=== PATIENT | male | born 1940 | race Caucasian/White ===

== ENCOUNTER 2018-02-13 18:37 | Observation (INO) | payer MEDICARE, OTHER, SELFPAY ==
[2018-02-13] VITALS (10 sets, daily range): BP systolic 85–154; BP diastolic 65–89; PULSE 78–82; RESP 14–20; TEMP 36.5–37.1; O2SAT 93–99; BMI 23.6; BMI 23.9
--- NOTE | 2018-02-13 19:01 | EKG12_ITS ---
Test Reason : Blood Pressure : / mmHG Vent. Rate : 079 BPM Atrial Rate : 079 BPM P-R Int : 204 ms QRS Dur : 088 ms QT Int : 412 ms P-R-T Axes : 007 -10 030 degrees QTc Int : 472 ms Normal sinus rhythm Minimal voltage criteria for LVH, may be normal variant Borderline ECG Confirmed by BEVERLY LI, REMI ([id number]), order editor VENKATESH FOSTER ([id number]) on 02/15/2018 2:13:11 PM Referred By: JESE Confirmed By:ERMI PAUL MD
--- NOTE | 2018-02-13 19:01 | RAD_ITS ---
STUDY: X-RAY CHEST REASON FOR EXAM: Male, 77 years old. Low blood count this morning. Daughter states seeing altered consciousness. TECHNIQUE: Single AP portable view of the chest. COMPARISON: None. FINDINGS: The lungs are well expanded. There is diffuse interstitial changes thought to be chronic. There is question of bibasilar atelectasis versus infiltrate. There is no demonstrated pleural abnormality. Normal size heart. Normal mediastinum and kalee. Normal visualized pulmonary arteries. There is atherosclerotic tortuosity of the aortic arch and descending thoracic aorta. The thoracic spine is obscured by the mediastinum. There is degenerative osteoarthritis of the bilateral shoulders. There is no demonstrated abnormality of the visualized soft tissue structures of the upper abdomen. RAD/Chest 1 View (Portable) IMPRESSION: Bibasilar atelectasis versus infiltrate. Electronically Signed: Mariusz Anaya DO at 19:28 EDT Tel [phone], Service support ,
--- NOTE | 2018-02-13 19:09 | ED.RN ---
NO OLD EKGS IN MUSE
[2018-02-13 19:57] LABS: Absolute Lymphocyte Count 0.95 X10^3/ul (0.83-4.51); Absolute Neutrophil Count 3.3 X10^3/uL (2.0-7.7); Basophil# 0.01 X10^3/uL; Basophil% 0.2 % (0-1); Eosinophils% 4.1 % (0-5); Hematocrit 26.6 % (40-54); Lymphocyte # 0.95 X10^3/ul (4.0); Lymphocyte % 19.3 % (19-41); Mean Corp Hgb Conc 30.1 g/gl (32-36); Mean Corpuscular Hgb 25.8 pg (27.0-32.0); Mean Corpuscular Volume 85.8 fL (80-94); Mean Platelet Vol. 10.3 fl (6.2-12.0); Monocyte# 0.43 X10^3/uL; Monocyte% 8.8 % (0-10); Neutrophil # 3.32 X10^3/uL (2.7-7.7); Neutrophil % 67.6 % (47-70); Platelet Count 104 K/mm3 (150-450); RBC Distribution Width CV 17.8 % (11.6-14.6); RBC Distribution Width SD 56.3 fl (35.1-43.9); White Blood Count 4.9 K/mm3 (4.4-11.0)
[2018-02-13 20:00] LABS: International Normalized Ratio 1.1; Prothrombin Time (Protime)PT. 14.4 SECONDS (11.7-14.9)
[2018-02-13] MEDS: 0.9% Normal Saline 1,000 ML 150 ML IV (20:01)
[2018-02-13 20:02] LABS: POSITIVE COUNT NO; POSITIVE DIFFERENTIAL NO; POSITIVE MORPHOLOGY NO
[2018-02-13 20:10] LABS: ALB/GLOB Ratio 0.7 RATIO (0.9-2.4); AST(SGOT) 17 U/L (15-37); Alanine Aminotransfer ALT/SGPT 14 U/L (16-61); Albumin, Serum 2.9 g/dL (3.2-5.0); Alkaline Phosphatase 92 U/L (45-117); Anion Gap 9 (5-15); BUN 16 mg/dL (7-18); BUN/Creat Ratio 14.3 RATIO (10-20); Calcium,Total 8.4 mg/dL (8.5-10.1); Chloride 100 mmol/L (98-107); Creatinine, Serum 1.12 mg/dL (0.70-1.30); EST Glomerular Filtration Rate 68 mL/min (>60); Est Glom Filt Rate - Afr Amer 82 mL/min (>60); Estimated Creatinine Clearance 56.99 ml/min; Globulin 4.1 g/dL (2.2-4.2); Glucose 88 mg/dL (74-106); Lactic Acid 1.7 mmol/L (0.4-2.0); Potassium 3.9 mmol/L (3.5-5.1); Sodium Level 138 mmol/L (136-145)
[2018-02-13 21:09] LABS: Bacteria 0 SEEN /hpf (None Seen)
[2018-02-13 21:14] LABS: Color, Urine Yellow (Yellow); Glucose, Dipstick Normal (Normal); Ketone-Dipstick Negative (Negative); Leukocyte Esterase-Dipstick 100 /ul (Negative); Nitrite-Dipstick Negative (Negative); Occult Blood-Urine Negative /ul (Negative); Protein-Dipstick Negative (Negative); Specific Gravity, Urine 1.015 (1.002-1.030); Urine Bilirubin Dipstick Negative (Negative); Urine Clarity Clear (Clear); Urine Urobilinogen Normal (Normal)
[2018-02-13 21:22] LABS: Squamous Epithelial Cells - UA 0-5 SEEN /hpf (0-5); White Blood Cells 0-5 SEEN /hpf (0-5)
[2018-02-13 21:23] LABS: Hyaline Cast 0-5 SEEN /lpf (0-5); Mucous, Urine 1+ /hpf (<or=2+); Red Blood Cells-Urine 0-5 SEEN /hpf (0-5)
--- NOTE | 2018-02-13 21:28 | PCM.HP.STD ---
Problem List (1) Altered level of consciousness Status: Acute (2) Anemia Status: Acute (3) COPD (chronic obstructive pulmonary disease) Status: Chronic (4) History of lung cancer Status: Chronic (5) Cirrhosis Status: Chronic History of Present Illness Date of Admission: 02/13/18 Chief Complaint: change in mental status The patient is a 77 year old male patient with a history of lung cancer (in remission), COPD, anemia, cirrhosis presents to the ER with a change in mental status. According to his daughter , the senior backup administrator of the nursing facility, he was unable to call her by name this morning and was very confused. He is currently lucid and alert and improved according to his daughter. The patient easily becomes short of breath with exertion. He does have COPD and is dependent on oxygen using 4 liters continuously. He denies chest pain and is not short of breath at rest. No nausea , vomiting or diarrhea. CBC reveals a hemoglobin of 7.7 and Hemoccult stool is negative. WBC count is within normal limits and vital signs are stable as well. The daughter expressed wishes to keep him at a full code status. He will be admitted overnight for observation and will be transfused. If remains lucid and stable he may be discharged back to rehab facility. Past Medical History Past Medical History (Chronic Problems): Chronic Problems COPD (chronic obstructive pulmonary disease) (Chronic) History of lung cancer (Chronic) Cirrhosis (Chronic) Allergies morphine Allergy (Verified 02/13/18 18:39) Rash Home Medications: Ambulatory Orders Medication Instructions Recorded Acetaminophen [Tylenol] 650 mg PO PRN PRN 02/13/18 Albuterol Inhaler [Ventolin Hfa 2 puff INHALATION 4X/DAY PRN 02/13/18 (SP)] Amoxicillin/Potassium Clav 1 tab PO BID 02/13/18 [Augmentin 875-125 Tablet] Ascorbic Acid [Vitamin C] 500 mg PO DAILY 02/13/18 Bisacodyl 5 mg PO DAILY 02/13/18 Bisacodyl 10 mg RC DAILY 02/13/18 Cholecalciferol (Vitamin D3) 2,000 unit PO DAILY 02/13/18 [Vitamin D3] Diltiazem HCl [Cardizem LA] 120 mg PO DAILY 02/13/18 Duloxetine Hcl [Cymbalta] 30 mg PO DAILY 02/13/18 Finasteride [Proscar] 5 mg PO QHS 02/13/18 Furosemide [Lasix] 20 mg PO DAILY 02/13/18 Ipratropium/Albuterol Sulfate 3 ml INHALATION Q4H PRN PRN 02/13/18 [Duoneb] Isosorbide Mononitrate [Imdur] 30 mg PO DAILY 02/13/18 Lactobacillus Acidophilus 1 tab PO BID 02/13/18 [Acidophilus] Levothyroxine [Synthroid] 56 mcg PO DAILY 02/13/18 Lorazepam [Ativan] 0.5 mg PO BID PRN PRN 02/13/18 Magnesium Hydroxide [Milk of 30 ml PO DAILY 02/13/18 Magnesia] Metoprolol Tartrate 50 mg PO BID 02/13/18 Nortriptyline HCl 75 mg PO QHS 02/13/18 Omeprazole 40 mg PO DAILY 02/13/18 Ondansetron HCl [Zofran] 4 mg PO Q8H PRN PRN 02/13/18 Oxycodone HCl [Roxicodone] 5 mg PO Q6H PRN PRN 02/13/18 Polyethylene Glycol 3350 [Purelax] 17 gm PO DAILY 02/13/18 Potassium Chloride [Klor-Con M10] 10 meq PO DAILY 02/13/18 Sennosides [Senna] 8.6 mg PO BID 02/13/18 Simvastatin 20 mg PO QHS 02/13/18 Tamsulosin HCl [Flomax] 0.4 mg PO QHS 02/13/18 Tramadol HCl [Ultram] 50 mg PO 4X/DAY 02/13/18 Tramadol HCl [Ultram] 50 mg PO Q12H PRN PRN 02/13/18 fentaNYL patch [Duragesic patch] 25 mcg TRANSDERM. Q72H 02/13/18 Smoking Status: Former smoker - *Family History Maternal History Items: No pertinent history Review of Systems Constitutional: Reports: Malaise, Weakness, Fatigue. Denies: Chills, Fever, Weight Change HEENT: Denies: Head Aches, Sinus Congestion, Sinus Drainage Cardiovascular: Denies: Chest Pain, Palpitations Respiratory: Denies: Cough, Shortness of breath at rest, Sputum production Gastrointestinal: Denies: Abdominal Pain, Nausea, Vomiting Genitourinary: Denies: Dysuria Musculoskeletal: Denies: Joint Pain, Joint Tenderness Skin: Denies: Rash, Wounds Neurological: Reports: Confusion. Denies: Focal weakness, Numbness, Tingling Psychiatric: Denies: Anxiety, Depression, Homicidal Ideations, Suicidal Ideations Hematologic/ Lymphatic: Denies: Easy Bruising, Easy Bleeding VTE Information - Inpt Only VTE Present on Admission: No VTE Mechan Device Prophylaxis: SCD's VTE Pharm Prophylaxis ordered?: No Patient Problems: Active and Suspected Problems Altered level of consciousness (Acute) Anemia (Acute) - Physical Exam General: Alert, Oriented x3, Cooperative HEENT: Atraumatic, PERRLA, EOMI, Normocephalic Neck: Supple Lungs: No rhonchi, No wheeze, No rales, Diminished Cardiovascular: Regular rate, Normal S1, Normal S2, Murmur - 4/6 holosystolic Abdomen: Bowel Sounds Present, Soft, Non Tender Extremities: No edema Skin: No rashes Musculoskeletal: No Tenderness to Palpation of Joints or Extremities Neurological: Neuro grossly intact Psych/Mental Status: Normal Affect, Appropriate Vital Signs Temp Pulse Resp BP Pulse Ox 98.8 F 78 14 113/71 97 02/13/18 19:27 02/13/18 21:24 02/13/18 21:24 02/13/18 21:24 02/13/18 21:24 Oxygen Flow Rate (L/min) 2 Oxygen Delivery Method Nasal Cannula Weight: 160 lb Body Mass Index (BMI) 23.6 Microbiology Past 72 Hours 02/13/18 19:30 Stool Occult Blood (EVELINA) - Final Stool Laboratory Tests Past 24 Hrs 02/13/18 02/13/18 02/13/18 19:10 19:10 19:10 WBC 4.9 RBC 3.10 L Hgb 8.0 L Hct 26.6 L MCV 85.8 MCH 25.8 L MCHC 30.1 L RDW 17.8 H RDW Differential 56.3 H Plt Count 104 L MPV 10.3 Immature Gran % (Auto) 0.000 Neut % (Auto) 67.6 Lymph % (Auto) 19.3 [facility] % (Auto) 8.8 Eos % (Auto) 4.1 Baso % (Auto) 0.2 Absolute Neuts (auto) 3.3 Absolute Lymphs (auto) 0.95 Total Counted Not Reportable PT 14.4 INR 1.1 APTT 34.0 Sodium 138 Potassium 3.9 Chloride 100 Carbon Dioxide 29.0 Anion Gap 9 BUN 16 Creatinine 1.12 Estim Creat Clear Calc 56.99 Est GFR (MDRD) Af Amer 82 Est GFR (MDRD) Non-Af 68 BUN/Creatinine Ratio 14.3 Glucose 88 Lactic Acid Calcium 8.4 L Total Bilirubin 0.40 AST 17 ALT 14 L Alkaline Phosphatase 92 Troponin I < 0.015 Total Protein 7.0 Albumin 2.9 L Globulin 4.1 Albumin/Globulin Ratio 0.7 L Urine Color Urine Clarity Urine pH Ur Specific Odell Urine Protein Urine Glucose (UA) Urine Ketones Urine Occult Blood Urine Nitrite Urine Bilirubin Urine Urobilinogen Ur Leukocyte Esterase Urine RBC Urine WBC Ur Squamous Epith Cells Urine Bacteria Hyaline Casts Urine Mucus Blood Type Antibody Screen 02/13/18 02/13/18 02/13/18 19:10 19:10 21:00 WBC RBC Hgb Hct MCV MCH MCHC RDW RDW Differential Plt Count MPV Immature Gran % (Auto) Neut % (Auto) Lymph % (Auto) [facility] % (Auto) Eos % (Auto) Baso % (Auto) Absolute Neuts (auto) Absolute Lymphs (auto) Total Counted PT INR APTT Sodium Potassium Chloride Carbon Dioxide Anion Gap BUN Creatinine Estim Creat Clear Calc Est GFR (MDRD) Af Amer Est GFR (MDRD) Non-Af BUN/Creatinine Ratio Glucose Lactic Acid 1.7 Calcium Total Bilirubin AST ALT Alkaline Phosphatase Troponin I Total Protein Albumin Globulin Albumin/Globulin Ratio Urine Color Yellow Urine Clarity Clear Urine pH 6.0 Ur Specific Odell 1.015 Urine Protein Negative Urine Glucose (UA) Normal Urine Ketones Negative Urine Occult Blood Negative Urine Nitrite Negative Urine Bilirubin Negative Urine Urobilinogen Normal Ur Leukocyte Esterase 100 H Urine RBC 0-5 SEEN Urine WBC 0-5 SEEN Ur Squamous Epith Cells 0-5 SEEN Urine Bacteria 0 SEEN Hyaline Casts 0-5 SEEN Urine Mucus 1+ Blood Type O POSITIVE Antibody Screen NEGATIVE Assessment/Plan All Active Problems Altered level of consciousness (Acute) Anemia (Acute) Chronic conditions - COPD - Cirrhosis - history of lung cancer - debility Plan - admit to medical surgical floor for observation - type cross and transfuse 1 units PRBC - cbc bmp in am - regular diet - neuro checks q 4 hrs - scds for DVT prophylaxis - continue routine home medications
--- NOTE | 2018-02-13 21:49 | ED.DCSUM_ITS ---
- ER Visit Summary Date of Service: 02/13/18 Chief Complaint: Altered mental status History of Present Illness: The patient is a 77 M who resides at rehab for recurrent pneumonias since May. He was briefly confused this morning, but this resolved. He had been complaining of some shortness of breath. He has a history of COPD and uses 4 L of oxygen normally. He was found to have a hemoglobin of 7.7 on labs. He denies any bleeding. Denies any blood thinners. Denies any blood or black stools. He has had anemia in the past and required transfusions. He is not sure why he was anemic. Physical Examination: Initial blood pressure was 85/65, but repeat was 112/58 without intervention. Afebrile and vitals unremarkable. Alert and oriented. No acute distress. HEENT exam unremarkable. Skin slightly pale. Heart regular rate and rhythm. Lungs show crackles in the bases. Abdomen soft and nontender. Rectal exam showed no gross blood. Extremities show no edema. Alert and oriented. Test Results: EKG showed sinus rhythm rate of 79. He will open 8.0. Platelets 104. BMP normal. ALT 114. Coags normal. Urinalysis pending. Troponin normal. Lactate 1.7. Cultures pending. Fecal occult blood test negative. Emergency Department Course and Treatment: Patient treated with fluids. Placed on a monitor. He had no interval change on reevaluation. Vitals of blood pressure remained stable. No change in his symptoms. Patient is anemic. He has chronic lung disease. He has been in rehab. I am not sure why he was confused, but he seems to be improved and stable at this point. No other neurologic symptoms or abnormal findings. Patient was discussed with the hospitalist for his age, symptoms, and comorbidities. He will be observed. Treatment Plan: As above Disposition: Admission Impression: 1. Dyspnea 2. Anemia This note was generated with [employer] dictation software. It may contain incorrect words, spelling, and punctuation that were not noted in review of the chart prior to signing ED Disposition - Plan for ED Patient: Chief Complaint: Alt LOC Referrals: Tristin Marks [Primary Care Provider] -
[2018-02-13] MEDS: Senna Tablet 1 TABLET PO (23:39)
[2018-02-13] MEDS: Tamsulosin HCl 0.4 MG Capsule PO (23:39)
[2018-02-13] MEDS: Metoprolol Tartrate 50 MG Tablet PO (23:40)
[2018-02-13] MEDS: Atorvastatin Calcium 10 MG Tablet PO (23:40)
[2018-02-13] MEDS: Nortriptyline 25 MG Capsule 75 MG PO (23:40)
[2018-02-13] MEDS: Finasteride 5 MG Tablet PO (23:41)
[2018-02-13] MEDS: Amox/Clavulanate 875 MG Tablet PO (23:43)
[2018-02-14] VITALS (7 sets, daily range): BP systolic 128–158; BP diastolic 64–79; PULSE 77–89; RESP 16–22; TEMP 36.2–36.8; O2SAT 94–98
[2018-02-14] MEDS: 0.9% NaCl Peripheral Flush Adult/Peds IV (02:17)
[2018-02-14 07:35] LABS: Absolute Lymphocyte Count 0.83 X10^3/ul (0.83-4.51); Basophil# 0.01 X10^3/uL; Basophil% 0.2 % (0-1); Eosinophil# 0.16 X10^3/uL; Eosinophils% 3.6 % (0-5); Hematocrit 29.3 % (40-54); Hemoglobin 8.9 g/dl (13.0-16.5); Lymphocyte # 0.83 X10^3/ul (4.0); Lymphocyte % 18.8 % (19-41); Mean Corp Hgb Conc 30.4 g/gl (32-36); Mean Corpuscular Hgb 26.3 pg (27.0-32.0); Mean Corpuscular Volume 86.4 fL (80-94); Mean Platelet Vol. 9.9 fl (6.2-12.0); Monocyte# 0.41 X10^3/uL; Monocyte% 9.3 % (0-10); Neutrophil # 2.99 X10^3/uL (2.7-7.7); Neutrophil % 67.9 % (47-70); Platelet Count 96 K/mm3 (150-450); RBC Distribution Width CV 17.4 % (11.6-14.6); RBC Distribution Width SD 53.7 fl (35.1-43.9); Red Blood Count 3.39 M/mm3 (4.6-6.2); White Blood Count 4.4 K/mm3 (4.4-11.0)
[2018-02-14 07:37] LABS: POSITIVE COUNT NO; POSITIVE DIFFERENTIAL NO; POSITIVE MORPHOLOGY NO
[2018-02-14 07:55] LABS: Anion Gap 7 (5-15); BUN 15 mg/dL (7-18); BUN/Creat Ratio 16.3 RATIO (10-20); Calcium,Total 8.3 mg/dL (8.5-10.1); Chloride 101 mmol/L (98-107); Creatinine, Serum 0.92 mg/dL (0.70-1.30); EST Glomerular Filtration Rate 85 mL/min (>60); Est Glom Filt Rate - Afr Amer 103 mL/min (>60); Estimated Creatinine Clearance 67.12 ml/min; Glucose 99 mg/dL (74-106); Potassium 3.8 mmol/L (3.5-5.1); Sodium Level 139 mmol/L (136-145)
[2018-02-14] MEDS: Levothyroxine 112 MCG Tablet 56 MCG PO (09:29)
[2018-02-14] MEDS: Pantoprazole Sodium 40 MG Tablet PO (09:32)
--- NOTE | 2018-02-14 11:09 | CASEMGMT ---
Social Work Note BRIANNE met with pt as pt is listed at being from [facility] ([place] [facility] in [place]). BRIANNE met with pt. BRIANNE introduced self and role at [facility]. Pt is alert and orientated x3. Pt confirms that he is from [facility] [place] [facility] in [place] and that the plan is for him to return there at discharge. BRIANNE placed a call to [place] [facility] and spoke with Rhona in admissions who confirms that pt is from facility skilled and he is able to return to skilled when medically cleared. Rhona provided fax number [phone], phone number [phone]. BRIANNE faxed clinicals to Rhona in admissions. Green sheet on chart. Plan: Pt to return to [facility] [place] [facility] in [place] when medically cleared Anita Gibbons CARD CHECKER, STRAIGHT PIN MAKING MACHINE OPERATOR
[2018-02-14] MEDS: Metoprolol Tartrate 50 MG Tablet PO (12:11)
[2018-02-14] MEDS: DULoxetine Hcl 30 MG Capsule PO (12:12)
[2018-02-14] MEDS: Amox/Clavulanate 875 MG Tablet PO (12:12)
[2018-02-14] MEDS: Furosemide 20 MG Tablet PO (12:13)
[2018-02-14] MEDS: Bisacodyl 5 MG Tablet PO (12:13)
[2018-02-14] MEDS: dilTIAZem CD 120 MG Capsule PO (12:13)
[2018-02-14] MEDS: Ascorbic Acid 500 MG Tablet PO (12:14)
[2018-02-14] MEDS: Magnesium Hydroxide 30 ML UDC PO (12:14)
[2018-02-14] MEDS: Isosorbide Mononitrate 30 MG Tablet PO (12:14)
[2018-02-14] MEDS: Senna Tablet 1 TABLET PO (12:15)
[2018-02-14] MEDS: Polyethylene Glycol 3350 17 GM PACKET PO (12:15)
[2018-02-14 13:16] LABS: Iron 108 ug/dL (65-175); Iron Binding Capacity,Total 325 ug/dL (250-450); PERCENT IRON SATURATION 33.2 % (15.0-55.0)
[2018-02-14] MEDS: Acetaminophen 325 MG Tablet 650 MG PO (14:25)
--- NOTE | 2018-02-14 14:55 | PCM.TXEXTCAR ---
- Diet regular - Routine Orders/Code Status O2 Liters per Minute: 4 O2 Frequency: Continuous - Therapies Weight Bearing: Weight bearing as tolerated - Problem/Diagnosis (1) Chronic respiratory failure with hypoxia Status: Chronic Current Visit: Yes (2) Anemia Status: Acute Comment: etiology unknown Current Visit: Yes (3) COPD (chronic obstructive pulmonary disease) Status: Chronic Current Visit: Yes (4) Cirrhosis Status: Chronic Current Visit: Yes (5) Encephalopathy Status: Acute Comment: etiology unknown Current Visit: Yes - Allergies/Procedures Done in Hospital Allergies/Adverse Reactions: Allergies morphine Allergy (Verified 02/13/18 18:39) Rash Procedures: - - blood transfusion - Type of Care/Length of Stay Estimated LOS: Convalescent Care Less Than 30 days Type of Care Needed: Skilled Rehab Potential: Good Prognosis: Good - Additional Orders/Day of Discharge H&P will serve as current which was dated: 02/13/18 Day of Discharge: 02/14/18 - Follow Up Care Primary Care Physician: Tristin Marks [Primary Care Provider] -
--- NOTE | 2018-02-14 15:00 | CASEMGMT ---
Social Work Note Physician is discharging pt today. BRIANNE faxed discharge paperwork to [place] [facility] ([facility]) including transfer to extended care facility, signed medication list and any scripts. Originals in SNF folder and copy on pt's chart. BRIANNE set up transportation via cot through [facility] for 6:00pm. Transportation form on SNF folder and copy on pt's chart. HENS doesn't need to be completed as pt is from skilled side at SNF and will be returning to skilled side at SNF. SW in to update pt of discharge and transportation time. Pt states understanding. Pt gave this worker permission to call pt's daughter to update on discharge and transportation time. SW placed a call to pt's daughter Winifred and left her a voicemail. BRIANNE updated Wedron Kasandra, Charge Nurse Radha and RN Dara of transportation time. Plan: Pt to discharge to [place] [facility] today via cot with [employer] [employer] Anita Gibbons CASH VAN SALESPERSON, CHEMICAL TREATMENT PLANT TECHNICIAN
--- NOTE | 2018-02-14 16:43 | NURSING ---
REPORT CALLED TO [facility] AT [facility] AND SPOKE WITH KATERYNA BELLAMY
--- NOTE | 2018-02-17 17:44 | PCM.DC.SUM ---
Discharge Date and Diagnosis Date of Admission: 02/13/18 Date of Discharge: 02/14/18 - Primary Discharge Diagnosis #1 acute on chronic anemia-etiology unknown #2 lethargy secondary to acute on chronic anemia with a backdrop of chronic obstructive pulmonary disease and chronic hypoxic respiratory failure #3 chronic hypoxic respiratory failure #4 COPD #5 dementia - Secondary Discharge Diagnosis Chronic Problems COPD (chronic obstructive pulmonary disease) (Chronic) History of lung cancer (Chronic) Cirrhosis (Chronic) Chronic respiratory failure with hypoxia (Chronic) Hospital Course and Treatment Operations: None Procedures: Blood transfusion Summary of Care Provided: The patient is a 77 year old M who was seen in the emergency room at [facility] after being sent in from a local extended care facility due to lethargy. Patient has a history of dementia, chronic hypoxic respiratory failure, and COPD. Workup in the emergency room included labs which showed a hemoglobin of 8, patient's chemistry profile was unremarkable, the patient's liver profile was unremarkable. Chest x-ray showed bibasilar atelectasis. Patient was placed in observation status on MedSurg 3, the patient was transfused 1 unit of packed red blood cells. Discussions were carried out with the patient's POA who did not want further testing on the patient such as an upper GI or lower GI workup. Additional testing was performed in the hospital and it was noted that the patient was not iron deficient and his ammonia level was normal. The reason for the patient's mental status change at the extended care facility was not known. On 02/14/18, patient was seen and examined felt to be in stable condition for transfer back to his extended care facility. Home Medications: Medications to take at Discharge Acetaminophen [Tylenol] 650 mg PO PRN PRN 02/13/18 Albuterol Inhaler [Ventolin Hfa] 2 puff INHALATION 4X/DAY PRN 02/13/18 Amoxicillin/Potassium Clav [Augmentin 875-125 Tablet] 1 tab PO BID 02/13/18 Ascorbic Acid [Vitamin C] 500 mg PO DAILY 02/13/18 Bisacodyl 5 mg PO DAILY 02/13/18 Bisacodyl 10 mg RC DAILY 02/13/18 Cholecalciferol (Vitamin D3) [Vitamin D3] 2,000 unit PO DAILY 02/13/18 Diltiazem HCl [Cardizem LA] 120 mg PO DAILY 02/13/18 Duloxetine Hcl [Cymbalta] 30 mg PO DAILY 02/13/18 Finasteride [Proscar] 5 mg PO QHS 02/13/18 Furosemide [Lasix] 20 mg PO DAILY 02/13/18 Ipratropium/Albuterol Sulfate [Duoneb] 3 ml INHALATION Q4H PRN PRN 02/13/18 Isosorbide Mononitrate [Imdur] 30 mg PO DAILY 02/13/18 Lactobacillus Acidophilus [Acidophilus] 1 tab PO BID 02/13/18 Levothyroxine [Synthroid] 56 mcg PO DAILY 02/13/18 Magnesium Hydroxide [Milk of Magnesia] 30 ml PO DAILY 02/13/18 Metoprolol Tartrate 50 mg PO BID 02/13/18 Nortriptyline HCl 75 mg PO QHS 02/13/18 Omeprazole 40 mg PO DAILY 02/13/18 Ondansetron HCl [Zofran] 4 mg PO Q8H PRN PRN 02/13/18 Polyethylene Glycol 3350 [Purelax] 17 gm PO DAILY 02/13/18 Potassium Chloride [Klor-Con M10] 10 meq PO DAILY 02/13/18 Sennosides [Senna] 8.6 mg PO BID 02/13/18 Simvastatin 20 mg PO QHS 02/13/18 Tamsulosin HCl [Flomax] 0.4 mg PO QHS 02/13/18 Lorazepam [Ativan] 0.5 mg PO BID PRN PRN #10 tab 02/14/18 Oxycodone HCl [Roxicodone] 5 mg PO Q6H PRN PRN 3 Days #10 tab 02/14/18 Tramadol HCl [Ultram] 50 mg PO 4X/DAY #12 tab 02/14/18 Tramadol HCl [Ultram] 50 mg PO Q12H PRN PRN 5 Days #10 tab 02/14/18 fentaNYL patch [Duragesic patch] 25 mcg TRANSDERM. Q72H 9 Days #3 patch 02/14/18 Following Prescrptions Were Given to Patient: Oxycodone HCl [Roxicodone] 5 mg PO Q6H PRN PRN 3 Days #10 tab PRN Reason: CHRONIC PAIN Tramadol HCl [Ultram] 50 mg PO Q12H PRN PRN 5 Days #10 tab PRN Reason: Pain fentaNYL patch [Duragesic patch] 25 mcg TRANSDERM. Q72H 9 Days #3 patch Lorazepam [Ativan] 0.5 mg PO BID PRN PRN #10 tab PRN Reason: Anxiety Tramadol HCl [Ultram] 50 mg PO 4X/DAY #12 tab Primary Care Physician: Tristin Marks [Primary Care Provider] - Disposition: [facility] facility Minutes spent on discharge:: 25 Patient Condition:: Stable Medical Necessity - Tobacco Use Smoking Status: Former smoker Meaningful Use Info Meaningful Use Diagnoses (Choose all that apply): None applicable Code Visit OBSV E&M: 80301 Observation care discharge
== END 2018-02-14 18:28 | disposition skilled nursing facility (03) ==
LOC: ED 19:17 → MS3 22:19
PROVIDERS: Admitting Provider Family Medicine; Emergency Provider Emergency Medicine; Family Provider Internal Medicine; PCP Internal Medicine; Visit Provider Internal Medicine
DX: R41.82 Altered mental status, unspecified (principal); J96.11 Chronic respiratory failure with hypoxia; J44.9 Chronic obstructive pulmonary disease, unspecified; D64.9 Anemia, unspecified; F03.90 Unspecified dementia, unspecified severity, without behavioral disturbance, psychotic disturbance, mood disturbance, and anxiety; Z87.891 Personal history of nicotine dependence; Z79.899 Other long term (current) drug therapy; Z99.81 Dependence on supplemental oxygen; R06.00 Dyspnea, unspecified; Z85.118 Personal history of other malignant neoplasm of bronchus and lung; K74.60 Unspecified cirrhosis of liver; K21.9 Gastro-esophageal reflux disease without esophagitis; I10 Essential (primary) hypertension; I48.91 Unspecified atrial fibrillation; N40.0 Benign prostatic hyperplasia without lower urinary tract symptoms
CPT/HCPCS: 36415; 36430; 71045; 80048; 80053; 81001; 82140; 82274; 83540; 83550; 83605; 84484; 85025; 85610; 85730; 86850; 86900; 86920; 87040; 87086; 87088; 93005; 99218; 99283; J7030; P9016; A4216; G0378

== ENCOUNTER 2018-04-02 08:24 | Emergency (ER) | payer MEDICARE, OTHER, SELFPAY ==
[2018-04-02 08:27] VITALS: BP 156/77; PULSE 77; RESP 18; TEMP 36.2; O2SAT 100; BMI 22.8
[2018-04-02 08:52] VITALS: O2SAT 98
--- NOTE | 2018-04-02 08:55 | CT_ITS ---
STUDY: CT BRAIN WITHOUT CONTRAST REASON FOR EXAM: Male, 77 years old. Fall RADIATION DOSAGE (If Supplied By Facility): CTDIvol = ( 44.99 ) mGy, DLP = ( 745.49 ) mGycm TECHNIQUE: Transaxial CT imaging of the brain was performed without administration of intravenous contrast material. Individualized dose optimization techniques were used for this CT. COMPARISON: None. FINDINGS: Normal soft tissue structures. Normal calvarium. Prominent size ventricles and extra-axial spaces with atrophy. Bilateral white matter microangiopathic ischemic changes of the cerebral hemispheres. Normal basal ganglia and thalami. Normal brainstem. Normal cerebellum. There is no intracranial hemorrhage. There are no findings of an acute ischemic infarction. Normal visualized paranasal sinuses. CT/Brain/Head without Contrast IMPRESSION: Atrophy and age-related changes of the brain. Electronically Signed: Brown Fowler DO at 10:58 EST Tel [phone], Service support ,
--- NOTE | 2018-04-02 08:57 | EKG12_ITS ---
Test Reason : SOB Blood Pressure : / mmHG Vent. Rate : 078 BPM Atrial Rate : 078 BPM P-R Int : 194 ms QRS Dur : 086 ms QT Int : 386 ms P-R-T Axes : 021 -03 011 degrees QTc Int : 440 ms Normal sinus rhythm Moderate voltage criteria for LVH, may be normal variant Borderline ECG Confirmed by RAJENDRA LI, MARY ([id number]), editor news VENKATESH FOSTER ([id number]) on 04/05/2018 1:40:09 PM Referred By: JAM Confirmed By:MARY DREW MD
[2018-04-02 09:18] VITALS: PULSE 84; RESP 18
[2018-04-02] MEDS: Ipratropium/Albuterol Sulfate 3 ML AMPUL.NEB INHALATION (09:18)
[2018-04-02 09:23] LABS: Absolute Lymphocyte Count 0.76 X10^3/ul (0.83-4.51); Absolute Neutrophil Count 3.4 X10^3/uL (2.0-7.7); Basophil# 0.01 X10^3/uL; Basophil% 0.2 % (0-1); Eosinophil# 0.27 X10^3/uL; Eosinophils% 5.6 % (0-5); Hematocrit 34.4 % (40-54); Hemoglobin 10.7 g/dl (13.0-16.5); Lymphocyte # 0.76 X10^3/ul (4.0); Lymphocyte % 15.7 % (19-41); Mean Corp Hgb Conc 31.1 g/gl (32-36); Mean Corpuscular Hgb 26.4 pg (27.0-32.0); Mean Corpuscular Volume 84.7 fL (80-94); Mean Platelet Vol. 10.1 fl (6.2-12.0); Monocyte# 0.45 X10^3/uL; Monocyte% 9.3 % (0-10); Neutrophil # 3.36 X10^3/uL (2.7-7.7); Neutrophil % 69.2 % (47-70); Platelet Count 96 K/mm3 (150-450); RBC Distribution Width CV 20.3 % (11.6-14.6); RBC Distribution Width SD 62.1 fl (35.1-43.9); Red Blood Count 4.06 M/mm3 (4.6-6.2); White Blood Count 4.9 K/mm3 (4.4-11.0)
[2018-04-02 09:24] LABS: Differential Indicated SCAN CRITERIA MET; POSITIVE COUNT NO; POSITIVE DIFFERENTIAL NO; POSITIVE MORPHOLOGY YES
--- NOTE | 2018-04-02 09:25 | RAD_ITS ---
STUDY: X-RAY CHEST REASON FOR EXAM: Male, 77 years old. Shortness of breath TECHNIQUE: Single frontal view COMPARISON: February 13, 2018 FINDINGS: Mild volume loss in the right hemithorax. Diffuse interstitial densities bilaterally. Patchy right midlung infiltrate cannot be excluded. Normal size heart. Normal mediastinum and kalee. Normal visualized pulmonary arteries. Calcified aortic arch and descending thoracic aorta. Degenerative changes of the thoracic spine. Normal visualized ribs, clavicles, and shoulders. A vascular stent is noted within the upper abdomen. RAD/Chest 1 View (Portable) IMPRESSION: Bilateral interstitial prominence in the lungs. Possible right midlung infiltrate. Electronically Signed: Brown Fowler DO at 9:41 EST Tel [phone], Service support ,
[2018-04-02 09:43] LABS: Anion Gap 5 (5-15); BUN 11 mg/dL (7-18); BUN/Creat Ratio 13.3 RATIO (10-20); Calcium,Total 8.2 mg/dL (8.5-10.1); Chloride 103 mmol/L (98-107); Creatinine, Serum 0.83 mg/dL (0.70-1.30); EST Glomerular Filtration Rate 96 mL/min (>60); Est Glom Filt Rate - Afr Amer 117 mL/min (>60); Glucose 73 mg/dL (74-106); Potassium 4.9 mmol/L (3.5-5.1); Sodium Level 137 mmol/L (136-145)
[2018-04-02 09:55] LABS: Anisocytosis 1+; Hypochromasia RARE; Platelet Estimate MOD DEC (ADEQ)
--- NOTE | 2018-04-02 10:41 | ED.DCSUM_ITS ---
- ER Visit Summary Date of Service: 04/02/18 Chief Complaint: Difficulty breathing fall History of Present Illness: The patient is a [address] Marks. He has a history of dementia and is a poor informant. He has no complaints. His review of systems is negative. intermediate reports that he had an unwitnessed fall this morning. He denies any injuries or pain. They also state that they had a hard time getting his pulse ox above 88%. EMS states that on their arrival he was 81% on room air when ambulating back from the bathroom. They placed him on his normal 4 L nasal cannula and his pulse ox was 98%. Physical Examination: Vitals: 97.7, 156/77, 77, 18, 100% on 4 L nasal cannula which is his home O2.. General: Well-nourished and well-developed. Head: Normocephalic atraumatic. Neck: Supple, no lymphadenopathy. No JVD. Nontender. Cardiovascular: Regular rate and rhythm. 3 out of 6 systolic murmur. Respiratory: No respiratory distress. Mild wheezing bilaterally with decreased air movement. Abdominal: Soft, nontender, nondistended, normal bowel sounds. No guarding, rebound, or peritoneal signs. Back: Nontender. Extremities: Nontender, no edema. Skin: Normal color, no rash. Neurologic: Alert and oriented ?2. Cranial nerves II through XII are intact. Normal strength and sensation. Psych: Normal affect. Test Results: EKG is sinus at [address] changes. Troponin is negative. Chem-7 is marked for glucose of 73 and the patient was allowed to eat while here. CBC is more for an H&H 10.7 34.4, lymphocytes of 16, eosinophils of 6. Chest x-ray shows bilateral interstitial prominence with question of a right middle lobe infiltrate. CT brain shows no acute disease. Emergency Department Course and Treatment: Patient was treated albuterol and Atrovent aerosols. His daughter, Winifred Sy, and his power of armored vehicle officer, presented to the emergency department and had a prolonged discussion with him about the findings. She would like this questionable right middle lobe inf iltrate treated. He is given dose of Levaquin p.o. She is comfortable with [facility] and she actually works there. Treatment Plan: Patient will be discharged on 6 more days of Levaquin. Instructed to follow-up his primary care physician in 5-7 days for another exam. Return to the emergency department for any worsening symptoms. Disposition: To home in improved and stable condition. Impression: 1. Fall. 2. COPD. 3. Pneumonia, right middle lobe. This note was generated with [employer] dictation software. It may contain incorrect words, spelling, and punctuation that were not noted in review of the chart prior to signing ED Disposition - Plan for ED Patient: Chief Complaint: Shortness of Breath Instructions: ED Pneumonia Adult Prescriptions: Levofloxacin [Levaquin] 750 mg PO DAILY #6 tablet Referrals: Tristin Marks [Primary Care Provider] - 5-7 Days
[2018-04-02 10:57] VITALS: BP 164/82; PULSE 94; RESP 18; O2SAT 95
[2018-04-02] MEDS: levoFLOXacin 750 MG Tablet PO (11:56)
--- NOTE | 2018-04-02 12:01 | PCA ---
CALLED FOR TRANSPORT WITH [facility] AT 12;01
== END 2018-04-02 13:46 ==
PROVIDERS: Emergency Provider Emergency Medicine; Family Provider Internal Medicine; PCP Internal Medicine
DX: J44.0 Chronic obstructive pulmonary disease with (acute) lower respiratory infection (principal); J18.9 Pneumonia, unspecified organism; I48.91 Unspecified atrial fibrillation; K74.60 Unspecified cirrhosis of liver; I10 Essential (primary) hypertension; E03.9 Hypothyroidism, unspecified; N40.0 Benign prostatic hyperplasia without lower urinary tract symptoms; F03.90 Unspecified dementia, unspecified severity, without behavioral disturbance, psychotic disturbance, mood disturbance, and anxiety; K21.9 Gastro-esophageal reflux disease without esophagitis; Z85.118 Personal history of other malignant neoplasm of bronchus and lung; Z86.2 Personal history of diseases of the blood and blood-forming organs and certain disorders involving the immune mechanism
CPT/HCPCS: 70450; 71045; 80048; 84484; 85025; 93005; 94640; 99285; A4216

== ENCOUNTER 2018-05-13 21:03 | Emergency (ER) | payer MEDICARE, MEDICAID, OTHER, SELFPAY ==
[2018-05-13 21:04] VITALS: BP 126/78; PULSE 73; RESP 16; TEMP 36.2; O2SAT 99; BMI 21.1
--- NOTE | 2018-05-13 21:47 | RAD_ITS ---
STUDY: X-RAY - RIGHT HIP REASON FOR EXAM: Male, 77 years old. Unwitnessed fall, right hip and back pain TECHNIQUE: 2 views of the hip. AP pelvis. COMPARISON: None. FINDINGS: Normal femoral head, neck, intertrochanteric region and visualized proximal femur. Normal acetabulum. There is mild articular joint space narrowing. Pelvic ring is intact. Circumferential narrowing of the left hip joint identified with subchondral sclerosis. Sacrum is grossly unremarkable although largely obscured by rectal contents. Vascular stent of the lower aorta/iliac arteries with atherosclerosis of the iliofemoral arteries. Surgical clips project over both hips. RAD/HIP, UNI W/ Pelvis 2-3 Views IMPRESSION: 1. No fracture or malalignment. 2. Degenerative changes, as above. Electronically Signed: Mookie Brown MD at 22:46 EST , Service support ,
--- NOTE | 2018-05-13 21:47 | RAD_ITS ---
STUDY: X-RAY - LUMBAR SPINE REASON FOR EXAM: Male, 77 years old. Unwitnessed fall, hip and back pain TECHNIQUE: 3 view(s) of the lumbar spine were obtained. COMPARISON: None FINDINGS: Normal lumbar lordosis. There is a dextroscoliosis of the lumbar spine. There is a normal alignment of the vertebrae. There is diffuse demineralization with multi-level endplate spondylosis. There is multi-level degenerative disc disease with multi-level disc space narrowing, worst at L3-L4, L4-L5 and L5-S1.. No compression fracture. Aortic biiliac stent graft is noted. Vascular calcifications are present. Group of calcifications projecting right of midline could be intraluminal bowel contents versus renal calcifications versus gallbladder calcifications. RAD/Lumbar Spine 2 or 3 Views IMPRESSION: 1. No compression fracture. 2. Right abdomen calcifications could be within bowel, renal calculi or gallstones. Electronically Signed: Mookie Brown MD at 22:52 EST , Service support ,
--- NOTE | 2018-05-13 23:11 | ED.VISSUMM ---
- ER Visit Summary Date of Service: 05/13/18 Chief Complaint: Fall History of Present Illness: The patient is a 77 M who presents after an unwitnessed fall at the assisted today. Patient was found on the floor by his chair. skilled nursing staff states the patient was complaining of pain in his back and right hip. Patient has a history of dementia and is a poor historian. Patient denies any head injury. Physical Examination: Vital signs are stable. Patient is afebrile. Patient is in no acute distress. Oral mucosa is pink and moist. Heart was regular rate and rhythm. Lungs are clear and equal bilaterally. Abdomen is soft and nontender. There is some mild tenderness of the lateral aspect of the right hip and right lower lumbar paraspinal area. There is no deformity noted. Range of motion was slightly limited in all motions of the right hip secondary to pain. There is no bony crepitance or step-off. Pedal pulses are equal bilaterally. The remaining physical exam is within normal limits. Test Results: X-rays of the lumbar spine and right hip were obtained. There are no acute fractures. Emergency Department Course and Treatment: Patient will be discharged back to his extended care facility. Patient will continue current medications. Patient will follow up with his primary care physician at the extended care facility in 7-10 days. Disposition: Discharged to extended care facility Impression: Right hip contusion This note was generated with Xero dictation software. It may contain incorrect words, spelling, and punctuation that were not noted in review of the chart prior to signing ED Disposition - Plan for ED Patient: Disposition: Snf Facility Chief Complaint: Fall Diagnosis: Contusion of right hip, initial encounter Instructions: ED Fall Uncertain Cause Referrals: Tristin Marks [Primary Care Provider] -
--- NOTE | 2018-05-13 23:14 | ED.DCSUM_ITS ---
- ER Visit Summary Date of Service: 05/13/18 Chief Complaint: Fall History of Present Illness: The patient is a 77 M who presents after an unwitnessed fall at the custodial today. Patient was found on the floor by his chair. [facility] staff states the patient was complaining of pain in his back and right hip. Patient has a history of dementia and is a poor historian. Patient denies any head injury. Physical Examination: Vital signs are stable. Patient is afebrile. Patient is in no acute distress. Oral mucosa is pink and moist. Heart was regular rate and rhythm. Lungs are clear and equal bilaterally. Abdomen is soft and nontender. There is some mild tenderness of the lateral aspect of the right hip and right lower lumbar paraspinal area. There is no deformity noted. Range of motion was slightly limited in all motions of the right hip secondary to pain. There is no bony crepitance or step-off. Pedal pulses are equal bilaterally. The remaining physical exam is within normal limits. Test Results: X-rays of the lumbar spine and right hip were obtained. There are no acute fractures. Emergency Department Course and Treatment: Patient will be discharged back to his extended care facility. Patient will continue current medications. Patient will follow up with his primary care physician at the extended care facility in 7-10 days. Disposition: Discharged to extended care facility Impression: Right hip contusion This note was generated with Flywheel dictation software. It may contain incorrect words, spelling, and punctuation that were not noted in review of the chart prior to signing ED Disposition - Plan for ED Patient: Disposition: Senior Living Facility Chief Complaint: Fall Diagnosis: Contusion of right hip, initial encounter Instructions: ED Fall Uncertain Cause Referrals: Tristin Marks [Primary Care Provider] -
--- NOTE | 2018-05-13 23:55 | ED.RN ---
Addendum entered by Kasandra Capellan 05/13/18 23:59: [place] Original Note: called report to JOSESITO Shrestha at [facility].
--- NOTE | 2018-05-13 23:58 | ED.RN ---
called daughter to update on pt condition and d/c to [facility]. secretary receptionist working on transport.
--- OUTSIDE RECORDS SUMMARY | 2018-08-16 12:35 | XMS RPT_ITS ---
:1940 Author Organization [facility] Support Name Relationship Address Phone WINIFRED SY Unavailable Unavailable + R Unavailable Unavailable Unavailable VINH MITCHELL Unavailable [address] + [place] [address] WINIFRED SY Unavailable POA + R Unavailable Unavailable Unavailable VINH MITCHELL Unavailable [address] + [place] [address] WINIFRED SY Unavailable POA + R Unavailable Unavailable Unavailable VINH MITCHELL Unavailable [address] + [place] [address] WINIFRED SY Unavailable POA + R Unavailable Unavailable Unavailable VINH MITCHELL Unavailable [address] + [place] [address] WINIFRED SY Unavailable POA + R Unavailable Unavailable Unavailable VINH MITCHELL Unavailable [address] + [place] [address] WINIFRED SY Unavailable POA + R Unavailable Unavailable Unavailable VINH MITCHELL Unavailable [address] + [place] [address] KRISTIE SYNA Unavailable Unavailable + R Unavailable Unavailable Unavailable VINH MITCHELL Unavailable [address] + [place] [address] KRISTIE SYNA Unavailable Unavailable + R Unavailable Unavailable Unavailable VINH MITCHELL Unavailable [address] + [place] [address] KRISTIE SYNA Unavailable Unavailable + R Unavailable Unavailable Unavailable STEPHEN, VINH Unavailable [address] + [place] [address] TORRES, WINIFRED Unavailable Unavailable + R Unavailable Unavailable Unavailable VINH MITCHELL Unavailable [address] + [place] [address] TORRES, WINIFRED Unavailable POA + R Unavailable Unavailable Unavailable VINH MITCHELL Unavailable [address] + [place] [address] TORRES, WINIFRED Unavailable POA + R Unavailable Unavailable Unavailable TORRES, WINIFRED Unavailable POA + R Unavailable Unavailable Unavailable TORRES, WINIFRED Unavailable POA + R Unavailable Unavailable Unavailable TORRES, WINIFRED Unavailable POA + R Unavailable Unavailable Unavailable TORRES, WINIFRED Unavailable POA + R Unavailable Unavailable Unavailable STEPHENZURDOON Unavailable Unavailable + MONDORF, VLADIMIR Unavailable Unavailable + STEPHENZURDOON Unavailable Unavailable + MONDORF, VLADIMIR Unavailable Unavailable + STEPHEN VINH Unavailable Unavailable + VINH MITCHELL Unavailable Unavailable + MONDORF, VLADIMIR Unavailable Unavailable + STEPHEN VINH Unavailable Unavailable + MONDORF, VLADIMIR Unavailable Unavailable + VINH MITCHELL Unavailable Unavailable + MONDORF, VLADIMIR Unavailable Unavailable + VINH MITCHELL Unavailable Unavailable + MONDORF, VLADIMIR Unavailable Unavailable + VINH MITCHELL Unavailable Unavailable + MONDORF, VLADIMIR Unavailable Unavailable + VINH MITCHELL Unavailable Unavailable + MONDORF, VLADIMIR Unavailable Unavailable + VINH MITCHELL Unavailable Unavailable + MONDORF, VLADIMIR Unavailable Unavailable + STEPHEN, VINH Unavailable Unavailable + MONDORF, VLADIMIR Unavailable Unavailable + ZURDO MITCHELLON Unavailable Unavailable + ZURDO MITCHELLON Unavailable Unavailable + MONDORF, VLADIMIR Unavailable Unavailable + ZURDO MITCHELLON Unavailable Unavailable + MONDORF, VLADIMIR Unavailable Unavailable + ZURDO MITCHELLON Unavailable Unavailable + STEPHENZURDOON Unavailable Unavailable + MONDORF, VLADIMIR Unavailable Unavailable + STEPHEN, VINH Unavailable Unavailable + ZURDO MITCHELLON Unavailable Unavailable + MUNDORF, VLADIMIR Unavailable Unavailable + ZURDO MITCHELLON Unavailable Unavailable + VINH MITCHELL Unavailable Unavailable + MUNDORF, VLADIMIR Unavailable Unavailable + VINH MITCHELL Unavailable Unavailable + VINH MITCHELL Unavailable Unavailable + MUNDORF, VLADIMIR Unavailable Unavailable + VINH MITCHELL Unavailable Unavailable + VINH MITCHELL Unavailable Unavailable + MONDORF, VLADIMIR Unavailable Unavailable + VINH MITCHELL Unavailable Unavailable + Care Team Providers Name Role Phone SAMAYOA, HARMOHINDER Primary Care Unavailable TOMA BATES Admitting Unavailable TOMA BATES Attending Unavailable HUNTER ELAINE Attending Unavailable SAMAYOA, HARMOHINDER Primary Care Unavailable HUNTER ELAINE Attending Unavailable SAMAYOA, HARMOHINDER Primary Care Unavailable SAMAYOA, HARMOHINDER Primary Care Unavailable RONALDO, MILIND Attending Unavailable RONALDO, MILIND Admitting Unavailable SAMAYOA, HARMOHINDER Primary Care Unavailable RANULFO STODDARD Attending Unavailable SAMAYOA, HARMOHINDER Primary Care Unavailable OGBECHIE, BONAVENTURE C Admitting Unavailable OGBECHIE, BONAVENTURE C Attending Unavailable SAMAYOA, HARMOHINDER Primary Care Unavailable OGBECHIE, BONAVENTURE C Admitting Unavailable ROSALINDA RDZ Attending Unavailable SAMAYOABIANKA Attending Unavailable SAMAYOAARIELAKSVLADIMIR Primary Care Unavailable Samayoa, Dr. Bianka De [facility] Primary Care Unavailable Samayoa, Dr. Molinancvladimir [facility] Primary [facility] Unavailable Samayoa, Dr. Lucas [facility] Primary Care Unavailable Samayoa, Dr. Bianka [facility] Primary Care Unavailable Samayoa, Dr. Bianka [facility] Primary Care Unavailable Samayoa, Dr. Bianka [facility] Primary Care Unavailable Samayoa, Dr. Molinancvladimir [facility] Unavailable Samayoa, Dr. Molinancvladimir [facility] Care Unavailable Ogbechie, Dr. Cesar Pollack Attending Unavailable Samayoa, Dr. Bianka [facility] Primary Care Unavailable Ogbechie, Dr. Cesar Pollack Attending Unavailable Samayoa, Dr. Bianka [facility] Unavailable Ogbechie, Dr. Cesar Pollack Attending Unavailable Samayoa, Dr. Bianka [facility] Primary Care Unavailable Ogbechie, Dr. Cesar Pollack Attending Unavailable Samayoa, Dr. Lucas [facility] Unavailable Samayoa, Dr. Lucas [facility] Primary Care Unavailable Samayoa, Dr. Molinancvladimir [facility] Care Unavailable Samayoa, Dr. Molinancvladimir [facility] Care Unavailable Ogbechie, Dr. Cesar Pollack Attending Unavailable Samayoa, Dr. Molinancvladimir [facility] Unavailable Ogbechie, Dr. Cesar Pollack Attending Unavailable Samayoa, Dr. Lucas [facility] Unavailable Katsaros, Peter Primary Care Unavailable Efrain Dominic Admitting Unavailable Tereletsmary Emery Attending Unavailable Dominic Zuniga Attending Unavailable Katsaros, Peter Primary Care Unavailable Efrain, Dominic Admitting Unavailable Tereletsmary, Emery Attending Unavailable Katsaros, Peter Primary Care Unavailable Terkashif, Emery Consulting Unavailable Zuniga, Dominic Admitting Unavailable Tereletsky, Emery Attending Unavailable Katsaros, Peter Primary Care Unavailable Tereletsky, Emery Consulting Unavailable Katsaros, Peter Primary Care Unavailable Benoit Ku Attending Unavailable Katsaros, Peter Primary Care Unavailable Noe Grissom Attending Unavailable Katsaros, Peter Primary Care Unavailable Cain Pereyra Admitting Unavailable Ronaldo, Milind Attending Unavailable Juan M Lemon D.O. Consulting Unavailable Kotsonis, Cain F Admitting Unavailable Kotsonis, Cain F Attending Unavailable Katsaros, Peter Primary Care Unavailable Kotsonis, Cain F Consulting Unavailable Kotsonis, Cain F Admitting Unavailable Kotsonis, Cain F Attending Unavailable Katsaros, Peter Primary Care Unavailable Kotsonis, Cain F Consulting Unavailable Kotsonis, Cain F Admitting Unavailable Ronaldo, Milind Attending Unavailable Katsaros, Peter Primary Care Unavailable Ronaldo, Milind Consulting Unavailable Kotsonis, Cain F Admitting Unavailable Ronaldo, Milind Attending Unavailable Katsaros, Peter Primary Care Unavailable Juan M Lemon D.O. Consulting Unavailable Ronaldo, Milind Consulting Unavailable Kotsonis, Cain F Admitting Unavailable Juan M Lemon D.O. Attending Unavailable Katsaros, Peter Primary Care Unavailable Juan M Lemon D.O. Consulting Unavailable Ronaldo, Milind Consulting Unavailable Kotsonis, Cain F Admitting Unavailable Ronaldo, Milind Attending Unavailable Katsaros, Peter Primary Care Unavailable Juan M Lemon D.O. Consulting Unavailable Ronaldo, Milind Consulting Unavailable Kotsonis, Cain F Admitting Unavailable Juan M Lemon D.O. Attending Unavailable Katsaros, Peter Primary Care Unavailable Juan M Lemon D.O. Consulting Unavailable Ronaldo, Milind Consulting Unavailable Kotsonis, Cain F Admitting Unavailable Ronaldo, Milind Attending Unavailable Katsaros, Peter Primary Care Unavailable Juan M Lemon D.O. Consulting Unavailable Ronaldo, Milind Consulting Unavailable Kotsonis, Cain F Admitting Unavailable Juan M Lemon D.O. Attending Unavailable Katsaros, Peter Primary Care Unavailable Juan M Lemon D.O. Consulting Unavailable Ronaldo, Milind Consulting Unavailable PROBLEMS PROBLEMS DATE TYPE CONDITION / CODE ATTENDING STATUS SOURCE Unknown R41.82 - Altered Emery Soliz Active [facility] 8 mental status, Community unspecified / Hospital R41.82(ICD-10) Repository Admitting Urinary tract SAMAYOA, Active [facility] 8 diagnosis infection, site not HARMOHINDER Repository specified / N39.0(ICD-9) Final Urinary tract SAMAYOA, Active [facility] 8 diagnosis infection, site not HARMOHINDER Repository (discharge) specified / N39.0(ICD-9) Final Dysuria / SAMAYOA, Active [facility] 8 diagnosis R30.0(ICD-9) HARMOHINDER Repository (discharge) Final Chronic obstructive SEFFOIRISAS [facility] 8 diagnosis pulmon disease w Repository (discharge) acute lower resp infct / J44.0(ICD-9) Final Chronic obstructive SEFFO, FIRAS [facility] 8 diagnosis pulmonary disease w Repository (discharge) (acute) exacerbation / J44.1(ICD-9) Final Unspecified SEFFO, FIRAS [facility] 8 diagnosis cirrhosis of liver / Repository (discharge) K74.60(ICD-9) Final Gastro-esophageal SEFFO FIRAS [facility] 8 diagnosis reflux disease Repository (discharge) without esophagitis / K21.9(ICD-9) Final Hypothyroidism, SEFFO, FIRAS [facility] 8 diagnosis unspecified / Repository (discharge) E03.9(ICD-9) Final Benign prostatic SEFFO, [facility] 8 diagnosis hyperplasia without Repository (discharge) lower urinry tract symp / N40.0(ICD-9) Final Personal history of SESAMYO FIRAS [facility] 8 diagnosis nicotine dependence Repository (discharge) / Z87.891(ICD-9) Final Personal history of SEFFO FIRAS [facility] 8 diagnosis malignant neoplasm Repository (discharge) of bronchus and lung / Z85.118(ICD-9) Final Hyperlipidemia, SEFFO, FIRAS [facility] 8 diagnosis unspecified / Repository (discharge) E78.5(ICD-9) Final Essential (primary) SEFFO, FIRAS [facility] 8 diagnosis hypertension / Repository (discharge) I10(ICD-9) Final Acute kidney SEFFO, FIRAS [facility] 8 diagnosis failure, unspecified Repository (discharge) / N17.9(ICD-9) Admitting Dorsalgia, SEFFO, FIRAS [facility] 8 diagnosis unspecified / Repository M54.9(ICD-9) [facility] inhalation of food Repository (discharge) and vomit / J69.0(ICD-9) Final Thrombosis due to KAJAL [facility] 8 diagnosis vascular prosth Repository (discharge) dev/grft, init / T82.868A(ICD-9) Final Obesity, unspecified [facility] diagnosis / E66.9(ICD-9) Repository (discharge) Final Body mass index ROSALINDA RDZ [facility] 8 diagnosis (BMI) 22.0-22.9, Repository (discharge) adult / Z68.22(ICD-9) Final Paroxysmal atrial KAJAL [facility] 8 diagnosis fibrillation / Repository (discharge) I48.0(ICD-9) Final Old myocardial KAJAL [facility] 8 diagnosis infarction / Repository (discharge) I25.2(ICD-9) Final Presence of coronary KAJAL [facility] 8 diagnosis angioplasty implant Repository (discharge) and graft / Z95.5(ICD-9) Final Type 2 diabetes KAJAL [place] [address] diagnosis mellitus without Repository (discharge) complications / E11.9(ICD-9) Final Encounter for ROSALINDA RDZ [facility] 8 diagnosis palliative care / Repository (discharge) Z51.5(ICD-9) Final Chronic respiratory OGBECHIE, [facility] 8 diagnosis failure with hypoxia BONAVENTURE C Repository (discharge) / J96.11(ICD-9) Final Hypo-osmolality and OGBECHIE, [facility] 8 diagnosis hyponatremia / BONAVENTURE C Repository (discharge) E87.1(ICD-9) Final Dependence on OGBECHIE, [facility] 8 diagnosis supplemental oxygen BONAVENTURE C Repository (discharge) / Z99.81(ICD-9) Final Dehydration / OGBECHIE, [facility] 8 diagnosis E86.0(ICD-9) BONAVENTURE C Repository (discharge) Final Unspecified OGBECHIE, [facility] 8 diagnosis bacterial pneumonia BONAVENTURE C Repository (discharge) / J15.9(ICD-9) Admitting Chronic obstructive OGBECHIE, [facility] 8 diagnosis pulmonary disease, BONAVENTURE C Repository unspecified / J44.9(ICD-9) Final Malignant neoplasm ARLYN [facility] 8 diagnosis of unsp part of unsp Repository (discharge) bronchus or lung / C34.90(ICD-9) Admitting Shortness of breath ARLYN [facility] 8 diagnosis / R06.02(ICD-9) Repository Final Chronic obstructive ARLYN, [facility] 8 diagnosis pulmonary disease, Repository (discharge) unspecified / J44.9(ICD-9) Final Pure ARLYN, [facility] 8 diagnosis hypercholesterolemia Repository (discharge) , unspecified / E78.00(ICD-9) Final Disorder of [facility], [facility] 8 diagnosis unspecified / Repository (discharge) E07.9(ICD-9) Final [facility] aneurysm, without Repository (discharge) rupture / I71.4(ICD-9) Final Atelectasis / [facility] 8 diagnosis J98.11(ICD-9) [facility]charge) [facility] influenza Repository (discharge) virus w oth pneumonia / J10.08(ICD-9) Final Acute on chronic [facility] 8 diagnosis diastolic Repository (discharge) (congestive) heart failure / I50.33(ICD-9) Final Thrombocytopenia, [facility] 8 diagnosis unspecified / Repository (discharge) D69.6(ICD-9) Final Nonrheumatic aortic [place] [address] diagnosis (valve) stenosis / Repository (discharge) I35.0(ICD-9) Final Hypertensive heart [place] [address] diagnosis disease with heart Repository (discharge) failure / I11.0(ICD-9) Final Personal history of [place] [address] diagnosis antineoplastic Repository (discharge) chemotherapy / Z92.21(ICD-9) Final History of falling / [place] [address] diagnosis Z91.81(ICD-9) Repository (discharge) Final Other chronic pain / [place] [address] diagnosis G89.29(ICD-9) Repository (discharge) Final Dorsalgia, [place] [address] diagnosis unspecified / Repository (discharge) M54.9(ICD-9) Final Atherosclerosis of [place] [address] diagnosis aorta / I70.0(ICD-9) Repository (discharge) Final Nonrheumatic aortic [place] [address] diagnosis (valve) Repository (discharge) insufficiency / I35.1(ICD-9) Final Hematuria, [facility] 8 diagnosis unspecified / Repository (discharge) R31.9(ICD-9) Admitting Malignant neoplasm [facility]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, right Repository bronchus or lung / C34.31(ICD-9) Final Malignant neoplasm LIT, [facility]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, right Repository (discharge) bronchus or lung / C34.31(ICD-9) Final Pneumonia, LIT, [facility] 8 diagnosis unspecified organism Repository (discharge) / J18.9(ICD-9) Admitting Pneumonia, LIT, [facility] 8 diagnosis unspecified organism Repository / J18.9(ICD-9) Admitting Sepsis, unspecified TOMA BATES [facility] 8 diagnosis organism / Repository A41.9(ICD-9) Final Sepsis, unspecified REGINO BATESEM Active [facility] 8 diagnosis organism / Repository (discharge) A41.9(ICD-9) Final Antineoplastic [facility] Active [facility] 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 / D61.810(ICD-9) Final 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 / Repository (discharge) C79.51(ICD-9) Final Pulmonary fibrosis, [facility] Active [facility] 8 diagnosis unspecified / Repository (discharge) J84.10(ICD-9) Final Hypomagnesemia / JANA [facility] 8 diagnosis E83.42(ICD-9) Repository (discharge) Final Patient's JANA [facility] 8 diagnosis noncompliance w oth Repository (discharge) medical treatment and regimen / Z91.19(ICD-9) PROCEDURES PROCEDURES No Procedure Records FoundRESULTS RESULTS DISCHARGE SUMMARY Observed: 06/15/2018 Status: F Source: [place] 6:57 PM [facility] REPOSITORY [facility] Medical Records Department [address] [place] [id number] Discharge Summary 06/15/18 1151 MR#: [id number] Acct: [id number] Name: KAY MITCHELL Rep #: [id number] : 1940 77 From: Milind Quinn MD PCP: Tristin Marks Status: DIS IN Y [facility] Dis[facility] Date and Diagnosis Date of Admission: 06/10/18 Date of Discharge: 06/15/18 - Primary Discharge Diagnosis Active and Suspected Problems Severe sepsis (Acute) Healthcare-associated pneumonia (Acute) UTI (urinary tract infection) (Acute) Hypoxemia (Acute) Thrombocytopenia (Acute) - Secondary Discharge Diagnosis Chronic Problems COPD (chronic obstructive pulmonary disease) (Chronic) History of lung cancer (Chronic) Cirrhosis (Chronic) Chronic respiratory failure with hypoxia (Chronic) Hypertension (Chronic) Depression (Chronic) Hospital Course and Treatment Summary of Care Provided: [] There is a 77 gentleman with history of COPD, chronic hypoxic respiratory failure on 4 L of home oxygen, lung cancer as per chart was admitted with shortness of breath, fever, tachypnea and acute on chronic hypoxic respiratory failure. 1. Sepsis secondary to viral RSV B and most probably bacterial superinfection healthcare associated pneumonia/acute hypoxic respiratory failure and metabolic encephalopathy secondary to pneumonia/MRSA UTI on baseline interstitial lung disease - -Lactate has resolved to 1.7. Patient still has low-grade temperature, 99.7 and 100.6 Fahrenheit on 06/11. - Influenza tests are negative. Blood cultures were negative for more than 48 hours. -Strep and Legionella urine antigens are negative. Respiratory panel positive of RSV B Repeat chest x-ray shows interstitial groundglass opacity predominantly in the right mid and lower lung. It seems fibrosis and possible scarring. Pulmonary consult reviewed and appreciated. No further need for inpatient pulmonary workup. Patient had total 5 days of IV Zosyn and vancomycin initially which was switched to Bactrim DS. Patient completed 5 days of MRSA UTI treatment. Scripts given for Augmentin. Advised to continue same medication and follow-up in pulmonary clinic MRSA UTI most probably secondary to Edmond catheterization, CAUTI: Edmond catheter was removed. Urine culture shows MRSA 11,000-25,000. This was discussed with Dr. Pool and he advised total of 7 days of MRSA treatment. Patient already had about 5 days of vancomycin which was switched to Bactrim DS. Patient needs 3 more days of Bactrim which was ordered. 2. Acute on chronic combined systolic and diastolic heart failure with elevated BNP: BNP elevated 4237. Continue Lasix 40 mg IV daily. 2D echo was done and shows EF 35% with LA mildly enlarged. Systolic segmental dysfunction. Normal tricuspid valve with unable to estimate RVSP with technically difficult study. Moderate mitral annular calcification with trivial MR. No pericardial effusion 2. Hypertension/hyperlipidemia/edema -Stable -Can restart blood pressure medications today -Continue with simvastatin 3. GERD -Stable -Continue with PPI 4. BPH -Stable -Continue with Flomax and finasteride 5. COPD -No wheezing on exam to think that this is an exacerbation -Can continue his DuoNeb as needed 6. Hypothyroidism -Stable -Continue with Synthroid Chronic thrombocytopenia: Patient platelet count was 104,000 in January 2018. On this admission, patient came with 59,000 with slow improvement 81,000. Patient is moderate to high risk for DVT. Continue Lovenox 40 minutes subcu daily. Platelet count is stable. Discontinue if platelet count drops less than 70,000 or hemoglobin less than 8 g% Discussed with the patient's daughter, [phone] regarding hospice care. Patient's daughter will further discuss with the patient's . Patient follows with palliative care hospice [facility] and will follow up in the skilled nursing. Microbiology Past 72 Hours 06/10/18 09:10 Blood Culture (Wb) - Left Hand Blood Culture - Final No growth in 5 days. 06/10/18 09:10 Blood Culture (Wb) - Anticubital Right Blood Culture - Final No growth in 5 days. 06/13/18 07:24 Mucosa - Nasopharyngeal Respiratory Panel (PCR) - Final RSV B Laboratory Results 06/15/18 04:35: Sodium 143, Potassium 3.2 L, Chloride 102, Carbon Dioxide 31.0, Anion Gap 10, BUN 21 H, Creatinine 1.13, Estim Creat Clear Calc 51.69, Est GFR (MDRD) Af Amer 81, Est GFR (MDRD) Non-Af 67, BUN/Creatinine Ratio 18.6, Glucose 87, Calcium 8.6 Subjective: Seen and examined. Patient is awake and alert. Patient is talking. Patient being held by physical therapist to walk a few steps. Objective: General: Alert, Cooperative, oriented to this in person but not time HEENT: Atraumatic, PERRLA, EOMI, Normocephalic Neck: Supple, No JVD, Negative Carotid Bruits Lungs: Diminished - Air entry diminished. Bilateral rhonchi, Rales, Rhonchi, mild shortness of breath on exertion, seems his baseline Cardiovascular: Regular rate, Regular Rhythm, Normal S1, Normal S2, No murmurs Abdomen: Bowel Sounds Present, Soft, Non Tender, Non-Distended Extremities: No edema, Capillary Refill Less than 3 Seconds Skin: No rashes, No breakdown Musculoskeletal: No Tenderness to Palpation of Joints or Extremities, Arthritic Changes, Muscle Wasting Neurological: Cranial nerves II-XII grossly intact, Deep Tendon Reflexes 2+/4 and Symmetrical Psych/Mental Status: Normal Affect, Appropriate - Physical Exam General: Alert, Oriented x3, Cooperative HEENT: Atraumatic, PERRLA, EOMI, Normocephalic Neck: Supple, No JVD, Negative Carotid Bruits Lungs: Clear to auscultation, Normal air movement Cardiovascular: Regular rate, Normal S1, Normal S2, No murmurs Abdomen: Bowel Sounds Present, Soft, Non Tender, Non-Distended Extremities: No edema, Capillary Refill Less than 3 Seconds Skin: No rashes, No breakdown Musculoskeletal: No Tenderness to Palpation of Joints or Extremities, Arthritic Changes, Muscle Wasting Lymphatic: No Cervical, Supraclavicular, or Inguinal Adenopathy Neurological: Cranial nerves II-XII grossly intact, Deep Tendon Reflexes 2+/4 and Symmetrical, Neuro grossly intact, - - No focal neurological DEFECIT. Psych/Mental Status: Normal Affect, Appropriate Vital Signs Temp Pulse Resp BP Pulse Ox 98.5 F 82 17 127/70 H 96 06/15/18 08:02 06/15/18 10:56 06/15/18 08:02 06/15/18 08:02 06/15/18 08:02 Oxygen Flow Rate (L/min) 4 Oxygen Delivery Method Nasal Cannula Weight: 142 lb 10.225 oz Body Mass Index (BMI) 21.0 Intake and Output for Last 24 Hours Intake Total 778 / 778 500 / 500 212.4 / 212.4 Balance 778 / 778 500 / 500 212.4 / 212.4 Microbiology Past 72 Hours 06/10/18 09:10 Blood Culture - Final Blood Culture (Wb) - Left Hand No growth in 5 days. 06/10/18 09:10 Blood Culture - Final Blood Culture (Wb) - Anticubital Right No growth in 5 days. Laboratory Tests Past 24 Hrs Sodium 143 Potassium 3.2 L Chloride 102 Carbon Dioxide 31.0 Home Medications: Medications to take at Discharge Ascorbic Acid [Vitamin C] 1,000 mg PO DAILY 05/13/18 Cholecalciferol (VIT D3) [Vitamin D3] 2,000 unit PO DAILY 05/13/18 Clonazepam [Klonopin] 0.5 mg PO TID 05/13/18 Diltiazem HCl [Diltiazem 24Hr Cd] 120 mg PO DAILY 05/13/18 Duloxetine Hcl [Cymbalta] 30 mg PO DAILY 05/13/18 Ferrous Sulfate 325 mg PO BIDCM 05/13/18 Finasteride [Proscar] 5 mg PO DAILY 05/13/18 Furosemide [Lasix] 80 mg PO DAILY 05/13/18 Ipratropium/Albuterol Sulfate [Duoneb] 3 ml INHALATION Q4H 05/13/18 Lactobacillus Acidophilus [Acidophilus] 1 each PO BID 05/13/18 Levothyroxine [Synthroid] 100 mcg PO DAILY 05/13/18 Metoprolol Tartrate [Lopressor (beta yesenia)] 50 mg PO BID 05/13/18 Multivitamins,Therapeutic [Multivitamin] 1 tablet PO DAILY 05/13/18 Omeprazole [Prilosec] 40 mg PO DAILY 05/13/18 Polyethylene Glycol 3350 [Miralax] 17 gm PO DAILY 05/13/18 Potassium Chloride 1 tab PO DAILY 05/13/18 Senna [Senokot] 1 tablet PO BID 05/13/18 Simvastatin [Zocor] 20 mg PO QHS 05/13/18 Tamsulosin HCl [Flomax] 0.4 mg PO DAILY 05/13/18 fentaNYL patch [Duragesic Patch] 12 mcg TRANSDERM. Q3D 05/13/18 Acetaminophen 650 mg PO Q6H PRN PRN 06/10/18 Albuterol Inhaler [Ventolin Hfa] 2 puff INHALATION Q4H PRN PRN 06/10/18 Bisacodyl [Dulcolax] 10 mg RECTAL DAILY PRN PRN 06/10/18 Bisacodyl [Laxative] 5 mg PO DAILY 06/10/18 Clonazepam [Klonopin] 0.5 mg PO BID PRN PRN 06/10/18 Ipratropium/Albuterol Sulfate [Duoneb] 3 ml INHALATION Q4H PRN PRN 06/10/18 Isosorbide Mononitrate [Imdur] 30 mg PO DAILY 06/10/18 Magnesium Hydroxide [Milk Of Magnesia] 30 ml PO DAILY PRN PRN 06/10/18 Ondansetron [Zofran Odt] 4 mg PO Q8H PRN PRN 06/10/18 Oxycodone [Oxyir] 5 mg PO Q4H PRN PRN 06/10/18 Amoxicillin/Potassium Clav [Augmentin 875-125 Tablet] 1 ea PO BID #6 tab 06/15/18 Guaifenesin [Mucinex] 600 mg PO BID #0 06/15/18 Haloperidol Lactate 0.5 mg PO BID PRN PRN udc 06/15/18 Nortriptyline HCl [Pamelor] 25 mg PO DAILY #0 06/15/18 Sulfamethoxazole/Trimethoprim [Bactrim Ds Tablet] 1 each PO BID #7 tablet 06/15/18 Following Prescrptions Were Given to Patient: Amoxicillin/Potassium Clav [Augmentin 875-125 Tablet] 1 ea PO BID #6 tab Sulfamethoxazole/Trimethoprim [Bactrim Ds Tablet] 1 each PO BID #7 tablet Primary Care Physician: Tristin Marks [Primary Care Provider] - Please follow up with your Primary Care Physician in: in 1- 2 week Please Follow Up With: Juan M Lemon DO When: in 3-4 week Medical Necessity - Tobacco Use Smoking Status: Former smoker Tobacco Use: Cigarettes Meaningful Use Info Meaningful Use Diagnoses (Choose all that apply): None applicable Code Visit Inpatient E AND M: 91017 Disch Hosp 06/15/18 975 <Electronically signed by Milind Quinn MD> Date Milind Quinn MD Cosigner Signature (if applicable): Date CC: Tristin Marks; Milind Quinn MD Signed TRANSFER TO [facility] Observed: 06/15/2018 Status: F Source: [facility] 1:39 PM [facility] REPOSITORY [facility] Medical Records Department [address] [place] [id number] Transfer to Extended Care MR#: [id number] Acct: [id number] Name: KAY MITCHELL Rep #: [id number] : 1940 77 From: Milind Quinn MD PCP: Tristin Marks Status: ADM IN KAY MITCHELL (Patient) (Health Ins. Claim No.) (Day of Discharge to Facility) Certification of patient admission REQUIRED AT TIME OF ADMISSION. I CERTIFY THAT POST-HOSPITAL ECF SERVICES ARE REQUIRED TO BE GIVEN ON AN IN-PATIENT BASIS BECAUSE OF THE ABOVE NAMED PATIENT'S NEED FOR INTERMEDIATE CARE ON A CONTINUING BASIS FOR THE CONDITION(S) FOR WHICH HE/SHE WAS RECEIVING IN-PATIENT HOSPITAL SERVICES PRIOR TO HIS/HER TRANSFER TO [facility]. 06/15/181338 <Electronically signed by Milind Quinn MD> Date Milind Quinn MD - Diet 06/10/18 12:13 Diet: Cardiac/Low Cholesterol Food consistency:: Mechanical Soft/Ground Liquid Consistency:: Regular/Thin Dietary Modifications:: Mechanical Soft Diet Diet Comments: 1:1 supervision/feed - Routine Orders/Code Status Suppository Type: Dulcolax 10mg Suppository Frequency: Daily PRN Routine Lab Work: CBC, BMP - every week on diuretic Code Status: DNRCC-A - Therapies Weight Bearing: Weight bearing as tolerated Extremity Affected:: Bilateral Lower Physical Therapy: Eval and Treat Occupational Therapy: Eval and Treat Speech Therapy: Eval and Treat - Allergies/Procedures Done in Hospital Allergies/Adverse Reactions: Allergies morphine Allergy (Verified 06/10/18 09:09) Rash - Type of Care/Length of Stay Estimated LOS: Convalescent Care Less Than 30 days Type of Care Needed: Skilled Rehab Potential: Fair Prognosis: Fair - Additional Orders/Day of Discharge Day of Discharge: 06/15/18 - Dietary and Speech Recommendations Dietitian Recommendations/Changes: Continue cardiac diet and ONS- consistency per MEDIA JOB TITLES. - Follow Up Care Primary Care Physician: Tristin Marks [Primary Care Provider] - Please follow up with your Primary Care Physician in: in 1- 2 week Please Follow Up With: Juan M Lemon DO When: in 3-4 week Please Follow Up With: Dominic Paul MD When: in 4 week 06/15/181338 <Electronically signed by Milind Quinn MD> Date Milind Quinn MD CC: Juan M Lemon D.O.; Tristin Marks Signed BASIC METABOLIC Collected: 06/15/2018 Status: F Source: [place] PROFILE (BMP) 4:35 AM [facility] REPOSITORY Order Comment: SPECIMEN OBTAINED FROM LINE DRAW TYPE CODE TESTS RESULT OUT OF RANGE REFERENCE UNITS LAB L501.0100 74-106 mg/dL Normal GLU 87 Result Comment: Please note revised GLUCOSE reference range effective 2017. LAB L501.1000 7-18 mg/dL High BUN 21 LAB L501.1100 0.70-1.30 mg/dL Normal CREAT,SERUM 1.13 Result Comment: The validity of the calculated GFR AND GFRAA in patients over 70 years has not been determined. Clinical correlation is essential. LAB L501.1110 >60 mL/min Normal EST GFR 67 Result Comment: Non- GFR Calc LAB L501.1115 >60 mL/min Normal EST GFR - AA 81 Result Comment: GFR Calc LAB L501.1255 ml/min Normal Estimated CRCL 51.69 LAB L501.1300 10-20 RATIO Normal BUN/CRE 18.6 LAB L501.2200 8.5-10 mg/dL Normal .1 CA 8.6 LAB L501.5300 136-14 mmol/L Normal 5 NA 143 LAB L501.5600 3.5-5. mmol/L Low 1 K 3.2 LAB L501.5900 98-107 mmol/L Normal CL 102 LAB L501.6100 21.0-3 mmol/L Normal 2.0 CO2 31.0 LAB L501.6200 5-15 Normal GAP 10 Performed By: #### L500.2500 #### [facility] [address] [facility] [place], [address] CONSULTATION Observed: 06/14/2018 Status: F Source: [place] 7:15 [facility] REPOSITORY [facility] Medical Records Department [address] [place] [address] Consultation 06/13/18 0656 MR#: [id number] Acct: [id number] Name: KAY MITCHELL Rep #: [id number] : 1940 77 From: Juan M Lemon DO PCP: Tristin Marks Status: ADM IN Y Location: [place] [address] Reason for Consult Date of Consultation: 06/13/18 Reason for Consultation: Interstitial lung disease with suspicion of HCAP History of Present Illness: The patient is a 77-year-old male, with a history as outlined below, who presented to the emergency department on June 10 by EMS with shortness of breath and hypoxia. The patient reportedly does have a history of lung cancer, which is in remission, along with COPD of unknown severity and chronic hypoxemic respiratory failure with a baseline 4 L/min supplemental oxygen requirement. The patient also does apparently have some baseline dementia. History pertinent to his hospitalization was obtained merely via chart review, as the patient is far too overmedicated to participate in my interview with him. It appears the patient is receiving scheduled Klonopin, has a fentanyl transdermal patch in place and did receive Haldol last night. On presentation to the emergency department, the patient was noted to be febrile with a temperature of 38.6 C. He was also tachycardic and tachypneic with an oxygen saturation of 93% on 6 L/min. Laboratory evaluation revealed evidence of pancytopenia. Chemistry profile was notable for a potassium of 3.4 and evidence of acute kidney injury with a creatinine of 1.24. Lactate was elevated to 3.3. Urinalysis was positive for leukocyte esterase and 2+ urine bacteria. Plain film chest x-ray was personally reviewed and revealed interstitial prominence most pronounced throughout the right hemithorax along with right lower lobe airspace disease and blunting of the right costophrenic angle. Of note, the patient's CODE STATUS does reveal DNR CCA. He is currently being treated with broad- spectrum antibiotics. The patient is currently documented to be overall net +4 L for the admission. The patient has defervesced clinically, is currently afebrile and maintaining appropriate oxygen saturations on his baseline 4 L/min requirement. He is not tachypneic. Past Medical History Past Medical History (Chronic Problems): Chronic Problems COPD (chronic obstructive pulmonary disease) (Chronic) History of lung cancer (Chronic) Cirrhosis (Chronic) Chronic respiratory failure with hypoxia (Chronic) Hypertension (Chronic) Depression (Chronic) Allergies morphine Allergy (Verified 06/10/18 09:09) Rash Home Medications: Ambulatory Orders Medication Instructions Recorded Ascorbic Acid [Vitamin C] 1,000 mg PO DAILY 05/13/18 Cholecalciferol (VIT D3) [Vitamin 2,000 unit PO DAILY 05/13/18 D] Clonazepam [Klonopin] 0.5 mg PO TID 05/13/18 Surgical History: - - Could not obtain from patient Smoking Status: Former smoker Tobacco Use: Cigarettes Alcohol: None Drugs: None - *Family History Maternal History Items: No pertinent history, - - Could not obtain any family history from the patient Review of Systems Unable to obtain accurate/complete ROS d/t: Due to encephalopathic state Patient Problems: Active and Suspected Problems Severe sepsis (Acute) Healthcare-associated pneumonia (Acute) UTI (urinary tract infection) (Acute) Hypoxemia (Acute) Thrombocytopenia (Acute) Objective: The patient's most recent lab work, culture data and imaging studies have all been personally reviewed. Blood cultures have shown no growth to date. Rapid influenza screen was negative. Strep and urine Legionella antigens were both negative. Urine culture was positive for MRSA. - Physical Exam General: Lethargic, - - Only arouses transiently to verbal and tactile stimulation, then falls quickly back to sleep. HEENT: Atraumatic, PERRLA, Normocephalic Oral: Dry Mucosa Neck: Supple, No Nodes, Trachea Midline Lungs: No rhonchi, No wheeze, Diminished, Rales - R>L Cardiovascular: Regular rate, Regular Rhythm, Normal S1, Normal S2, No murmurs Abdomen: Bowel Sounds Present, Soft, Non Tender Extremities: No clubbing, No cyanosis, No edema Skin: No breakdown Musculoskeletal: No Tenderness to Palpation of Joints or Extremities Lymphatic: No Cervical, Supraclavicular, or Inguinal Adenopathy Neurological: - - No focal neurological deficits. Psych/Mental Status: Flat Affect Vital Signs Temp Pulse Resp BP Pulse Ox 36.4 C L 77 18 126/74 H 94 06/13/18 06:15 06/13/18 06:15 06/13/18 06:15 06/13/18 06:15 06/13/18 06:15 Oxygen Flow Rate (L/min) 4 Oxygen Delivery Method Nasal Cannula Weight: 142 lb 10.225 oz Body Mass Index (BMI) 21.0 Intake and Output for Last 24 Hours Intake Total 2093 / 4 2030 / 2030 218 / 218 Output Total 1150 / 1150 200 / 200 Balance 944 / 944 1831 / 1831 218 / 218 Microbiology Past 72 Hours 06/10/18 09:25 Urine Culture - Final Urine, Catheterized Meth. resistant Staph. aureus 06/10/18 09:10 Blood Culture - Preliminary Blood Culture (Wb) - Left Hand No growth in 48 hours. Laboratory Tests Past 24 Hrs WBC 3.8 L 3.6 L RBC 4.62 3.70 L Hgb 13.5 10.9 L Hct 43.0 33.9 L WBC Clinical Impression(s) from Imaging Studies Chest X-Ray 06/10/18 09:10 IMPRESSION: Overall similar appearance of interstitial chronic markings compared to previous exam with no definitive new airspace disease. Acute on chronic right lower lobe early airspace disease cannot be completely excluded. Electronically Signed: Ihsan Conway DO at 10:06 EST , Service support , Chest X-Ray 06/12/18 14:20 IMPRESSION: Right lower lung infiltrate or edema and pleural thickening or small effusion with mild worsening. Electronically Signed: Arnol Kessler MD at 15:24 EST , Service support , Assessment/Plan All Active Problems Altered level of consciousness (Acute) Anemia (Acute) Encephalopathy (Acute) Severe sepsis (Acute) Healthcare-associated pneumonia (Acute) UTI (urinary tract infection) (Acute) Hypoxemia (Acute) Thrombocytopenia (Acute) RECOMMENDATIONS: 1. Continue treatment with antibiotics for HCAP with plans to complete a 7-day treatment course. 2. Check BNP and dose adjust Lasix regimen, if elevated. 3. Continue as needed aerosol treatments. 4. May wish to consider n.p.o. status and the patient is more alert, given concern for potential aspiration. 5. No additional inpatient workup from a pulmonary perspective is indicated at this time. 6. If the patient or his family wishes to pursue any additional pulmonary workup, this can be completed on an outpatient basis, by obtaining pulmonary function studies. IMPRESSIONS: 1. Acute on chronic hypoxemic respiratory failure secondary to healthcare associated pneumonia The patient does have what appears to be evidence of a right lung airspace opacity, likely representing pneumonia. He has responded clinically to antimicrobials and is currently afebrile and maintaining appropriate oxygen saturations on his baseline 4 L/min. Groundglass changes are very difficult to discern on plain film chest imaging. The patient does not have a prior CT chest on file. Regardless, groundglass changes can be indicative of underlying infection or pulmonary edema. It is presumptuous to assume that the patient has interstitial lung disease without a dedicated chest CT or prior chest imaging studies to review. Regardless, the interstitial changes are present on prior chest imaging studies in our system, date back to January 2018, indicating a chronic process. He does appear to have an acute superimposed right-sided airspace opacity, which is currently being treated appropriately. In addition to the aforementioned, the patient also reportedly has a history of lung cancer and questionable COPD. However, there are no pulmonary function studies on file to confirm or refute this assertion. The patient is also not able to provide me any additional information pertinent to his medical history or current hospitalization. Given that the patient does appear to have scheduled Lasix ordered for him as an outpatient, one should also be concerned about the possibility for pulmonary edema. Will check BNP. I would be cautious to allow for p.o. intake, given how lethargic the patient currently is, given his risk for aspiration. In summary, I would recommend continuing antimicrobial coverage for HCAP, with plans to complete a 7-day treatment course. He is currently receiving as needed aerosol treatments and is maintaining appropriate oxygen saturations on his baseline requirement. No additional inpatient workup is warranted at this time. The patient can follow-up in the pulmonary medicine clinic, if he wishes to do so, so that baseline pulmonary function testing can be obtained. 2. MRSA cystitis Continue antibiotics as ordered. 3. Questionable COPD of unknown severity/history of lung cancer, reportedly in remission It is unclear whether the patient has ever had pulmonary function studies or follows with a pulmonary provider. His lung cancer history is also unclear. Regardless, as needed aerosol treatments can be continued in the interim. The patient can follow-up on an outpatient basis in the pulmonary medicine clinic, if additional workup is indicated. 4. Encephalopathy Likely metabolic in nature with concerns for potential medication effects, as the patient is currently receiving scheduled Klonopin, Haldol and transdermal fentanyl patch. 5. Advanced age/deconditioning/dementia/hypothyroidism/chronic pain disorder/hypertension/hyperlipidemia Complicates care, management, recovery and prognosis. Consider dose de-escalation and/or discontinuation of sedating medications. This note was generated with [employer] software. It may contain incorrect words, spelling, and punctuation that were not noted in checking the note before signing. Code Visit Inpatient E AND M: 71340 Init Hosp L3 06/14/18 0715 <Electronically signed by Juan M Lemon DO> Date Juan M Lemon DO Cosigner Signature (if applicable): Date CC: Juan M Lemon D.O.; Tristin Marks Signed ECHOCARDIOGRAM COMPLETE Observed: 06/13/2018 Status: F Source: [place] 4:52 PM [facility] REPOSITORY [facility] Cardiovascular Services [address] [place] [address] Echo Complete 06/13/18 1455 MR#: [id number] Acct: [id number] Name: KAY MITCHELL Rep #: [id number] : 1940 77 From: Dominic Paul MD Attending Dr: Milind Quinn MD Status: ADM IN Ordering Dr: Milind Quinn MD Date: 06/13/18 [facility] Sex[facility] M C Admitted: 06/10/18 Reason For Study: Heart Failure Procedure This was a 2D Doppler, Color Flow transthoracic echocardiogram. Technically difficult study due to patient condition. No IV to use Definity. The study was technically difficult. Exam performed portable in patient room. Left Ventricle Moderate segmental systolic dysfunction (see wall motion). The estimated ejection fraction is 35 %. Unable to assess diastolic dysfunction. Mid-Anterior : Hypokinetic. Mid-Lateral : Hypokinetic. Mid- Posterior: Hypokinetic. Mid-Inferior: Hypokinetic. Mid-inferoseptal : Hypokinetic. Mid- anteroseptal : Hypokinetic. Anchor : Hypokinetic. Right Ventricle Normal RV size. Normal systolic function. Atria The left atrium is mildly enlarged. Normal right atrium. No doppler evidence for ASD. Mitral Valve There is moderate mitral annular calcification. Mild focal mitral valve calcification of the anterior leaflet. Trivial mitral valve insufficiency. Tricuspid Valve Normal tricuspid valve. Trivial tricuspid valve insufficiency. Unable to estimate RV systolic pressure/pulmonary artery pressure due to technically difficult study. Aortic Valve Trisinus/trileaflet aortic valve. Mild focal aortic valve calcification. Moderate aortic stenosis. Pulmonic Valve The pulmonic valve is not well visualized. Great Vessels The aortic root is not well visualized. Pericardium/Pleural No pericardial effusion. MMode/2D Measurements AND Calculations LVOT diam: 2.0 cm ACS: 0.51 cm LAV(MOD-sp4): 31.0 ml LVOT area: 3.2 cm2 Aortic Valve Planimetry: 0.58 cm2 LA A4 area: 15.1 cm2 Doppler Measurements AND Calculations Ao V2 max: 287.9 cm/sec LV V1 max: 92.2 cm/sec SV(LVOT): 48.9 ml Ao max P.2 mmHg LV V1 max P.4 mmHg Ao V2 mean: 187.6 cm/sec LV V1 mean P.7 mmHg Ao mean P.7 mmHg LV V1 mean: 61.1 cm/sec Ao V2 VTI: 46.9 cm LV V1 VTI: 15.5 cm MARTY(I,D): 1.0 cm2 MARTY(V,D): 1.0 cm2 PA V2 max: 79.6 cm/sec Interpretation Summary The study was technically difficult. Moderate segmental systolic dysfunction (see wall motion). The estimated ejection fraction is 35 %. The left atrium is mildly enlarged. There is moderate mitral annular calcification. Mild focal mitral valve calcification of the anterior leaflet. Trivial mitral valve insufficiency. Mild focal aortic valve calcification. Moderate aortic stenosis. Unable to estimate RV systolic pressure/pulmonary artery pressure due to technically difficult study. Unable to assess diastolic dysfunction. Ordering Physician: Milind Quinn Performed By: Frank Gamez RCS 06/13/181651 Date Dominic Paul MD CC: Tristin Makrs; Milind Quinn MD Date Dictated: 06/13/181454 Date Transcribed: 06/13/181651 Backup Operator: Signed 12 LEAD ELECTROCARDIOGRAM Observed: 06/13/2018 Status: F Source: [place] 4:40 PM [facility] REPOSITORY [facility] Cardiovascular Services [address] [place] [id number] 12 Lead EKG 06/10/18930 MR#: [id number] Acct: [id number] Name: KAY MITCHELL Rep #: [id number] : 1940 77 From: Tony Tomas MD Attending Dr: Milind Quinn MD Status: ADM IN Ordering Dr: Allen Matson DO Date: 06/10/18 [facility] Sex: M C Admitted: 06/10/18 Test Reason : SOB Blood Pressure : / mmHG Vent. Rate : 112 BPM Atrial Rate : 112 BPM P-R Int : 178 ms QRS Dur : 086 ms QT Int : 316 ms P-R-T Axes : 028 016 066 degrees QTc Int : 431 ms Sinus tachycardia Nonspecific ST and T wave abnormality Abnormal ECG Confirmed by TONY TOMAS MD ([id number]), story editor VENKATESH FOSTER ([id number]) on 06/13/2018 4:40:14 PM Referred By: MARILEE Confirmed By:TONY TOMAS MD 06/13/18 1640 Date Tony Tomas MD CC: Tristin Marks; Milind Quinn MD; Allen Matson Signed Observed: 06/13/2018 Status: F Source: [place] RESPIRATORY PANEL 7:24 AM [facility] MOLECULAR REPOSITORY RP PANEL Normal Reference Range = Not Detected RESULTS CALLED TO JOSESITO ROONEY 06/13/18 1021 Teri Ibarra. REPORT READ BACK BY SAME. Copy of report sent to Infection Control Printer [id number] 06/13/18 1021 KEMAL. ADENOVIRUS Not Detected HUMAN METAPHNEUMO Not Detected INFLUENZA A Not Detected INFLUENZA A (SUBTYPE H1) Not Detected INFLUENZA A (SUBTYPE H3) Not Detected INFLUENZA B Not Detected PARAINFLUENZA 1 Not Detected PARAINFLUENZA 2 Not Detected PARAINFLUENZA 3 Not Detected PARAINFLUENZA 4 Not Detected RHINOVIRUS Not Detected RSV A Not Detected RSV B Positive for RSV B by NAAT technology NAAT METHOD Testing was performed using nucleic acid amplification ORGANISM 1: RSV B Performed By: #### M100.638 #### [facility] [place], [address] CBC W/DIFF, AUTOMATED Collected: 06/13/2018 Status: F Source: [place] 5:35 AM [facility] REPOSITORY TYPE CODE TESTS RESULT OUT OF RANGE REFERENCE UNITS LAB L100.1000 4.4-11.0 K/mm3 Low WBC 3.6 LAB L100.1200 4.6-6.2 M/mm3 Low RBC 3.70 LAB L100.1300 13.0-16.5 g/dl Low HGB 10.9 LAB L100.1400 40-54 % Low HCT 33.9 LAB L100.1500 80-94 fL Normal MCV 91.6 LAB L100.1600 27.0-32.0 pg Normal MCH 29.5 LAB L100.1700 32-36 g/gl Normal MCHC 32.2 LAB L100.1810 11.6-14.6 % High RDW CV 18.5 LAB L100.1820 35.1-43.9 fl High RDW SD 60.5 LAB L100.1900 150-450 K/mm3 Low PLT 81 LAB L100.2000 6.2-12.0 fl Normal MPV 9.9 LAB L100.2100 47-70 % Normal NEUT% 67.0 LAB L100.2200 19-41 % Normal LY% 21.2 LAB L100.2300 0-10 % High MONO% 11.2 LAB L100.2400 0-5 % Normal EO% 0.0 LAB L100.2500 0-1 % Normal BASO% 0.3 LAB L100.2550 0.0-0.9 % Normal IM GRAN % 0.300 Result Comment: IG% - Immature Granulocytes (promyelocytes, myelocytes and metamyelocytes) > 1% indicates that a LEFT SHIFT is Present. LAB L100.2620 2.0-7.7 X10 3/uL Normal Absolute Neut 2.4 LAB L100.2720 0.83-4.51 X10 3/ul Low Absolute Lymph 0.76 Performed By: #### L100.0100 #### [facility] [address] [place], [address] BASIC METABOLIC Collected: 06/13/2018 Status: F Source: [place] PROFILE ([facility]) 5:35 AM [facility] REPOSITORY TYPE CODE TESTS RESULT OUT OF RANGE REFERENCE UNITS LAB L501.0100 74-106 mg/dL Normal GLU 78 Result Comment: Please note revised GLUCOSE reference range effective 2017. LAB L501.1000 7-18 mg/dL High BUN 19 LAB L501.1100 0.70-1.30 mg/dL Normal CREAT,SERUM 0.92 Result Comment: The validity of the calculated GFR AND GFRAA in patients over 70 years has not been determined. Clinical correlation is essential. LAB L501.1110 >60 mL/min Normal EST GFR 85 Result Comment: Non- GFR Calc LAB L501.1115 >60 mL/min Normal EST GFR - AA 103 Result Comment: GFR Calc LAB L501.1255 ml/min Normal Estimated CRCL 63.49 LAB L501.1300 10-20 RATIO High BUN/CRE 20.6 LAB L501.2200 8.5-10 mg/dL Low .1 CA 8.2 LAB L501.5300 136-14 mmol/L Normal 5 NA 143 LAB L501.5600 3.5-5. mmol/L Normal 1 K 3.9 Result Comment: Slight Hemolysis, Result may be falsely increased. LAB L501.5900 98-107 mmol/L Normal CL 107 LAB L501.6100 21.0-32.0 mmol/L Normal CO2 30.0 LAB L501.6200 5-15 Normal 6 GAP Performed By: #### L500.2500, L501.5200 #### [facility] [address] [place], [address] MAGNESIUM Collected: 06/13/2018 Status: F Source: [place] 5:35 AM [facility] REPOSITORY TYPE CODE TESTS RESULT OUT OF RANGE REFERENCE UNITS LAB L501.5200 1.6-2.6 mg/dL Normal MG 1.6 Result Comment: Slight Hemolysis, Result may be falsely increased. Performed By: #### L500.2500, L501.5200 #### [facility] [address] [place], [address] BNP,B-TYPE NATRIURETIC Collected: 06/13/2018 Status: F Source: [place] PEPTIDE 5:35 AM [facility] REPOSITORY TYPE CODE TESTS RESULT OUT OF RANGE REFERENCE UNITS LAB L503.6620 0-100 pg/mL High B-TYPE 4237.0 PEGGY PEP Performed By: #### L503.6620 #### [facility] [address] [place], [address] CHEST PA AND LATERAL Observed: 06/12/2018 Status: F Source: LASHANDA 10:06 AM [facility] REPOSITORY [facility] Imaging Services [address] [place] [address] Chest PA and Lateral MR#: [id number] Acct: [id number] Name: KAY MITCHELL Smita Rep #: [id number] : 1940 M 77 From: Arnol Kessler MD PCP: Tristin Marks Status: ADM IN Study: Chest PA and Lateral Date of Exam: 06/12/18 Exam# [id number] Ordering Dr: Milind Quinn MD STUDY: X-RAY CHEST REASON FOR EXAM: Male, 77 years old. Pneumonia. TECHNIQUE: PA and lateral views of the chest. COMPARISON: June 10, 2018. FINDINGS: There is interstitial accentuation of the lungs. There is right mid and lower lung groundglass and airspace opacification. There is blunting of the right costophrenic recess with small pleural effusion. There is mild cardiac enlargement. Normal mediastinum and kalee. Normal visualized pulmonary arteries. Normal visualized aortic arch and descending thoracic aorta. There is demineralization of the osseous structures. There is a levoscoliosis of the thoracic spine. Normal visualized ribs, clavicles, and shoulders. Abdominal aortic stent graft is seen. RAD/Chest PA and Lateral IMPRESSION: Right lower lung infiltrate or edema and pleural thickening or small effusion with mild worsening. Electronically Signed: Arnol Kessler MD at 15:24 EST , Service support , CC: Tristin Marks; Milind Quinn MD Backup Operator: Signed VANCOMYCIN, TROUGH Collected: 06/12/2018 Status: F Source: [place] LEVEL 9:20 AM [facility] REPOSITORY Order Comment: Comments: DRAW TROUGH 30 MIN PRIOR TO DOSE AT 10:00 Time Medication is to be Given? 1000 TYPE CODE TESTS RESULT OUT OF RANGE REFERENCE UNITS LAB L501.8820 5.0-15.0 ug/mL Normal VANCO, TROUGH 13.7 Result Comment: VANCOMYCIN STANDARED DRUG THERAPY TROUGH LEVEL: 5.0 - 15.0 mg/L VANCOMYCIN HIGH INTENSITY THERAPY TROUGH LEVEL: 15.0 - 20.0 mg/L High Intensity therapy recommended for serious life threatening infections include: - Meningitis -Endocarditis -Pneumonia (Ventilator/Healtcare Associated) -Sepsis PLEASE CONTACT PHARMACY SERVICES (#[id number]) FOR INTERPRETATION OF RESULTS. Performed By: #### L501.8820 #### [facility] [address] [place], [place], [address] BASIC METABOLIC Collected: 06/12/2018 Status: F Source: LASHANDA PROFILE ([facility]) 5:50 AM [facility] REPOSITORY TYPE CODE TESTS RESULT OUT OF RANGE REFERENCE UNITS LAB L501.0100 74-106 mg/dL Normal GLU 96 Result Comment: Please note revised GLUCOSE reference range effective 2017. LAB L501.1000 7-18 mg/dL Normal BUN 17 LAB L501.1100 0.70-1.30 mg/dL Normal CREAT,SERUM 0.91 Result Comment: The validity of the calculated GFR AND GFRAA in patients over 70 years has not been determined. Clinical correlation is essential. LAB L501.1110 >60 mL/min Normal EST GFR 86 Result Comment: Non- GFR Calc LAB L501.1115 >60 mL/min Normal EST GFR - AA 104 Result Comment: GFR Calc LAB L501.1255 ml/min Normal Estimated CRCL 64.19 LAB L501.1300 10-20 RATIO Normal BUN/CRE 18.7 LAB L501.2200 8.5-10 mg/dL Normal .1 CA 8.6 LAB L501.5300 136-14 mmol/L Normal 5 NA 139 LAB L501.5600 3.5-5. mmol/L Low 1 K 3.3 LAB L501.5900 98-107 mmol/L Normal CL 102 LAB L501.6100 21.0-3 mmol/L Normal 2.0 CO2 29.0 LAB L501.6200 5-15 Normal GAP 8 Performed By: #### L500.2500 #### [facility] [address] [place], [address] CBC W/DIFF, AUTOMATED Collected: 06/12/2018 Status: F Source: LASHANDA 5:50 AM [facility] REPOSITORY TYPE CODE TESTS RESULT OUT OF RANGE REFERENCE UNITS LAB L100.1000 4.4-11.0 K/mm3 Low WBC 3.8 LAB L100.1200 4.6-6.2 M/mm3 Normal RBC 4.62 LAB L100.1300 13.0-16.5 g/dl Normal HGB 13.5 LAB L100.1400 40-54 % Normal HCT 43.0 LAB L100.1500 80-94 fL Normal MCV 93.1 LAB L100.1600 27.0-32.0 pg Normal MCH 29.2 LAB L100.1700 32-36 g/gl Low MCHC 31.4 LAB L100.1810 11.6-14.6 % High RDW CV 19.0 LAB L100.1820 35.1-43.9 fl High RDW SD 65.5 LAB L100.1900 150-450 K/mm3 Low PLT 73 LAB L100.2000 6.2-12.0 fl Normal MPV 10.6 LAB L100.2100 47-70 % High NEUT% 76.6 LAB L100.2200 19-41 % Low LY% 10.4 LAB L100.2300 0-10 % High MONO% 11.2 LAB L100.2400 0-5 % Normal EO% 0.8 LAB L100.2500 0-1 % Normal BASO% 0.5 LAB L100.2550 0.0-0.9 % Normal IM GRAN % 0.500 Result Comment: IG% - Immature Granulocytes (promyelocytes, myelocytes and metamyelocytes) > 1% indicates that a LEFT SHIFT is Present. LAB L100.2620 2.0-7.7 X10 3/uL Normal Absolute Neut 2.9 LAB L100.2720 0.83-4.51 X10 3/ul Low Absolute Lymph 0.40 LAB L100.4500 Normal SMEAR COMMENT COMMENT Result Comment: SLIDE SCANNED - LYMPHOPENIA, 1+ ANISO. Performed By: #### L100.0100 #### [facility] [address] [place], [place] [address]all [facility] [place], [address] BASIC METABOLIC Collected: 06/11/2018 Status: F Source: [place] PROFILE (BMP) 6:33 AM [facility] REPOSITORY TYPE CODE TESTS RESULT OUT OF RANGE REFERENCE UNITS LAB L501.0100 74-106 mg/dL Low GLU 72 Result Comment: Please note revised GLUCOSE reference range effective 2017. LAB L501.1000 7-18 mg/dL High BUN 19 LAB L501.1100 0.70-1.30 mg/dL Normal CREAT,SERUM 0.80 Result Comment: The validity of the calculated GFR AND GFRAA in patients over 70 years has not been determined. Clinical correlation is essential. LAB L501.1110 >60 mL/min Normal EST GFR 100 Result Comment: Non- GFR Calc LAB L501.1115 >60 mL/min Normal EST GFR - AA 121 Result Comment: GFR Calc LAB L501.1255 ml/min Normal Estimated CRCL 73.01 LAB L501.1300 10-20 RATIO High BUN/CRE 23.8 LAB L501.2200 8.5-10 mg/dL Low .1 CA 8.0 LAB L501.5300 136-14 mmol/L Normal 5 NA 142 LAB L501.5600 3.5-5. mmol/L Low 1 K 3.2 LAB L501.5900 98-107 mmol/L Normal CL 107 LAB L501.6100 21.0-3 mmol/L Normal 2.0 CO2 26.0 LAB L501.6200 5-15 Normal GAP 9 Performed By: #### L500.2500 #### [facility] [address] [place], [address] CBC W/DIFF, AUTOMATED Collected: 06/11/2018 Status: F Source: [place] 6:33 AM [facility] REPOSITORY TYPE CODE TESTS RESULT OUT OF RANGE REFERENCE UNITS LAB L100.1000 4.4-11.0 K/mm3 Low WBC 2.5 LAB L100.1200 4.6-6.2 M/mm3 Low RBC 3.51 LAB L100.1300 13.0-16.5 g/dl Low HGB 10.2 LAB L100.1400 40-54 % Low HCT 32.5 LAB L100.1500 80-94 fL Normal MCV 92.6 LAB L100.1600 27.0-32.0 pg Normal MCH 29.1 LAB L100.1700 32-36 g/gl Low MCHC 31.4 LAB L100.1810 11.6-14.6 % High RDW CV 19.1 LAB L100.1820 35.1-43.9 fl High RDW SD 64.5 LAB L100.1900 150-450 K/mm3 Low PLT 59 LAB L100.2000 6.2-12.0 fl Normal MPV 10.3 LAB L100.2100 47-70 % Normal NEUT% 69.2 LAB L100.2200 19-41 % Low LY% 15.8 LAB L100.2300 0-10 % High MONO% 13.0 LAB L100.2400 0-5 % Normal EO% 1.6 LAB L100.2500 0-1 % Normal BASO% 0.0 LAB L100.2550 0.0-0.9 % Normal IM GRAN % 0.400 Result Comment: IG% - Immature Granulocytes (promyelocytes, myelocytes and metamyelocytes) > 1% indicates that a LEFT SHIFT is Present. LAB L100.2620 2.0-7.7 X10 3/uL Low Absolute Neut 1.8 LAB L100.2720 0.83-4.51 X10 3/ul Low Absolute Lymph 0.40 LAB L100.5500 ADEQ PLT EST Normal MKD DEC LAB L100.7600 HYPOCHROMASIA Normal RARE Performed By: #### L100.0100 #### [facility] [address] [place], [place], [address] Observed: 06/10/2018 Status: F Source: [place] LEGIONELLA ANTIGEN 4:45 PM [facility] URINE REPOSITORY Order Date: 06/10/18 Has pt arrived? Y Specimen Source: URINE, EDMOND Legionella, UR Legionella Antigen result interpretation: Negative Presumptive negative for Legionella pneumophila serogroup 1 antigen in urine, suggesting no recent or current infection. Legionella Ag, Urine Negative (See interpretation below) Performed By: #### M300.4500 #### [facility] [employer] [facility] [address] [place], [place], [id number] STREP Observed: 06/10/2018 Status: F Source: [place] PNEUMONIAE ANTIG(UR,CSF) 4:45 PM [facility] REPOSITORY Order Date: 06/10/18 Has pt arrived? Y S pneumo Ag URINE INTERPRETATION Negative Urine Presumptive negative for pneumococcal pneumonia, suggesting no current or recent pneumococcal infection. Infection due to S pneumoniae cannot be ruled out since the antigen present in the sample may be below the detection limit of the test. Strep pneumo Test Negative URINE (See interpretation below) Performed By: #### M300.4600 #### [facility] [address] [place], [place], [address] HISTORY AND PHYSICAL Observed: 06/10/2018 Status: F Source: [place]ASH[place]DA EXAM 3:42 PM [facility] Medical Records Department [address] [place] [address] History and Physical 06/10/18 1519 MR#: [id number] Acct: [id number] Name: KAY MITCHELL Rep #: [id number] : 1940 77 From: Cain Pereyra MD PCP: Tristin Marks Status: ADM IN Y Location: [place] [address] Problem List (1) Hypertension Status: Chronic (2) Depression Status: Chronic (3) COPD (chronic obstructive pulmonary disease) Status: Chronic (4) Cirrhosis Status: Chronic (5) Healthcare-associated pneumonia Status: Acute (6) UTI (urinary tract infection) Status: Acute (7) Hypoxemia Status: Acute History of Present Illness Date of Admission: 06/10/18 Chief Complaint: Hypoxia The patient is a 77 year old M with PMH as below who presents from the skilled nursing with shortness of breath and hypoxia. He states that he was not feeling well for about the last week and at the skilled nursing was started on Augmentin 1-2 days ago. Today he was more short of breath coughing more and when they did a pulse ox at the skilled nursing they found that he was hypoxic and sent him into the ER. In the ER he was initially 93% on 6 L nasal cannula, he was also found to have a fever to 101.4 as well as tachycardia to 115 and tachypnea to 23. Since admission all of his deranged vital signs have corrected. He also had an initial lactate of 3.3 so he was given a fluid bolus done in the ER as well as started on antibiotics. He was started on vancomycin as well as Zosyn because of the healthcare associated pneumonia based on a chest x-ray and per report the patient had a previous UTI with MRSA. It does appear that the patient is either a little confused or has baseline dementia, obtaining a history was difficult especially when going into his medical and surgical history. . Past Medical History Past Medical History (Chronic Problems): Chronic Problems COPD (chronic obstructive pulmonary disease) (Chronic) History of lung cancer (Chronic) Cirrhosis (Chronic) Chronic respiratory failure with hypoxia (Chronic) Hypertension (Chronic) Depression (Chronic) Allergies morphine Allergy (Verified 06/10/18 09:09) Rash Home Medications: Ambulatory Orders Medication Instructions Recorded Ascorbic Acid [Vitamin C] 1,000 mg PO DAILY 05/13/18 Cholecalciferol (VIT D3) [Vitamin 2,000 unit PO DAILY 05/13/18 D] Clonazepam [Klonopin] 0.5 mg PO TID 05/13/18 Surgical History: - - Could not obtain from patient Smoking Status: Former smoker Tobacco Use: Cigarettes Alcohol: None Drugs: None - *Family History Maternal History Items: No pertinent history, - - Could not obtain any family history from the patient Review of Systems Constitutional: Reports: Malaise. Denies: Chills, Fever, Weight Change HEENT: Denies: Head Aches, Sinus Congestion, Sinus Drainage Cardiovascular: Denies: Chest Pain, Palpitations Respiratory: Reports: Cough, Shortness of Breath. Denies: Shortness of breath at rest, Sputum production Gastrointestinal: Denies: Abdominal Pain, Nausea, Vomiting Genitourinary: Denies: Dysuria Musculoskeletal: Denies: Joint Pain, Joint Tenderness Skin: Denies: Rash, Wounds Neurological: Denies: Numbness, Tingling, Focal weakness Psychiatric: Denies: Anxiety, Depression Hematologic/ Lymphatic: Denies: Easy Bruising, Easy Bleeding VTE Information - Inpt Only VTE Present on Admission: No Patient Problems: Active and Suspected Problems Severe sepsis (Acute) Healthcare-associated pneumonia (Acute) UTI (urinary tract infection) (Acute) Hypoxemia (Acute) Thrombocytopenia (Acute) - Physical Exam General: Alert, Cooperative, No apparent distress, Confused HEENT: Atraumatic, PERRLA, EOMI, Normocephalic Oral: Dry Mucosa Neck: Supple, No JVD, Trachea Midline Lungs: Normal air movement, No wheeze, No rales, Diminished, Rhonchi Cardiovascular: Regular rate, Regular Rhythm, Normal S1, Normal S2, Murmur - 2/6 SANDRA RUSB, No rub noted, No Gallop Abdomen: Soft, Non Tender, Non-Distended, No Hepato-splenomegaly Extremities: No edema, Capillary Refill Less than 3 Seconds Skin: No rashes, No breakdown Neurological: Neuro grossly intact, Sensory exam intact to light touch and pain Psych/Mental Status: Normal Affect, Appropriate Vital Signs Temp Pulse Resp BP Pulse Ox 98.1 F 88 19 H 116/62 100 06/10/18 14:00 06/10/18 14:00 06/10/18 14:00 06/10/18 14:00 06/10/18 14:00 Oxygen Flow Rate (L/min) 4 Oxygen Delivery Method Nasal Cannula Weight: 142 lb 10.225 oz Body Mass Index (BMI) 21.0 Microbiology Past 72 Hours 06/10/18 10:26 Influenza Types A,B Direct FA (EVELINA) - Final Mucosa - Nose Laboratory Tests Past 24 Hrs WBC 4.0 L RBC 4.01 L Hgb 11.7 L Hct 37.2 L MCV 92.8 MCH 29.2 MCHC 31.5 L WBC RBC Hgb Hct WBC RBC Hgb Hct MCV MCH MCHC RDW RDW Differential Assessment/Plan All Active Problems Altered level of consciousness (Acute) Anemia (Acute) Encephalopathy (Acute) Severe sepsis (Acute) Healthcare-associated pneumonia (Acute) UTI (urinary tract infection) (Acute) Hypoxemia (Acute) Thrombocytopenia (Acute) 1. Sepsis secondary to healthcare associated pneumonia/acute hypoxic respiratory failure/metabolic encephalopathy secondary to pneumonia/UTI -For now we will continue with Zosyn and bank -Lactate has resolved to 1.7 -Continue with gentle IV fluids -Blood and urine cultures are pending -We will continue with oxygen therapy and monitor overnight -We will narrow therapy once culture data results 2. Hypertension/hyperlipidemia/edema -Stable -We will hold blood pressure medications for another 24 hours -Continue with simvastatin -No appreciable edema on exam though he does take 80 mg of Lasix daily we will hold while giving IV fluids 3. GERD -Stable -Continue with PPI 4. BPH -Stable -Continue with Flomax and finasteride 5. COPD -No wheezing on exam to think that this is an exacerbation -Can continue his DuoNeb as needed 6. Hypothyroidism -Stable -Continue with Synthroid DVT: Lovenox Code Visit Inpatient E AND M: [id number] Init Hosp L3 06/10/18 1542 <Electronically signed by Cain Pereyra MD> Date Cain Pereyra MD Cosigner Signature: Date (if applicable) CC: Cain Pereyra MD; Tristin Marks Signed LACTIC ACID Collected: 06/10/2018 Status: F Source: [place] 1:47 PM [facility] REPOSITORY TYPE CODE TESTS RESULT OUT OF RANGE REFERENCE UNITS LAB L503.6005 0.4-2.0 mmol/L Normal LACTIC ACID 1.7 Performed By: #### L503.6005 #### [facility] [address] [place], [address] Observed: 06/10/2018 Status: F Source: [place] INFLUENZA A+B (RAPID 10:26 AM [facility] MARIANA) REPOSITORY FLU A/B Rapid Negative test results should be confirmed with FLU PANEL MOLECULAR if indicated. Influenza Ag, Direct Presumptive NEGATIVE for Influenza A/B Antigen (See Note) Performed By: #### M101.0101 #### [facility] [address] [place] [address], [address] EMERGENCY DEPARTMENT Observed: 06/10/2018 Status: F Source: [place] SUMMARY 10:21 AM [facility] REPOSITORY [facility] Medical Records Department [address] [place] [address] Emergency Department Summary 06/10/18 0930 MR#: [id number] Acct: [id number] Name: KAY MITCHELL Rep #: [id number] : 1940 77 From: Allen Licea PCP: Tristin Marks Status: REG ER - ER Visit Summary Date of Service: 06/10/18 Chief Complaint: Pneumonia, hypoxia History of Present Illness: The patient is a 77 M sent from [facility] by request of spouse by EMS for hypoxemia. History of lung cancer, DNR CCA, reports findings of pneumonia right lower lung along with pleural effusion yesterday. On Augmentin. History of COPD from records. Reports moist cough with symptoms. Had a fever 101.6 yesterday. Today this morning was 98.6. Reports patient 72% on room air today, was on 4 L oxygen with a 92%. EMS reports placed on 6 L from 93-95%. Baseline mental status is alert and oriented x1. Reports recent MRSA infection in the urine status post antibiotics for treatment there. When asked about pain, patient states pain everywhere. Limited review of systems due to dementia history. Physical Examination: General: Alert and oriented to person, no acute distress. On oxygen nasal cannula HEENT: Normocephalic, atraumatic. Moist mucosa membranes Neck: supple, nontender. Cardiovascular: Regular tachycardic rate and rhythm, no murmurs Respiratory: Rhonchi lower lobes, no distress Abdomen: Soft, nontender, nondistended Extremities: Nontender, no edema, pulses intact 4 Neuro: no focal neurological deficits. Test Results: EKG: Sinus tachycardia [address] or T wave changes. Chest x-ray: Right middle lobe, right lower lobe infiltrate. Similar to the old chest x-ray, however cannot rule out early infiltrative findings per radiology. White count 4 with left shift. Hemoglobin 11.7. Platelets 59. Creatinine 1.24, potassium 3.4, sodium 139. INR 1.1, PTT 3.6. Troponin less than 0.015. Lactic acid 3.3. UA 500 leukocytes, WBC 25-50. Blood culture x2 pending. Urine culture pending. ABG pH 7.49, PCO2 30, PaO2 70, HCO3 29 on 6 L. Emergency Department Course and Treatment: Patient febrile tachycardic, sepsis protocol initiated. Given Tylenol, blood and urine cultures. Edmond catheter placed due to incontinence and for I's and O's. Workup concerns for pneumonia right lower section, urine also notes leukocytes and white blood cell count. He was started on broad coverage of Zosyn and vancomycin. Labs noted white count for the left shift lactic acid was 3.3. After liter of fluids blood pressure 130/84 heart rate was at 105. Additional fluids to meet sepsis protocol. Stable on 6 L, he is a DNR CCA. He meets severe sepsis criteria. Labs also notes thrombocytopenia slightly lower than previous, no bleeding issues. Will discuss with hospitalist to admit patient to stepdown. Treatment Plan: [] Disposition: Admission Impression: 1. Severe sepsis 2. Healthcare associated pneumonia 3. Urinary tract infection 4. Hypoxemia 5. DNR CCA 6. Thrombocytopenia This note was generated with [employer] software. It may contain incorrect words, spelling, and punctuation that were not noted in review of the chart prior to signing ED Disposition - Plan for ED Patient: Disposition: Acute Care Hospital [facility] Chief Complaint: Shortness of Breath Diagnosis: Severe sepsis, Healthcare-associated pneumonia, UTI (urinary tract infection), Hypoxemia, Thrombocytopenia, History of lung cancer, DNR CCA Referrals: Tristin Marks [Primary Care Provider] - What to do if you have Problems For any increased pain, shortness of breath, bleeding, nausea or vomiting, chest pain, or any unexpected problems, contact your Primary Care Provider. Call [facility] ([phone]) or report to the closest Emergency Room. Call 911 if necessary. 06/10/18 1021 <Electronically signed by Allen Licea> Date Allen Licea Cosigner Signature (If Indicated): Date CC: Tristin Marks BLOOD GASES BY CPS Collected: 06/10/2018 Status: F Source: LASHANDA 9:49 AM [facility] REPOSITORY TYPE CODE TESTS RESULT OUT OF RANGE REFERENCE UNITS LAB L9000.9990 Normal BLD GAS TYPE ART LAB L9001.1000 Normal SITE R Radial LAB L9001.1010 Normal MEENA TEST POS LAB L9001.1050 O2 Normal Delivery Dev Nasal Can LAB L9001.1055 /min Normal LPM 6.0 LAB L9001.1104 Normal Results To ED LAB L9001.1105 Normal Time Given 939 LAB L9001.1110 7.35-7.45 High pH - I-STAT 7.49 LAB L9001.1210 35-45 mmHg Normal pCO2 - ISTAT 38.5 LAB L9001.1310 75-100 mmHG Low PO2 I-STAT 70 LAB L9001.2300 22-26 mmol/L High HCO3 ISTAT 29.0 LAB L9001.2400 -2 to +2 mmol/L High BE ISTAT 6 LAB L9001.2415 mmol/L Normal TOTAL CO2 30 ISTAT LAB L9001.2425 95-99 % Normal SO2 ISTAT 95 Performed By: #### L9000.0800 #### [facility] Point of Care [address] [place], [place] [address] URINALYSIS, COMPLETE Collected: 06/10/2018 Status: F Source: LASHANDA 9:25 AM [facility] REPOSITORY Order Comment: Order Date: 06/10/18 How was Urine Obtained? SINGE MACHINE OPERATOR TO SPECIFY TYPE CODE TESTS RESULT OUT OF RANGE REFERENCE UNITS LAB L400.3000 Yellow COLOR Normal Yellow LAB L400.3050 Clear Normal CLARITY Cloudy LAB L400.3200 Normal mg/dl Normal GLUCOSE, UR Normal LAB L400.3300 Negative mg/dL Normal BILIRUBIN URINE Negative LAB L400.3400 Negative mg/dl Normal KETONE UR Negative LAB L400.3465 1.002-1.030 Normal SP.GR. DIPSTX 1.015 LAB L400.3550 5.0 - 8.0 pH UR Normal 6.0 LAB L400.3600 Negative mg/dl High PROT 15 DIPSTX LAB L400.3700 Normal mg/dl Normal UROBILI Normal LAB L400.3750 Negative Normal NITRITE UR Negative LAB L400.3780 Negative /ul High 25 OCCULT BLOOD-UR LAB L400.3800 Negative /ul High LEUK ESTERASE 500 LAB L400.4050 0-5 /hpf WBC Normal 25-50 SEEN LAB L400.4100 0-5 /hpf Normal RBC-UA 0-5 SEEN LAB L400.4150 0-5 /hpf SQUAM Normal EPI 0-5 SEEN LAB L400.4300 None Seen /hpf 2+ Normal BACTERIA LAB L400.4350 <or=2+ /hpf 0 Normal MUCUS, URINE SEEN Performed By: #### L400.0001 #### [facility] [address] [place], [address] Observed: 06/10/2018 Status: F Source: LASH[place] CULTURE, URINE 9:25 AM [facility] REPOSITORY Order Date: 06/10/18 Urine Culture RESULTS CALLED TO BRYNN Landaverde 06/12/18 Fe Bar. Copy of report sent to Infection Control Printer MS#[id number] 06/12/18 Joshua7 ROGER. ORGANISM 1: Meth. resistant Staph. aureus Kiefer Count 11,000-25,000 Meth. resistant Staph. aureus: REACTION Benzylpenicillin NF >=0.5 R Cefoxitin *NF + Inducable Clindamycin Resistan - Gentamicin $ <=0.5 S Levofloxacin $ >=8 R Linezolid $$$$ 2 S Nitrofurantoin $ <=16 S Oxacillin NF >=4 R Rifampin $$ <=0.5 S Tetracycline NF <=1 S Trimethoprim/Sulfametho $ <=10 S Vancomycin $ 1 S (NF) indicates non-formulary drug at [facility]. Approval by Infectious Disease Specialist required before non-formulary drugs may be ordered and/or dispensed. * CLSI guidelines does not recommend testing of cephalosporins. This interpretation is deduced from Beta-lactam/penicillin results. Performed By: #### M100.0650 #### [facility] [address] [place], [address] LACTIC ACID Collected: 06/10/2018 Status: F Source: [place] 9:15 AM [facility] REPOSITORY Order Comment: Yes/No query for Sepsis Lactate Rule Y TYPE CODE TESTS RESULT OUT OF REFERENCE UNITS RANGE LAB L503.6005 0.4-2.0 mmol/L High LACTIC ACID 3.3 Result Comment: Critical Result(s) Called to JOSESITO Langford at: 10:07:03 06/10/2018 by: Kemal Performed By: #### L503.6005 #### [facility] [address] [facility] [place], [address] CHEST 1 VIEW Observed: 06/10/2018 Status: F Source: [place] (PORTABLE) 9:15 AM [facility] REPOSITORY [facility] Imaging Services [address] [place] [address] Chest 1 View (Portable) MR#: [id number] Acct: [id number] Name: KAY MITCHELL Smita Rep #: [id number] : 1940 M 77 From: Ihsan Conway DO PCP: Tristin Marks Status: REG ER Study: Chest 1 View (Portable) Date of Exam: 06/10/18 Exam# [id number] Ordering Dr: Allen Matson DO STUDY: X-RAY CHEST REASON FOR EXAM: Male, 77 years old. Cough. TECHNIQUE: Single AP portable view of the chest. COMPARISON: 02 April 2018 FINDINGS: Similar appearing interstitial prominence compared to 02 April 2018 exam and cardiomediastinal appearance. There is no demonstrated pleural abnormality. Normal size heart. Normal mediastinum and kalee. Normal visualized pulmonary arteries. There is atherosclerotic calcification of the aortic arch with tortuosity. Normal visualized thoracic spine. Normal visualized ribs, clavicles, and shoulders. There is no demonstrated abnormality of the visualized soft tissue structures of the upper abdomen. RAD/Chest 1 View (Portable) IMPRESSION: Overall similar appearance of interstitial chronic markings compared to previous exam with no definitive new airspace disease. Acute on chronic right lower lobe early airspace disease cannot be completely excluded. Electronically Signed: Ihsan Conway DO at 10:06 EST , Service support , CC: Tristin Matson Backup Operator: Signed CBC W/DIFF, AUTOMATED Collected: 06/10/2018 Status: F Source: [place] 9:10 AM [facility] REPOSITORY TYPE CODE TESTS RESULT OUT OF RANGE REFERENCE UNITS LAB L100.1000 4.4-11.0 K/mm3 Low WBC 4.0 LAB L100.1200 4.6-6.2 M/mm3 Low RBC 4.01 LAB L100.1300 13.0-16.5 g/dl Low HGB 11.7 LAB L100.1400 40-54 % Low HCT 37.2 LAB L100.1500 80-94 fL Normal MCV 92.8 LAB L100.1600 27.0-32.0 pg Normal MCH 29.2 LAB L100.1700 32-36 g/gl Low MCHC 31.5 LAB L100.1810 11.6-14.6 % High RDW CV 19.3 LAB L100.1820 35.1-43.9 fl High RDW SD 66.7 LAB L100.1900 150-450 K/mm3 Low PLT 59 LAB L100.2000 6.2-12.0 fl Normal MPV 9.9 LAB L100.2100 47-70 % High NEUT% 81.3 LAB L100.2200 19-41 % Low LY% 7.5 LAB L100.2300 0-10 % High MONO% 10.1 LAB L100.2400 0-5 % Normal EO% 0.5 LAB L100.2500 0-1 % Normal BASO% 0.3 LAB L100.2550 0.0-0.9 % Normal IM GRAN % 0.300 Result Comment: IG% - Immature Granulocytes (promyelocytes, myelocytes and metamyelocytes) > 1% indicates that a LEFT SHIFT is Present. LAB L100.2620 2.0-7.7 X10 3/uL Normal Absolute Neut 3.2 LAB L100.2720 0.83-4.51 X10 3/ul Low Absolute Lymph 0.30 LAB L100.5500 ADEQ Normal PLT EST MKD DEC LAB L100.5650 Normal PLT MORPH LARGE LAB L100.7300 Normal ANISO RARE Performed By: #### L100.0100 #### [facility] [address] [facility] [place], [place], [id number] PROTHROMBIN TIME W/INR Collected: 06/10/2018 Status: F Source: [place] 9:10 AM [facility] REPOSITORY TYPE CODE TESTS RESULT OUT OF RANGE REFERENCE UNITS LAB L300.4150 11.7-14.9 SECONDS Normal PROTIME 14.2 LAB L300.4200 Normal INR 1.1 Performed By: #### L300.3900, L300.4310 #### [facility] [address] [place], [place], [address] PARTIAL THROMBOPLAST Collected: 06/10/2018 Status: F Source: [place] TIME 9:10 AM [facility] REPOSITORY TYPE CODE TESTS RESULT OUT OF RANGE REFERENCE UNITS LAB L300.4310 24.1-36.2 Seconds Normal PTT 36.0 Performed By: #### L300.3900, L300.4310 #### [facility] [address] [place], [place], [id number] COMPREHENSIVE METABOLIC Collected: 06/10/2018 Status: F Source: [place] QUAN 9:10 AM [facility] REPOSITORY TYPE CODE TESTS RESULT OUT OF RANGE REFERENCE UNITS LAB L501.0100 74-106 mg/dL Normal GLU 104 Result Comment: Fasting Glucose result from 100 to 125 mg/dL suggests IMPAIRED HOMEOSTASIS per A.D.A. criteria. Please note revised GLUCOSE reference range effective 2017. LAB L501.1000 7-18 mg/dL High BUN 29 LAB L501.1100 0.70-1.30 mg/dL Normal CREAT,SERUM 1.24 Result Comment: The validity of the calculated GFR AND GFRAA in patients over 70 years has not been determined. Clinical correlation is essential. LAB L501.1110 >60 mL/min Normal EST GFR 60 Result Comment: Non- GFR Calc LAB L501.1115 >60 mL/min Normal EST GFR - AA 73 Result Comment: GFR Calc LAB L501.1255 ml/min Normal Estimated CRCL 46.45 LAB L501.1300 10-20 RATIO High BUN/CRE 23.4 LAB L501.1500 6.4-8. g/dL Normal 2 T PROT 7.2 LAB L501.1800 3.2-5. g/dL Low 0 ALB 2.6 LAB L501.1950 2.2-4. g/dL High 2 GLOB 4.6 LAB L501.2000 0.9-2. RATIO Low 4 A/G 0.6 LAB L501.2200 8.5-10 mg/dL Normal .1 CA 8.8 LAB L501.4100 15-37 U/L High AST 38 LAB L501.4305 45-117 U/L High ALK P 169 LAB L501.4405 16-61 U/L Normal ALT 35 LAB L501.4600 0.20-1 mg/dL Normal .00 T BILI 0.60 LAB L501.5300 136-14 mmol/L Normal 5 NA 139 LAB L501.5600 3.5-5. mmol/L Low 1 K 3.4 LAB L501.5900 98-107 mmol/L Normal CL 99 LAB L501.6100 21.0-3 mmol/L Normal 2.0 CO2 30.0 LAB L501.6200 5-15 Normal GAP 10 Performed By: #### L500.4050, L501.4010 #### [facility] [address] [place], [address] TROPONIN-I Collected: 06/10/2018 Status: F Source: [place] 9:10 AM [facility] REPOSITORY TYPE CODE TESTS RESULT OUT OF RANGE REFERENCE UNITS LAB L501.4010 <0.045 ng/mL Normal < 0.015 TROPONIN-I Result Comment: TROPONIN-I EXPECTED VALUES <0.045 Negative 0.045 - 0.590 Consistent with Cardiac Damage > OR = 0.600 Critical Value Not every elevated troponin is indicative of OK. These values should be used with clinical judgement in examining the patient's clinical picture for diagnosis. To establish a diagnosis of OK versus myocardial injury, there must be a demonstrated rise and/or fall in the troponin values, in addition to ischemic symptoms, EKG changes, new regional wall motion abnormality, and/or angiographical evidence. PLEASE NOTE: REFERENCE RANGES EDITED 17 Performed By: #### L500.4050, L501.4010 #### [facility] [address] [place], [address] Observed: 06/10/2018 Status: F Source: [place] CULTURE, BLOOD (WB) 9:10 AM [facility] REPOSITORY BC No growth in 5 days. Performed By: #### M200.1000 #### [facility] [address] [place], [address] Observed: 06/10/2018 Status: F Source: [place] CULTURE, BLOOD (WB) 9:10 AM [facility] REPOSITORY BC No growth in 5 days. Performed By: #### M200.1000 #### [facility] [address] [place], [address] EMERGENCY DEPARTMENT Observed: 05/13/2018 Status: F Source: [place] SUMMARY 11:14 PM [facility] REPOSITORY [facility] Medical Records Department [address] [place] [address] Emergency Department Summary 05/13/18 2311 MR#: [id number] Acct: [id number] Name: KAY MITCHELL Rep #: [id number] : 1940 77 From: Noe Grissom DO PCP: Tristin Marks Status: REG ER - ER Visit Summary Date of Service: 05/13/18 Chief Complaint: Fall History of Present Illness: The patient is a 77 M who presents after an unwitnessed fall at the skilled nursing today. Patient was found on the floor by his chair. group home staff states the patient was complaining of pain in his back and right hip. Patient has a history of dementia and is a poor historian. Patient denies any head injury. Physical Examination: Vital signs are stable. Patient is afebrile. Patient is in no acute distress. Oral mucosa is pink and moist. Heart was regular rate and rhythm. Lungs are clear and equal bilaterally. Abdomen is soft and nontender. There is some mild tenderness of the lateral aspect of the right hip and right lower lumbar paraspinal area. There is no deformity noted. Range of motion was slightly limited in all motions of the right hip secondary to pain. There is no bony crepitance or step-off. Pedal pulses are equal bilaterally. The remaining physical exam is within normal limits. Test Results: X-rays of the lumbar spine and right hip were obtained. There are no acute fractures. Emergency Department Course and Treatment: Patient will be discharged back to his extended care facility. Patient will continue current medications. Patient will follow up with his primary care physician at the extended care facility in 7-10 days. Disposition: Discharged to extended care facility Impression: Right hip contusion This note was generated with Vusay dictation software. It may contain incorrect words, spelling, and punctuation that were not noted in review of the chart prior to signing ED Disposition - Plan for ED Patient: Disposition: Snf Facility Chief Complaint: Fall Diagnosis: Contusion of right hip, initial encounter Instructions: ED Fall Uncertain Cause Referrals: Tristin Marks [Primary Care Provider] - What to do if you have Problems For any increased pain, shortness of breath, bleeding, nausea or vomiting, chest pain, or any unexpected problems, contact your Primary Care Provider. Call [facility] ([phone]) or report to the closest Emergency Room. Call 911 if necessary. 05/13/18 2314 <Electronically signed by Noe Grissom DO> Date Noe Grissom DO [facility] Signature (If Indicated): Date CC: Tristin Marks HIP, UNI W/ PELVIS Observed: 05/13/2018 Status: F Source: [place] 2-3 VIEWS 9:48 PM [facility] REPOSITORY [facility] Imaging Services [address] [place] [address] HIP, UNI W/ Pelvis 2-3 Views MR#: [id number] Acct: [id number] Name: KAY MITCHELL Rep #: [id number] : 1940 M 77 From: Mookie Brown MD PCP: Tristin Marks Status: REG ER Study: HIP, UNI W/ Pelvis 2-3 Views Date of Exam: 05/13/18 Exam# [id number] Ordering Dr: Noe Grissom DO STUDY: X-RAY - RIGHT HIP REASON FOR EXAM: Male, 77 years old. Unwitnessed fall, right hip and back pain TECHNIQUE: 2 views of the hip. AP pelvis. COMPARISON: None. FINDINGS: Normal femoral head, neck, intertrochanteric region and visualized proximal femur. Normal acetabulum. There is mild articular joint space narrowing. Pelvic ring is intact. Circumferential narrowing of the left hip joint identified with subchondral sclerosis. Sacrum is grossly unremarkable although largely obscured by rectal contents. Vascular stent of the lower aorta/iliac arteries with atherosclerosis of the iliofemoral arteries. Surgical clips project over both hips. RAD/HIP, UNI W/ Pelvis 2-3 Views IMPRESSION: 1. No fracture or malalignment. 2. Degenerative changes, as above. Electronically Signed: Mookie Brown MD at 22:46 EST , Service support , CC: Noe Grissom DO; Tristin Marks Backup Operator: Signed LUMBAR SPINE 2 OR 3 Observed: 05/13/2018 Status: F Source: [place] VIEWS 9:48 PM [facility] REPOSITORY [facility] Imaging Services [address] [place] [address] Lumbar Spine 2 or 3 Views MR#: [id number] Acct: [id number] Name: KAY MITCHELL Rep #: [id number] : 1940 M 77 From: Mookie Brown MD PCP: Tristin Marks Status: REG ER Study: Lumbar Spine 2 or 3 Views Date of Exam: 05/13/18 Exam# [id number] Ordering Dr: Noe Grissom DO STUDY: X-RAY - LUMBAR SPINE REASON FOR EXAM: Male, 77 years old. Unwitnessed fall, hip and back pain TECHNIQUE: 3 view(s) of the lumbar spine were obtained. COMPARISON: None FINDINGS: Normal lumbar lordosis. There is a dextroscoliosis of the lumbar spine. There is a normal alignment of the vertebrae. There is diffuse demineralization with multi-level endplate spondylosis. There is multi-level degenerative disc disease with multi- level disc space narrowing, worst at L3-L4, L4-L5 and L5-S1.. No compression fracture. Aortic biiliac stent graft is noted. Vascular calcifications are present. Group of calcifications projecting right of midline could be intraluminal bowel contents versus renal calcifications versus gallbladder calcifications. RAD/Lumbar Spine 2 or 3 Views IMPRESSION: 1. No compression fracture. 2. Right abdomen calcifications could be within bowel, renal calculi or gallstones. Electronically Signed: Mookie Brown MD at 22:52 EST , Service support , CC: Noe Grissom DO; Tristin Marks Backup Operator: Signed 12 LEAD ELECTROCARDIOGRAM Observed: 04/05/2018 Status: F Source: [place] 1:40 PM [facility] REPOSITORY [facility] Cardiovascular Services [address] [place] [address] 12 Lead EKG 04/02/18 0907 MR#: [id number] Acct: [id number] Name: KAY MITCHELL Rep #: [id number] : 1940 77 From: Tony Tomas MD Attending Dr: Status: DEP ER Ordering Dr: Benoit Ku MD Date: 04/02/18 Location: ED Sex: M C Admitted: Test Reason : SOB Blood Pressure : / mmHG Vent. Rate : 078 BPM Atrial Rate : 078 BPM P-R Int : 194 ms QRS Dur : 086 ms QT Int : 386 ms P-R-T Axes : 021 -03 011 degrees QTc Int : 440 ms Normal sinus rhythm Moderate voltage criteria for LVH, may be normal variant Borderline ECG Confirmed by TONY TOMAS MD ([id number]), story editor VENKATESH FOSTER ([id number]) on 04/05/2018 1:40:09 PM Referred By: Confirmed By:TONY TOMAS MD 04/05/18 1340 Date oTny Tomas MD CC: Tristin Marks; Benoit Ku MD Signed EMERGENCY DEPARTMENT Observed: 04/03/2018 Status: F Source: [place] SUMMARY 5:46 PM [facility] REPOSITORY [facility] Medical Records Department [address] [place] [address] Emergency Department Summary 04/02/18 1039 MR#: [id number] Acct: [id number] Name: KAY MITCHELL Rep #: [id number] : 1940 77 From: Benoit Ku MD PCP: Tristin Marks Status: DEP ER - ER Visit Summary Date of Service: 04/02/18 Chief Complaint: Difficulty breathing fall History of Present Illness: The patient is a [address] Marks. He has a history of dementia and is a poor informant. He has no complaints. His review of systems is negative. group home reports that he had an unwitnessed fall this morning. He denies any injuries or pain. They also state that they had a hard time getting his pulse ox above 88%. EMS states that on their arrival he was 81% on room air when ambulating back from the bathroom. They placed him on his normal 4 L nasal cannula and his pulse ox was 98%. Physical Examination: Vitals: 97.7, 156/77, 77, 18, 100% on 4 L nasal cannula which is his home O2.. General: Well-nourished and well-developed. Head: Normocephalic atraumatic. Neck: Supple, no lymphadenopathy. No JVD. Nontender. Cardiovascular: Regular rate and rhythm. 3 out of 6 systolic murmur. Respiratory: No respiratory distress. Mild wheezing bilaterally with decreased air movement. Abdominal: Soft, nontender, nondistended, normal bowel sounds. No guarding, rebound, or peritoneal signs. Back: Nontender. Extremities: Nontender, no edema. Skin: Normal color, no rash. Neurologic: Alert and oriented 2. Cranial nerves II through XII are intact. Normal strength and sensation. Psych: Normal affect. Test Results: EKG is sinus at [address] changes. Troponin is negative. Chem-7 is marked for glucose of 73 and the patient was allowed to eat while here. CBC is more for an H AND H 10.7 34.4, lymphocytes of 16, eosinophils of 6. Chest x-ray shows bilateral interstitial prominence with question of a right middle lobe infiltrate. CT brain shows no acute disease. Emergency Department Course and Treatment: Patient was treated albuterol and Atrovent aerosols. His daughter, Winifred Sy, and his power of simplex printer installer, presented to the emergency department and had a prolonged discussion with him about the findings. She would like this questionable right middle lobe infiltrate treated. He is given dose of Levaquin p.o. She is comfortable with him coming back to the skilled nursing and she actually works there. Treatment Plan: Patient will be discharged on 6 more days of Levaquin. Instructed to follow-up his primary care physician in 5-7 days for another exam. Return to the emergency department for any worsening symptoms. Disposition: To home in improved and stable condition. Impression: 1. Fall. 2. COPD. 3. Pneumonia, right middle lobe. This note was generated with Vusay dictation software. It may contain incorrect words, spelling, and punctuation that were not noted in review of the chart prior to signing ED Disposition - Plan for ED Patient: Chief Complaint: Shortness of Breath Instructions: ED Pneumonia Adult Prescriptions: Levofloxacin [Levaquin] 750 mg PO DAILY #6 tablet Referrals: Tristin Marks [Primary Care Provider] - 5-7 Days What to do if you have Problems For any increased pain, shortness of breath, bleeding, nausea or vomiting, chest pain, or any unexpected problems, contact your Primary Care Provider. Call [facility] ([phone]) or report to the closest Emergency Room. Call 911 if necessary. 04/03/18 2176 <Electronically signed by Benoit Ku MD> Date Benoit Ku MD Cosigner Signature (If Indicated): Date CC: Tristin Marks CBC W/DIFF, AUTOMATED Collected: 04/02/2018 Status: F Source: [place] 9:15 AM [facility] REPOSITORY TYPE CODE TESTS RESULT OUT OF RANGE REFERENCE UNITS LAB L100.1000 4.4-11.0 K/mm3 Normal WBC 4.9 LAB L100.1200 4.6-6.2 M/mm3 Low RBC 4.06 LAB L100.1300 13.0-16.5 g/dl Low HGB 10.7 LAB L100.1400 40-54 % Low HCT 34.4 LAB L100.1500 80-94 fL Normal MCV 84.7 LAB L100.1600 27.0-32.0 pg Low MCH 26.4 LAB L100.1700 32-36 g/gl Low MCHC 31.1 LAB L100.1810 11.6-14.6 % High RDW CV 20.3 LAB L100.1820 35.1-43.9 fl High RDW SD 62.1 LAB L100.1900 150-450 K/mm3 Low PLT 96 LAB L100.2000 6.2-12.0 fl Normal MPV 10.1 LAB L100.2100 47-70 % Normal NEUT% 69.2 LAB L100.2200 19-41 % Low LY% 15.7 LAB L100.2300 0-10 % Normal MONO% 9.3 LAB L100.2400 0-5 % High EO% 5.6 LAB L100.2500 0-1 % Normal BASO% 0.2 LAB L100.2550 0.0-0.9 % Normal IM GRAN % 0.000 Result Comment: IG% - Immature Granulocytes (promyelocytes, myelocytes and metamyelocytes) > 1% indicates that a LEFT SHIFT is Present. LAB L100.2620 2.0-7.7 X10 3/uL Absolute Neut Normal 3.4 LAB L100.2720 0.83-4.51 X10 3/ul Low Absolute Lymph 0.76 LAB L100.5500 ADEQ PLT EST Normal MOD DEC LAB L100.7300 ANISO Normal 1+ LAB L100.7600 HYPOCHROMASIA Normal RARE Performed By: #### L100.0100 #### [facility] [address] [place], [place], [address] BASIC METABOLIC Collected: 04/02/2018 Status: F Source: [place] PROFILE (BMP) 9:15 AM [facility] REPOSITORY TYPE CODE TESTS RESULT OUT OF RANGE REFERENCE UNITS LAB L501.0100 74-106 mg/dL Low GLU 73 Result Comment: Please note revised GLUCOSE reference range effective 2017. LAB L501.1000 7-18 mg/dL Normal BUN 11 LAB L501.1100 0.70-1.30 mg/dL Normal CREAT,SERUM 0.83 Result Comment: The validity of the calculated GFR AND GFRAA in patients over 70 years has not been determined. Clinical correlation is essential. LAB L501.1110 >60 mL/min Normal EST GFR 96 Result Comment: Non- GFR Calc LAB L501.1115 >60 mL/min Normal EST GFR - AA 117 Result Comment: GFR Calc LAB L501.1255 ml/min Normal Estimated CRCL 71.90 LAB L501.1300 10-20 RATIO Normal BUN/CRE 13.3 LAB L501.2200 8.5-10 mg/dL Low .1 CA 8.2 LAB L501.5300 136-14 mmol/L Normal 5 NA 137 LAB L501.5600 3.5-5. mmol/L Normal 1 K 4.9 Result Comment: Moderate Hemolysis, Result may be falsely increased. LAB L501.5900 98-107 mmol/L Normal CL 103 LAB L501.6100 21.0-32.0 mmol/L Normal CO2 29.0 LAB L501.6200 5-15 Normal 5 GAP Performed By: #### L500.2500, L501.4010 #### [facility] [address] [place], [place], [address] TROPONIN-I Collected: 04/02/2018 Status: F Source: [place] 9:15 AM [facility] REPOSITORY TYPE CODE TESTS RESULT OUT OF RANGE REFERENCE UNITS LAB L501.4010 <0.045 ng/mL Normal < 0.015 TROPONIN-I Result Comment: TROPONIN-I EXPECTED VALUES <0.045 Negative 0.045 - 0.590 Consistent with Cardiac Damage > OR = 0.600 Critical Value Not every elevated troponin is indicative of OK. These values should be used with clinical judgement in examining the patient's clinical picture for diagnosis. To establish a diagnosis of OK versus myocardial injury, there must be a demonstrated rise and/or fall in the troponin values, in addition to ischemic symptoms, EKG changes, new regional wall motion abnormality, and/or angiographical evidence. PLEASE NOTE: REFERENCE RANGES EDITED 17 Performed By: #### L500.2500, L501.4010 #### [facility] [address] [place], [place], [address] CHEST 1 VIEW Observed: 04/02/2018 Status: F Source: [place] (PORTABLE) 8:58 AM [facility] REPOSITORY [facility] Imaging Services [address] [place] [address] Chest 1 View (Portable) MR#: [id number] Acct: [id number] Name: KAY MITCHELL Rep #: [id number] : 1940 M 77 From: Brown Fowler DO PCP: Tristin Marks Status: REG ER Study: Chest 1 View (Portable) Date of Exam: 04/02/18 Exam# [id number] Ordering Dr: Benoit Ku MD STUDY: X-RAY CHEST REASON FOR EXAM: Male, 77 years old. Shortness of breath TECHNIQUE: Single frontal view COMPARISON: February 13, 2018 FINDINGS: Mild volume loss in the right hemithorax. Diffuse interstitial densities bilaterally. Patchy right midlung infiltrate cannot be excluded. Normal size heart. Normal mediastinum and kalee. Normal visualized pulmonary arteries. Calcified aortic arch and descending thoracic aorta. Degenerative changes of the thoracic spine. Normal visualized ribs, clavicles, and shoulders. A vascular stent is noted within the upper abdomen. RAD/Chest 1 View (Portable) IMPRESSION: Bilateral interstitial prominence in the lungs. Possible right midlung infiltrate. Electronically Signed: Brown Fowler DO at 9:41 EST Tel [phone], Service support , CC: Tristin Marks; Benoit Ku MD Backup Operator: Signed BRAIN/HEAD WITHOUT Observed: 04/02/2018 Status: F Source: [place] CONTRAST 8:58 AM [facility] REPOSITORY [facility] Imaging Services [address] [place] [address] Brain/Head without Contrast MR#: [id number] Acct: [id number] Name: KAY MITCHELL Rep #: [id number] : 1940 M 77 From: Brown Fowler DO PCP: Tristin Marks Status: REG ER Study: Brain/Head without Contrast Date of Exam: 04/02/18 Exam# [id number] Ordering Dr: Benoit Ku MD STUDY: CT BRAIN WITHOUT CONTRAST REASON FOR EXAM: Male, 77 years old. Fall RADIATION DOSAGE (If Supplied By Facility): CTDIvol = ( 44.99 ) mGy, DLP = ( 745.49 ) mGycm TECHNIQUE: Transaxial CT imaging of the brain was performed without administration of intravenous contrast material. Individualized dose optimization techniques were used for this CT. COMPARISON: None. FINDINGS: Normal soft tissue structures. Normal calvarium. Prominent size ventricles and extra-axial spaces with atrophy. Bilateral white matter microangiopathic ischemic changes of the cerebral hemispheres. Normal basal ganglia and thalami. Normal brainstem. Normal cerebellum. There is no intracranial hemorrhage. There are no findings of an acute ischemic infarction. Normal visualized paranasal sinuses. CT/Brain/Head without Contrast IMPRESSION: Atrophy and age-related changes of the brain. Electronically Signed: Brown Fowler DO at 10:58 EST Tel [phone], Service support , CC: Tristin Marks; Benoit Ku MD Backup Operator: Signed DISCHARGE SUMMARY Observed: 02/17/2018 Status: F Source: [place] 5:51 PM [facility] REPOSITORY [facility] Medical Records Department [address] [place] [address] Discharge Summary 02/17/18 1744 MR#: [id number] Acct: [id number] Name: KAY MITCHELL Rep #: [id number] : 1940 77 From: Emery Soliz DO PCP: Tristin Marks Status: DIS PAWAN Y Location: [facility] KP028-1 Discharge Date and Diagnosis Date of Admission: 02/13/18 Date of Discharge: 02/14/18 - Primary Discharge Diagnosis #1 acute on chronic anemia-etiology unknown #2 lethargy secondary to acute on chronic anemia with a backdrop of chronic obstructive pulmonary disease and chronic hypoxic respiratory failure #3 chronic hypoxic respiratory failure #4 COPD #5 dementia - Secondary Discharge Diagnosis Chronic Problems COPD (chronic obstructive pulmonary disease) (Chronic) History of lung cancer (Chronic) Cirrhosis (Chronic) Chronic respiratory failure with hypoxia (Chronic) Hospital Course and Treatment Operations: None Procedures: Blood transfusion Summary of Care Provided: The patient is a 77 year old M who was seen in the emergency room at [facility] after being sent in from a local extended care facility due to lethargy. Patient has a history of dementia, chronic hypoxic respiratory failure, and COPD. Workup in the emergency room included labs which showed a hemoglobin of 8, patient's chemistry profile was unremarkable, the patient's liver profile was unremarkable. Chest x-ray showed bibasilar atelectasis. Patient was placed in observation status on MedSurg 3, the patient was transfused 1 unit of packed red blood cells. Discussions were carried out with the patient's POA who did not want further testing on the patient such as an upper GI or lower GI workup. Additional testing was performed in the hospital and it was noted that the patient was not iron deficient and his ammonia level was normal. The reason for the patient's mental status change at the extended care facility was not known. On 02/14/18, patient was seen and examined felt to be in stable condition for transfer back to his extended care facility. Home Medications: Medications to take at Discharge Acetaminophen [Tylenol] 650 mg PO PRN PRN 02/13/18 Albuterol Inhaler [Ventolin Hfa] 2 puff INHALATION 4X/DAY PRN 02/13/18 Amoxicillin/Potassium Clav [Augmentin 875-125 Tablet] 1 tab PO BID 02/13/18 Ascorbic Acid [Vitamin C] 500 mg PO DAILY 02/13/18 Bisacodyl 5 mg PO DAILY 02/13/18 Bisacodyl 10 mg RC DAILY 02/13/18 Cholecalciferol (Vitamin D3) [Vitamin D3] 2,000 unit PO DAILY 02/13/18 Diltiazem HCl [Cardizem LA] 120 mg PO DAILY 02/13/18 Duloxetine Hcl [Cymbalta] 30 mg PO DAILY 02/13/18 Finasteride [Proscar] 5 mg PO QHS 02/13/18 Furosemide [Lasix] 20 mg PO DAILY 02/13/18 Ipratropium/Albuterol Sulfate [Duoneb] 3 ml INHALATION Q4H PRN PRN 02/13/18 Isosorbide Mononitrate [Imdur] 30 mg PO DAILY 02/13/18 Lactobacillus Acidophilus [Acidophilus] 1 tab PO BID 02/13/18 Levothyroxine [Synthroid] 56 mcg PO DAILY 02/13/18 Magnesium Hydroxide [Milk of Magnesia] 30 ml PO DAILY 02/13/18 Metoprolol Tartrate 50 mg PO BID 02/13/18 Nortriptyline HCl 75 mg PO QHS 02/13/18 Omeprazole 40 mg PO DAILY 02/13/18 Ondansetron HCl [Zofran] 4 mg PO Q8H PRN PRN 02/13/18 Polyethylene Glycol 3350 [Purelax] 17 gm PO DAILY 02/13/18 Potassium Chloride [Klor-Con M10] 10 meq PO DAILY 02/13/18 Sennosides [Senna] 8.6 mg PO BID 02/13/18 Simvastatin 20 mg PO QHS 02/13/18 Tamsulosin HCl [Flomax] 0.4 mg PO QHS 02/13/18 Lorazepam [Ativan] 0.5 mg PO BID PRN PRN #10 tab 02/14/18 Oxycodone HCl [Roxicodone] 5 mg PO Q6H PRN PRN 3 Days #10 tab 02/14/18 Tramadol HCl [Ultram] 50 mg PO 4X/DAY #12 tab 02/14/18 Tramadol HCl [Ultram] 50 mg PO Q12H PRN PRN 5 Days #10 tab 02/14/18 fentaNYL patch [Duragesic patch] 25 mcg TRANSDERM. Q72H 9 Days #3 patch 02/14/18 Following Prescrptions Were Given to Patient: Oxycodone HCl [Roxicodone] 5 mg PO Q6H PRN PRN 3 Days #10 tab PRN Reason: CHRONIC PAIN Tramadol HCl [Ultram] 50 mg PO Q12H PRN PRN 5 Days #10 tab PRN Reason: Pain fentaNYL patch [Duragesic patch] 25 mcg TRANSDERM. Q72H 9 Days #3 patch Lorazepam [Ativan] 0.5 mg PO BID PRN PRN #10 tab PRN Reason: Anxiety Tramadol HCl [Ultram] 50 mg PO 4X/DAY #12 tab Primary Care Physician: Tristin Marks [Primary Care Provider] - Disposition: Snf facility Minutes spent on discharge:: 25 Patient Condition:: Stable Medical Necessity - Tobacco Use Smoking Status: Former smoker Meaningful Use Info Meaningful Use Diagnoses (Choose all that apply): None applicable Code Visit OBSV E AND M: 30580 Observation care discharge 02/17/18 1751 <Electronically signed by Emery Soliz DO> Date Emery Soliz DO Cosigner Signature (if applicable): Date CC: Emery Soliz DO; Tristin Marks Signed 12 LEAD ELECTROCARDIOGRAM Observed: 02/15/2018 Status: F Source: [place] 2:13 PM [facility] REPOSITORY [facility] Cardiovascular Services [address] [place] [address] 12 Lead EKG 02/13/181917 MR#: [id number] Acct: [id number] Name: KAY MITCHELL Rep #: [id number] : 1940 77 From: Dominic Paul MD Attending Dr: Emery Soliz DO Status: DIS PAWAN Ordering Dr: Chon Mcmillan MD Date: 02/13/18 Location: [facility] Sex: M C Admitted: 02/13/18 Test Reason : Blood Pressure : / mmHG Vent. Rate : 079 BPM Atrial Rate : 079 BPM P-R Int : 204 ms QRS Dur : 088 ms QT Int : 412 ms P-R-T Axes : 007 -10 030 degrees QTc Int : 472 ms Normal sinus rhythm Minimal voltage criteria for LVH, may be normal variant Borderline ECG Confirmed by BEVERLY LI, DOMINIC ([id number]), story editor VENKATESH FOSTER ([id number]) on 02/15/2018 2:13:11 PM Referred By: JESE Confirmed By:DOMINIC PAUL MD 02/15/18 1413 Date Dominic Paul MD CC: Chon Mcmillan MD; Emery Soliz DO; Tristin Marks Signed TRANSFER TO [facility] Observed: 02/14/2018 Status: F Source: [facility] 2:59 PM [facility] REPOSITORY [facility] Medical Records Department [address] [place] [address] Transfer to Extended Care MR#: [id number] Acct: [id number] Name: KAY MITCHELL Rep #: [id number] : 1940 77 From: Emery Soliz DO PCP: Tristin Marks Status: ADM PAWAN KAY MITCHELL (Patient) (Health Ins. Claim No.) (Day of Discharge to Facility) Certification of patient admission REQUIRED AT TIME OF ADMISSION. I CERTIFY THAT POST-HOSPITAL ECF SERVICES ARE REQUIRED TO BE GIVEN ON AN IN-PATIENT BASIS BECAUSE OF THE ABOVE NAMED PATIENT'S NEED FOR INTERMEDIATE CARE ON A CONTINUING BASIS FOR THE CONDITION(S) FOR WHICH HE/SHE WAS RECEIVING IN-PATIENT HOSPITAL SERVICES PRIOR TO HIS/HER TRANSFER TO THE ECF. 02/14/18 1459 <Electronically signed by Emery Soliz DO> Date Emery Soliz DO - Diet regular - Routine Orders/Code Status O2 Liters per Minute: 4 O2 Frequency: Continuous - Therapies Weight Bearing: Weight bearing as tolerated - Problem/Diagnosis (1) Chronic respiratory failure with hypoxia Status: Chronic Current Visit: Yes (2) Anemia Status: Acute Comment: etiology unknown Current Visit: Yes (3) COPD (chronic obstructive pulmonary disease) Status: Chronic Current Visit: Yes (4) Cirrhosis Status: Chronic Current Visit: Yes (5) Encephalopathy Status: Acute Comment: etiology unknown Current Visit: Yes - Allergies/Procedures Done in Hospital Allergies/Adverse Reactions: Allergies morphine Allergy (Verified 02/13/18 18:39) Rash Procedures: - - blood transfusion - Type of Care/Length of Stay Estimated LOS: Convalescent Care Less Than 30 days Type of Care Needed: Skilled Rehab Potential: Good Prognosis: Good - Additional Orders/Day of Discharge H AND P will serve as current which was dated: 02/13/18 Day of Discharge: 02/14/18 - Follow Up Care Primary Care Physician: Tristin Marks [Primary Care Provider] - 02/14/18 1459 <Electronically signed by Emery Soliz DO> Date Emery Soliz DO CC: Tristin Marks Signed AMMONIA Collected: 02/14/2018 Status: F Source: [place] 12:40 PM [facility] REPOSITORY TYPE CODE TESTS RESULT OUT OF RANGE REFERENCE UNITS LAB L503.5510 11-32 umol/L Normal AMMONIA 30.0 Performed By: #### L503.5510 #### [facility] [address] [place], [address] IRON+IRON BINDING Collected: 02/14/2018 Status: F [facility] PM [facility] REPOSITORY TYPE CODE TESTS RESULT OUT OF RANGE REFERENCE UNITS LAB L503.6075 250-450 ug/dL TIBC Normal 325 LAB L503.6150 65-175 ug/dL IRON Normal 108 LAB L503.6250 15.0-55.0 % IRON Normal SATURATION 33.2 Performed By: #### L503.6030 #### [facility] [address] [place], [address] CBC W/DIFF, AUTOMATED Collected: 02/14/2018 Status: F Source: [place] 6:23 AM [facility] REPOSITORY TYPE CODE TESTS RESULT OUT OF RANGE REFERENCE UNITS LAB L100.1000 4.4-11.0 K/mm3 Normal WBC 4.4 LAB L100.1200 4.6-6.2 M/mm3 Low RBC 3.39 LAB L100.1300 13.0-16.5 g/dl Low HGB 8.9 LAB L100.1400 40-54 % Low HCT 29.3 LAB L100.1500 80-94 fL Normal MCV 86.4 LAB L100.1600 27.0-32.0 pg Low MCH 26.3 LAB L100.1700 32-36 g/gl Low MCHC 30.4 LAB L100.1810 11.6-14.6 % High RDW CV 17.4 LAB L100.1820 35.1-43.9 fl High RDW SD 53.7 LAB L100.1900 150-450 K/mm3 Low PLT 96 LAB L100.2000 6.2-12.0 fl Normal MPV 9.9 LAB L100.2100 47-70 % Normal NEUT% 67.9 LAB L100.2200 19-41 % Low LY% 18.8 LAB L100.2300 0-10 % Normal MONO% 9.3 LAB L100.2400 0-5 % Normal EO% 3.6 LAB L100.2500 0-1 % Normal BASO% 0.2 LAB L100.2550 0.0-0.9 % Normal IM GRAN % 0.200 Result Comment: IG% - Immature Granulocytes (promyelocytes, myelocytes and metamyelocytes) > 1% indicates that a LEFT SHIFT is Present. LAB L100.2620 2.0-7.7 X10 3/uL Normal Absolute Neut 3.0 LAB L100.2720 0.83-4.51 X10 3/ul Normal Absolute Lymph 0.83 Performed By: #### L100.0100 #### [facility] [address] [place], [address] BASIC METABOLIC Collected: 02/14/2018 Status: F Source: [place] PROFILE ([facility]) 6:23 AM [facility] REPOSITORY TYPE CODE TESTS RESULT OUT OF RANGE REFERENCE UNITS LAB L501.0100 74-106 mg/dL Normal GLU 99 Result Comment: Please note revised GLUCOSE reference range effective 2017. LAB L501.1000 7-18 mg/dL Normal BUN 15 LAB L501.1100 0.70-1.30 mg/dL Normal CREAT,SERUM 0.92 Result Comment: The validity of the calculated GFR AND GFRAA in patients over 70 years has not been determined. Clinical correlation is essential. LAB L501.1110 >60 mL/min Normal EST GFR 85 Result Comment: Non- GFR Calc LAB L501.1115 >60 mL/min Normal EST GFR - AA 103 Result Comment: GFR Calc LAB L501.1255 ml/min Normal Estimated CRCL 67.12 LAB L501.1300 10-20 RATIO Normal BUN/CRE 16.3 LAB L501.2200 8.5-10 mg/dL Low .1 CA 8.3 LAB L501.5300 136-14 mmol/L Normal 5 NA 139 LAB L501.5600 3.5-5. mmol/L Normal 1 K 3.8 LAB L501.5900 98-107 mmol/L Normal CL 101 LAB L501.6100 21.0-3 mmol/L Normal 2.0 CO2 31.0 LAB L501.6200 5-15 Normal GAP 7 Performed By: #### L500.2500 #### [facility] [address] [facility] [place], [address] EMERGENCY DEPARTMENT Observed: 02/14/2018 Status: F Source: [place] SUMMARY 12:11 AM [facility] REPOSITORY [facility] Medical Records Department [address] [facility] [place] [address] Emergency Department Summary 02/13/18 2146 MR#: [id number] Acct: [id number] Name: KAY MITCHELL Rep #: [id number] : 1940 77 From: Chon Mcmillan MD PCP: Tristin Marks Status: ADM PAWAN - ER Visit Summary Date of Service: 02/13/18 Chief Complaint: Altered mental status History of Present Illness: The patient is a 77 M who resides at rehab for recurrent pneumonias since May. He was briefly confused this morning, but this resolved. He had been complaining of some shortness of breath. He has a history of COPD and uses 4 L of oxygen normally. He was found to have a hemoglobin of 7.7 on labs. He denies any bleeding. Denies any blood thinners. Denies any blood or black stools. He has had anemia in the past and required transfusions. He is not sure why he was anemic. Physical Examination: Initial blood pressure was 85/65, but repeat was 112/58 without intervention. Afebrile and vitals unremarkable. Alert and oriented. No acute distress. HEENT exam unremarkable. Skin slightly pale. Heart regular rate and rhythm. Lungs show crackles in the bases. Abdomen soft and nontender. Rectal exam showed no gross blood. Extremities show no edema. Alert and oriented. Test Results: EKG showed sinus rhythm rate of 79. He will open 8.0. Platelets 104. BMP normal. ALT 114. Coags normal. Urinalysis pending. Troponin normal. Lactate 1.7. Cultures pending. Fecal occult blood test negative. Emergency Department Course and Treatment: Patient treated with fluids. Placed on a monitor. He had no interval change on reevaluation. Vitals of blood pressure remained stable. No change in his symptoms. Patient is anemic. He has chronic lung disease. He has been in rehab. I am not sure why he was confused, but he seems to be improved and stable at this point. No other neurologic symptoms or abnormal findings. Patient was discussed with the hospitalist for his age, symptoms, and comorbidities. He will be observed. Treatment Plan: As above Disposition: Admission Impression: 1. Dyspnea 2. Anemia This note was generated with Vusay dictation software. It may contain incorrect words, spelling, and punctuation that were not noted in review of the chart prior to signing ED Disposition - Plan for ED Patient: Chief Complaint: Alt LOC Referrals: Tristin Marks [Primary Care Provider] - What to do if you have Problems For any increased pain, shortness of breath, bleeding, nausea or vomiting, chest pain, or any unexpected problems, contact your Primary Care Provider. Call [facility] ([phone]) or report to the closest Emergency Room. Call 911 if necessary. 02/14/18 0011 <Electronically signed by Chon Mcmillan MD> Date Chon Mcmillan MD Cosigner Signature (If Indicated): Date CC: Tristin Marks Observed: 02/14/2018 Status: F Source: [place] CULTURE, URINE 12:00 AM [facility] REPOSITORY Urine Culture ORGANISM 1: Mixed Gram Positive Organisms Kiefer Count 1000-10,000 MIX CULTURE Mixed contaminants. Submit a new specimen if indicated. Performed By: #### M100.0650 #### [facility] [address] [place], [address] HISTORY AND PHYSICAL Observed: 02/13/2018 Status: F Source: [place] EXAM 9:42 PM [facility] REPOSITORY [facility] Medical Records Department [address] [place] [address] History and Physical 02/13/182127 MR#: [id number] Acct: [id number] Name: KAY MITCHELL Rep #: [id number] : 1940 77 From: Dominic Zuniga MD PCP: Tristin Marks Status: REG ER Y Location: ED Problem List (1) Altered level of consciousness Status: Acute (2) Anemia Status: Acute (3) COPD (chronic obstructive pulmonary disease) Status: Chronic (4) History of lung cancer Status: Chronic (5) Cirrhosis Status: Chronic History of Present Illness Date of Admission: 02/13/18 Chief Complaint: change in mental status The patient is a 77 year old male patient with a history of lung cancer (in remission), COPD, anemia, cirrhosis presents to the ER with a change in mental status. According to his daughter , the server administrator of the nursing facility, he was unable to call her by name this morning and was very confused. He is currently lucid and alert and improved according to his daughter. The patient easily becomes short of breath with exertion. He does have COPD and is dependent on oxygen using 4 liters continuously. He denies chest pain and is not short of breath at rest. No nausea , vomiting or diarrhea. CBC reveals a hemoglobin of 7.7 and Hemoccult stool is negative. WBC count is within normal limits and vital signs are stable as well. The daughter expressed wishes to keep him at a full code status. He will be admitted overnight for observation and will be transfused. If remains lucid and stable he may be discharged back to rehab facility. Past Medical History Past Medical History (Chronic Problems): Chronic Problems COPD (chronic obstructive pulmonary disease) (Chronic) History of lung cancer (Chronic) Cirrhosis (Chronic) Allergies morphine Allergy (Verified 02/13/18 18:39) Rash Home Medications: Ambulatory Orders Medication Instructions Recorded Acetaminophen [Tylenol] 650 mg PO PRN PRN 02/13/18 Smoking Status: Former smoker - *Family History Maternal History Items: No pertinent history Review of Systems Constitutional: Reports: Malaise, Weakness, Fatigue. Denies: Chills, Fever, Weight Change HEENT: Denies: Head Aches, Sinus Congestion, Sinus Drainage Cardiovascular: Denies: Chest Pain, Palpitations Respiratory: Denies: Cough, Shortness of breath at rest, Sputum production Gastrointestinal: Denies: Abdominal Pain, Nausea, Vomiting Genitourinary: Denies: Dysuria Musculoskeletal: Denies: Joint Pain, Joint Tenderness Skin: Denies: Rash, Wounds Neurological: Reports: Confusion. Denies: Focal weakness, Numbness, Tingling Psychiatric: Denies: Anxiety, Depression, Homicidal Ideations, Suicidal Ideations Hematologic/ Lymphatic: Denies: Easy Bruising, Easy Bleeding VTE Information - Inpt Only VTE Present on Admission: No VTE Mechan Device Prophylaxis: SCD's VTE Pharm Prophylaxis ordered?: No Patient Problems: Active and Suspected Problems Altered level of consciousness (Acute) Anemia (Acute) - Physical Exam General: Alert, Oriented x3, Cooperative HEENT: Atraumatic, PERRLA, EOMI, Normocephalic Neck: Supple Lungs: No rhonchi, No wheeze, No rales, Diminished Cardiovascular: Regular rate, Normal S1, Normal S2, Murmur - 4/6 holosystolic Abdomen: Bowel Sounds Present, Soft, Non Tender Extremities: No edema Skin: No rashes Musculoskeletal: No Tenderness to Palpation of Joints or Extremities Neurological: Neuro grossly intact Psych/Mental Status: Normal Affect, Appropriate Vital Signs Temp Pulse Resp BP Pulse Ox 98.8 F 78 14 113/71 97 02/13/18 19:27 02/13/18 21:24 02/13/18 21:24 02/13/18 21:24 02/13/18 21:24 Oxygen Flow Rate (L/min) 2 Oxygen Delivery Method Nasal Cannula Weight: 160 lb Body Mass Index (BMI) 23.6 Microbiology Past 72 Hours 02/13/18 19:30 Stool Occult Blood (EVELINA) - Final Stool Laboratory Tests Past 24 Hrs WBC RBC Hgb Hct MCV MCH MCHC RDW RDW Differential Plt Count MPV Assessment/Plan All Active Problems Altered level of consciousness (Acute) Anemia (Acute) Chronic conditions - COPD - Cirrhosis - history of lung cancer - debility Plan - admit to medical surgical floor for observation - type cross and transfuse 1 units PRBC - cbc bmp in am - regular diet - neuro checks q 4 hrs - scds for DVT prophylaxis - continue routine home medications 02/13/182 <Electronically signed by Dominic Zuniga MD> Date Dominic Zuniga MD Cosigner Signature: Date (if applicable) CC: Dominic Zuniga MD; Tristin Marks Signed URINALYSIS, COMPLETE Collected: 02/13/2018 Status: F Source: [place] 9:00 PM [facility] REPOSITORY Order Comment: How was Urine Obtained? SINGE MACHINE OPERATOR TO SPECIFY TYPE CODE TESTS RESULT OUT OF RANGE REFERENCE UNITS LAB L400.3000 Yellow COLOR Normal Yellow LAB L400.3050 Clear Normal CLARITY Clear LAB L400.3200 Normal mg/dl Normal GLUCOSE, UR Normal LAB L400.3300 Negative mg/dL Normal BILIRUBIN URINE Negative LAB L400.3400 Negative mg/dl Normal KETONE UR Negative LAB L400.3465 1.002-1.030 Normal SP.GR. DIPSTX 1.015 LAB L400.3550 5.0 - 8.0 pH UR Normal 6.0 LAB L400.3600 Negative mg/dl PROT Normal DIPSTX Negative LAB L400.3700 Normal mg/dl Normal UROBILI Normal LAB L400.3750 Negative Normal NITRITE UR Negative LAB L400.3780 Negative /ul Normal OCCULT BLOOD-UR Negative LAB L400.3800 Negative /ul High LEUK ESTERASE 100 LAB L400.4050 0-5 /hpf WBC Normal 0-5 SEEN LAB L400.4100 0-5 /hpf Normal RBC-UA 0-5 SEEN LAB L400.4150 0-5 /hpf SQUAM Normal EPI 0-5 SEEN LAB L400.4300 None Seen /hpf 0 Normal BACTERIA SEEN LAB L400.4350 <or=2+ /hpf 1+ Normal MUCUS, URINE LAB L400.4400 0-5 /lpf Normal HYALINE CAST 0-5 SEEN Performed By: #### L400.0001 #### [facility] [address] [place], [address] Observed: 02/13/2018 Status: F Source: [place] CULTURE, BLOOD (WB) 9:00 PM [facility] REPOSITORY BC No growth in 5 days. Performed By: #### M200.1000 #### [facility] [address] [place], [address] Observed: 02/13/2018 Status: F Source: [place] STOOL OCCULT BLOOD 7:30 PM [facility] IFOB REPOSITORY STOB iFOB Occult Blood Negative Performed By: #### M100.7900 #### [facility] [address] [place], [address] Observed: 02/13/2018 Status: F Source: [place] CULTURE, BLOOD (WB) 7:23 PM [facility] REPOSITORY BC No growth in 5 days. Performed By: #### M200.1000 #### [facility] [address] [place], [address] CBC W/DIFF, AUTOMATED Collected: 02/13/2018 Status: F Source: [place] 7:10 PM [facility] REPOSITORY TYPE CODE TESTS RESULT OUT OF RANGE REFERENCE UNITS LAB L100.1000 4.4-11.0 K/mm3 Normal WBC 4.9 LAB L100.1200 4.6-6.2 M/mm3 Low RBC 3.10 LAB L100.1300 13.0-16.5 g/dl Low HGB 8.0 LAB L100.1400 40-54 % Low HCT 26.6 LAB L100.1500 80-94 fL Normal MCV 85.8 LAB L100.1600 27.0-32.0 pg Low MCH 25.8 LAB L100.1700 32-36 g/gl Low MCHC 30.1 LAB L100.1810 11.6-14.6 % High RDW CV 17.8 LAB L100.1820 35.1-43.9 fl High RDW SD 56.3 LAB L100.1900 150-450 K/mm3 Low PLT 104 LAB L100.2000 6.2-12.0 fl Normal MPV 10.3 LAB L100.2100 47-70 % Normal NEUT% 67.6 LAB L100.2200 19-41 % Normal LY% 19.3 LAB L100.2300 0-10 % Normal MONO% 8.8 LAB L100.2400 0-5 % Normal EO% 4.1 LAB L100.2500 0-1 % Normal BASO% 0.2 LAB L100.2550 0.0-0.9 % Normal IM GRAN % 0.000 Result Comment: IG% - Immature Granulocytes (promyelocytes, myelocytes and metamyelocytes) > 1% indicates that a LEFT SHIFT is Present. LAB L100.2620 2.0-7.7 X10 3/uL Normal Absolute Neut 3.3 LAB L100.2720 0.83-4.51 X10 3/ul Normal Absolute Lymph 0.95 Performed By: #### L100.0100 #### [facility] [address] [facility] [place], [place], [address] PROTHROMBIN TIME W/INR Collected: 02/13/2018 Status: F Source: [place] 7:10 PM [facility] REPOSITORY TYPE CODE TESTS RESULT OUT OF RANGE REFERENCE UNITS LAB L300.4150 11.7-14.9 SECONDS Normal PROTIME 14.4 LAB L300.4200 Normal INR 1.1 Performed By: #### L300.3900, L300.4310 #### [facility] [address] [facility] [place], [place], [id number] PARTIAL THROMBOPLAST Collected: 02/13/2018 Status: F Source: [place] TIME 7:10 PM [facility] REPOSITORY TYPE CODE TESTS RESULT OUT OF RANGE REFERENCE UNITS LAB L300.4310 24.1-36.2 Seconds Normal PTT 34.0 Performed By: #### L300.3900, L300.4310 #### [facility] [address] [place], [place], [address] COMPREHENSIVE METABOLIC Collected: 02/13/2018 Status: F Source: [place] PROFIL 7:10 PM [facility] REPOSITORY TYPE CODE TESTS RESULT OUT OF RANGE REFERENCE UNITS LAB L501.0100 74-106 mg/dL Normal GLU 88 Result Comment: Please note revised GLUCOSE reference range effective 2017. LAB L501.1000 7-18 mg/dL Normal BUN 16 LAB L501.1100 0.70-1.30 mg/dL Normal CREAT,SERUM 1.12 Result Comment: The validity of the calculated GFR AND GFRAA in patients over 70 years has not been determined. Clinical correlation is essential. LAB L501.1110 >60 mL/min Normal EST GFR 68 Result Comment: Non- GFR Calc LAB L501.1115 >60 mL/min Normal EST GFR - AA 82 Result Comment: GFR Calc LAB L501.1255 ml/min Normal Estimated CRCL 56.99 LAB L501.1300 10-20 RATIO Normal BUN/CRE 14.3 LAB L501.1500 6.4-8. g/dL Normal 2 T PROT 7.0 LAB L501.1800 3.2-5. g/dL Low 0 ALB 2.9 LAB L501.1950 2.2-4. g/dL Normal 2 GLOB 4.1 LAB L501.2000 0.9-2. RATIO Low 4 A/G 0.7 LAB L501.2200 8.5-10 mg/dL Low .1 CA 8.4 LAB L501.4100 15-37 U/L Normal AST 17 LAB L501.4305 45-117 U/L Normal ALK P 92 LAB L501.4405 16-61 U/L Low ALT 14 LAB L501.4600 0.20-1 mg/dL Normal .00 T BILI 0.40 LAB L501.5300 136-14 mmol/L Normal 5 NA 138 LAB L501.5600 3.5-5. mmol/L Normal 1 K 3.9 LAB L501.5900 98-107 mmol/L Normal CL 100 LAB L501.6100 21.0-3 mmol/L Normal 2.0 CO2 29.0 LAB L501.6200 5-15 Normal GAP 9 Performed By: #### L500.4050, L501.4010 #### [facility] [place], [address] TROPONIN-I Collected: 02/13/2018 Status: F Source: [place] 7:10 PM [facility] REPOSITORY TYPE CODE TESTS RESULT OUT OF RANGE REFERENCE UNITS LAB L501.4010 <0.045 ng/mL Normal < 0.015 TROPONIN-I Result Comment: TROPONIN-I EXPECTED VALUES <0.045 Negative 0.045 - 0.590 Consistent with Cardiac Damage > OR = 0.600 Critical Value Not every elevated troponin is indicative of OK. These values should be used with clinical judgement in examining the patient's clinical picture for diagnosis. To establish a diagnosis of OK versus myocardial injury, there must be a demonstrated rise and/or fall in the troponin values, in addition to ischemic symptoms, EKG changes, new regional wall motion abnormality, and/or angiographical evidence. PLEASE NOTE: REFERENCE RANGES EDITED 17 Performed By: #### L500.4050, L501.4010 #### [facility] [address] [facility] [place], [place], [address] LACTIC ACID Collected: 02/13/2018 Status: F Source: [place] 7:10 [facility] REPOSITORY Order Comment: Yes/No query for Sepsis Lactate Rule Y TYPE CODE TESTS RESULT OUT OF RANGE REFERENCE UNITS LAB L503.6005 0.4-2.0 mmol/L Normal LACTIC ACID 1.7 Performed By: #### L503.6005 #### [facility] [address] [facility] [place], [address] TYPE AND SCREEN Collected: 02/13/2018 Status: F Source: [place] 7:10 [facility] REPOSITORY Order Comment: Reason for Type AND Screen/Red Cells: ANEMIA TYPE CODE TESTS RESULT OUT OF RANGE REFERENCE UNITS LAB B10.0800 O Normal BLOOD TYPE GEL POSITIVE LAB B100.4000 Normal Antibody NEGATIVE Screen Performed By: #### B101.7450 #### [facility] [address] [facility] [place], [place], [address] RC Collected: 02/13/2018 Status: F Source: [place] 7:10 PM [facility] [place] REPOSITORY TYPE CODE TESTS RESULT OUT OF REFERENCE UNITS RANGE LAB U100.0000 [id number] TRANSFUSED PRODUCT: T AND S with Crossmatch, Red Cells COUNT: 1 Performed By: #### U100.0000 #### [facility] - refer to report for specific site CHEST 1 VIEW Observed: 02/13/2018 Status: F Source: [place] (PORTABLE) 7:05 PM [facility] [place] REPOSITORY [facility] Imaging Services [address] [place] [address] Chest 1 View (Portable) MR#: [id number] Acct: [id number] Name: KAY MITCHELL Rep #: [id number] : 1940 M 77 From: Mariusz Anaya DO PCP: Tristin Marks Status: REG ER Study: Chest 1 View (Portable) Date of Exam: 02/13/18 Exam# [id number] Ordering Dr: Chon Mcmillan MD STUDY: X-RAY CHEST REASON FOR EXAM: Male, 77 years old. Low blood count this morning. Daughter states seeing altered consciousness. TECHNIQUE: Single AP portable view of the chest. COMPARISON: None. FINDINGS: The lungs are well expanded. There is diffuse interstitial changes thought to be chronic. There is question of bibasilar atelectasis versus infiltrate. There is no demonstrated pleural abnormality. Normal size heart. Normal mediastinum and kalee. Normal visualized pulmonary arteries. There is atherosclerotic tortuosity of the aortic arch and descending thoracic aorta. The thoracic spine is obscured by the mediastinum. There is degenerative osteoarthritis of the bilateral shoulders. There is no demonstrated abnormality of the visualized soft tissue structures of the upper abdomen. RAD/Chest 1 View (Portable) IMPRESSION: Bibasilar atelectasis versus infiltrate. Electronically Signed: Mariusz Anaya DO at 19:28 EDT Tel [phone], Service support , CC: Chon Mcmillan MD; Tristin Marks Backup Operator: Signed URINALYSIS Collected: 11/25/2017 Status: F Source: [facility] 12:05 PM REPOSITORY TYPE CODE TESTS RESULT OUT OF RANGE REFERENCE UNITS LAB UCOLR(CONSTANCE NC) Color Yellow LAB UAPP(LOIN Clear C) Appearance Clear LAB USPG(LOIN 1.003-1.035 C) Specific [place] 1.011 LAB UPH(LOINC 5.0-9.0 ) pH 7.0 LAB ULEU(LOIN Negative C) Leukocytes Abnormal Esterase Trace LAB UNIT(LOIN Negative C) Nitrite Negative LAB UPRO(LOIN Negative mg/dL C) Protein Negative LAB UGLU(LOIN Negative mg/dL C) Glucose Negative LAB UKET(LOIN Negative mg/dL C) Ketones Negative LAB UURO(LOIN Negative mg/dL C) Urobilinogen <2.0 LAB UBIL(LOIN Negative C) Bilirubin Negative LAB UBLD(LOIN Negative C) Blood Negative LAB UASA(LOIN Negative mg/dL C) Ascorbic Acid Negative LAB UWBC(LOIN 0-5 /[HPF] C) WBC 5 LAB URBC(LOIN 0-3 /[HPF] C) RBC 3 LAB UBAC(LOIN None /[HPF] C) Bacteria Rare LAB USEPI(CONSTANCE 0-5 /[HPF] NC) Squamous 3 Epithelial Cells LAB UMUCS(CONSTANCE None /[LPF] NC) Mucous Rare LAB UMICP(CONSTANCE NC) Automated Urine Microscopy Performed Performed By: #### [id number] #### [facility] [address] [place] [address] Observed: 11/25/2017 Status: F Source: [facility] CULTURE, URINE 12:05 PM REPOSITORY BACTERIAL BILL#: [id number] : 44 AGE: SEX: Reyna LUCAS SOURCE: URINE COLLECTED: 11/25/17 12:05 ANTIBIOTICS AT AKANKSHA.: RECEIVED : 11/25/17 18:40 SITE: Unspecified R E S U L T S URINE CULTURE,BACTERIAL FINAL 11/26/17 12:29 NO SIGNIFICANT GROWTH. Performed By: #### [id number] #### [facility] [address] [place] [address] BASIC METABOLIC PANEL Collected: 11/08/2017 Status: F Source: [facility] 5:00 AM REPOSITORY TYPE CODE TESTS RESULT OUT OF REFERENCE UNITS RANGE LAB GLU(LOINC) 70-100 mg/dL Glucose High 102 LAB UREA(LOINC 6-23 mg/dL ) Urea Nitrogen 10 LAB CREAT(LOIN 0.50-1.30 mg/dL C) Creatinine 1.13 LAB GFR(LOINC) Glomerular >60 Filtration Rate Result Comment: Interpretation for Chronic Kidney Disease: Stages 1&2 >60 Healthy or potential kidney damage. Mild decrease of GFR. Stage 3 30-59 Moderate decrease of GFR. Stage 4 15-29 Severe decrease of GFR. Stage 5 <15 Kidney failure or on dialysis. LAB SOD(LOINC) 136-145 mmol/L Sodium 138 LAB POT(LOINC) 3.5-5.1 mmol/L Potassium Low 3.4 LAB CHLOR(LOINC) 98-107 mmol/L Chloride Low 96 LAB BICAR(LOINC) 21-32 mmol/L Bicarbonate 30 LAB CA(LOINC) 8.6-10.3 mg/dL Calcium Low 7.8 LAB ANGAP(LOINC) 10-20 mmol/L Anion Gap 15 LAB BCRAT(LOINC) 5-25 Urea/Creatinine Ratio 9 Performed By: #### [id number] #### [facility] [address] [place] [id number] MAGNESIUM Collected: 11/08/2017 Status: F Source: [facility] 5:00 AM REPOSITORY TYPE CODE TESTS RESULT OUT OF REFERENCE UNITS RANGE LAB MG(LOINC) 1.6-2.4 mg/dL Magnesium 1.7 Performed By: #### [id number] #### [facility] [address] [place] [address] CBC WITH DIFFERENTIAL Collected: 11/08/2017 Status: F Source: [facility] 5:00 AM HEALTHCARE REPOSITORY TYPE CODE TESTS RESULT OUT OF REFERENCE UNITS RANGE LAB WBCIR(LOINC 4.2-11.0 10*3/uL ) WBC 4.9 LAB RBC(LOINC) 4.08-6.37 10*6/uL Low RBC 3.17 LAB HGB(LOINC) 12.8-17.7 g/dL Low HGB 9.4 LAB HCT(LOINC) 38.4-54.9 % Low HCT 29.1 LAB MCV(LOINC) 83.3-98.2 fL MCV 91.8 LAB MCH(LOINC) 27.5-32.9 pg MCH 29.7 LAB MCHC(LOINC) 30.5-35.4 g/dL MCHC 32.3 LAB RDWCV(LOINC 12.0-15.4 % ) High RDW CV 16.1 LAB RDWSD(LOINC 39.3-48.6 fL ) High RDW SD 53.3 LAB PLTC(LOINC) 155-404 10*3/uL Low Platelet Count 69 Result Comment: Platelet count confirmed by smear review. LAB MPV(LOINC) 9.9-12.1 fL MPV 11.7 LAB NRBCR(LOINC) /100{WBC s} NRBC Automated 0.0 LAB NRBCA(LOINC) 10*3/uL NRBC Absolute 0.00 LAB ASEGR(LOINC) 2.22-7.53 10*3/uL Neutrophils Absolute 3.97 Result Comment: Reviewed by tech, consistent with instrument results. LAB ALYMR(LOINC) 0.40-2.84 10*3/uL Lymphocytes Absolute 0.41 LAB AMONR(LOINC) 0.25-1.33 10*3/uL Monocytes Absolute 0.43 LAB AEOSR(LOINC) 0.01-0.46 10*3/uL Eosinophils Absolute 0.07 LAB ABASR(LOINC) 0.01-0.09 10*3/uL Basophils Absolute 0.01 LAB IGRA(LOINC) % Immature Granulocytes 0.4 LAB IGR(LOINC) 0.00-0.21 10*3/uL Imm Grans Absolute 0.02 LAB SEGC(LOINC) 46.2-79.1 % Neutrophils High 80.8 LAB LYMPC(LOINC) 9.4-41.1 % Lymphocytes Low 8.4 LAB MONOC(LOINC) 3.0-16.2 % Monocytes 8.8 LAB EOSC(LOINC) 0.0-6.7 % Eosinophils 1.4 LAB BASOC(LOINC) 0.0-1.3 % Basophils 0.2 Performed By: #### [id number] #### [facility] [address] [place] [address] VENOUS DUPLEX UPPER Observed: 11/07/2017 Status: F Source: [facility] EXT BILAT 7:58 PM REPOSITORY DATE OF EXAM: Nov 07 2017 7:58PM CLINICAL HISTORY/ Patient Name: KAY MITCHELL STUDY: VENOUS DUPLEX UPPER EXT BILAT 11/07/2017 7:58 pm INDICATION: 77 y/o M with Arm Edema. COMPARISON: None. ACCESSION NUMBER(S): [id number] ORDERING CLINICIAN: MARY REBOLLAR TECHNIQUE: Routine ultrasound of the bilateral upper extremities was performed with duplex Doppler (color and spectral) evaluation. Static images were obtained for remote interpretation. FINDINGS: UPPER EXTREMITY VEINS: Examination was performed with color and duplex Doppler. Limitations: Cephalic veins were unable to be seen bilaterally. The right radial vein was unable to be visualized. The left internal jugular, subclavian, and axillary veins are patent and free of thrombus. The visualized brachiocephalic veins are patent. The brachial and basilic veins are patent and compressible. Radial and ulnar veins are also patent A right upper extremity PICC is present. The right internal jugular vein, subclavian and axillary veins are patent and free of thrombus. The visualized brachiocephalic veins are patent. The brachial vein is patent. There is partially occlusive echogenic thrombus surrounding the PICC at the level of the basilic vein in the mid/upper arm with only partial compressibility. The ulnar vein is patent. CONCLUSION: IMPRESSION: Partially occlusive thrombus surrounding the PICC at the level of the right basilic vein in the mid/upper arm. No sonographic evidence of deep venous thrombosis within the visualized vessels of the left upper extremity Document Only: A preliminary report was placed at approximately 9:20 p.m. A finalized report was created as soon as the critical information above was able to be relayed directly by me by telephone to Dr. Duggan on 11/07/2017 at 10:30 pm with readback verification. BASIC METABOLIC PANEL Collected: 11/07/2017 Status: F Source: [facility] 4:05 AM REPOSITORY TYPE CODE TESTS RESULT OUT OF REFERENCE UNITS RANGE LAB GLU(LOINC) 70-100 mg/dL Glucose High 103 LAB UREA(LOINC 6-23 mg/dL ) Urea Nitrogen 10 LAB CREAT(LOIN 0.50-1.30 mg/dL C) Creatinine 1.13 LAB GFR(LOINC) Glomerular >60 Filtration Rate Result Comment: Interpretation for Chronic Kidney Disease: Stages 1&2 >60 Healthy or potential kidney damage. Mild decrease of GFR. Stage 3 30-59 Moderate decrease of GFR. Stage 4 15-29 Severe decrease of GFR. Stage 5 <15 Kidney failure or on dialysis. LAB SOD(LOINC) 136-145 mmol/L Sodium 136 LAB POT(LOINC) 3.5-5.1 mmol/L Potassium 4.0 LAB CHLOR(LOINC) 98-107 mmol/L Chloride 100 LAB BICAR(LOINC) 21-32 mmol/L Bicarbonate 31 LAB CA(LOINC) 8.6-10.3 mg/dL Calcium Low 8.1 LAB ANGAP(LOINC) 10-20 mmol/L Anion Gap Low 9 LAB BCRAT(LOINC) 5-25 Urea/Creatinine Ratio 9 Performed By: #### [id number] #### [facility] [address] [place] [address] CBC WITH DIFFERENTIAL Collected: 11/07/2017 Status: F Source: [facility] 4:05 AM HEALTHCARE REPOSITORY TYPE CODE TESTS RESULT OUT OF REFERENCE UNITS RANGE LAB WBCIR(LOINC 4.2-11.0 10*3/uL ) WBC 8.7 LAB RBC(LOINC) 4.08-6.37 10*6/uL Low RBC 3.48 LAB HGB(LOINC) 12.8-17.7 g/dL Low HGB 10.1 LAB HCT(LOINC) 38.4-54.9 % Low HCT 32.1 LAB MCV(LOINC) 83.3-98.2 fL MCV 92.2 LAB MCH(LOINC) 27.5-32.9 pg MCH 29.0 LAB MCHC(LOINC) 30.5-35.4 g/dL MCHC 31.5 LAB RDWCV(LOINC 12.0-15.4 % ) High RDW CV 16.1 LAB RDWSD(LOINC 39.3-48.6 fL ) High RDW SD 53.7 LAB PLTC(LOINC) 155-404 10*3/uL Low Platelet Count 88 Result Comment: Platelet count confirmed by smear review. LAB MPV(LOINC) 9.9-12.1 fL MPV 11.7 LAB NRBCR(LOINC) /100{WBC s} NRBC Automated 0.0 LAB NRBCA(LOINC) 10*3/uL NRBC Absolute 0.00 LAB ASEGR(LOINC) 2.22-7.53 10*3/uL Neutrophils Absolute 7.19 Result Comment: Reviewed by tech, consistent with instrument results. LAB ALYMR(LOINC) 0.40-2.84 10*3/uL Lymphocytes Absolute 0.70 LAB AMONR(LOINC) 0.25-1.33 10*3/uL Monocytes Absolute 0.62 LAB AEOSR(LOINC) 0.01-0.46 10*3/uL Eosinophils Absolute 0.14 LAB ABASR(LOINC) 0.01-0.09 10*3/uL Basophils Absolute 0.02 LAB IGRA(LOINC) % Immature Granulocytes 0.6 LAB IGR(LOINC) 0.00-0.21 10*3/uL Imm Grans Absolute 0.05 LAB SEGC(LOINC) 46.2-79.1 % Neutrophils High 82.5 LAB LYMPC(LOINC) 9.4-41.1 % Lymphocytes Low 8.0 LAB MONOC(LOINC) 3.0-16.2 % Monocytes 7.1 LAB EOSC(LOINC) 0.0-6.7 % Eosinophils 1.6 LAB BASOC(LOINC) 0.0-1.3 % Basophils 0.2 Performed By: #### [id number] #### [facility] [address] [place] [address] BASIC METABOLIC PANEL Collected: 11/06/2017 Status: F Source: [facility] 4:05 AM REPOSITORY TYPE CODE TESTS RESULT OUT OF REFERENCE UNITS RANGE LAB GLU(LOINC) 70-100 mg/dL Glucose High 128 LAB UREA(LOINC 6-23 mg/dL ) Urea Nitrogen 10 LAB CREAT(LOIN 0.50-1.30 mg/dL C) Creatinine 1.10 LAB GFR(LOINC) Glomerular >60 Filtration Rate Result Comment: Interpretation for Chronic Kidney Disease: Stages 1&2 >60 Healthy or potential kidney damage. Mild decrease of GFR. Stage 3 30-59 Moderate decrease of GFR. Stage 4 15-29 Severe decrease of GFR. Stage 5 <15 Kidney failure or on dialysis. LAB SOD(LOINC) 136-145 mmol/L Sodium 137 LAB POT(LOINC) 3.5-5.1 mmol/L Potassium 3.8 LAB CHLOR(LOINC) 98-107 mmol/L Chloride 103 LAB BICAR(LOINC) 21-32 mmol/L Bicarbonate 29 LAB CA(LOINC) 8.6-10.3 mg/dL Calcium Low 8.0 LAB ANGAP(LOINC) 10-20 mmol/L Anion Gap Low 9 LAB BCRAT(LOINC) 5-25 Urea/Creatinine Ratio 9 Performed By: #### [id number] #### [facility] [address] [place] [address] CBC WITH DIFFERENTIAL Collected: 11/06/2017 Status: F Source: [facility] 4:05 AM HEALTHCARE REPOSITORY TYPE CODE TESTS RESULT OUT OF REFERENCE UNITS RANGE LAB WBCIR(LOINC 4.2-11.0 10*3/uL ) WBC 6.6 LAB RBC(LOINC) 4.08-6.37 10*6/uL Low RBC 3.30 LAB HGB(LOINC) 12.8-17.7 g/dL Low HGB 9.6 LAB HCT(LOINC) 38.4-54.9 % Low HCT 30.3 LAB MCV(LOINC) 83.3-98.2 fL MCV 91.8 LAB MCH(LOINC) 27.5-32.9 pg MCH 29.1 LAB MCHC(LOINC) 30.5-35.4 g/dL MCHC 31.7 LAB RDWCV(LOINC 12.0-15.4 % ) High RDW CV 15.9 LAB RDWSD(LOINC 39.3-48.6 fL ) High RDW SD 52.1 LAB PLTC(LOINC) 155-404 10*3/uL Low Platelet Count 63 Result Comment: Platelet count confirmed by smear review. LAB MPV(LOINC) 9.9-12.1 fL MPV 10.9 LAB NRBCR(LOINC) /100{WBC s} NRBC Automated 0.0 LAB NRBCA(LOINC) 10*3/uL NRBC Absolute 0.00 LAB ASEGR(LOINC) 2.22-7.53 10*3/uL Neutrophils Absolute 5.46 Result Comment: Reviewed by tech, consistent with instrument results. LAB ALYMR(LOINC) 0.40-2.84 10*3/uL Lymphocytes Absolute 0.45 LAB AMONR(LOINC) 0.25-1.33 10*3/uL Monocytes Absolute 0.56 LAB AEOSR(LOINC) 0.01-0.46 10*3/uL Eosinophils Absolute 0.13 LAB ABASR(LOINC) 0.01-0.09 10*3/uL Basophils Absolute 0.01 LAB IGRA(LOINC) % Immature Granulocytes 0.6 LAB IGR(LOINC) 0.00-0.21 10*3/uL Imm Grans Absolute 0.04 LAB SEGC(LOINC) 46.2-79.1 % Neutrophils High 82.0 LAB LYMPC(LOINC) 9.4-41.1 % Lymphocytes Low 6.8 LAB MONOC(LOINC) 3.0-16.2 % Monocytes 8.4 LAB EOSC(LOINC) 0.0-6.7 % Eosinophils 2.0 LAB BASOC(LOINC) 0.0-1.3 % Basophils 0.2 Performed By: #### [id number] #### [facility] [address] [place] [address] PARTIAL THROMBOPLASTIN Collected: 11/05/2017 Status: F Source: [facility] TIME 7:02 PM HEALTHCARE REPOSITORY TYPE CODE TESTS RESULT OUT OF REFERENCE UNITS RANGE LAB PTT(LOINC) 25.0-36.0 sec Partial Thromboplastin Time 30.3 Result Comment: PLEASE NOTE NEW REFERENCE RANGE EFFECTIVE 2017 . The APTT is no longer used for monitoring Unfractionated Heparin Therapy. For monitoring Heparin Therapy, use the Heparin Assay. Performed By: #### [id number] #### [facility] [address] [place] [address] PROTHROMBIN TIME Collected: 11/05/2017 Status: F Source: [facility] 7:02 PM HEALTHCARE REPOSITORY TYPE CODE TESTS RESULT OUT OF RANGE REFERENCE UNITS LAB PTI(LOINC) 9.8-12.7 sec PT 11.6 Result Comment: PLEASE NOTE NEW REFERENCE RANGE EFFECTIVE 2017 LAB INR(LOINC) 0.90-1.10 INR 1.04 Result Comment: PLEASE NOTE NEW REFERENCE RANGE EFFECTIVE 2017 Performed By: #### [id number] #### [facility] [address] [place] [address] BASIC METABOLIC PANEL Collected: 11/05/2017 Status: F Source: [facility] 7:02 PM REPOSITORY TYPE CODE TESTS RESULT OUT OF REFERENCE UNITS RANGE LAB GLU(LOINC) 70-100 mg/dL Glucose High 144 LAB UREA(LOINC 6-23 mg/dL ) Urea Nitrogen 11 LAB CREAT(LOIN 0.50-1.30 mg/dL C) Creatinine 1.03 LAB GFR(LOINC) Glomerular >60 Filtration Rate Result Comment: Interpretation for Chronic Kidney Disease: Stages 1&2 >60 Healthy or potential kidney damage. Mild decrease of GFR. Stage 3 30-59 Moderate decrease of GFR. Stage 4 15-29 Severe decrease of GFR. Stage 5 <15 Kidney failure or on dialysis. LAB SOD(LOINC) 136-145 mmol/L Sodium 139 LAB POT(LOINC) 3.5-5.1 mmol/L Potassium Low 3.2 LAB CHLOR(LOINC) 98-107 mmol/L Chloride 102 LAB BICAR(LOINC) 21-32 mmol/L Bicarbonate 27 LAB CA(LOINC) 8.6-10.3 mg/dL Calcium Low 8.1 LAB ANGAP(LOINC) 10-20 mmol/L Anion Gap 13 LAB BCRAT(LOINC) 5-25 Urea/Creatinine Ratio 11 Performed By: #### [id number] #### [facility] [address] [place] [address] MAGNESIUM Collected: 11/05/2017 Status: F Source: [facility] 7:02 PM REPOSITORY TYPE CODE TESTS RESULT OUT OF REFERENCE UNITS RANGE LAB MG(LOINC) 1.6-2.4 mg/dL Low Magnesium 1.3 Performed By: #### [id number] #### [facility] [address] [place] [address] TROPONIN Collected: 11/05/2017 Status: F Source: [facility] 7:02 PM REPOSITORY TYPE CODE TESTS RESULT OUT OF REFERENCE UNITS RANGE LAB TROP(LOINC) 0.000-0.040 ng/mL Troponin <0.020 Result Comment: <0.04 : Negative 0.04 - 0.50 : Possible Cardiac Damage >0.50 : Consistent with Cardiac Damage Performed By: #### [id number] #### [facility] [address] [place] [address] BASIC METABOLIC PANEL Collected: 11/05/2017 Status: F Source: [facility] 6:04 AM REPOSITORY TYPE CODE TESTS RESULT OUT OF REFERENCE UNITS RANGE LAB GLU(LOINC) 70-100 mg/dL Glucose High 111 LAB UREA(LOINC 6-23 mg/dL ) Urea Nitrogen 14 LAB CREAT(LOIN 0.50-1.30 mg/dL C) Creatinine 1.15 LAB GFR(LOINC) Glomerular >60 Filtration Rate Result Comment: Interpretation for Chronic Kidney Disease: Stages 1&2 >60 Healthy or potential kidney damage. Mild decrease of GFR. Stage 3 30-59 Moderate decrease of GFR. Stage 4 15-29 Severe decrease of GFR. Stage 5 <15 Kidney failure or on dialysis. LAB SOD(LOINC) 136-145 mmol/L Sodium 142 LAB POT(LOINC) 3.5-5.1 mmol/L Potassium 3.5 LAB CHLOR(LOINC) 98-107 mmol/L Chloride 104 LAB BICAR(LOINC) 21-32 mmol/L Bicarbonate 30 LAB CA(LOINC) 8.6-10.3 mg/dL Calcium Low 7.9 LAB ANGAP(LOINC) 10-20 mmol/L Anion Gap 12 LAB BCRAT(LOINC) 5-25 Urea/Creatinine Ratio 12 Performed By: #### [id number] #### [facility] [address] [place] [address] CBC WITH DIFFERENTIAL Collected: 11/05/2017 Status: F Source: [facility] 6:04 AM HEALTHCARE REPOSITORY TYPE CODE TESTS RESULT OUT OF REFERENCE UNITS RANGE LAB WBCIR(LOINC 4.2-11.0 10*3/uL ) WBC 4.9 LAB RBC(LOINC) 4.08-6.37 10*6/uL Low RBC 3.33 LAB HGB(LOINC) 12.8-17.7 g/dL Low HGB 9.8 LAB HCT(LOINC) 38.4-54.9 % Low HCT 30.5 LAB MCV(LOINC) 83.3-98.2 fL MCV 91.6 LAB MCH(LOINC) 27.5-32.9 pg MCH 29.4 LAB MCHC(LOINC) 30.5-35.4 g/dL MCHC 32.1 LAB RDWCV(LOINC 12.0-15.4 % ) High RDW CV 15.6 LAB RDWSD(LOINC 39.3-48.6 fL ) High RDW SD 51.7 LAB PLTC(LOINC) 155-404 10*3/uL Low Platelet Count 59 Result Comment: Platelet count confirmed by smear review. LAB MPV(LOINC) 9.9-12.1 fL MPV 11.9 LAB NRBCR(LOINC) /100{WBC s} NRBC Automated 0.0 LAB NRBCA(LOINC) 10*3/uL NRBC Absolute 0.00 LAB ASEGR(LOINC) 2.22-7.53 10*3/uL Neutrophils Absolute 3.88 Result Comment: Reviewed by tech, consistent with instrument results. LAB ALYMR(LOINC) 0.40-2.84 10*3/uL Lymphocytes Low Absolute 0.35 LAB AMONR(LOINC) 0.25-1.33 10*3/uL Monocytes Absolute 0.49 LAB AEOSR(LOINC) 0.01-0.46 10*3/uL Eosinophils Absolute 0.11 LAB ABASR(LOINC) 0.01-0.09 10*3/uL Basophils Absolute 0.01 LAB IGRA(LOINC) % Immature Granulocytes 0.8 LAB IGR(LOINC) 0.00-0.21 10*3/uL Imm Grans Absolute 0.04 LAB SEGC(LOINC) 46.2-79.1 % Neutrophils High 79.5 LAB LYMPC(LOINC) 9.4-41.1 % Lymphocytes Low 7.2 LAB MONOC(LOINC) 3.0-16.2 % Monocytes 10.0 LAB EOSC(LOINC) 0.0-6.7 % Eosinophils 2.3 LAB BASOC(LOINC) 0.0-1.3 % Basophils 0.2 Performed By: #### [id number] #### [facility] [address] [place] [address] COMPREHENSIVE METABOLIC Collected: 11/04/2017 Status: F Source: [facility] PANEL 5:05 AM HEALTHCARE REPOSITORY TYPE CODE TESTS RESULT OUT OF REFERENCE UNITS RANGE LAB GLU(LOINC) 70-100 mg/dL Glucose High 110 LAB UREA(LOINC 6-23 mg/dL ) Urea Nitrogen 22 LAB CREAT(LOIN 0.50-1.30 mg/dL C) High Creatinine 1.43 LAB GFR(LOINC) Glomerular 48 Filtration Rate Result Comment: Interpretation for Chronic Kidney Disease: Stages 1&2 >60 Healthy or potential kidney damage. Mild decrease of GFR. Stage 3 30-59 Moderate decrease of GFR. Stage 4 15-29 Severe decrease of GFR. Stage 5 <15 Kidney failure or on dialysis. LAB CA(LOINC) 8.6-10.3 mg/dL Calcium Low 8.1 LAB SOD(LOINC) 136-145 mmol/L Sodium 141 LAB POT(LOINC) 3.5-5.1 mmol/L Potassium Low 3.4 LAB CHLOR(LOINC) 98-107 mmol/L Chloride 102 LAB BICAR(LOINC) 21-32 mmol/L Bicarbonate 32 LAB ALB(LOINC) 3.4-5.0 g/dL Albumin Low 2.6 LAB BILIT(LOINC) 0.0-1.2 mg/dL Bilirubin, Total 0.8 LAB ALP(LOINC) 45-117 U/L Alkaline Phosphatase 71 LAB TP(LOINC) 6.4-8.2 g/dL Total Low Protein 4.8 LAB ALT(LOINC) 10-52 U/L ALT (SGPT) 10 LAB AST(LOINC) 13-39 U/L AST (SGOT) 14 LAB ANGAP(LOINC) 10-20 mmol/L Anion Gap 10 LAB AGRAT(LOINC) 0.9-2.4 A/G Ratio 1.2 LAB BCRAT(LOINC) 5-25 Urea/Creatinine Ratio 15 Performed By: #### [id number] #### [facility] [address] [place] [address] CBC WITH DIFFERENTIAL Collected: 11/04/2017 Status: F Source: [facility] 5:05 AM HEALTHCARE REPOSITORY TYPE CODE TESTS RESULT OUT OF REFERENCE UNITS RANGE LAB WBCIR(LOINC 4.2-11.0 10*3/uL ) WBC 5.0 LAB RBC(LOINC) 4.08-6.37 10*6/uL Low RBC 3.25 LAB HGB(LOINC) 12.8-17.7 g/dL Low HGB 9.6 LAB HCT(LOINC) 38.4-54.9 % Low HCT 29.6 LAB MCV(LOINC) 83.3-98.2 fL MCV 91.1 LAB MCH(LOINC) 27.5-32.9 pg MCH 29.5 LAB MCHC(LOINC) 30.5-35.4 g/dL MCHC 32.4 LAB RDWCV(LOINC 12.0-15.4 % ) High RDW CV 15.5 LAB RDWSD(LOINC 39.3-48.6 fL ) High RDW SD 52.1 LAB PLTC(LOINC) 155-404 10*3/uL Low Platelet Count 63 Result Comment: Platelet count confirmed by smear review. LAB MPV(LOINC) 9.9-12.1 fL MPV 10.7 LAB NRBCR(LOINC) /100{WB Cs} NRBC Automated 0.0 LAB NRBCA(LOINC) 10*3/uL NRBC Absolute 0.00 LAB SEGC(LOINC) 46.2-79.1 % Neutrophils High 91.0 LAB MONOC(LOINC) 3.0-16.2 % Monocytes 6.0 LAB EOSC(LOINC) 0.0-6.7 % Eosinophils 3.0 LAB PLTR(LOINC) Platelet Morphology Decreased LAB BAND(LOINC) 0.0-4.0 % Bands 0.0 Performed By: #### [id number] #### [facility] [address] [place] [address] PERC PLACEMENT CVP Observed: 11/03/2017 Status: F Source: [facility] 11:32 AM REPOSITORY DATE OF EXAM: Nov 03 2017 11:32AM CLINICAL HISTORY/ Patient Name: KAY MITCHELL STUDY: PERC PLACEMENT CVP; US GUIDED ACCESS W/FILM; FLUORO ONE HOUR OR LESS; 11/03/2017 11:32 am INDICATION: IV Access; PICC. COMPARISON: None. ACCESSION NUMBER(S): [id number]; [id number]; [id number] ORDERING CLINICIAN: SCOTT MITTAL TECHNIQUE: CONSENT: The procedure, its indication, its risks, and alternatives were explained to the patient who understands and consents to the procedure. A time-out is completed prior to the procedure to confirm patient identity and procedure to be performed. MODALITIES: ultrasound, flouroscopy TECHNIQUE: Supervision is provided for land resource specialist to place a PICC line. A 5 [place] dual lumen PICC line cut to 33 cm was placed using the right basilic vein at ultrasound with its tip in the superior vena cava at fluoroscopy. The tip of the needle is sonographically verified in the vein. It freely aspirates and flushes and is ready to use. The accessed vein is sonograpically patent and compressible. FINDINGS: The PICC line terminates in the expected position of the superior vena cava at fluoroscopy and is documented with fluoroscopic spot image. CONCLUSION: IMPRESSION: Successful ultrasound and fluoroscopy guided PICC line placement. Catheter is ready to use for venous infusion. FLUORO ONE HOUR OR Observed: 11/03/2017 Status: F Source: [facility] Interventional Spine LESS 11:32 AM REPOSITORY DATE OF EXAM: Nov 03 2017 11:32AM CLINICAL HISTORY/ Patient Name: KAY MITCHELL STUDY: PERC PLACEMENT CVP; US GUIDED ACCESS W/FILM; FLUORO ONE HOUR OR LESS; 11/03/2017 11:32 am INDICATION: IV Access; PICC. COMPARISON: None. ACCESSION NUMBER(S): [id number]; [id number]; [id number] ORDERING CLINICIAN: SCOTT MITTAL TECHNIQUE: CONSENT: The procedure, its indication, its risks, and alternatives were explained to the patient who understands and consents to the procedure. A time-out is completed prior to the procedure to confirm patient identity and procedure to be performed. MODALITIES: ultrasound, flouroscopy TECHNIQUE: Supervision is provided for land resource specialist to place a PICC line. A 5 [place] dual lumen PICC line cut to 33 cm was placed using the right basilic vein at ultrasound with its tip in the superior vena cava at fluoroscopy. The tip of the needle is sonographically verified in the vein. It freely aspirates and flushes and is ready to use. The accessed vein is sonograpically patent and compressible. FINDINGS: The PICC line terminates in the expected position of the superior vena cava at fluoroscopy and is documented with fluoroscopic spot image. CONCLUSION: IMPRESSION: Successful ultrasound and fluoroscopy guided PICC line placement. Catheter is ready to use for venous infusion. US GUIDED ACCESS Observed: 11/03/2017 Status: F Source: [facility] Interventional Spine W/FILM 11:32 AM REPOSITORY DATE OF EXAM: Nov 03 2017 11:32AM CLINICAL HISTORY/ Patient Name: KAY MITCHELL STUDY: PERC PLACEMENT CVP; US GUIDED ACCESS W/FILM; FLUORO ONE HOUR OR LESS; 11/03/2017 11:32 am INDICATION: IV Access; PICC. COMPARISON: None. ACCESSION NUMBER(S): [id number]; [id number]; [id number] ORDERING CLINICIAN: SCOTT MITTAL TECHNIQUE: CONSENT: The procedure, its indication, its risks, and alternatives were explained to the patient who understands and consents to the procedure. A time-out is completed prior to the procedure to confirm patient identity and procedure to be performed. MODALITIES: ultrasound, flouroscopy TECHNIQUE: Supervision is provided for land resource specialist to place a PICC line. A 5 [place] dual lumen PICC line cut to 33 cm was placed using the right basilic vein at ultrasound with its tip in the superior vena cava at fluoroscopy. The tip of the needle is sonographically verified in the vein. It freely aspirates and flushes and is ready to use. The accessed vein is sonograpically patent and compressible. FINDINGS: The PICC line terminates in the expected position of the superior vena cava at fluoroscopy and is documented with fluoroscopic spot image. CONCLUSION: IMPRESSION: Successful ultrasound and fluoroscopy guided PICC line placement. Catheter is ready to use for venous infusion. COMPREHENSIVE METABOLIC Collected: 11/03/2017 Status: F Source: [facility] PANEL 5:39 AM HEALTHCARE REPOSITORY TYPE CODE TESTS RESULT OUT OF REFERENCE UNITS RANGE LAB GLU(LOINC) 70-100 mg/dL Glucose High 120 LAB UREA(LOINC 6-23 mg/dL ) Urea High Nitrogen 29 LAB CREAT(LOIN 0.50-1.30 mg/dL C) High Creatinine 1.49 LAB GFR(LOINC) Glomerular 46 Filtration Rate Result Comment: Interpretation for Chronic Kidney Disease: Stages 1&2 >60 Healthy or potential kidney damage. Mild decrease of GFR. Stage 3 30-59 Moderate decrease of GFR. Stage 4 15-29 Severe decrease of GFR. Stage 5 <15 Kidney failure or on dialysis. LAB CA(LOINC) 8.6-10.3 mg/dL Calcium Low 8.3 LAB SOD(LOINC) 136-145 mmol/L Sodium 142 LAB POT(LOINC) 3.5-5.1 mmol/L Potassium Low 3.4 LAB CHLOR(LOINC) 98-107 mmol/L Chloride 103 LAB BICAR(LOINC) 21-32 mmol/L Bicarbonate 31 LAB ALB(LOINC) 3.4-5.0 g/dL Albumin Low 2.8 LAB BILIT(LOINC) 0.0-1.2 mg/dL Bilirubin, Total 0.6 LAB ALP(LOINC) 45-117 U/L Alkaline Phosphatase 81 LAB TP(LOINC) 6.4-8.2 g/dL Total Low Protein 4.8 LAB ALT(LOINC) 10-52 U/L ALT (SGPT) 10 LAB AST(LOINC) 13-39 U/L AST (SGOT) 16 LAB ANGAP(LOINC) 10-20 mmol/L Anion Gap 11 LAB AGRAT(LOINC) 0.9-2.4 A/G Ratio 1.4 LAB BCRAT(LOINC) 5-25 Urea/Creatinine Ratio 19 Performed By: #### [id number] #### [facility] [place] [address] CBC WITH DIFFERENTIAL Collected: 11/03/2017 Status: F Source: [facility] 5:39 AM HEALTHCARE REPOSITORY TYPE CODE TESTS RESULT OUT OF REFERENCE UNITS RANGE LAB WBCIR(LOINC 4.2-11.0 10*3/uL ) WBC 6.6 LAB RBC(LOINC) 4.08-6.37 10*6/uL Low RBC 3.55 LAB HGB(LOINC) 12.8-17.7 g/dL Low HGB 10.5 LAB HCT(LOINC) 38.4-54.9 % Low HCT 32.4 LAB MCV(LOINC) 83.3-98.2 fL MCV 91.3 LAB MCH(LOINC) 27.5-32.9 pg MCH 29.6 LAB MCHC(LOINC) 30.5-35.4 g/dL MCHC 32.4 LAB RDWCV(LOINC 12.0-15.4 % ) RDW CV 15.4 LAB RDWSD(LOINC 39.3-48.6 fL ) High RDW SD 52.0 LAB PLTC(LOINC) 155-404 10*3/uL Low Platelet Count 70 Result Comment: Platelet count confirmed by smear review. LAB MPV(LOINC) 9.9-12.1 fL MPV 11.5 LAB NRBCR(LOINC) /100{WBC s} NRBC Automated 0.0 LAB NRBCA(LOINC) 10*3/uL NRBC Absolute 0.00 LAB ASEGR(LOINC) 2.22-7.53 10*3/uL Neutrophils Absolute 5.17 Result Comment: Reviewed by tech, consistent with instrument results. LAB ALYMR(LOINC) 0.40-2.84 10*3/uL Lymphocytes Absolute 0.47 LAB AMONR(LOINC) 0.25-1.33 10*3/uL Monocytes Absolute 0.75 LAB AEOSR(LOINC) 0.01-0.46 10*3/uL Eosinophils Absolute 0.13 LAB ABASR(LOINC) 0.01-0.09 10*3/uL Basophils Absolute 0.01 LAB IGRA(LOINC) % Immature Granulocytes 0.9 LAB IGR(LOINC) 0.00-0.21 10*3/uL Imm Grans Absolute 0.06 LAB SEGC(LOINC) 46.2-79.1 % Neutrophils 78.4 LAB LYMPC(LOINC) 9.4-41.1 % Lymphocytes Low 7.1 LAB MONOC(LOINC) 3.0-16.2 % Monocytes 11.4 LAB EOSC(LOINC) 0.0-6.7 % Eosinophils 2.0 LAB BASOC(LOINC) 0.0-1.3 % Basophils 0.2 Performed By: #### [id number] #### [facility] [address] [place] [address] STREP (GPA) RAPID Collected: 11/03/2017 Status: F Source: [facility] 5:05 AM REPOSITORY TYPE CODE TESTS RESULT OUT OF REFERENCE UNITS RANGE LAB RSSM(LOINC) Negative Strep (Gp Negative A) Rapid Performed By: #### [id number] #### [facility] [address] [place] [address] GROUP A STREP, PCR Collected: 11/03/2017 Status: F Source: [facility] 5:05 AM REPOSITORY TYPE CODE TESTS RESULT OUT OF REFERENCE UNITS RANGE LAB GAPCR(LOIN NotDetected C) Group NOT DETECTED A Strep, PCR Result Comment: This test and its performance have been Validated by [facility] Laboratory using analyte specific reagents (ASR). It has not been cleared or approved by the U.S. Food and Drug Administration. The FDA has determined that such clearance or approval is not necessary. PLATELET ABS Collected: 11/02/2017 Status: F Source: [facility] 12:16 PM REPOSITORY TYPE CODE TESTS RESULT OUT OF REFERENCE UNITS RANGE LAB PLTG(LOINC Negative ) Platelet Ab Negative Direct/IgG LAB PLTM(LOINC Negative ) Platelet Ab Negative Direct/IgM Result Comment: INTERPRETIVE INFORMATION: Platelet Assoc Antibodies, Direct Assay Negative (IgG and IgM): No excess antibodies were associated with the patient's platelets. An immune cause of thrombocytopenia is unlikely. Positive (IgG and/or IgM): An increase in platelet associated immunoglobulin is noted. An immune cause of thrombocytopenia should be considered. However, many conditions can result in an increase in platelet associated antibodies; for example, IgM rheumatoid factor antibodies. Strong Positive (IgG and/or IgM): A definite increase in platelet associated immunoglobulin is noted and an immune cause of thrombocytopenia should be considered. However, many conditions can result in an increase in platelet associated antibodies; for example, IgM rheumatoid factor antibodies. Test developed and characteristics determined by [facility]. See Compliance Statement A: [facility]/ Performed by [facility], [address] [place] [id number] [email or web address], Maximo Talavera MD - Lab. Director Performed By: #### [id number] #### [address] [address] COMPREHENSIVE METABOLIC Collected: 11/02/2017 Status: F Source: [facility] PANEL 5:59 AM HEALTHCARE REPOSITORY TYPE CODE TESTS RESULT OUT OF REFERENCE UNITS RANGE LAB GLU(LOINC) 70-100 mg/dL Glucose High 107 LAB UREA(LOINC 6-23 mg/dL ) Urea High Nitrogen 31 LAB CREAT(LOIN 0.50-1.30 mg/dL C) High Creatinine 1.60 LAB GFR(LOINC) Glomerular 42 Filtration Rate Result Comment: Interpretation for Chronic Kidney Disease: Stages 1&2 >60 Healthy or potential kidney damage. Mild decrease of GFR. Stage 3 30-59 Moderate decrease of GFR. Stage 4 15-29 Severe decrease of GFR. Stage 5 <15 Kidney failure or on dialysis. LAB CA(LOINC) 8.6-10.3 mg/dL Calcium Low 8.4 LAB SOD(LOINC) 136-145 mmol/L Sodium 136 LAB POT(LOINC) 3.5-5.1 mmol/L Potassium 3.6 LAB CHLOR(LOINC) 98-107 mmol/L Chloride 99 LAB BICAR(LOINC) 21-32 mmol/L Bicarbonate 30 LAB ALB(LOINC) 3.4-5.0 g/dL Albumin Low 2.6 LAB BILIT(LOINC) 0.0-1.2 mg/dL Bilirubin, Total 0.7 LAB ALP(LOINC) 45-117 U/L Alkaline Phosphatase 77 LAB TP(LOINC) 6.4-8.2 g/dL Total Low Protein 4.7 LAB ALT(LOINC) 10-52 U/L ALT (SGPT) 11 LAB AST(LOINC) 13-39 U/L AST (SGOT) 15 LAB ANGAP(LOINC) 10-20 mmol/L Anion Gap 11 LAB AGRAT(LOINC) 0.9-2.4 A/G Ratio 1.2 LAB BCRAT(LOINC) 5-25 Urea/Creatinine Ratio 19 Performed By: #### [id number] #### [facility] [address] [place] [address] TSH Collected: 11/02/2017 Status: F Source: [facility] 5:59 AM REPOSITORY TYPE CODE TESTS RESULT OUT OF RANGE REFERENCE UNITS LAB TSH(LOINC) 0.44-3.98 mU/L TSH 2.19 Performed By: #### [id number] #### [facility] [address] [place] [address] CBC WITH DIFFERENTIAL Collected: 11/02/2017 Status: F Source: [facility] 5:59 AM HEALTHCARE REPOSITORY TYPE CODE TESTS RESULT OUT OF REFERENCE UNITS RANGE LAB WBCIR(LOINC 4.2-11.0 10*3/uL ) WBC 6.4 LAB RBC(LOINC) 4.08-6.37 10*6/uL Low RBC 3.70 LAB HGB(LOINC) 12.8-17.7 g/dL Low HGB 11.0 LAB HCT(LOINC) 38.4-54.9 % Low HCT 33.7 LAB MCV(LOINC) 83.3-98.2 fL MCV 91.1 LAB MCH(LOINC) 27.5-32.9 pg MCH 29.7 LAB MCHC(LOINC) 30.5-35.4 g/dL MCHC 32.6 LAB RDWCV(LOINC 12.0-15.4 % ) RDW CV 15.1 LAB RDWSD(LOINC 39.3-48.6 fL ) High RDW SD 50.8 LAB PLTC(LOINC) 155-404 10*3/uL Low Platelet Count 75 Result Comment: Platelet count confirmed by smear review. LAB MPV(LOINC) 9.9-12.1 fL MPV 11.1 LAB NRBCR(LOINC) /100{WBC s} NRBC Automated 0.0 LAB NRBCA(LOINC) 10*3/uL NRBC Absolute 0.00 LAB ASEGR(LOINC) 2.22-7.53 10*3/uL Neutrophils Absolute 5.04 Result Comment: Reviewed by tech, consistent with instrument results. LAB ALYMR(LOINC) 0.40-2.84 10*3/uL Lymphocytes Absolute 0.48 LAB AMONR(LOINC) 0.25-1.33 10*3/uL Monocytes Absolute 0.68 LAB AEOSR(LOINC) 0.01-0.46 10*3/uL Eosinophils Absolute 0.13 LAB ABASR(LOINC) 0.01-0.09 10*3/uL Basophils Absolute 0.02 LAB IGRA(LOINC) % Immature Granulocytes 1.2 LAB IGR(LOINC) 0.00-0.21 10*3/uL Imm Grans Absolute 0.08 LAB SEGC(LOINC) 46.2-79.1 % Neutrophils 78.4 LAB LYMPC(LOINC) 9.4-41.1 % Lymphocytes Low 7.5 LAB MONOC(LOINC) 3.0-16.2 % Monocytes 10.6 LAB EOSC(LOINC) 0.0-6.7 % Eosinophils 2.0 LAB BASOC(LOINC) 0.0-1.3 % Basophils 0.3 Performed By: #### [id number] #### [facility] [address] [place] [address] CTA PE CHEST Observed: 11/01/2017 Status: F Source: [facility] 1:55 PM REPOSITORY DATE OF EXAM: Nov 01 2017 1:55PM CLINICAL HISTORY/ Patient Name: KAY MITCHELL STUDY: CTA PE CHEST; 11/01/2017 1:55 pm INDICATION: for Pulmonary Emboli. Back pain, history of lung cancer COMPARISON: 06/27/2017 ACCESSION NUMBER(S): [id number] ORDERING CLINICIAN: JESUS BALBUENA TECHNIQUE: CT of the chest was performed. Sagittal and coronal reconstructions were generated. 85 cc Isovue 370 intravenous contrast given for the examination. 3D images were created and reviewed. FINDINGS: Motion artifact limits evaluation. LUNG/PLEURA/LARGE AIRWAYS: Diffuse emphysematous changes and small apical calcifications are similar to the prior exam. Increased right perihilar and basilar airspace consolidation. Small right pleural effusion is larger than on the previous exam. New subtle ground-glass density in the left upper lobe. Increased band densities in the posterior left lung base. Central airways are patent. MEDIASTINUM, KALEE, LOWER NECK, AXILLA: Subcentimeter middle mediastinal lymph nodes are similar to the prior exam. HEART AND VESSELS: No pulmonary artery filling defect to suggest PE. Scattered atherosclerotic calcifications including the coronary arteries. Tortuous descending thoracic aorta. Heart is prominent. lipomatous hypertrophy of the interatrial septum.. No significant pericardial effusion. Reflux of contrast into the retro hepatic IVC and hepatic veins. UPPER ABDOMEN: Nodularity of the included liver margins similar to the prior exam. No definite focal mass lesion identified. CHEST WALL AND OSSEOUS STRUCTURES: Expansile mixed blastic and lytic lesion in the posterior right 6th rib is similar to the prior exam. No new focal concerning lytic or blastic osseous lesion identified. CONCLUSION: IMPRESSION: No evidence of PE. Worsening right perihilar and basilar airspace consolidation with small pleural effusion since 06/27/2017. This may reflect worsening inflammatory disease or neoplasm. Also slight worsening of nonspecific left lung infiltrates. Clinical correlation and further evaluation/follow-up recommended. Additional stable findings as above including expansile mixed blastic and lytic right 6th rib lesion. LACTIC ACID Collected: 11/01/2017 Status: F Source: [facility] 12:21 PM REPOSITORY TYPE CODE TESTS RESULT OUT OF REFERENCE UNITS RANGE LAB LACID(LOINC 0.40-2.00 mmol/L ) Lactic Acid 1.10 Performed By: #### [id number] #### [facility] [address] [place] [address] BASIC METABOLIC PANEL Collected: 11/01/2017 Status: F Source: [facility] 11:46 AM REPOSITORY TYPE CODE TESTS RESULT OUT OF REFERENCE UNITS RANGE LAB GLU(LOINC) 70-100 mg/dL Glucose High 106 LAB UREA(LOINC 6-23 mg/dL ) Urea High Nitrogen 28 LAB CREAT(LOIN 0.50-1.30 mg/dL C) High Creatinine 1.46 LAB GFR(LOINC) Glomerular 47 Filtration Rate Result Comment: Interpretation for Chronic Kidney Disease: Stages 1&2 >60 Healthy or potential kidney damage. Mild decrease of GFR. Stage 3 30-59 Moderate decrease of GFR. Stage 4 15-29 Severe decrease of GFR. Stage 5 <15 Kidney failure or on dialysis. LAB SOD(LOINC) 136-145 mmol/L Sodium Low 135 LAB POT(LOINC) 3.5-5.1 mmol/L Potassium 3.7 LAB CHLOR(LOINC) 98-107 mmol/L Chloride Low 96 LAB BICAR(LOINC) 21-32 mmol/L Bicarbonate 31 LAB CA(LOINC) 8.6-10.3 mg/dL Calcium 8.9 LAB ANGAP(LOINC) 10-20 mmol/L Anion Gap 12 LAB BCRAT(LOINC) 5-25 Urea/Creatinine Ratio 19 Performed By: #### [id number] #### [facility] [address] [place] [address] TROPONIN Collected: 11/01/2017 Status: F Source: [facility] 11:46 AM REPOSITORY TYPE CODE TESTS RESULT OUT OF REFERENCE UNITS RANGE LAB TROP(LOINC) 0.000-0.040 ng/mL Troponin <0.020 Result Comment: <0.04 : Negative 0.04 - 0.50 : Possible Cardiac Damage >0.50 : Consistent with Cardiac Damage Performed By: #### [id number] #### [facility] [address] [place] [address] CBC WITH DIFFERENTIAL Collected: 11/01/2017 Status: F Source: [facility] 11:46 AM HEALTHCARE REPOSITORY TYPE CODE TESTS RESULT OUT OF REFERENCE UNITS RANGE LAB WBCIR(LOINC 4.2-11.0 10*3/uL ) WBC 8.2 LAB RBC(LOINC) 4.08-6.37 10*6/uL Low RBC 3.74 LAB HGB(LOINC) 12.8-17.7 g/dL Low HGB 11.1 LAB HCT(LOINC) 38.4-54.9 % Low HCT 34.0 LAB MCV(LOINC) 83.3-98.2 fL MCV 90.9 LAB MCH(LOINC) 27.5-32.9 pg MCH 29.7 LAB MCHC(LOINC) 30.5-35.4 g/dL MCHC 32.6 LAB RDWCV(LOINC 12.0-15.4 % ) RDW CV 15.1 LAB RDWSD(LOINC 39.3-48.6 fL ) High RDW SD 50.0 LAB PLTC(LOINC) 155-404 10*3/uL Low Platelet Count 88 Result Comment: Platelet count confirmed by smear review. LAB MPV(LOINC) 9.9-12.1 fL MPV 10.8 LAB NRBCR(LOINC) /100{WBC s} NRBC Automated 0.0 LAB NRBCA(LOINC) 10*3/uL NRBC Absolute 0.00 LAB ASEGR(LOINC) 2.22-7.53 10*3/uL Neutrophils Absolute 6.57 Result Comment: Reviewed by tech, consistent with instrument results. LAB ALYMR(LOINC) 0.40-2.84 10*3/uL Lymphocytes Absolute 0.48 LAB AMONR(LOINC) 0.25-1.33 10*3/uL Monocytes Absolute 0.89 LAB AEOSR(LOINC) 0.01-0.46 10*3/uL Eosinophils Absolute 0.16 LAB ABASR(LOINC) 0.01-0.09 10*3/uL Basophils Absolute 0.01 LAB IGRA(LOINC) % Immature Granulocytes 1.1 LAB IGR(LOINC) 0.00-0.21 10*3/uL Imm Grans Absolute 0.09 LAB SEGC(LOINC) 46.2-79.1 % Neutrophils High 80.0 LAB LYMPC(LOINC) 9.4-41.1 % Lymphocytes Low 5.9 LAB MONOC(LOINC) 3.0-16.2 % Monocytes 10.9 LAB EOSC(LOINC) 0.0-6.7 % Eosinophils 2.0 LAB BASOC(LOINC) 0.0-1.3 % Basophils 0.1 Performed By: #### [id number] #### [facility] [address] [place] [address] VANCOMYCIN TROUGH Collected: 10/28/2017 Status: F Source: [facility] 11:30 AM REPOSITORY TYPE CODE TESTS RESULT OUT OF REFERENCE UNITS RANGE LAB VANCT(LOIN 5.0-20.0 ug/mL C) Vancomycin 19.5 Trough Performed By: #### [id number] #### [facility] [address] [place] [address] PERC PLACEMENT CVP Observed: 10/28/2017 Status: F Source: [facility] 9:26 AM REPOSITORY DATE OF EXAM: Oct 28 2017 9:26AM CLINICAL HISTORY/ Patient Name: KAY MITCHELL STUDY: PERC PLACEMENT CVP; US GUIDED ACCESS W/FILM; FLUORO ONE HOUR OR LESS; 10/28/2017 9:26 am INDICATION: IV Access. COMPARISON: None. ACCESSION NUMBER(S): [id number]; [id number]; [id number] ORDERING CLINICIAN: APOLONIA DUGGAN TECHNIQUE: CONSENT: The procedure, its indication, its risks, and alternatives were explained to the patient who understands and consents to the procedure. A time-out is completed prior to the procedure to confirm patient identity and procedure to be performed. MODALITIES: ultrasound, flouroscopy TECHNIQUE: Supervision is provided for land resource specialist to place a PICC line. A 5 [place] dual lumen PICC line cut to 35 cm was placed using the right basilic vein at ultrasound with its tip in the superior vena cava at fluoroscopy. The tip of the needle is sonographically verified in the vein. It freely aspirates and flushes and is ready to use. The accessed vein is sonograpically patent and compressible. FINDINGS: The PICC line terminates in the expected position of the superior vena cava at fluoroscopy and is documented with fluoroscopic spot image. CONCLUSION: IMPRESSION: Successful ultrasound and fluoroscopy guided PICC line placement. Catheter is ready to use for venous infusion. US GUIDED ACCESS Observed: 10/28/2017 Status: F Source: [facility] Interventional Spine W/FILM 9:26 AM REPOSITORY DATE OF EXAM: Oct 28 2017 9:26AM CLINICAL HISTORY/ Patient Name: KAY MITCHELL STUDY: PERC PLACEMENT CVP; US GUIDED ACCESS W/FILM; FLUORO ONE HOUR OR LESS; 10/28/2017 9:26 am INDICATION: IV Access. COMPARISON: None. ACCESSION NUMBER(S): [id number]; [id number]; [id number] ORDERING CLINICIAN: APOLONIA DUGGAN TECHNIQUE: CONSENT: The procedure, its indication, its risks, and alternatives were explained to the patient who understands and consents to the procedure. A time-out is completed prior to the procedure to confirm patient identity and procedure to be performed. MODALITIES: ultrasound, flouroscopy TECHNIQUE: Supervision is provided for land resource specialist to place a PICC line. A 5 [place] dual lumen PICC line cut to 35 cm was placed using the right basilic vein at ultrasound with its tip in the superior vena cava at fluoroscopy. The tip of the needle is sonographically verified in the vein. It freely aspirates and flushes and is ready to use. The accessed vein is sonograpically patent and compressible. FINDINGS: The PICC line terminates in the expected position of the superior vena cava at fluoroscopy and is documented with fluoroscopic spot image. CONCLUSION: IMPRESSION: Successful ultrasound and fluoroscopy guided PICC line placement. Catheter is ready to use for venous infusion. FLUORO ONE HOUR OR Observed: 10/28/2017 Status: F Source: [facility] LESS 9:26 AM REPOSITORY DATE OF EXAM: Oct 28 2017 9:26AM CLINICAL HISTORY/ Patient Name: KAY MITCHELL STUDY: PERC PLACEMENT CVP; US GUIDED ACCESS W/FILM; FLUORO ONE HOUR OR LESS; 10/28/2017 9:26 am INDICATION: IV Access. COMPARISON: None. ACCESSION NUMBER(S): [id number]; [id number]; [id number] ORDERING CLINICIAN: APOLONIA DUGGAN TECHNIQUE: CONSENT: The procedure, its indication, its risks, and alternatives were explained to the patient who understands and consents to the procedure. A time-out is completed prior to the procedure to confirm patient identity and procedure to be performed. MODALITIES: ultrasound, flouroscopy TECHNIQUE: Supervision is provided for land resource specialist to place a PICC line. A 5 [place] dual lumen PICC line cut to 35 cm was placed using the right basilic vein at ultrasound with its tip in the superior vena cava at fluoroscopy. The tip of the needle is sonographically verified in the vein. It freely aspirates and flushes and is ready to use. The accessed vein is sonograpically patent and compressible. FINDINGS: The PICC line terminates in the expected position of the superior vena cava at fluoroscopy and is documented with fluoroscopic spot image. CONCLUSION: IMPRESSION: Successful ultrasound and fluoroscopy guided PICC line placement. Catheter is ready to use for venous infusion. VANCOMYCIN TROUGH Collected: 10/27/2017 Status: F Source: [facility] 10:45 AM REPOSITORY TYPE CODE TESTS RESULT OUT OF REFERENCE UNITS RANGE LAB VANCT(LOIN 5.0-20.0 ug/mL C) High alert Vancomycin 24.7 Trough Performed By: #### [id number] #### [facility] [address] [place] [address] MODIFIED BARIUM Observed: 10/27/2017 Status: F Source: [facility] Interventional Spine SWALLOW 10:00 AM REPOSITORY DATE OF EXAM: Oct 27 2017 10:00AM CLINICAL HISTORY/ Patient Name: KAY MITCHLEL STUDY: MODIFIED BARIUM SWALLOW; 10/27/2017 10:00 am INDICATION: Cough. Dysphagia. COMPARISON: None available. ACCESSION NUMBER(S): [id number] ORDERING CLINICIAN: FAWN DE LA ROSA TECHNIQUE: A modified barium swallow study was performed in conjunction with the speech pathology service. Lateral video fluoroscopy was utilized during ingestion of various barium consistencies. FINDINGS: There was oral discoordination and some delayed initiation of the swallowing mechanism. Premature pharyngeal entry was seen with multiple consistencies. No laryngeal penetration or aspiration was seen with the tested barium consistencies. Small-moderate vallecular residuals were present. FLUOROSCOPY TIME: Fluoroscopy time: 3 min 21 sec. Total images: 3,204. CONCLUSION: IMPRESSION: No observed laryngeal penetration or aspiration. Please see speech pathology report for additional detail and diet recommendations. CHEST 2 VIEW Observed: 10/27/2017 Status: F Source: [facility] Interventional Spine 9:14 AM REPOSITORY DATE OF EXAM: Oct 27 2017 9:14AM CLINICAL HISTORY/ Patient Name: KAY MITCHELL STUDY: CHEST 2 VIEW; 10/27/2017 9:14 am INDICATION: Shortness of Breath. COMPARISON: 10/24/2017 ACCESSION NUMBER(S): [id number] ORDERING CLINICIAN: FAWN DE LA ROSA FINDINGS: Two views of the chest were obtained. Overlying monitoring leads are noted. Persistent right chest volume loss with mediastinal deviation and perihilar infiltrate with blunting of the costophrenic angle. Stable mild left lung interstitial prominence. Cardiac silhouette is enlarged without significant change. Scoliosis and degenerative changes in the lumbar spine. Probable partially included vascular stent in the upper abdomen on lateral view. CONCLUSION: IMPRESSION: Persistent right chest volume loss with pleuroparenchymal densities. No significant change from 3 days prior. Continued follow-up recommended. COMPREHENSIVE METABOLIC Collected: 10/27/2017 Status: F Source: [facility] PANEL 5:05 AM HEALTHCARE REPOSITORY TYPE CODE TESTS RESULT OUT OF REFERENCE UNITS RANGE LAB GLU(LOINC) 70-100 mg/dL Glucose High 134 LAB UREA(LOINC 6-23 mg/dL ) Urea High Nitrogen 24 LAB CREAT(LOIN 0.50-1.30 mg/dL C) High Creatinine 1.43 LAB GFR(LOINC) Glomerular 48 Filtration Rate Result Comment: Interpretation for Chronic Kidney Disease: Stages 1&2 >60 Healthy or potential kidney damage. Mild decrease of GFR. Stage 3 30-59 Moderate decrease of GFR. Stage 4 15-29 Severe decrease of GFR. Stage 5 <15 Kidney failure or on dialysis. LAB CA(LOINC) 8.6-10.3 mg/dL Calcium 9.2 LAB SOD(LOINC) 136-145 mmol/L Sodium 137 LAB POT(LOINC) 3.5-5.1 mmol/L Potassium 4.4 LAB CHLOR(LOINC) 98-107 mmol/L Chloride 102 LAB BICAR(LOINC) 21-32 mmol/L Bicarbonate 26 LAB ALB(LOINC) 3.4-5.0 g/dL Albumin Low 3.3 LAB BILIT(LOINC) 0.0-1.2 mg/dL Bilirubin, Total 0.4 LAB ALP(LOINC) 45-117 U/L Alkaline Phosphatase 89 LAB TP(LOINC) 6.4-8.2 g/dL Total Low Protein 6.2 LAB ALT(LOINC) 10-52 U/L ALT (SGPT) 13 LAB AST(LOINC) 13-39 U/L AST (SGOT) 23 LAB ANGAP(LOINC) 10-20 mmol/L Anion Gap 13 LAB AGRAT(LOINC) 0.9-2.4 A/G Ratio 1.1 LAB BCRAT(LOINC) 5-25 Urea/Creatinine Ratio 17 Performed By: #### [id number] #### [facility] [address] [place] [id number] CBC WITH DIFFERENTIAL Collected: 10/27/2017 Status: F Source: [facility] 5:05 AM HEALTHCARE REPOSITORY TYPE CODE TESTS RESULT OUT OF REFERENCE UNITS RANGE LAB WBCIR(LOIN 4.2-11.0 10*3/uL C) WBC 9.4 LAB RBC(LOINC) 4.08-6.37 10*6/uL Low RBC 3.69 LAB HGB(LOINC) 12.8-17.7 g/dL Low HGB 10.9 LAB HCT(LOINC) 38.4-54.9 % Low HCT 33.3 LAB MCV(LOINC) 83.3-98.2 fL MCV 90.2 LAB MCH(LOINC) 27.5-32.9 pg MCH 29.5 LAB MCHC(LOINC 30.5-35.4 g/dL ) MCHC 32.7 LAB RDWCV(LOIN 12.0-15.4 % C) RDW CV 14.9 LAB RDWSD(LOIN 39.3-48.6 fL C) RDW SD High 49.0 LAB PLTC(LOINC 155-404 10*3/uL ) Low Platelet Count 102 LAB MPV(LOINC) 9.9-12.1 fL MPV 10.5 LAB NRBCR(LOIN /100{WBCs} C) NRBC Automated 0.0 LAB NRBCA(LOIN 10*3/uL C) NRBC Absolute 0.00 LAB ASEGR(LOIN 2.22-7.53 10*3/uL C) Neutrophils High Absolute 8.43 Result Comment: Reviewed by tech, consistent with instrument results. LAB ALYMR(LOINC) 0.40-2.84 10*3/uL Lymphocytes Low Absolute 0.28 LAB AMONR(LOINC) 0.25-1.33 10*3/uL Monocytes Absolute 0.65 LAB AEOSR(LOINC) 0.01-0.46 10*3/uL Eosinophils Low Absolute 0.00 LAB ABASR(LOINC) 0.01-0.09 10*3/uL Basophils Low Absolute 0.00 LAB IGRA(LOINC) % Immature Granulocytes 0.3 LAB IGR(LOINC) 0.00-0.21 10*3/uL Imm Grans Absolute 0.03 LAB SEGC(LOINC) 46.2-79.1 % Neutrophils High 89.8 LAB LYMPC(LOINC) 9.4-41.1 % Lymphocytes Low 3.0 LAB MONOC(LOINC) 3.0-16.2 % Monocytes 6.9 LAB EOSC(LOINC) 0.0-6.7 % Eosinophils 0.0 LAB BASOC(LOINC) 0.0-1.3 % Basophils 0.0 Performed By: #### [id number] #### [facility] [address] [place] [id number] VANCOMYCIN TROUGH Collected: 10/26/2017 Status: F Source: [facility] HEALTHCARE 9:30 AM REPOSITORY TYPE CODE TESTS RESULT OUT OF REFERENCE UNITS RANGE LAB VANCT(LOIN 5.0-20.0 ug/mL C) Vancomycin 18.0 Trough Performed By: #### [id number] #### [facility] [address] [place] [address] COMPREHENSIVE METABOLIC Collected: 10/26/2017 Status: F Source: [facility] PANEL 5:05 AM HEALTHCARE REPOSITORY TYPE CODE TESTS RESULT OUT OF REFERENCE UNITS RANGE LAB GLU(LOINC) 70-100 mg/dL Glucose High 173 LAB UREA(LOINC 6-23 mg/dL ) Urea Nitrogen 17 LAB CREAT(LOIN 0.50-1.30 mg/dL C) Creatinine 1.15 LAB GFR(LOINC) Glomerular >60 Filtration Rate Result Comment: Interpretation for Chronic Kidney Disease: Stages 1&2 >60 Healthy or potential kidney damage. Mild decrease of GFR. Stage 3 30-59 Moderate decrease of GFR. Stage 4 15-29 Severe decrease of GFR. Stage 5 <15 Kidney failure or on dialysis. LAB CA(LOINC) 8.6-10.3 mg/dL Calcium 9.1 LAB SOD(LOINC) 136-145 mmol/L Sodium 137 LAB POT(LOINC) 3.5-5.1 mmol/L Potassium 4.2 LAB CHLOR(LOINC) 98-107 mmol/L Chloride 101 LAB BICAR(LOINC) 21-32 mmol/L Bicarbonate 27 LAB ALB(LOINC) 3.4-5.0 g/dL Albumin Low 3.2 LAB BILIT(LOINC) 0.0-1.2 mg/dL Bilirubin, Total 0.5 LAB ALP(LOINC) 45-117 U/L Alkaline Phosphatase 90 LAB TP(LOINC) 6.4-8.2 g/dL Total Low Protein 6.0 LAB ALT(LOINC) 10-52 U/L ALT (SGPT) 10 LAB AST(LOINC) 13-39 U/L AST (SGOT) 19 LAB ANGAP(LOINC) 10-20 mmol/L Anion Gap 13 LAB AGRAT(LOINC) 0.9-2.4 A/G Ratio 1.1 LAB BCRAT(LOINC) 5-25 Urea/Creatinine Ratio 15 Performed By: #### [id number] #### [facility] [address] [place] [address] CBC WITH DIFFERENTIAL Collected: 10/26/2017 Status: F Source: [facility] 5:05 AM HEALTHCARE REPOSITORY TYPE CODE TESTS RESULT OUT OF REFERENCE UNITS RANGE LAB WBCIR(LOINC 4.2-11.0 10*3/uL ) WBC 6.4 LAB RBC(LOINC) 4.08-6.37 10*6/uL Low RBC 3.72 LAB HGB(LOINC) 12.8-17.7 g/dL Low HGB 11.1 LAB HCT(LOINC) 38.4-54.9 % Low HCT 33.3 LAB MCV(LOINC) 83.3-98.2 fL MCV 89.5 LAB MCH(LOINC) 27.5-32.9 pg MCH 29.8 LAB MCHC(LOINC) 30.5-35.4 g/dL MCHC 33.3 LAB RDWCV(LOINC 12.0-15.4 % ) RDW CV 14.6 LAB RDWSD(LOINC 39.3-48.6 fL ) RDW SD 47.7 LAB PLTC(LOINC) 155-404 10*3/uL Low Platelet Count 86 Result Comment: Platelet count confirmed by smear review. LAB MPV(LOINC) 9.9-12.1 fL MPV 11.6 LAB NRBCR(LOINC) /100{WBC s} NRBC Automated 0.0 LAB NRBCA(LOINC) 10*3/uL NRBC Absolute 0.00 LAB ASEGR(LOINC) 2.22-7.53 10*3/uL Neutrophils Absolute 5.81 Result Comment: Reviewed by tech, consistent with instrument results. LAB ALYMR(LOINC) 0.40-2.84 10*3/uL Lymphocytes Low Absolute 0.19 LAB AMONR(LOINC) 0.25-1.33 10*3/uL Monocytes Absolute 0.35 LAB AEOSR(LOINC) 0.01-0.46 10*3/uL Eosinophils Low Absolute 0.00 LAB ABASR(LOINC) 0.01-0.09 10*3/uL Basophils Low Absolute 0.00 LAB IGRA(LOINC) % Immature Granulocytes 0.3 LAB IGR(LOINC) 0.00-0.21 10*3/uL Imm Grans Absolute 0.02 LAB SEGC(LOINC) 46.2-79.1 % Neutrophils High 91.2 LAB LYMPC(LOINC) 9.4-41.1 % Lymphocytes Low 3.0 LAB MONOC(LOINC) 3.0-16.2 % Monocytes 5.5 LAB EOSC(LOINC) 0.0-6.7 % Eosinophils 0.0 LAB BASOC(LOINC) 0.0-1.3 % Basophils 0.0 Performed By: #### [id number] #### [facility] [address] [place] [address] COMPREHENSIVE METABOLIC Collected: 10/25/2017 Status: F Source: [facility] PANEL 5:05 AM HEALTHCARE REPOSITORY TYPE CODE TESTS RESULT OUT OF REFERENCE UNITS RANGE LAB GLU(LOINC) 70-100 mg/dL Glucose High 187 LAB UREA(LOINC 6-23 mg/dL ) Urea Nitrogen 7 LAB CREAT(LOIN 0.50-1.30 mg/dL C) Creatinine 0.77 LAB GFR(LOINC) Glomerular >60 Filtration Rate Result Comment: Interpretation for Chronic Kidney Disease: Stages 1&2 >60 Healthy or potential kidney damage. Mild decrease of GFR. Stage 3 30-59 Moderate decrease of GFR. Stage 4 15-29 Severe decrease of GFR. Stage 5 <15 Kidney failure or on dialysis. LAB CA(LOINC) 8.6-10.3 mg/dL Calcium 8.9 LAB SOD(LOINC) 136-145 mmol/L Sodium Low 134 LAB POT(LOINC) 3.5-5.1 mmol/L Potassium 4.2 LAB CHLOR(LOINC) 98-107 mmol/L Chloride Low 97 LAB BICAR(LOINC) 21-32 mmol/L Bicarbonate 29 LAB ALB(LOINC) 3.4-5.0 g/dL Albumin Low 3.2 LAB BILIT(LOINC) 0.0-1.2 mg/dL Bilirubin, Total 0.8 LAB ALP(LOINC) 45-117 U/L Alkaline Phosphatase 101 LAB TP(LOINC) 6.4-8.2 g/dL Total Low Protein 6.2 LAB ALT(LOINC) 10-52 U/L ALT (SGPT) 11 LAB AST(LOINC) 13-39 U/L AST (SGOT) 17 LAB ANGAP(LOINC) 10-20 mmol/L Anion Gap 12 LAB AGRAT(LOINC) 0.9-2.4 A/G Ratio 1.1 LAB BCRAT(LOINC) 5-25 Urea/Creatinine Ratio 9 Performed By: #### [id number] #### [facility] [address] [place] [address] CBC WITH DIFFERENTIAL Collected: 10/25/2017 Status: F Source: [facility] 5:05 AM HEALTHCARE REPOSITORY TYPE CODE TESTS RESULT OUT OF REFERENCE UNITS RANGE LAB WBCIR(LOIN 4.2-11.0 10*3/uL C) Low WBC 3.4 LAB RBC(LOINC) 4.08-6.37 10*6/uL Low RBC 3.96 LAB HGB(LOINC) 12.8-17.7 g/dL Low HGB 11.6 LAB HCT(LOINC) 38.4-54.9 % Low HCT 36.1 LAB MCV(LOINC) 83.3-98.2 fL MCV 91.2 LAB MCH(LOINC) 27.5-32.9 pg MCH 29.3 LAB MCHC(LOINC 30.5-35.4 g/dL ) MCHC 32.1 LAB RDWCV(LOIN 12.0-15.4 % C) RDW CV 14.6 LAB RDWSD(LOIN 39.3-48.6 fL C) RDW SD High 49.2 LAB PLTC(LOINC 155-404 10*3/uL ) Low Platelet Count 85 LAB MPV(LOINC) 9.9-12.1 fL MPV 11.4 LAB NRBCR(LOIN /100{WBCs} C) NRBC Automated 0.0 LAB NRBCA(LOIN 10*3/uL C) NRBC Absolute 0.00 LAB ASEGR(LOIN 2.22-7.53 10*3/uL C) Neutrophils Absolute 3.02 Result Comment: Reviewed by tech, consistent with instrument results. LAB ALYMR(LOINC) 0.40-2.84 10*3/uL Lymphocytes Low Absolute 0.29 LAB AMONR(LOINC) 0.25-1.33 10*3/uL Monocytes Low Absolute 0.07 LAB AEOSR(LOINC) 0.01-0.46 10*3/uL Eosinophils Absolute 0.01 LAB ABASR(LOINC) 0.01-0.09 10*3/uL Basophils Absolute 0.01 LAB IGRA(LOINC) % Immature Granulocytes 0.3 LAB IGR(LOINC) 0.00-0.21 10*3/uL Imm Grans Absolute 0.01 LAB SEGC(LOINC) 46.2-79.1 % Neutrophils High 88.5 LAB LYMPC(LOINC) 9.4-41.1 % Lymphocytes Low 8.5 LAB MONOC(LOINC) 3.0-16.2 % Monocytes Low 2.1 LAB EOSC(LOINC) 0.0-6.7 % Eosinophils 0.3 LAB BASOC(LOINC) 0.0-1.3 % Basophils 0.3 Performed By: #### [id number] #### [facility] [address] [place] [address] S. PNEUMONIAE, RAPID Collected: 10/25/2017 Status: F Source: [facility] URINE AG 4:30 AM HEALTHCARE REPOSITORY TYPE CODE TESTS RESULT OUT OF REFERENCE UNITS RANGE LAB SPNU(LOINC) Negative S. Negative pnuemoniae, Rapid Urine Ag Performed By: #### [id number] #### [facility] [address] [place] [address] LEGIONELLA PNEUM AG, Collected: 10/25/2017 Status: F Source: [facility] URINE 4:30 AM REPOSITORY TYPE CODE TESTS RESULT OUT OF REFERENCE UNITS RANGE LAB LEGUR(LOIN Negative C) Legionella Pneum NEGATIVE Ag, Urine Result Comment: NEGATIVE FOR LEGIONELLA PNEUMOPHILIA SEROGROUP 1 ANTIGEN IN URINE, SUGGESTING NO CURRENT OR PAST INFECTION. TROPONIN Collected: 10/24/2017 Status: F Source: [facility] 8:32 PM REPOSITORY TYPE CODE TESTS RESULT OUT OF REFERENCE UNITS RANGE LAB TROP(LOINC) 0.000-0.040 ng/mL Troponin <0.020 Result Comment: <0.04 : Negative 0.04 - 0.50 : Possible Cardiac Damage >0.50 : Consistent with Cardiac Damage Performed By: #### [id number] #### [facility] [address] [place] [address] Observed: 10/24/2017 Status: F Source: [facility] CULTURE, BLOOD 5:13 PM REPOSITORY BACTERIAL BILL#: [id number] : 44 AGE: SEX: M JAGPRIT SOURCE: Blood COLLECTED: 10/24/17 17:13 ANTIBIOTICS AT [facility]ANK[facility].: RECEIVED : 10/25/17 09:43 SITE: SAME SOURCE R E S U L T S BLOOD CULTURE, BACTERIAL FINAL 10/30/17 09:42 No Growth at 1 days No Growth at 2 days No Growth at 3 days No Growth at 4 days NO GROWTH - FINAL REPORT Performed By: #### [id number] #### [facility] [address] [place] [address] Observed: 10/24/2017 Status: F Source: [facility] HEALTHCARE CULTURE, BLOOD 5:13 PM REPOSITORY BACTERIAL BILL#: [id number] : 44 AGE: SEX: M JAGPRIT SOURCE: Blood COLLECTED: 10/24/17 17:13 ANTIBIOTICS AT AKANKSHA.: RECEIVED : 10/25/17 09:43 SITE: SAME SOURCE R E S U L T S BLOOD CULTURE, BACTERIAL FINAL 10/30/17 09:42 No Growth at 1 days No Growth at 2 days No Growth at 3 days No Growth at 4 days NO GROWTH - FINAL REPORT Performed By: #### [id number] #### [facility] [address] [place] [address] CHEST SINGLE VIEW Observed: 10/24/2017 Status: F Source: [facility] HEALTHCARE PORT PA OR AP 2:43 PM REPOSITORY DATE OF EXAM: Oct 24 2017 2:43PM CLINICAL HISTORY/ Patient Name: KAY MITCHELL STUDY: CHEST SINGLE VIEW PORT PA OR AP; 10/24/2017 2:43 pm INDICATION: Lung cancer. Right-sided pain COMPARISON: 10/14/2017 ACCESSION NUMBER(S): [id number] ORDERING CLINICIAN: CLARK BAILEY FINDINGS: Cardiac silhouette is enlarged similar in appearance to the prior study. Thoracic aorta is tortuous with atherosclerotic calcification. Right midlung and basilar perihilar infiltrate with air bronchograms is present consistent with focal pneumonia. Recommend follow-up to complete resolution Bessie no gross pneumothorax or pulmonary edema is present. Cardiac monitoring leads are present overlying the patient. CONCLUSION: IMPRESSION: Right midlung and basilar perihilar infiltrate with air bronchograms is present consistent with focal pneumonia. Recommend follow- up to complete resolution COMPREHENSIVE METABOLIC Collected: 10/24/2017 Status: F Source: [facility] PANEL 2:11 PM HEALTHCARE REPOSITORY TYPE CODE TESTS RESULT OUT OF REFERENCE UNITS RANGE LAB GLU(LOINC) 70-100 mg/dL Glucose High 131 LAB UREA(LOINC 6-23 mg/dL ) Urea Nitrogen 7 LAB CREAT(LOIN 0.50-1.30 mg/dL C) Creatinine 0.80 LAB GFR(LOINC) Glomerular >60 Filtration Rate Result Comment: Interpretation for Chronic Kidney Disease: Stages 1&2 >60 Healthy or potential kidney damage. Mild decrease of GFR. Stage 3 30-59 Moderate decrease of GFR. Stage 4 15-29 Severe decrease of GFR. Stage 5 <15 Kidney failure or on dialysis. LAB CA(LOINC) 8.6-10.3 mg/dL Calcium 8.6 LAB SOD(LOINC) 136-145 mmol/L Sodium Low 132 LAB POT(LOINC) 3.5-5.1 mmol/L Potassium 4.3 LAB CHLOR(LOINC) 98-107 mmol/L Chloride Low 96 LAB BICAR(LOINC) 21-32 mmol/L Bicarbonate 31 LAB ALB(LOINC) 3.4-5.0 g/dL Albumin Low 3.0 LAB BILIT(LOINC) 0.0-1.2 mg/dL Bilirubin, Total 0.7 LAB ALP(LOINC) 45-117 U/L Alkaline Phosphatase 98 LAB TP(LOINC) 6.4-8.2 g/dL Total Low Protein 5.7 LAB ALT(LOINC) 10-52 U/L ALT (SGPT) 10 LAB AST(LOINC) 13-39 U/L AST (SGOT) 16 LAB ANGAP(LOINC) 10-20 mmol/L Anion Gap Low 9 LAB AGRAT(LOINC) 0.9-2.4 A/G Ratio 1.1 LAB BCRAT(LOINC) 5-25 Urea/Creatinine Ratio 9 Performed By: #### [id number] #### [facility] [address] [place] [address] C-REACTIVE PROTEIN, Collected: 10/24/2017 Status: F Source: [facility] HIGH SENSITIVITY 2:11 PM HEALTHCARE REPOSITORY TYPE CODE TESTS RESULT OUT OF REFERENCE UNITS RANGE LAB HSCRP(LOIN mg/L C) C-Reactive High Protein, High 62.10 Sensitivity Result Comment: < 1.0 LOW RELATIVE RISK OF CVD 1.0 - 3.0 AVERAGE RELATIVE RISK OF CVD > 3.0 HIGH RELATIVE RISK OF CVD Performed By: #### [id number] #### [facility] [address] [place] [address] MAGNESIUM Collected: 10/24/2017 Status: F Source: [facility] 2:11 PM REPOSITORY TYPE CODE TESTS RESULT OUT OF REFERENCE UNITS RANGE LAB MG(LOINC) 1.6-2.4 mg/dL Magnesium 1.7 Performed By: #### [id number] #### [facility] [address] [place] [address] PROTHROMBIN TIME Collected: 10/24/2017 Status: F Source: [facility] 2:11 PM HEALTHCARE REPOSITORY TYPE CODE TESTS RESULT OUT OF RANGE REFERENCE UNITS LAB PTI(LOINC) 9.8-12.7 sec PT 11.7 Result Comment: PLEASE NOTE NEW REFERENCE RANGE EFFECTIVE 2017 LAB INR(LOINC) 0.90-1.10 INR 1.05 Result Comment: PLEASE NOTE NEW REFERENCE RANGE EFFECTIVE 2017 Performed By: #### [id number] #### [facility] [address] [place] [address] PARTIAL THROMBOPLASTIN Collected: 10/24/2017 Status: F Source: [facility] 2:11 PM HEALTHCARE REPOSITORY TYPE CODE TESTS RESULT OUT OF REFERENCE UNITS RANGE LAB PTT(LOINC) 25.0-36.0 sec Partial Thromboplastin Time 29.6 Result Comment: PLEASE NOTE NEW REFERENCE RANGE EFFECTIVE 2017 . The APTT is no longer used for monitoring Unfractionated Heparin Therapy. For monitoring Heparin Therapy, use the Heparin Assay. Performed By: #### [id number] #### [facility] [address] [place] [address] TROPONIN Collected: 10/24/2017 Status: F Source: [facility] 2:11 PM REPOSITORY TYPE CODE TESTS RESULT OUT OF REFERENCE UNITS RANGE LAB TROP(LOINC) 0.000-0.040 ng/mL Troponin <0.020 Result Comment: <0.04 : Negative 0.04 - 0.50 : Possible Cardiac Damage >0.50 : Consistent with Cardiac Damage Performed By: #### [id number] #### [facility] [address] [place] [address] B NATRIURETIC PEPTIDE Collected: 10/24/2017 Status: F Source: [facility] 2:11 PM HEALTHCARE REPOSITORY TYPE CODE TESTS RESULT OUT OF RANGE REFERENCE UNITS LAB BNP(LOINC) <100 pg/mL B Abnormal Natriuretic 239 Peptide Performed By: #### [id number] #### [facility] [address] [place] [address] CBC WITH DIFFERENTIAL Collected: 10/24/2017 Status: F Source: [facility] 2:11 PM HEALTHCARE REPOSITORY TYPE CODE TESTS RESULT OUT OF REFERENCE UNITS RANGE LAB WBCIR(LOIN 4.2-11.0 10*3/uL C) WBC 5.3 LAB RBC(LOINC) 4.08-6.37 10*6/uL Low RBC 3.68 LAB HGB(LOINC) 12.8-17.7 g/dL Low HGB 10.9 LAB HCT(LOINC) 38.4-54.9 % Low HCT 33.4 LAB MCV(LOINC) 83.3-98.2 fL MCV 90.8 LAB MCH(LOINC) 27.5-32.9 pg MCH 29.6 LAB MCHC(LOINC 30.5-35.4 g/dL ) MCHC 32.6 LAB RDWCV(LOIN 12.0-15.4 % C) RDW CV 14.7 LAB RDWSD(LOIN 39.3-48.6 fL C) RDW SD High 49.6 LAB PLTC(LOINC 155-404 10*3/uL ) Low Platelet Count 72 LAB MPV(LOINC) 9.9-12.1 fL Low MPV 9.5 LAB NRBCR(LOIN /100{WBCs} C) NRBC Automated 0.0 LAB NRBCA(LOIN 10*3/uL C) NRBC Absolute 0.00 LAB ASEGR(LOIN 2.22-7.53 10*3/uL C) Neutrophils Absolute 3.94 LAB ALYMR(LOIN 0.40-2.84 10*3/uL C) Lymphocytes Absolute 0.55 LAB AMONR(LOIN 0.25-1.33 10*3/uL C) Monocytes Absolute 0.63 LAB AEOSR(LOIN 0.01-0.46 10*3/uL C) Eosinophils Absolute 0.16 LAB ABASR(LOIN 0.01-0.09 10*3/uL C) Basophils Absolute 0.01 LAB IGRA(LOINC % ) Immature Granulocytes 0.4 LAB IGR(LOINC) 0.00-0.21 10*3/uL Imm Grans Absolute 0.02 LAB SEGC(LOINC 46.2-79.1 % ) Neutrophils 74.1 LAB LYMPC(LOIN 9.4-41.1 % C) Lymphocytes 10.4 LAB MONOC(LOIN 3.0-16.2 % C) Monocytes 11.9 LAB EOSC(LOINC 0.0-6.7 % ) Eosinophils 3.0 LAB BASOC(LOIN 0.0-1.3 % C) Basophils 0.2 Performed By: #### [id number] #### [facility] [address] [place] [address] PROTHROMBIN TIME Collected: 10/14/2017 Status: F Source: [facility] 5:07 PM HEALTHCARE REPOSITORY TYPE CODE TESTS RESULT OUT OF RANGE REFERENCE UNITS LAB PTI(LOINC) 9.8-12.7 sec PT 12.2 Result Comment: PLEASE NOTE NEW REFERENCE RANGE EFFECTIVE 2017 LAB INR(LOINC) 0.90-1.10 INR 1.10 Result Comment: PLEASE NOTE NEW REFERENCE RANGE EFFECTIVE 2017 Performed By: #### [id number] #### [facility] [address] [place] [address] PARTIAL THROMBOPLASTIN Collected: 10/14/2017 Status: F Source: [facility] TIME 5:07 PM HEALTHCARE REPOSITORY TYPE CODE TESTS RESULT OUT OF REFERENCE UNITS RANGE LAB PTT(LOINC) 25.0-36.0 sec Partial Thromboplastin Time 27.9 Result Comment: PLEASE NOTE NEW REFERENCE RANGE EFFECTIVE 2017 . The APTT is no longer used for monitoring Unfractionated Heparin Therapy. For monitoring Heparin Therapy, use the Heparin Assay. Performed By: #### [id number] #### [facility] [address] [place] [address] COMPREHENSIVE METABOLIC Collected: 10/14/2017 Status: F Source: [facility] PANEL 5:07 PM HEALTHCARE REPOSITORY TYPE CODE TESTS RESULT OUT OF REFERENCE UNITS RANGE LAB GLU(LOINC) 70-100 mg/dL Glucose High 169 LAB UREA(LOINC 6-23 mg/dL ) Urea Nitrogen 23 LAB CREAT(LOIN 0.50-1.30 mg/dL C) Creatinine 0.87 LAB GFR(LOINC) Glomerular >60 Filtration Rate Result Comment: Interpretation for Chronic Kidney Disease: Stages 1&2 >60 Healthy or potential kidney damage. Mild decrease of GFR. Stage 3 30-59 Moderate decrease of GFR. Stage 4 15-29 Severe decrease of GFR. Stage 5 <15 Kidney failure or on dialysis. LAB CA(LOINC) 8.6-10.3 mg/dL Calcium 9.2 LAB SOD(LOINC) 136-145 mmol/L Sodium Low 133 LAB POT(LOINC) 3.5-5.1 mmol/L Potassium 4.4 LAB CHLOR(LOINC) 98-107 mmol/L Chloride Low 96 LAB BICAR(LOINC) 21-32 mmol/L Bicarbonate 30 LAB ALB(LOINC) 3.4-5.0 g/dL Albumin 3.4 LAB BILIT(LOINC) 0.0-1.2 mg/dL Bilirubin, Total 0.7 LAB ALP(LOINC) 45-117 U/L Alkaline Phosphatase 113 LAB TP(LOINC) 6.4-8.2 g/dL Total Protein 6.6 LAB ALT(LOINC) 10-52 U/L ALT (SGPT) 15 LAB AST(LOINC) 13-39 U/L AST (SGOT) 18 LAB ANGAP(LOINC) 10-20 mmol/L Anion Gap 11 LAB AGRAT(LOINC) 0.9-2.4 A/G Ratio 1.1 LAB BCRAT(LOINC) 5-25 High Urea/Creatinine Ratio 26 Performed By: #### [id number] #### [facility] [address] [place] [address] C-REACTIVE PROTEIN, Collected: 10/14/2017 Status: F Source: [facility] HIGH SENSITIVITY 5:07 PM HEALTHCARE REPOSITORY TYPE CODE TESTS RESULT OUT OF REFERENCE UNITS RANGE LAB HSCRP(LOIN mg/L C) C-Reactive High Protein, High 18.60 Sensitivity Result Comment: < 1.0 LOW RELATIVE RISK OF CVD 1.0 - 3.0 AVERAGE RELATIVE RISK OF CVD > 3.0 HIGH RELATIVE RISK OF CVD Performed By: #### [id number] #### [facility] [address] [place] [address] MAGNESIUM Collected: 10/14/2017 Status: F Source: [facility] 5:07 PM REPOSITORY TYPE CODE TESTS RESULT OUT OF REFERENCE UNITS RANGE LAB MG(LOINC) 1.6-2.4 mg/dL Magnesium 1.6 Performed By: #### [id number] #### [facility] [address] [place] [address] TROPONIN Collected: 10/14/2017 Status: F Source: [facility] 5:07 PM REPOSITORY TYPE CODE TESTS RESULT OUT OF REFERENCE UNITS RANGE LAB TROP(LOINC) 0.000-0.040 ng/mL Troponin <0.020 Result Comment: <0.04 : Negative 0.04 - 0.50 : Possible Cardiac Damage >0.50 : Consistent with Cardiac Damage Performed By: #### [id number] #### [facility] [address] [place] [address] CBC WITH DIFFERENTIAL Collected: 10/14/2017 Status: F Source: [facility] 5:07 PM HEALTHCARE REPOSITORY TYPE CODE TESTS RESULT OUT OF REFERENCE UNITS RANGE LAB WBCIR(LOIN 4.2-11.0 10*3/uL C) WBC 7.9 LAB RBC(LOINC) 4.08-6.37 10*6/uL RBC 4.10 LAB HGB(LOINC) 12.8-17.7 g/dL Low HGB 12.3 LAB HCT(LOINC) 38.4-54.9 % Low HCT 37.7 LAB MCV(LOINC) 83.3-98.2 fL MCV 92.0 LAB MCH(LOINC) 27.5-32.9 pg MCH 30.0 LAB MCHC(LOINC 30.5-35.4 g/dL ) MCHC 32.6 LAB RDWCV(LOIN 12.0-15.4 % C) RDW CV 14.9 LAB RDWSD(LOIN 39.3-48.6 fL C) RDW SD High 50.3 LAB PLTC(LOINC 155-404 10*3/uL ) Low Platelet Count 102 LAB MPV(LOINC) 9.9-12.1 fL MPV 11.0 LAB NRBCR(LOIN /100{WBCs} C) NRBC Automated 0.0 LAB NRBCA(LOIN 10*3/uL C) NRBC Absolute 0.00 LAB ASEGR(LOIN 2.22-7.53 10*3/uL C) Neutrophils Absolute 7.03 LAB ALYMR(LOIN 0.40-2.84 10*3/uL C) Low Lymphocytes Absolute 0.33 LAB AMONR(LOIN 0.25-1.33 10*3/uL C) Monocytes Absolute 0.40 LAB AEOSR(LOIN 0.01-0.46 10*3/uL C) Eosinophils Absolute 0.05 LAB ABASR(LOIN 0.01-0.09 10*3/uL C) Basophils Absolute 0.01 LAB IGRA(LOINC % ) Immature Granulocytes 0.5 LAB IGR(LOINC) 0.00-0.21 10*3/uL Imm Grans Absolute 0.04 LAB SEGC(LOINC 46.2-79.1 % ) Neutrophils High 89.5 LAB LYMPC(LOIN 9.4-41.1 % C) Low Lymphocytes 4.2 LAB MONOC(LOIN 3.0-16.2 % C) Monocytes 5.1 LAB EOSC(LOINC 0.0-6.7 % ) Eosinophils 0.6 LAB BASOC(LOIN 0.0-1.3 % C) Basophils 0.1 Performed By: #### [id number] #### [facility] [address] [place] [address] B NATRIURETIC PEPTIDE Collected: 10/14/2017 Status: F Source: [facility] 5:07 PM HEALTHCARE REPOSITORY TYPE CODE TESTS RESULT OUT OF RANGE REFERENCE UNITS LAB BNP(LOINC) <100 pg/mL B Abnormal Natriuretic 181 Peptide Performed By: #### [id number] #### [facility] [address] [place] [address] CHEST SINGLE VIEW Observed: 10/14/2017 Status: F Source: [facility] [place] 5:06 PM REPOSITORY DATE OF EXAM: Oct 14 2017 5:06PM CLINICAL HISTORY/ Patient Name: KAY MITCHELL STUDY: CHEST SINGLE VIEW [place] OR AP; 10/14/2017 5:06 pm INDICATION: Non Trauma. Short of breath COMPARISON: 08/14/2017 ACCESSION NUMBER(S): [id number] ORDERING CLINICIAN: COLUMBA GREEN FINDINGS: Volume loss and pleural thickening in the right hemithorax unchanged. Interstitial lung disease possibly fibrosis unchanged. Venous congestion and interstitial edema apparent on the prior exam have resolved. No new focal lung opacity. Cardiac silhouette remains enlarged. Tortuosity of the thoracic aorta is unchanged. CONCLUSION: IMPRESSION: Venous congestion and possibly interstitial edema from the prior exam have resolved. There is however likely significant chronic lung disease with some fibrosis. COMPREHENSIVE METABOLIC Collected: 09/07/2017 Status: F Source: [facility] 3:13 PM [facility] REPOSITORY TYPE CODE TESTS RESULT OUT OF REFERENCE UNITS RANGE LAB NA 132-144 mEq/L Sodium 137 LAB K 3.5-5.1 mEq/L Potassium 4.5 LAB CL 98-107 mEq/L Low Chloride 97 LAB CO2 22-29 mEq/L CO2 26 LAB AGAP 7-13 mEq/L Anion High alert Gap 14 LAB GLU 74-109 mg/dL Glucose High alert 119 LAB BUN 8-23 mg/dL BUN 12 LAB CREA 0.70-1.20 mg/dL Creatinine 0.71 LAB GFR >60 GFR >60.0 Result Comment: >60 mL/min/1.73m2 EGFR, calc. for ages 18 and older using the MDRD formula (not corrected for weight), is valid for stable renal function. LAB GFRAA >60 eGFR >60.0 Result Comment: >60 mL/min/1.73m2 EGFR, calc. for ages 18 and older using the MDRD formula (not corrected for weight), is valid for stable renal function. LAB CA 8.6-10.2 mg/dL Calcium 9.1 LAB TP 6.4-8.1 g/dL Total Protein Low 5.9 LAB ALB 3.9-4.9 g/dL Albumin Low 3.3 LAB BILIT 0.0-1.2 mg/dL Bilirubin Total 0.4 LAB ALP 35-104 U/L Alkaline Phosphatase 101 LAB ALT 0-41 U/L ALT 12 LAB AST 0-40 U/L AST 20 LAB GLOB 2.3-3.5 g/dL Globulin 2.6 BASIC METABOLIC PANEL Collected: 08/17/2017 Status: F Source: [facility] 5:50 AM REPOSITORY TYPE CODE TESTS RESULT OUT OF REFERENCE UNITS RANGE LAB GLU(LOINC) 70-100 mg/dL Glucose High 177 LAB UREA(LOINC 6-23 mg/dL ) Urea Nitrogen 16 LAB CREAT(LOIN 0.50-1.30 mg/dL C) Creatinine 0.87 LAB GFR(LOINC) Glomerular >60 Filtration Rate Result Comment: Interpretation for Chronic Kidney Disease: Stages 1&2 >60 Healthy or potential kidney damage. Mild decrease of GFR. Stage 3 30-59 Moderate decrease of GFR. Stage 4 15-29 Severe decrease of GFR. Stage 5 <15 Kidney failure or on dialysis. LAB SOD(LOINC) 136-145 mmol/L Sodium 138 LAB POT(LOINC) 3.5-5.1 mmol/L Potassium 4.4 LAB CHLOR(LOINC) 98-107 mmol/L Chloride 98 LAB BICAR(LOINC) 21-32 mmol/L Bicarbonate High 33 LAB CA(LOINC) 8.6-10.3 mg/dL Calcium 9.3 LAB ANGAP(LOINC) 10-20 mmol/L Anion Gap 11 LAB BCRAT(LOINC) 5-25 Urea/Creatinine Ratio 18 Performed By: #### [id number] #### [facility] [address] [place] [id number] CBC WITH DIFFERENTIAL Collected: 08/17/2017 Status: F Source: [facility] 5:50 AM HEALTHCARE REPOSITORY TYPE CODE TESTS RESULT OUT OF REFERENCE UNITS RANGE LAB WBCIR(LOINC 4.2-11.0 10*3/uL ) WBC 6.2 LAB RBC(LOINC) 4.08-6.37 10*6/uL Low RBC 4.04 LAB HGB(LOINC) 12.8-17.7 g/dL Low HGB 12.4 LAB HCT(LOINC) 38.4-54.9 % Low HCT 37.6 LAB MCV(LOINC) 83.3-98.2 fL MCV 93.1 LAB MCH(LOINC) 27.5-32.9 pg MCH 30.7 LAB MCHC(LOINC) 30.5-35.4 g/dL MCHC 33.0 LAB RDWCV(LOINC 12.0-15.4 % ) High RDW CV 16.6 LAB RDWSD(LOINC 39.3-48.6 fL ) High RDW SD 56.1 LAB PLTC(LOINC) 155-404 10*3/uL Low Platelet Count 77 Result Comment: Platelet count confirmed by smear review. LAB MPV(LOINC) 9.9-12.1 fL MPV Low 9.6 LAB NRBCR(LOINC) /100{WBC s} NRBC Automated 0.0 LAB NRBCA(LOINC) 10*3/uL NRBC Absolute 0.00 LAB ASEGR(LOINC) 2.22-7.53 10*3/uL Neutrophils Absolute 5.51 Result Comment: Reviewed by tech, consistent with instrument results. LAB ALYMR(LOINC) 0.40-2.84 10*3/uL Lymphocytes Low Absolute 0.34 LAB AMONR(LOINC) 0.25-1.33 10*3/uL Monocytes Absolute 0.38 LAB AEOSR(LOINC) 0.01-0.46 10*3/uL Eosinophils Low Absolute 0.00 LAB ABASR(LOINC) 0.01-0.09 10*3/uL Basophils Low Absolute 0.00 LAB IGRA(LOINC) % Immature Granulocytes 0.3 LAB IGR(LOINC) 0.00-0.21 10*3/uL Imm Grans Absolute 0.02 LAB SEGC(LOINC) 46.2-79.1 % Neutrophils High 88.2 LAB LYMPC(LOINC) 9.4-41.1 % Lymphocytes Low 5.4 LAB MONOC(LOINC) 3.0-16.2 % Monocytes 6.1 LAB EOSC(LOINC) 0.0-6.7 % Eosinophils 0.0 LAB BASOC(LOINC) 0.0-1.3 % Basophils 0.0 Performed By: #### [id number] #### [facility] [address] [place] [id number] URINALYSIS WITH REFLEX Collected: 08/16/2017 Status: F Source: [facility] HEALTHCARE CULTURE 4:05 PM REPOSITORY TYPE CODE TESTS RESULT OUT OF RANGE REFERENCE UNITS LAB UCOLR(CONSTANCE NC) Color Yellow LAB UAPP(LOIN Clear C) Appearance Clear LAB USPG(LOIN 1.003-1.035 C) Specific [place] 1.012 LAB UPH(LOINC 5.0-9.0 ) pH 6.0 LAB ULEU(LOIN Negative C) Leukocytes Esterase Negative LAB UNIT(LOIN Negative C) Nitrite Negative LAB UPRO(LOIN Negative mg/dL C) Protein Negative LAB UGLU(LOIN Negative mg/dL C) Glucose Abnormal 150 LAB UKET(LOIN Negative mg/dL C) Ketones Negative LAB UURO(LOIN Negative mg/dL C) Urobilinogen <2.0 LAB UBIL(LOIN Negative C) Bilirubin Negative LAB UBLD(LOIN Negative C) Blood Abnormal Large LAB UASA(LOIN Negative mg/dL C) Ascorbic Acid Negative LAB UMICP(CONSTANCE NC) Automated Urine Microscopy Performed LAB UWBC(LOIN 0-5 /[HPF] C) WBC 17 LAB URBC(LOIN 0-3 /[HPF] C) RBC 84 LAB UBAC(LOIN None /[HPF] C) Bacteria Rare Performed By: #### [id number] #### [facility] [address] [place] [address] Observed: 08/16/2017 Status: F Source: [facility] HEALTHCARE CULTURE, URINE 4:05 PM REPOSITORY BACTERIAL BILL#: [id number] : 44 AGE: SEX: M SOURCE: URINE COLLECTED: 08/16/17 16:05 ANTIBIOTICS AT AKANKSHA.: RECEIVED : 08/17/17 10:53 SITE: Unspecified R E S U L T S URINE CULTURE,BACTERIAL FINAL 08/18/17 07:27 NO GROWTH Performed By: #### [id number] #### [facility] [address] [place] [address] COMPREHENSIVE METABOLIC Collected: 08/16/2017 Status: F Source: [facility] PANEL 5:05 AM HEALTHCARE REPOSITORY TYPE CODE TESTS RESULT OUT OF REFERENCE UNITS RANGE LAB GLU(LOINC) 70-100 mg/dL Glucose High 190 LAB UREA(LOINC 6-23 mg/dL ) Urea Nitrogen 14 LAB CREAT(LOIN 0.50-1.30 mg/dL C) Creatinine 0.78 LAB GFR(LOINC) Glomerular >60 Filtration Rate Result Comment: Interpretation for Chronic Kidney Disease: Stages 1&2 >60 Healthy or potential kidney damage. Mild decrease of GFR. Stage 3 30-59 Moderate decrease of GFR. Stage 4 15-29 Severe decrease of GFR. Stage 5 <15 Kidney failure or on dialysis. LAB CA(LOINC) 8.6-10.3 mg/dL Calcium 9.0 LAB SOD(LOINC) 136-145 mmol/L Sodium 136 LAB POT(LOINC) 3.5-5.1 mmol/L Potassium 4.4 LAB CHLOR(LOINC) 98-107 mmol/L Chloride 99 LAB BICAR(LOINC) 21-32 mmol/L Bicarbonate 29 LAB ALB(LOINC) 3.4-5.0 g/dL Albumin 3.4 LAB BILIT(LOINC) 0.0-1.2 mg/dL Bilirubin, Total 0.6 LAB ALP(LOINC) 45-117 U/L Alkaline Phosphatase 87 LAB TP(LOINC) 6.4-8.2 g/dL Total Low Protein 6.2 LAB ALT(LOINC) 10-52 U/L ALT (SGPT) 16 LAB AST(LOINC) 13-39 U/L AST (SGOT) 22 LAB ANGAP(LOINC) 10-20 mmol/L Anion Gap 12 LAB AGRAT(LOINC) 0.9-2.4 A/G Ratio 1.2 LAB BCRAT(LOINC) 5-25 Urea/Creatinine Ratio 18 Performed By: #### [id number] #### [facility] [address] [place] [id number] CBC WITH DIFFERENTIAL Collected: 08/16/2017 Status: F Source: [facility] 5:05 AM HEALTHCARE REPOSITORY TYPE CODE TESTS RESULT OUT OF REFERENCE UNITS RANGE LAB WBCIR(LOINC 4.2-11.0 10*3/uL ) WBC 5.7 LAB RBC(LOINC) 4.08-6.37 10*6/uL RBC 4.11 LAB HGB(LOINC) 12.8-17.7 g/dL HGB 12.9 LAB HCT(LOINC) 38.4-54.9 % HCT 38.9 LAB MCV(LOINC) 83.3-98.2 fL MCV 94.6 LAB MCH(LOINC) 27.5-32.9 pg MCH 31.4 LAB MCHC(LOINC) 30.5-35.4 g/dL MCHC 33.2 LAB RDWCV(LOINC 12.0-15.4 % ) High RDW CV 16.6 LAB RDWSD(LOINC 39.3-48.6 fL ) High RDW SD 58.2 LAB PLTC(LOINC) 155-404 10*3/uL Low Platelet Count 79 Result Comment: Platelet count confirmed by smear review. LAB MPV(LOINC) 9.9-12.1 fL MPV 9.9 LAB NRBCR(LOINC) /100{WBC s} NRBC Automated 0.0 LAB NRBCA(LOINC) 10*3/uL NRBC Absolute 0.00 LAB ASEGR(LOINC) 2.22-7.53 10*3/uL Neutrophils Absolute 5.10 Result Comment: Reviewed by tech, consistent with instrument results. LAB ALYMR(LOINC) 0.40-2.84 10*3/uL Lymphocytes Low Absolute 0.34 LAB AMONR(LOINC) 0.25-1.33 10*3/uL Monocytes Low Absolute 0.24 LAB AEOSR(LOINC) 0.01-0.46 10*3/uL Eosinophils Low Absolute 0.00 LAB ABASR(LOINC) 0.01-0.09 10*3/uL Basophils Absolute 0.01 LAB IGRA(LOINC) % Immature Granulocytes 0.4 LAB IGR(LOINC) 0.00-0.21 10*3/uL Imm Grans Absolute 0.02 LAB SEGC(LOINC) 46.2-79.1 % Neutrophils High 89.2 LAB LYMPC(LOINC) 9.4-41.1 % Lymphocytes Low 6.0 LAB MONOC(LOINC) 3.0-16.2 % Monocytes 4.2 LAB EOSC(LOINC) 0.0-6.7 % Eosinophils 0.0 LAB BASOC(LOINC) 0.0-1.3 % Basophils 0.2 Performed By: #### [id number] #### [facility] [address] [place] [address] COMPREHENSIVE METABOLIC Collected: 08/15/2017 Status: F Source: [facility] PANEL 5:05 AM HEALTHCARE REPOSITORY TYPE CODE TESTS RESULT OUT OF REFERENCE UNITS RANGE LAB GLU(LOINC) 70-100 mg/dL Glucose High 191 LAB UREA(LOINC 6-23 mg/dL ) Urea Nitrogen 10 LAB CREAT(LOIN 0.50-1.30 mg/dL C) Creatinine 0.78 LAB GFR(LOINC) Glomerular >60 Filtration Rate Result Comment: Interpretation for Chronic Kidney Disease: Stages 1&2 >60 Healthy or potential kidney damage. Mild decrease of GFR. Stage 3 30-59 Moderate decrease of GFR. Stage 4 15-29 Severe decrease of GFR. Stage 5 <15 Kidney failure or on dialysis. LAB CA(LOINC) 8.6-10.3 mg/dL Calcium 9.2 LAB SOD(LOINC) 136-145 mmol/L Sodium Low 135 LAB POT(LOINC) 3.5-5.1 mmol/L Potassium 4.8 LAB CHLOR(LOINC) 98-107 mmol/L Chloride 98 LAB BICAR(LOINC) 21-32 mmol/L Bicarbonate 30 LAB ALB(LOINC) 3.4-5.0 g/dL Albumin Low 3.3 LAB BILIT(LOINC) 0.0-1.2 mg/dL Bilirubin, Total 0.8 LAB ALP(LOINC) 45-117 U/L Alkaline Phosphatase 90 LAB TP(LOINC) 6.4-8.2 g/dL Total Low Protein 5.9 LAB ALT(LOINC) 10-52 U/L ALT (SGPT) 15 LAB AST(LOINC) 13-39 U/L AST (SGOT) 16 LAB ANGAP(LOINC) 10-20 mmol/L Anion Gap 12 LAB AGRAT(LOINC) 0.9-2.4 A/G Ratio 1.3 LAB BCRAT(LOINC) 5-25 Urea/Creatinine Ratio 13 Performed By: #### [id number] #### [facility] [address] [place] [address] CBC WITH DIFFERENTIAL Collected: 08/15/2017 Status: F Source: [facility] 5:05 AM HEALTHCARE REPOSITORY TYPE CODE TESTS RESULT OUT OF REFERENCE UNITS RANGE LAB WBCIR(LOINC 4.2-11.0 10*3/uL ) WBC 4.7 LAB RBC(LOINC) 4.08-6.37 10*6/uL RBC 4.18 LAB HGB(LOINC) 12.8-17.7 g/dL HGB 12.9 LAB HCT(LOINC) 38.4-54.9 % HCT 39.0 LAB MCV(LOINC) 83.3-98.2 fL MCV 93.3 LAB MCH(LOINC) 27.5-32.9 pg MCH 30.9 LAB MCHC(LOINC) 30.5-35.4 g/dL MCHC 33.1 LAB RDWCV(LOINC 12.0-15.4 % ) High RDW CV 16.6 LAB RDWSD(LOINC 39.3-48.6 fL ) High RDW SD 56.4 LAB PLTC(LOINC) 155-404 10*3/uL Low Platelet Count 86 Result Comment: Platelet count confirmed by smear review. LAB MPV(LOINC) 9.9-12.1 fL MPV 10.8 LAB NRBCR(LOINC) /100{WB Cs} NRBC Automated 0.0 LAB NRBCA(LOINC) 10*3/uL NRBC Absolute 0.00 LAB ASEGR(LOINC) 2.22-7.53 10*3/uL Neutrophils Absolute 3.83 LAB ALYMR(LOINC) 0.40-2.84 10*3/uL Lymphocytes Absolute 0.41 LAB AMONR(LOINC) 0.25-1.33 10*3/uL Monocytes Absolute 0.41 LAB AEOSR(LOINC) 0.01-0.46 10*3/uL Eosinophils Low Absolute 0.00 LAB ABASR(LOINC) 0.01-0.09 10*3/uL Basophils Low Absolute 0.00 LAB IGRA(LOINC) % Immature Granulocytes 0.4 LAB IGR(LOINC) 0.00-0.21 10*3/uL Imm Grans Absolute 0.02 LAB SEGC(LOINC) 46.2-79.1 % Neutrophils High 82.0 LAB LYMPC(LOINC) 9.4-41.1 % Lymphocytes Low 8.8 LAB MONOC(LOINC) 3.0-16.2 % Monocytes 8.8 LAB EOSC(LOINC) 0.0-6.7 % Eosinophils 0.0 LAB BASOC(LOINC) 0.0-1.3 % Basophils 0.0 LAB PLTR(LOINC) Platelet Morphology Decreased Performed By: #### [id number] #### [facility] [address] [place] [address] THYROXINE Collected: 08/15/2017 Status: F Source: [facility] 5:05 AM REPOSITORY TYPE CODE TESTS RESULT OUT OF REFERENCE UNITS RANGE LAB T4(LOINC) 7.1-13.1 ug/dL Thyroxine 8.4 Performed By: #### [id number] #### [facility] [address] [place] [address] TSH Collected: 08/15/2017 Status: F Source: [facility] 5:05 AM REPOSITORY TYPE CODE TESTS RESULT OUT OF RANGE REFERENCE UNITS LAB TSH(LOINC) 0.44-3.98 mU/L TSH 0.80 Performed By: #### [id number] #### [facility] [address] [place] [address] TRIIODOTHYRONINE, TOTAL Collected: Status: F Source: [facility] 08/15/2017 5:05 AM HEALTHCARE REPOSITORY TYPE CODE TESTS RESULT OUT OF RANGE REFERENCE UNITS LAB T3TL(LOINC) 60-200 ng/dL Low 33 Triiodothyro nine, Total Performed By: #### [id number] #### [facility] [address] [place] [address] URINALYSIS WITH REFLEX Collected: 08/14/2017 Status: F Source: [facility] HEALTHCARE CULTURE 4:05 PM REPOSITORY TYPE CODE TESTS RESULT OUT OF RANGE REFERENCE UNITS LAB UCOLR(CONSTANCE NC) Color Yellow LAB UAPP(LOIN Clear C) Appearance Clear LAB USPG(LOIN 1.003-1.035 C) Specific [place] 1.015 LAB UPH(LOINC 5.0-9.0 ) pH 6.0 LAB ULEU(LOIN Negative C) Leukocytes Esterase Negative LAB UNIT(LOIN Negative C) Nitrite Negative LAB UPRO(LOIN Negative mg/dL C) Protein Negative LAB UGLU(LOIN Negative mg/dL C) Glucose 50 Abnormal LAB UKET(LOIN Negative mg/dL C) Ketones Negative LAB UURO(LOIN Negative mg/dL C) Urobilinogen <2.0 LAB UBIL(LOIN Negative C) Bilirubin Negative LAB UBLD(LOIN Negative C) Blood Negative LAB UASA(LOIN Negative mg/dL C) Ascorbic Acid Negative LAB UMICP(CONSTANCE NC) Automated Urine Microscopy Not indicated Performed By: #### [id number] #### [facility] [address] [place] [address] URINALYSIS WITH REFLEX Collected: 08/14/2017 Status: F Source: [facility] HEALTHCARE CULTURE 1:31 PM REPOSITORY TYPE CODE TESTS RESULT OUT OF RANGE REFERENCE UNITS LAB UCOLR(CONSTANCE NC) Color Yellow LAB UAPP(LOIN Clear C) Appearance Clear LAB USPG(LOIN 1.003-1.035 C) Specific [place] 1.005 LAB UPH(LOINC 5.0-9.0 ) pH 7.0 LAB ULEU(LOIN Negative C) Leukocytes Abnormal Esterase Trace LAB UNIT(LOIN Negative C) Nitrite Negative LAB UPRO(LOIN Negative mg/dL C) Protein Negative LAB UGLU(LOIN Negative mg/dL C) Glucose Negative LAB UKET(LOIN Negative mg/dL C) Ketones Negative LAB UURO(LOIN Negative mg/dL C) Urobilinogen <2.0 LAB UBIL(LOIN Negative C) Bilirubin Negative LAB UBLD(LOIN Negative C) Blood Negative LAB UASA(LOIN Negative mg/dL C) Ascorbic Acid Positive Result Comment: Presence of Ascorbic Acid may interfere with the detection of blood, glucose, nitrite, and bilirubin. LAB UMICP(LOINC) Automated Urine Microscopy Performed LAB UWBC(LOINC) 0-5 /[HPF] WBC 0-4 LAB URBC(LOINC) 0-3 /[HPF] RBC 0-2 Performed By: #### [id number] #### [facility] [address] [place] [id number] CHEST SINGLE VIEW Observed: 08/14/2017 Status: F Source: [facility] [place] OR AP 11:42 AM REPOSITORY DATE OF EXAM: Aug 14 2017 11:42AM CLINICAL HISTORY/ Patient Name: KAY MITCHELL STUDY: Chest dated 08/14/2017. INDICATION: Shortness of breath and history of lung cancer. COMPARISON: Chest dated 08/03/2017. ACCESSION NUMBER(S): [id number] ORDERING CLINICIAN: PRASANNA SAMAYOA TECHNIQUE: AP upright portable radiograph of the chest. FINDINGS: There is ill-defined right mid to lower lung zone opacity with blunting of the costophrenic angle. Given differences in technique this is probably similar to the prior exam. No pneumothorax is evident. The cardiomediastinal silhouette is not enlarged. Degenerative changes seen of the spine and shoulders. There are findings of the left shoulder suggestive of underlying rotator cuff pathology. CONCLUSION: IMPRESSION: Right mid to lower lung zone opacity, small effusion atelectasis, and/or pneumonitis. A component findings may also relate to the patient's known lung cancer. Observed: 08/14/2017 Status: F Source: [facility] CULTURE BLOOD 11:32 AM REPOSITORY STATUS: FINAL REPORT SITE: SOURCE: Culture Blood: No growth after 5 days of incubation. Performed By: #### [id number] #### [facility] [address] [place] [address] ARTERIAL BLOOD GAS, Collected: 08/14/2017 Status: F Source: [facility] RESPIRATORY 11:31 AM HEALTHCARE REPOSITORY TYPE CODE TESTS RESULT OUT OF REFERENCE UNITS RANGE LAB APH(LOINC) 7.35-7.45 pH, Arterial 7.45 LAB APCO2(LOIN 35-46 mm[Hg] C) PCO2, Arterial 37 LAB APO2(LOINC 80-104 mm[Hg] ) PO2, Arterial 100 LAB DIVYA(LOINC) -3-3 mmol/L Base Excess-Arterial 1 LAB AHCO3(LOIN 22-28 mmol/L C) Bicarbonate-Ester 25 rial LAB AOSAT(LOIN 97-100 % C) O2 Saturation, 97 Arterial LAB APPAR(LOIN C) Apparatus Nasal Cannula LAB FIO2(LOINC % ) Inspired O2 4L LAB MEENA(LOIN C) Meena's Test Yes LAB CSITE(LOIN C) Collection Site L. Radial LAB TECID(LOIN C) Tech ID Taya Candelaria, Performed By: #### [id number] #### [facility] [address] [place] [address] INFLUENZA A,B Collected: 08/14/2017 Status: F Source: [facility] HEALTHCARE 11:31 AM REPOSITORY TYPE CODE TESTS RESULT OUT OF RANGE REFERENCE UNITS LAB INFLA(LOIN Negative C) Influenza A, Negative Rapid Ag LAB INFLB(LOIN Negative C) Abnormal Influenza B, Positive Rapid Ag Performed By: #### [id number] #### [facility] [address] [place] [id number] Observed: 08/14/2017 Status: F Source: [facility] CULTURE BLOOD 11:31 AM REPOSITORY STATUS: FINAL REPORT SITE: SOURCE: Culture Blood: No growth after 5 days of incubation. Performed By: #### [id number] #### [facility] [address] [place] [address] Observed: 08/14/2017 Status: F Source: [facility] CULTURE, URINE 11:31 AM REPOSITORY BACTERIAL BILL#: [id number] : 44 AGE: SEX: M JAGPRIT SOURCE: URINE COLLECTED: 08/14/17 11:31 ANTIBIOTICS AT AKANKSHA.: RECEIVED : 08/14/17 20:17 SITE: Unspecified R E S U L T S URINE CULTURE,BACTERIAL FINAL 08/15/17 13:31 NO SIGNIFICANT GROWTH. Performed By: #### CXBUR #### [facility] [address] [place] [address] PROTHROMBIN TIME Collected: 08/14/2017 Status: F Source: [facility] 11:25 AM HEALTHCARE REPOSITORY TYPE CODE TESTS RESULT OUT OF RANGE REFERENCE UNITS LAB PTI(LOINC) 9.8-12.7 sec PT 11.6 Result Comment: PLEASE NOTE NEW REFERENCE RANGE EFFECTIVE 2017 LAB INR(LOINC) 0.90-1.10 INR 1.04 Result Comment: PLEASE NOTE NEW REFERENCE RANGE EFFECTIVE 2017 Performed By: #### [id number] #### [facility] [address] [place] [id number] PARTIAL THROMBOPLASTIN Collected: 08/14/2017 Status: F Source: EM TIME 11:25 AM HEALTHCARE REPOSITORY TYPE CODE TESTS RESULT OUT OF REFERENCE UNITS RANGE LAB PTT(LOINC) 25.0-36.0 sec Partial Thromboplastin Time 30.9 Result Comment: PLEASE NOTE NEW REFERENCE RANGE EFFECTIVE 2017 . The APTT is no longer used for monitoring Unfractionated Heparin Therapy. For monitoring Heparin Therapy, use the Heparin Assay. Performed By: #### [id number] #### [facility] [address] [place] [id number] CBC WITH DIFFERENTIAL Collected: 08/14/2017 Status: F Source: [facility] 11:25 AM HEALTHCARE REPOSITORY TYPE CODE TESTS RESULT OUT OF REFERENCE UNITS RANGE LAB WBCIR(LOINC 4.2-11.0 10*3/uL ) WBC 5.3 LAB RBC(LOINC) 4.08-6.37 10*6/uL RBC 4.08 LAB HGB(LOINC) 12.8-17.7 g/dL Low HGB 12.5 LAB HCT(LOINC) 38.4-54.9 % Low HCT 38.3 LAB MCV(LOINC) 83.3-98.2 fL MCV 93.9 LAB MCH(LOINC) 27.5-32.9 pg MCH 30.6 LAB MCHC(LOINC) 30.5-35.4 g/dL MCHC 32.6 LAB RDWCV(LOINC 12.0-15.4 % ) High RDW CV 16.7 LAB RDWSD(LOINC 39.3-48.6 fL ) High RDW SD 58.4 LAB PLTC(LOINC) 155-404 10*3/uL Low Platelet Count 68 Result Comment: Platelet count confirmed by smear review. LAB MPV(LOINC) 9.9-12.1 fL MPV 10.6 LAB NRBCR(LOINC) /100{WBC s} NRBC Automated 0.0 LAB NRBCA(LOINC) 10*3/uL NRBC Absolute 0.00 LAB ASEGR(LOINC) 2.22-7.53 10*3/uL Neutrophils Absolute 4.17 Result Comment: Reviewed by tech, consistent with instrument results. LAB ALYMR(LOINC) 0.40-2.84 10*3/uL Lymphocytes Absolute 0.48 LAB AMONR(LOINC) 0.25-1.33 10*3/uL Monocytes Absolute 0.56 LAB AEOSR(LOINC) 0.01-0.46 10*3/uL Eosinophils Absolute 0.05 LAB ABASR(LOINC) 0.01-0.09 10*3/uL Basophils Absolute 0.01 LAB IGRA(LOINC) % Immature Granulocytes 0.4 LAB IGR(LOINC) 0.00-0.21 10*3/uL Imm Grans Absolute 0.02 LAB SEGC(LOINC) 46.2-79.1 % Neutrophils 78.8 LAB LYMPC(LOINC) 9.4-41.1 % Lymphocytes Low 9.1 LAB MONOC(LOINC) 3.0-16.2 % Monocytes 10.6 LAB EOSC(LOINC) 0.0-6.7 % Eosinophils 0.9 LAB BASOC(LOINC) 0.0-1.3 % Basophils 0.2 Performed By: #### [id number] #### [facility] [address] [place] [id number] COMPREHENSIVE METABOLIC Collected: 08/14/2017 Status: F Source: [facility] PANEL 11:25 AM HEALTHCARE REPOSITORY TYPE CODE TESTS RESULT OUT OF REFERENCE UNITS RANGE LAB GLU(LOINC) 70-100 mg/dL Glucose High 172 LAB UREA(LOINC 6-23 mg/dL ) Urea Nitrogen 7 LAB CREAT(LOIN 0.50-1.30 mg/dL C) Creatinine 0.76 LAB GFR(LOINC) Glomerular >60 Filtration Rate Result Comment: Interpretation for Chronic Kidney Disease: Stages 1&2 >60 Healthy or potential kidney damage. Mild decrease of GFR. Stage 3 30-59 Moderate decrease of GFR. Stage 4 15-29 Severe decrease of GFR. Stage 5 <15 Kidney failure or on dialysis. LAB CA(LOINC) 8.6-10.3 mg/dL Calcium 8.7 LAB SOD(LOINC) 136-145 mmol/L Sodium Low 130 LAB POT(LOINC) 3.5-5.1 mmol/L Potassium 4.5 LAB CHLOR(LOINC) 98-107 mmol/L Chloride Low 97 LAB BICAR(LOINC) 21-32 mmol/L Bicarbonate 27 LAB ALB(LOINC) 3.4-5.0 g/dL Albumin Low 3.0 LAB BILIT(LOINC) 0.0-1.2 mg/dL Bilirubin, Total 0.9 LAB ALP(LOINC) 45-117 U/L Alkaline Phosphatase 92 LAB TP(LOINC) 6.4-8.2 g/dL Total Low Protein 5.5 LAB ALT(LOINC) 10-52 U/L ALT (SGPT) 13 LAB AST(LOINC) 13-39 U/L AST (SGOT) 19 LAB ANGAP(LOINC) 10-20 mmol/L Anion Gap 10 LAB AGRAT(LOINC) 0.9-2.4 A/G Ratio 1.2 LAB BCRAT(LOINC) 5-25 Urea/Creatinine Ratio 9 Performed By: #### [id number] #### [facility] [address] [place] [address] C-REACTIVE PROTEIN, Collected: 08/14/2017 Status: F Source: [facility] HIGH SENSITIVITY 11:25 AM HEALTHCARE REPOSITORY TYPE CODE TESTS RESULT OUT OF REFERENCE UNITS RANGE LAB HSCRP(LOIN mg/L C) C-Reactive High Protein, High 40.90 Sensitivity Result Comment: < 1.0 LOW RELATIVE RISK OF CVD 1.0 - 3.0 AVERAGE RELATIVE RISK OF CVD > 3.0 HIGH RELATIVE RISK OF CVD Performed By: #### [id number] #### [facility] [address] [place] [address] MAGNESIUM Collected: 08/14/2017 Status: F Source: [facility] 11:25 AM REPOSITORY TYPE CODE TESTS RESULT OUT OF REFERENCE UNITS RANGE LAB MG(LOINC) 1.6-2.4 mg/dL Magnesium 1.6 Performed By: #### [id number] #### [facility] [address] [place] [address] TROPONIN Collected: 08/14/2017 Status: F Source: [facility] 11:25 AM REPOSITORY TYPE CODE TESTS RESULT OUT OF REFERENCE UNITS RANGE LAB TROP(LOINC) 0.000-0.040 ng/mL Troponin <0.020 Result Comment: <0.04 : Negative 0.04 - 0.50 : Possible Cardiac Damage >0.50 : Consistent with Cardiac Damage Performed By: #### [id number] #### [facility] [address] [place] [address] B NATRIURETIC PEPTIDE Collected: 08/14/2017 Status: F Source: [facility] 11:24 AM HEALTHCARE REPOSITORY TYPE CODE TESTS RESULT OUT OF RANGE REFERENCE UNITS LAB BNP(LOINC) <100 pg/mL B Abnormal Natriuretic 150 Peptide Performed By: #### [id number] #### [facility] [address] [place] [address] CHEST 2 VIEW Observed: 08/03/2017 Status: F Source: [facility] 11:27 AM REPOSITORY DATE OF EXAM: Aug 03 2017 11:27AM CLINICAL HISTORY/ Patient Name: KAY MITCHELL STUDY: CHEST 2 VIEW; 08/03/2017 11:27 am INDICATION: lung ca. History of pneumonia COMPARISON: 07/12/2017 and 06/27/2017 ACCESSION NUMBER(S): [id number] ORDERING CLINICIAN: HUNTER ELAINE FINDINGS: Patchy densities are again noted in the right lung base, which has worsened since the prior study. The heart is mildly enlarged but is unchanged. No definite the pleural effusion or pneumothorax is seen. Degenerative changes are seen in thoracic spine. A vascular graft is noted in the abdomen. CONCLUSION: IMPRESSION: Patchy densities in the right lung base, which have worsened since the prior study. Continued follow-up is suggested CHEST 2 VIEW Observed: 07/12/2017 Status: F Source: [facility] 11:25 AM REPOSITORY DATE OF EXAM: Jul 12 2017 11:25AM CLINICAL HISTORY/ Patient Name: KAY MITCHELL STUDY: CHEST 2 VIEW; 07/12/2017 11:25 am INDICATION: right lung pneumonia. COMPARISON: 06/27/2017 ACCESSION NUMBER(S): [id number] ORDERING CLINICIAN: HUNTER ELAINE FINDINGS: Frontal and lateral views of the chest. Trachea nondisplaced. The heart is mildly enlarged but similar in appearance. Patchy infiltrates right mid to lower lung zone slightly worsened since previous. Left basilar opacities appear improved. Mild diffuse interstitial prominence but in general slightly less pronounced since previous. CONCLUSION: IMPRESSION: Right mid to lower lung zone infiltrates slightly worsened since previous. Left basilar opacities present previously appear improved. Mild diffuse interstitial prominence overall slightly improved since previous. Continued follow-up is recommended. CBC Collected: 06/30/2017 Status: F Source: [facility] 5:35 AM REPOSITORY TYPE CODE TESTS RESULT OUT OF REFERENCE UNITS RANGE LAB WBCIR(LOINC 4.2-11.0 10*3/uL ) WBC 6.3 LAB RBC(LOINC) 4.08-6.37 10*6/uL Low RBC 3.53 LAB HGB(LOINC) 12.8-17.7 g/dL Low HGB 11.1 LAB HCT(LOINC) 38.4-54.9 % Low HCT 33.3 LAB MCV(LOINC) 83.3-98.2 fL MCV 94.3 LAB MCH(LOINC) 27.5-32.9 pg MCH 31.4 LAB MCHC(LOINC) 30.5-35.4 g/dL MCHC 33.3 LAB RDWCV(LOINC 12.0-15.4 % ) RDW CV 14.6 LAB RDWSD(LOINC 39.3-48.6 fL ) RDW SD 47.3 LAB PLTC(LOINC) 155-404 10*3/uL Low Platelet Count 73 Result Comment: Platelet count confirmed by smear review. LAB MPV(LOINC) 9.9-12.1 fL MPV 10.3 LAB NRBCR(LOINC) /100{WBCs } NRBC Automated 0.0 LAB NRBCA(LOINC) 10*3/uL NRBC Absolute 0.00 Performed By: #### [id number] #### [facility] [address] [place] [address] VANCOMYCIN TROUGH Collected: 06/28/2017 Status: F Source: [facility] 7:51 PM REPOSITORY TYPE CODE TESTS RESULT OUT OF REFERENCE UNITS RANGE LAB VANCT(LOIN 5.0-20.0 ug/mL C) Vancomycin 15.0 Trough Performed By: #### [id number] #### [facility] [address] [place] [address] BASIC METABOLIC PANEL Collected: 06/28/2017 Status: F Source: [facility] 7:02 AM REPOSITORY TYPE CODE TESTS RESULT OUT OF REFERENCE UNITS RANGE LAB GLU(LOINC) 70-100 mg/dL Glucose High 195 LAB UREA(LOINC 6-23 mg/dL ) Urea Nitrogen 15 LAB CREAT(LOIN 0.50-1.30 mg/dL C) Creatinine 0.85 LAB GFR(LOINC) Glomerular >60 Filtration Rate Result Comment: Interpretation for Chronic Kidney Disease: Stages 1&2 >60 Healthy or potential kidney damage. Mild decrease of GFR. Stage 3 30-59 Moderate decrease of GFR. Stage 4 15-29 Severe decrease of GFR. Stage 5 <15 Kidney failure or on dialysis. LAB SOD(LOINC) 136-145 mmol/L Sodium Low 130 LAB POT(LOINC) 3.5-5.1 mmol/L Potassium 3.6 LAB CHLOR(LOINC) 98-107 mmol/L Chloride 99 LAB BICAR(LOINC) 21-32 mmol/L Bicarbonate Low 20 LAB CA(LOINC) 8.6-10.3 mg/dL Calcium Low 8.5 LAB ANGAP(LOINC) 10-20 mmol/L Anion Gap 15 LAB BCRAT(LOINC) 5-25 Urea/Creatinine Ratio 18 Performed By: #### [id number] #### [facility] [address] [place] [address] MAGNESIUM Collected: 06/28/2017 Status: F Source: [facility] 7:02 AM REPOSITORY TYPE CODE TESTS RESULT OUT OF REFERENCE UNITS RANGE LAB MG(LOINC) 1.6-2.4 mg/dL High Magnesium 2.6 Performed By: #### [id number] #### [facility] [address] [place] [address] CBC WITH DIFFERENTIAL Collected: 06/28/2017 Status: F Source: [facility] 7:02 AM HEALTHCARE REPOSITORY TYPE CODE TESTS RESULT OUT OF REFERENCE UNITS RANGE LAB WBCIR(LOINC 4.2-11.0 10*3/uL ) WBC 4.3 LAB RBC(LOINC) 4.08-6.37 10*6/uL Low RBC 3.57 LAB HGB(LOINC) 12.8-17.7 g/dL Low HGB 11.3 LAB HCT(LOINC) 38.4-54.9 % Low HCT 32.4 LAB MCV(LOINC) 83.3-98.2 fL MCV 90.8 LAB MCH(LOINC) 27.5-32.9 pg MCH 31.7 LAB MCHC(LOINC) 30.5-35.4 g/dL MCHC 34.9 LAB RDWCV(LOINC 12.0-15.4 % ) RDW CV 14.2 LAB RDWSD(LOINC 39.3-48.6 fL ) RDW SD 46.0 LAB PLTC(LOINC) 155-404 10*3/uL Low Platelet Count 75 Result Comment: Platelet count confirmed by smear review. LAB MPV(LOINC) 9.9-12.1 fL MPV 10.6 LAB NRBCR(LOINC) /100{WB Cs} NRBC Automated 0.0 LAB NRBCA(LOINC) 10*3/uL NRBC Absolute 0.00 LAB SEGC(LOINC) 46.2-79.1 % Neutrophils 64.0 LAB MONOC(LOINC) 3.0-16.2 % Monocytes 12.0 LAB META(LOINC) % Metamyelocytes 2.0 LAB DAVID(LOINC) David Cells Few LAB ELIP(LOINC) Elliptocytes Few LAB MACRO(LOINC) Macrocytosis Few LAB POLY(LOINC) Polychromasia Few LAB PLTR(LOINC) Platelet Morphology Decreased LAB BAND(LOINC) 0.0-4.0 % Bands High 22.0 Performed By: #### [id number] #### [facility] [address] [place] [address] PARTIAL THROMBOPLASTIN Collected: 06/27/2017 Status: F Source: [facility] TIME 11:59 PM HEALTHCARE REPOSITORY TYPE CODE TESTS RESULT OUT OF REFERENCE UNITS RANGE LAB PTT(LOINC) 22.1-35.3 sec Partial High Thromboplastin Time 36.7 Result Comment: Heparin Therapeutic Range: 71 - 97 sec Performed By: #### [id number] #### [facility] [address] [place] [address] PROTHROMBIN TIME Collected: 06/27/2017 Status: F Source: [facility] 11:59 PM HEALTHCARE REPOSITORY TYPE CODE TESTS RESULT OUT OF RANGE REFERENCE UNITS LAB PTI(LOINC) 11.3-14.5 sec High PT 15.2 LAB INR(LOINC) 0.85-1.16 High INR 1.20 Result Comment: Coumadin Therapy: 1.5 - 2.0 Low Intensity Therapy 2.0 - 3.0 Moderate Intensity Therapy 2.5 - 3.5 High (1) Intensity Therapy 3.0 - 4.0 High (2) Intensity Therapy Performed By: #### [id number] #### [facility] [address] [place] [address] COMPREHENSIVE METABOLIC Collected: 06/27/2017 Status: F Source: [facility] 11:59 PM HEALTHCARE REPOSITORY TYPE CODE TESTS RESULT OUT OF REFERENCE UNITS RANGE LAB GLU(LOINC) 70-100 mg/dL Glucose High 206 LAB UREA(LOINC 6-23 mg/dL ) Urea Nitrogen 12 LAB CREAT(LOIN 0.50-1.30 mg/dL C) Creatinine 0.81 LAB GFR(LOINC) Glomerular >60 Filtration Rate Result Comment: Interpretation for Chronic Kidney Disease: Stages 1&2 >60 Healthy or potential kidney damage. Mild decrease of GFR. Stage 3 30-59 Moderate decrease of GFR. Stage 4 15-29 Severe decrease of GFR. Stage 5 <15 Kidney failure or on dialysis. LAB CA(LOINC) 8.6-10.3 mg/dL Calcium Low 8.3 LAB SOD(LOINC) 136-145 mmol/L Sodium Low 126 LAB POT(LOINC) 3.5-5.1 mmol/L Potassium 3.9 LAB CHLOR(LOINC) 98-107 mmol/L Chloride Low 97 LAB BICAR(LOINC) 21-32 mmol/L Bicarbonate Low 20 LAB ALB(LOINC) 3.4-5.0 g/dL Albumin Low 3.0 LAB BILIT(LOINC) 0.0-1.2 mg/dL Bilirubin, Total 1.1 LAB ALP(LOINC) 45-117 U/L Alkaline Phosphatase 80 LAB TP(LOINC) 6.4-8.2 g/dL Total Low Protein 5.7 LAB ALT(LOINC) 10-52 U/L ALT (SGPT) 13 LAB AST(LOINC) 13-39 U/L AST (SGOT) 18 LAB ANGAP(LOINC) 10-20 mmol/L Anion Gap 13 LAB AGRAT(LOINC) 0.9-2.4 A/G Ratio 1.1 LAB BCRAT(LOINC) 5-25 Urea/Creatinine Ratio 15 Performed By: #### [id number] #### [facility] [address] [place] [address] MAGNESIUM Collected: 06/27/2017 Status: F Source: [facility] 11:59 PM REPOSITORY TYPE CODE TESTS RESULT OUT OF REFERENCE UNITS RANGE LAB MG(LOINC) 1.6-2.4 mg/dL Magnesium 2.1 Performed By: #### [id number] #### [facility] [address] [place] [address] PHOSPHORUS Collected: 06/27/2017 Status: F Source: [facility] 11:59 PM REPOSITORY TYPE CODE TESTS RESULT OUT OF REFERENCE UNITS RANGE LAB PHOS(LOINC 2.5-4.9 mg/dL ) Phosphorus 2.6 Performed By: #### [id number] #### [facility] [address] [place] [address] CBC WITH DIFFERENTIAL Collected: 06/27/2017 Status: F Source: [facility] 11:59 PM HEALTHCARE REPOSITORY TYPE CODE TESTS RESULT OUT OF REFERENCE UNITS RANGE LAB WBCIR(LOINC 4.2-11.0 10*3/uL ) Low WBC 2.7 LAB RBC(LOINC) 4.08-6.37 10*6/uL Low RBC 3.49 LAB HGB(LOINC) 12.8-17.7 g/dL Low HGB 10.9 LAB HCT(LOINC) 38.4-54.9 % Low HCT 31.6 LAB MCV(LOINC) 83.3-98.2 fL MCV 90.5 LAB MCH(LOINC) 27.5-32.9 pg MCH 31.2 LAB MCHC(LOINC) 30.5-35.4 g/dL MCHC 34.5 LAB RDWCV(LOINC 12.0-15.4 % ) RDW CV 14.4 LAB RDWSD(LOINC 39.3-48.6 fL ) RDW SD 46.1 LAB PLTC(LOINC) 155-404 10*3/uL Low Platelet Count 73 Result Comment: Platelet count confirmed by smear review. LAB MPV(LOINC) 9.9-12.1 fL MPV 11.2 LAB NRBCR(LOINC) /100{WBC s} NRBC Automated 0.0 LAB NRBCA(LOINC) 10*3/uL NRBC Absolute 0.00 LAB ASEGR(LOINC) 2.22-7.53 10*3/uL Neutrophils Low Absolute 1.91 Result Comment: Reviewed by tech, consistent with instrument results. LAB ALYMR(LOINC) 0.40-2.84 10*3/uL Lymphocytes Low Absolute 0.19 LAB AMONR(LOINC) 0.25-1.33 10*3/uL Monocytes Absolute 0.58 LAB AEOSR(LOINC) 0.01-0.46 10*3/uL Eosinophils Low Absolute 0.00 LAB ABASR(LOINC) 0.01-0.09 10*3/uL Basophils Low Absolute 0.00 LAB IGRA(LOINC) % Immature Granulocytes 0.7 LAB IGR(LOINC) 0.00-0.21 10*3/uL Imm Grans Absolute 0.02 LAB SEGC(LOINC) 46.2-79.1 % Neutrophils 70.8 LAB LYMPC(LOINC) 9.4-41.1 % Lymphocytes Low 7.0 LAB MONOC(LOINC) 3.0-16.2 % Monocytes High 21.5 LAB EOSC(LOINC) 0.0-6.7 % Eosinophils 0.0 LAB BASOC(LOINC) 0.0-1.3 % Basophils 0.0 Performed By: #### [id number] #### [facility] [address] [place] [id number] URINALYSIS Collected: 06/27/2017 Status: F Source: [facility] 11:19 AM REPOSITORY TYPE CODE TESTS RESULT OUT OF RANGE REFERENCE UNITS LAB UCOLR(CONSTANCE NC) Color Yellow LAB UAPP(LOIN Clear C) Appearance Clear LAB USPG(LOIN 1.003-1.035 C) Specific [place] 1.032 LAB UPH(LOINC 5.0-9.0 ) pH 7.0 LAB ULEU(LOIN Negative C) Leukocytes Esterase Negative LAB UNIT(LOIN Negative C) Nitrite Negative LAB UPRO(LOIN Negative mg/dL C) Protein Negative LAB UGLU(LOIN Negative mg/dL C) Glucose Negative LAB UKET(LOIN Negative mg/dL C) Ketones 5 Abnormal LAB UURO(LOIN Negative mg/dL C) Urobilinogen <2.0 LAB UBIL(LOIN Negative C) Bilirubin Negative LAB UBLD(LOIN Negative C) Blood Negative LAB UASA(LOIN Negative mg/dL C) Ascorbic Acid Negative LAB UMICP(CONSTANCE NC) Automated Urine Microscopy Not indicated Performed By: #### [id number] #### [facility] [address] [place] [address] CT PE CHEST/3D MIPS Observed: 06/27/2017 Status: F Source: [facility] 9:35 AM REPOSITORY DATE OF EXAM: Jun 27 2017 9:35AM CLINICAL HISTORY/ Patient Name: KAY MITCHELL STUDY: CT PE CHEST/3D MIPS; 06/27/2017 9:35 am INDICATION: for Pulmonary Emboli. Shortness of breath, history COPD, lung cancer with chemotherapy. COMPARISON: 03/24/2017 ACCESSION NUMBER(S): [id number] ORDERING CLINICIAN: SANTI THOMASON TECHNIQUE: Helical data acquisition of the chest was obtained 100 cc Isovue 370. Images were reformatted in axial, coronal, and sagittal planes. FINDINGS: LUNGS and AIRWAYS: There are sutures at the right lung apex from partial right lung resection. There is bandlike scarring at this site. There is right upper and middle lobe pneumonia which is occurred in the interval compared to 03/24/2017. There has been a decrease in size of the mass in the right lower lobe which previously measured 4.3 x 3.2 cm in currently measures 3.0 x 1.8 cm. There are sutures at this site. There is surrounding right lower lobe pneumonia. There is left lower lobe atelectasis. There are emphysematous changes of the lungs. There is pulmonary fibrosis. There is no pulmonary nodule. KALEE AND MEDIASTINUM: There is no hilar or mediastinal adenopathy. HEART and VESSELS: There is no thoracic aortic aneurysm or dissection. There is good opacification of the pulmonary arterial system with no embolism. There is atherosclerotic calcification of the coronary arteries. The study is not optimized for evaluation of coronary arteries. The cardiac chambers are not enlarged. No evidence of pericardial effusion. UPPER ABDOMEN: There is nodularity of the contour of the liver consistent with hepatocellular disease and cirrhosis. CHEST WALL and OSSEOUS STRUCTURES: There has been interval development of a mottled expansile mixed sclerotic lytic lesion involving the right 5th rib posteriorly. 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 There is thickening of the pleura adjacent this bony metastatic focus. This was seen previously but there is more bone production which may indicate response to treatment. CONCLUSION: IMPRESSION: 1. No pulmonary embolism, aortic aneurysm or dissection. 2. Development of right upper middle and lower lobe pneumonia. 3. Status post partial resection mass right lung apex. 4. Decrease in size of a mass in the right lower lobe. 5. 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 This is more sclerotic which may indicate response to treatment. CHEST 2 VIEW Observed: 06/27/2017 Status: F Source: [facility] Interventional Spine 7:33 AM REPOSITORY DATE OF EXAM: Jun 27 2017 7:33AM CLINICAL HISTORY/ Patient Name: KAY MITCHELL STUDY: CHEST 2 VIEW; 06/27/2017 7:33 am INDICATION: for CHF. COMPARISON: 03/04/2017 ACCESSION NUMBER(S): [id number] ORDERING CLINICIAN: PELON EMERY TECHNIQUE: Two views of the chest FINDINGS: Aorta is tortuous. The heart is enlarged. Prominence of pulmonary vasculature with pulmonary interstitial edema. Hazy opacities in the lower lungs right larger than left could be caused by pulmonary edema however developing pneumonia cannot be ruled out. There is no pleural effusion or pneumothorax. Follow-up advised. CONCLUSION: IMPRESSION: Hazy opacities in the lower lungs right significantly greater than left, could be caused by consolidative process or pulmonary edema. INFLUENZA A,B Collected: 06/27/2017 Status: F Source: [facility] Interventional Spine 6:50 AM REPOSITORY TYPE CODE TESTS RESULT OUT OF REFERENCE UNITS RANGE LAB INFLA(LOIN Negative C) Influenza A, Negative Rapid Ag LAB INFLB(LOIN Negative C) Influenza B, Negative Rapid Ag Performed By: #### [id number] #### [facility] [address] [place] [address] PROTHROMBIN TIME Collected: 06/27/2017 Status: F Source: [facility] 6:50 AM HEALTHCARE REPOSITORY TYPE CODE TESTS RESULT OUT OF RANGE REFERENCE UNITS LAB PTI(LOINC) 11.3-14.5 sec PT 13.3 LAB INR(LOINC) 0.85-1.16 INR 1.02 Result Comment: Coumadin Therapy: 1.5 - 2.0 Low Intensity Therapy 2.0 - 3.0 Moderate Intensity Therapy 2.5 - 3.5 High (1) Intensity Therapy 3.0 - 4.0 High (2) Intensity Therapy Performed By: #### [id number] #### [facility] [address] [place] [address] PARTIAL THROMBOPLASTIN Collected: 06/27/2017 Status: F Source: [facility] TIME 6:50 AM HEALTHCARE REPOSITORY TYPE CODE TESTS RESULT OUT OF REFERENCE UNITS RANGE LAB PTT(LOINC) 22.1-35.3 sec Partial Thromboplastin Time 31.6 Result Comment: Heparin Therapeutic Range: 71 - 97 sec Performed By: #### [id number] #### [facility] [address] [place] [address] TROPONIN Collected: 06/27/2017 Status: F Source: [facility] 6:50 AM REPOSITORY TYPE CODE TESTS RESULT OUT OF REFERENCE UNITS RANGE LAB TROP(LOINC) 0.000-0.040 ng/mL Troponin <0.020 Result Comment: <0.04 : Negative 0.04 - 0.50 : Possible Cardiac Damage >0.50 : Consistent with Cardiac Damage Performed By: #### [id number] #### [facility] [address] [place] [address] B NATRIURETIC PEPTIDE Collected: 06/27/2017 Status: F Source: [facility] 6:50 AM HEALTHCARE REPOSITORY TYPE CODE TESTS RESULT OUT OF RANGE REFERENCE UNITS LAB BNP(LOINC) <100 pg/mL B Abnormal Natriuretic 205 Peptide Performed By: #### [id number] #### [facility] [address] [place] [address] LACTIC ACID Collected: 06/27/2017 Status: F Source: [facility] HEALTHCARE 6:50 AM REPOSITORY TYPE CODE TESTS RESULT OUT OF REFERENCE UNITS RANGE LAB LACID(LOINC 0.40-2.00 mmol/L ) Lactic Acid 1.30 Performed By: #### [id number] #### [facility] [address] [place] [address] COMPREHENSIVE METABOLIC Collected: 06/27/2017 Status: F Source: [facility] PANEL 6:50 AM HEALTHCARE REPOSITORY TYPE CODE TESTS RESULT OUT OF REFERENCE UNITS RANGE LAB GLU(LOINC) 70-100 mg/dL Glucose High 147 LAB UREA(LOINC 6-23 mg/dL ) Urea Nitrogen 9 LAB CREAT(LOIN 0.50-1.30 mg/dL C) Creatinine 0.78 LAB GFR(LOINC) Glomerular >60 Filtration Rate Result Comment: Interpretation for Chronic Kidney Disease: Stages 1&2 >60 Healthy or potential kidney damage. Mild decrease of GFR. Stage 3 30-59 Moderate decrease of GFR. Stage 4 15-29 Severe decrease of GFR. Stage 5 <15 Kidney failure or on dialysis. LAB CA(LOINC) 8.6-10.3 mg/dL Calcium 8.9 LAB SOD(LOINC) 136-145 mmol/L Sodium Low 129 LAB POT(LOINC) 3.5-5.1 mmol/L Potassium 3.8 LAB CHLOR(LOINC) 98-107 mmol/L Chloride Low 94 LAB BICAR(LOINC) 21-32 mmol/L Bicarbonate 26 LAB ALB(LOINC) 3.4-5.0 g/dL Albumin 3.5 LAB BILIT(LOINC) 0.0-1.2 mg/dL Bilirubin, Total 1.1 LAB ALP(LOINC) 45-117 U/L Alkaline Phosphatase 98 LAB TP(LOINC) 6.4-8.2 g/dL Total Protein 6.4 LAB ALT(LOINC) 10-52 U/L ALT (SGPT) 16 LAB AST(LOINC) 13-39 U/L AST (SGOT) 24 LAB ANGAP(LOINC) 10-20 mmol/L Anion Gap 13 LAB AGRAT(LOINC) 0.9-2.4 A/G Ratio 1.2 LAB BCRAT(LOINC) 5-25 Urea/Creatinine Ratio 12 Performed By: #### [id number] #### [facility] [address] [place] [address] C-REACTIVE PROTEIN, Collected: 06/27/2017 Status: F Source: [facility] HIGH SENSITIVITY 6:50 AM HEALTHCARE REPOSITORY TYPE CODE TESTS RESULT OUT OF REFERENCE UNITS RANGE LAB HSCRP(LOIN mg/L C) C-Reactive High Protein, High >80.00 Sensitivity Result Comment: < 1.0 LOW RELATIVE RISK OF CVD 1.0 - 3.0 AVERAGE RELATIVE RISK OF CVD > 3.0 HIGH RELATIVE RISK OF CVD Performed By: #### [id number] #### [facility] [address] [place] [address] MAGNESIUM Collected: 06/27/2017 Status: F Source: [facility] HEALTHCARE 6:50 AM REPOSITORY TYPE CODE TESTS RESULT OUT OF REFERENCE UNITS RANGE LAB MG(LOINC) 1.6-2.4 mg/dL Low Magnesium 1.4 Performed By: #### [id number] #### [facility] [address] [place] [address] CBC WITH DIFFERENTIAL Collected: 06/27/2017 Status: F Source: [facility] 6:50 AM HEALTHCARE REPOSITORY TYPE CODE TESTS RESULT OUT OF REFERENCE UNITS RANGE LAB WBCIR(LOINC 4.2-11.0 10*3/uL ) Low alert WBC 0.9 LAB RBC(LOINC) 4.08-6.37 10*6/uL Low RBC 3.68 LAB HGB(LOINC) 12.8-17.7 g/dL Low HGB 11.6 LAB HCT(LOINC) 38.4-54.9 % Low HCT 33.3 LAB MCV(LOINC) 83.3-98.2 fL MCV 90.5 LAB MCH(LOINC) 27.5-32.9 pg MCH 31.5 LAB MCHC(LOINC) 30.5-35.4 g/dL MCHC 34.8 LAB RDWCV(LOINC 12.0-15.4 % ) RDW CV 13.9 LAB RDWSD(LOINC 39.3-48.6 fL ) RDW SD 45.1 LAB PLTC(LOINC) 155-404 10*3/uL Low Platelet Count 70 Result Comment: Platelet count confirmed by smear review. LAB MPV(LOINC) 9.9-12.1 fL MPV 10.8 LAB NRBCR(LOINC) /100{WB Cs} NRBC Automated 0.0 LAB NRBCA(LOINC) 10*3/uL NRBC Absolute 0.00 LAB SEGC(LOINC) 46.2-79.1 % Neutrophils Low 10.0 LAB LYMPC(LOINC) 9.4-41.1 % Lymphocytes 14.0 LAB MONOC(LOINC) 3.0-16.2 % Monocytes High 76.0 LAB ELIP(LOINC) Elliptocytes Few LAB MACRO(LOINC) Macrocytosis Few LAB POLY(LOINC) Polychromasia Few LAB PLTR(LOINC) Platelet Morphology Decreased LAB BAND(LOINC) 0.0-4.0 % Bands 0.0 Performed By: #### [id number] #### [facility] [address] [place] [address] ALLERGIES ALLERGIES DATE TYPE / CODE NAME / CODE REACTION SEVERITY SOURCE 06/10/2018 Drug morphine/F00 Rash Unknown [facility] Allergy/4160 [id number]([facility] [address](SNOMED RM) Repository CT) ENCOUNTERS ENCOUNTERS ADMIT/DISCHARGE ACCOUNT NUMBER ADMITTING ENCOUNTER LOCATION SOURCE CLASS 06/10/2018/ [id number] Hafsa, Inpatient Lashanda Munoz Encounter [facility] ing:PCURoom: Repository [id number]: 1 06/10/2018 [id number] Hafsa, Ambulatory BMSBuilding:Jesse Munoz MS.[facility] Repository 06/10/2018 [id number] Hafsa, Ambulatory BMSBuilding:Jesse Munoz MS.[facility] Repository 06/10/2018 [id number] Srinivass, Ambulatory BMSBuilding:Jesse Munoz MS.[facility] Repository 06/10/2018 [id number] Srinivass, Ambulatory BMSBuilding:Jesse Munoz MS.[facility] Repository 06/10/2018 [id number] Hafsa, Ambulatory BMSBuilding:Jesse Munoz MS.[facility] Repository 06/10/2018 [id number] Hafsa, Ambulatory BMSBuilding:Jesse Munoz MS.[facility] Repository 06/10/2018 [id number] Srinivass, Ambulatory BMSBuilding:Jesse Munoz MS.CF.[facility] Repository 06/10/2018 [id number] Srinivasestelita, Ambulatory BMSBuilding:Jesse Munoz MS.[facility] Repository 06/10/2018 [id number] Srinivasestelita, Ambulatory BMSBuilding:Jesse Munoz MS.CF.[facility] Repository 05/13/2018/ [id number] Emergency [address] ing:ED Repository 04/02/2018/ [id number] Emergency [address] ing:ED Repository 02/13/2018/ [id number] Dominic Zuniga Ambulatory [address] ing:WV6Dtkm: Repository [id number]: 1 02/13/2018 [id number] Dominic Zuniga Ambulatory BMSBuilding:Jesse Pyle MS.[facility] Repository 02/13/2018 [id number] Dominic Zuniga Ambulatory BMSBuilding:Jesse Pyle MS.[facility] Repository 02/13/2018 [id number] Ambulatory BMSBuilding:Jesse Pyle MS.[facility] Repository 11/25/2017 [id number] Ambulatory [facility] Repository 11/07/2017 [id number] Ambulatory [address] [place] [address] Repository 11/03/2017 [id number] Ambulatory [address] [place] [address] Repository 11/01/2017/ [id number] LILIA, Inpatient [address] SYSTEMSBuildi Repository nSRoom: 809Bed: 809-01 11/01/2017 [id number] Ambulatory [address] [place] [address] Repository 11/01/2017 [id number] Ambulatory [address] [place] [address] Repository 10/28/2017 [id number] Ambulatory [address] [place] [address] Repository 10/28/2017 [id number] Ambulatory [address] [place] [address] Repository 10/27/2017 [id number] Ambulatory [address] [place] [address] Repository 10/27/2017 [id number] Ambulatory [address] [place] [address] Repository 10/26/2017 [id number] Ambulatory [address] [place] [address] Repository 10/25/2017 [id number] Ambulatory [address] [place] [address] Repository 10/24/2017/ [id number] OGDAWIT, Inpatient [facility] [place] [address] [facility]counter [facility] Repository nSRoom: 1010Bed: 1010-02 10/24/2017 [id number] Ambulatory [address] [place] [address] Repository 10/24/2017 [id number] Ambulatory [address] [place] [address] Repository 10/14/2017/ [id number] Emergency [facility] Repository ng:EERRoom: [id number]: [id number] 10/14/2017 [id number] Ambulatory [address] [place] [address] Repository 08/14/2017/ [id number] MILIND QUINN Inpatient [facility] 018 Encounter [facility] Repository nSRoom: 922Bed: 922-08/14/2017 [id number] Ambulatory [address] [place] [address] Repository 08/03/2017 [id number] Ambulatory [facility] Repository 08/03/2017 [id number] Ambulatory [address] [place] [address] Repository 07/12/2017 [id number] Ambulatory [facility] Repository 07/12/2017 [id number] Ambulatory [address] [place] [address] Repository 06/27/2017/ [id number] TOMA BATES Inpatient [facility] 018 Encounter [facility] Repository nSRoom: 922Bed: 922-06/27/2017 [id number] Ambulatory [address] [place] [address] Repository PAYERS PAYERS ENCOUNTER GUARANTOR PAYER SUBSCRIBER SOURCE 06/10/2018 KAY Ordoñez Primary KAY Pyle [place] Insurance:MEDICARE SCOTTDOB: [facility] PART A [facility] [id number] Hospital CARLOS Number: Repository gianna TYLER [id number]: ([phone]) Date:2018-06-10 [phone] () 06/10/2018 Secondary KAY Pyle [facility] Number: [id number] Hospital [id number] Repository Date:[id number] [facility] [place] [address]AG: 06/10/2018 Tertiary KAY C Lashanda Insurance:MEDICAIDPol SNOWDOB: Community icy Number: [id number] Hospital [id number] Repository Date:2018-06-10 06/10/2018 Tertiary NOT GIVENUNK Lashanda Insurance:SELF PAY [facility] Number: Effective Repository Date:2018-06-10 06/10/2018 KAY C Primary KAY C Lashanda [place] Insurance:MEDICARE SCOTTDOB: Community [id number] PART A [facility] [id number] Hospital CARLOS Number: Repository [id number] [id number]: ([phone]) Date:2018-06-10 [phone] () 06/10/2018 Secondary KAY C [place] [facility] ic Number: [id number] [id number] Repository Date:2018-06-10 06/10/2018 Tertiary KAY C [place] Insurance:AARPPolicy SNOWDOB: [facility] Number: [id number] [id number] Repository Date:[id number], [place] [address]SQ: 06/10/2018 Tertiary NOT GIVENUNK [place] Insurance:SELF PAY [facility] Number: Effective Repository Date:2018-06-10 06/10/2018 KAY C Primary KAY C [place] Insurance:MEDICARE SCOTTDOB: Community [id number] PART A [facility] [id number] Hospital CARLOS Number: Repository gianna TYLER [id number] 83477Krd: (330) Date:2018-06-10 [phone] (HP) 06/10/2018 Secondary KAY C [place] Insurance:MEDICAIDPol SNOWDOB: Community icy Number: [id number] Hospital [id number] Repository Date:2018-06-10 06/10/2018 Tertiary KAY C [place] Insurance:AARPPolicy SCOTTDOB: Community Number: [id number] Hospital [id number] Repository Date:2451-52-13XK [address], [place] [address]LF: 06/10/2018 Tertiary NOT GIVENUNK [place] Insurance:SELF PAY [facility] Number: Effective Repository Date:2018-06-10 06/10/2018 KAY C Primary KAY C [place] Insurance:MEDICARE SCOTTDOB: Community [id number] PART A [facility] [id number] Hospital CARLOS Number: Repository [id number] nc [id number]: (181) Date:2018-06-10 [phone] () 06/10/2018 Secondary KAY C [place] Insurance:AARolicy SCOTTDOB: Community Number: [id number] Hospital [id number] Repository Date:9973-15-56FS [address], [place] [address]JM: 06/10/2018 Tertiary KAY C [place] Insurance:MEDICAIDPol SCOTTDOB: [facility] Number: [id number] Hospital [id number] Repository Date:2018-06-10 06/10/2018 Tertiary NOT GIVENUNK [place] Insurance:SELF PAY [facility] Number: Effective Repository Date:2018-06-10 06/10/2018 KAY C Primary KAY C [place] Insurance:MEDICARE SCOTTDOB: [facility] [id number] PART A [facility] [id number] Hospital CARLOS Number: Repository gianna TYLER [id number] 22761Hdf: (330) Date:2018-06-10 [phone] () 06/10/2018 Secondary KAY C [place] Insurance:AARPPolicy SCOTTDOB: Community Number: [id number] Hospital [id number] Repository Date:5271-47-02JB [address], [place] [address]HG: 06/10/2018 Tertiary KAY C [place] Insurance:MEDICAIDPol SNOWDOB: [facility] icy Number: [id number] Hospital [id number] Repository Date:2018-06-10 06/10/2018 Tertiary NOT GIVENUNK [place] Insurance:SELF PAY [facility] Number: Effective Repository Date:2018-06-10 06/10/2018 KAY C Primary KAY C [place] Insurance:MEDICARE SCOTTDOB: [facility] [id number] Hospital CARLOS Number: Repository [id number] nc [id number]: (330) Date:2018-06-10 [phone] () 06/10/2018 Secondary KAY C [place] Insurance:AARPPolicy SNOWDOB: Community Number: [id number] Hospital [id number] Repository Date:3124-51-00SQ [facility] [address], [place] [address]NM: 06/10/2018 Tertiary KAY C [place] Insurance:MEDICAIDPol [facility] Number: [id number] Hospital [id number] Repository Date:2018-06-10 06/10/2018 Tertiary NOT GIVENUNK [place] Insurance:SELF PAY [facility] Number: Effective Repository Date:2018-06-10 06/10/2018 KAY C Primary KAY C [place] Insurance:MEDICARE SCOTTDOB: [facility] Center[facility]365 [facility] A [facility] [id number] Hospital CARLOS Number: Repository [id number] nc [id number] 34785Hzr: (330) Date:2018-06-10 [phone] () 06/10/2018 Secondary KAY C [place] Insurance:AARPPolicy SCOTTDOB: Community Number: [id number] Hospital [id number] Repository Date:8391-98-10TO [address], [place] [address]VX: 06/10/2018 Tertiary KAY C [place] Insurance:MEDICAIDPol SNOWDOB: [facility] icy Number: [id number] Hospital [id number] Repository Date:2018-06-10 06/10/2018 Tertiary NOT GIVENUNK [place] Insurance:SELF PAY [facility] Number: Effective Repository Date:2018-06-10 06/10/2018 KAY Ordoñez Primary KAY C [place] Insurance:MEDICARE SCOTTDOB: [facility] Center[facility]365 PART A [facility] [id number] Hospital CARLOS Number: Repository NAYELI nc [id number] [address]Gtk: (330) Date:2018-06-10 [phone] () 06/10/2018 Secondary KAY C [place] Insurance:AARolicy SNOWDOB: Community Number: [id number] Hospital [id number] Repository Date:7196-05-91VU [facility] [address], [place] [address]LX: 06/10/2018 Tertiary KAY C [place] Insurance:MEDICAIDPol [facility] icy Number: [id number] Hospital [id number] Repository Date:2018-06-10 06/10/2018 Tertiary NOT GIVENUNK [place] Insurance:SELF PAY [facility] Number: Effective Repository Date:2018-06-10 06/10/2018 KAY C Primary KAY C [place] Insurance:MEDICARE SCOTTDOB: [facility]365 PART A [facility] [id number] Hospital CARLOS Number: Repository NAYELI nc [id number] [address]Qww: (330) Date:2018-06-10 [phone] () 06/10/2018 Secondary KAY C [place] Insurance:AARPPolicy SNOWDOB: Community Number: [id number] Hospital [id number] Repository Date:9306-88-41KJ [address], [place] [address]VX: 06/10/2018 Tertiary KAY C [place] Insurance:MEDICAIDPol SNOWDOB: [facility] icy Number: [id number] Hospital [id number] Repository Date:2018-06-10 06/10/2018 Tertiary NOT GIVENUNK [place] Insurance:SELF PAY [facility] Number: Effective Repository Date:2018-06-10 06/10/2018 KAY C Primary KAY C [place] Insurance:MEDICARE SCOTTDOB: Community [id number] PART A [facility] [id number] Hospital CARLOS Number: Repository gianna TYLER [id number] 08277Tlo: (330) Date:2018-06-10 [phone] () 06/10/2018 Secondary KAY C [place] Insurance:AARolicy SNOWDOB: Community Number: [id number] Hospital [id number] Repository Date:2615-19-77KZ [address], [place] [address]IP: 06/10/2018 Tertiary KAY C [place] Insurance:MEDICAIDPol SNOWDOB: Community icy Number: [id number] Hospital [id number] Repository Date:2018-06-10 06/10/2018 Tertiary NOT GIVENUNK [place] Insurance:SELF PAY [facility] Number: Effective Repository Date:2018-06-10 05/13/2018 KAY C Primary KAY C [place] Insurance:MEDICARE SCOTTDOB: [facility]365 PART A [facility] [id number] Hospital CARLOS Number: Repository gianna TYLER [id number]: (330) Date:2018-05-13 [phone] (HP) 05/13/2018 Secondary KAY C [place] Insurance:MEDICAIDPol SNOWDOB: Community icy Number: [id number] Hospital [id number] Repository Date:2018-05-13 05/13/2018 Tertiary KAY C [place] Insurance:AARPPolicy SCOTTDOB: Community Number: [id number] Hospital [id number] Repository Date:4271-70-28PD [address], [place] [address]SG: 05/13/2018 Tertiary NOT GIVENUNK [place] Insurance:SELF PAY [facility] Number: Effective Repository Date:2018-05-13 04/02/2018 KAY Ordoñez Primary KAY Ordoñez [place] Insurance:MEDICARE SCOTTDOB: Community [id number] PART A [facility] [id number] Hospital CARLOS Number: Repository [place] n[place] [id number]: (330) Date:2018-04-02 [phone] () 04/02/2018 Secondary KAY C [place] Insurance:AARPPolicy SCOTTDOB: Community Number: [id number] Hospital [id number] Repository Date:6344-29-36VF [address], [place] [address]EW: 04/02/2018 Tertiary NOT GIVENUNK [place] Insurance:SELF PAY [facility] Number: Effective Repository Date:2018-04-02 02/13/2018 KAY Ordoñez Primary KAY Ordoñez [place] Insurance:MEDICARE SCOTTDOB: Community [id number] PART A [facility] [id number] Hospital CARLOS Number: Repository [place] nc [id number]: (928) Date:2018-02-13 [phone] () 02/13/2018 Secondary KAY C [place] Insurance:AARPPolicy SCOTTDOB: Community Number: [id number] Hospital [id number] Repository Date:1088-36-98UM [address], [place] [address]LY: 02/13/2018 Tertiary NOT GIVENUNK [place] Insurance:SELF PAY [facility] Number: Effective Repository Date:2018-02-13 02/13/2018 KAY Ordoñez Primary KAY C [place] Insurance:MEDICARE SCOTTDOB: Community [id number] PART A [facility] [id number] Hospital CARLOS Number: Repository [place] [id number] [address]Zey: (330) Date:2018-02-13 [phone] () 02/13/2018 Secondary KAY C [place] Insurance:AARPPolicy SCOTTDOB: Community Number: [id number] Hospital [id number] Repository Date:0855-05-84TN [address]FC, [place] [address]GE: 02/13/2018 Tertiary NOT GIVENUNK [place] Insurance:SELF PAY [facility] Number: Effective Repository Date:2018-02-13 02/13/2018 KAY C Primary KAY C [place] Insurance:MEDICARE SCOTTDOB: Community [id number] PART A [facility] [id number] Hospital CARLOS Number: [place] [id number] [address]Ifh: 330) Date:2018-02-13 [phone] () 02/13/2018 Secondary KAY C [place] Insurance:AARPPolicy SCOTTDOB: Community Number: [id number] Hospital [id number] Repository Date:9603-54-21SJ [address], [place] [address]GR: 02/13/2018 Tertiary NOT GIVENUNK [place] Insurance:SELF PAY [facility] Number: Effective Repository Date:2018-02-13 02/13/2018 KAY C Primary KAY C [place] Insurance:MEDICARE SCOTTDOB: Community [id number] PART A [facility] [id number] Hospital CARLOS Number: Repository [place] [id number] [address]Wwz: (330) Date:2018-02-13 [phone] () 02/13/2018 Secondary KAY C [place] Insurance:AARPPolicy SCOTTDOB: Community Number: [id number] Hospital [id number] Repository Date:3436-47-90KH [address], [place] [address]TS: 02/13/2018 Tertiary NOT GIVENUNK [place] Insurance:SELF PAY [facility] Number: Effective Repository Date:2018-02-13 11/25/2017 KAY C SCOTTDOB: Primary KAY C [facility] Insurance:MEDICARE^L^ SCOTTDOB: Repository [address] 248^^^[id number]^XXPolicy [id number] [place], [place] Number: [address] [address]Dyb: 440 [id number] HOLLOW [phone] (HP) Date:Plan Name:[facility] [place], [place] [address] [address]Jtq: 440) [id number], [place] [phone] (HP) [address]QG: 11/25/2017 Secondary KAY Odroñez [facility] Healthcare Insurance:MEDICARE^L^ SCOTTDOB: Repository 248^^^[id number]^XXPoly [id number] Number: [address] [id number] HOLLOW Date:Plan Name:[facility] [place], [place] [address] [address]379[address]SJPNLCJAQJ, [place] [address]YW: 11/07/2017 KAY DAVENPORTB: Primary [facility] Insurance:MedicarePol SCOTTB: Hospitals [place] icy Number: [id number] Repository [place], [place] [id number] [address] [address]Kqn: (440) Date:[facility] [phone] (HP) A [place], [place] [address]Zla: (HP) 11/07/2017 Secondary [facility] Insurance:MedicarePol SCOTTDOB: Hospitals icy Number: [id number] Repository [id number] [address] Date:Plan [facility] [address] [address] [place] [address]Fqi: (HP) 11/07/2017 Tertiary [facility] Insurance:AARP SCOTTDOB: Hospitals [facility] [id number] Repository Number: [address] [id number] HOLLOW Date:Plan Name:[facility] [place], [place] [address]Vpl: (HP) 11/03/2017 KAY DAVENPORTB: Primary [facility] Insurance:MedicarePol SCOTTDOB: Hospitals [place] icy Number: [id number] Repository [place], [place] [id number] [address] [address]Hoy: (440) Date:Plan Name:[facility] HOLLOW [phone] (HP) A [place], [place] [address]Ayg: (HP) 11/03/2017 Secondary [facility] Insurance:MedicarePol SCOTTDOB: Hospitals icy Number: [id number] Repository [id number] [address] Date:Plan Name:[facility] [address] [place] [address]Fcs: (HP) 11/03/2017 [facility] Insurance:AARP SCOTTDOB: Hospitals [facility] [id number] Repository Number: [address] [id number] HOLLOW Date:Plan Name:Health [place] [address]Wbz: (HP) 11/01/2017 KAY STEPHENDOB: Primary [facility] Healthcare Insurance:MEDICARE^L^ SCOTTDOB: Repository [address] [address] 248^^^[id number]^XXPolicy [id number] [place], [place] Number: [address] [address]End: 440 [id number] HOLLOW [phone] (HP) Date:Plan Name:[facility] [place], [place] [address] [address]Dcq: 440) [id number], [place] [id number] (HP) [address]RP: 11/01/2017 [facility] Healthcare Insurance:MEDICARE^L^ SCOTTDOB: Repository 248^^^[id number]^XXPolicy [id number] Number: [address] [id number] HOLLOW Date:Plan Name:[facility] [place], [place] [address] [address]60[address]NBBPOUFKIK, [place] [address]LH: 11/01/2017 Tertiary [facility] Healthcare Insurance:AARP^L^225^ SCOTTDOB: Repository ^^[id number]^XXPolicy [id number] Number: [address] [id number] HOLLOW Date:Plan [place] Name:[employer] [id number], [place] [address]HA: 11/01/2017 KAY Ordoñez [facility] Insurance:MedicarePol SCOTTDOB: Hospitals [place] icy Number: [id number] Repository [place], [place] [id number] [address] [address]Fvp: (440) Date:Plan Name:[facility] HOLLOW [phone] (HP) [place], [place] [address]Yty: (HP) 11/01/2017 Secondary [facility] Insurance:MedicarePol SCOTTDOB: Hospitals icy Number: [id number] Repository [id number] [address] Date:Plan Name:[facility] [address] [place] [address]Jba: (HP) 11/01/2017 Tertiary [facility] Insurance:AARP SCOTTDOB: Hospitals [facility] [id number] Repository Number: [address] [id number] HOLLOW Date:Plan Name:Health [place] [address]Nkv: (HP) 11/01/2017 KAY MITCHELLB: [facility] Insurance:MedicarePol SCOTTDOB: Hospitals [place] icy Number: [id number] Repository [place], [place] [id number] [address] [address]Ycn: (440) Date:Plan Name:[facility] [place] [phone] (HP) A [place], [place] [address]Ruk: (HP) 11/01/2017 Secondary [facility] Insurance:MedicarePol SCOTTDOB: Hospitals icy Number: [id number] Repository [id number] [address] Date:Plan Name:[facility] [place] [address] [place] [address]Lnb: (HP) 11/01/2017 [facility] Insurance:AARP SCOTTDOB: Hospitals [facility] [id number] Repository Number: [address] [id number] HOLLOW Date:Plan Name:Health [place] [address]Fcn: (HP) 10/28/2017 KAY Smita [facility] Insurance:MedicarePol SCOTTDOB: Hospitals [place] icy Number: [id number] Repository [place] [id number] [address] [address]Auc: (440) Date:Plan Name:[facility] [place] [phone] (HP) A [place], [place] [address]Dly: (HP) 10/28/2017 [facility] Insurance:MedicarePol SCOTTDOB: Hospitals icy Number: [id number] Repository [id number] [address] Date:Plan Name:[facility] [place] [address] [place] [address]Jfm: (HP) 10/28/2017 [facility] Insurance:AAR SCOTTDOB: [facility] [id number] Repository Number: [address] [id number] HOLLOW Date:Plan Name:Health [place] [address]Rjb: (HP) 10/28/2017 KAY MITCHELLB: [facility] Insurance:MedicarePol SCOTTDOB: Hospitals [place] icy Number: [id number] Repository [place] [id number] [address] [address]Jrh: (440) Date:Plan Name:[facility] [place] [phone] (HP) [place] [address]Frf: (HP) 10/28/2017 [facility] Insurance:MedicarePol SCOTTDOB: Hospitals icy Number: [id number] Repository [id number] [address] Date:Plan Name:[facility] [place] [address] [place] [address]Xkb: (HP) 10/28/2017 [facility]: [facility] [id number] Repository Number: [address] [id number] HOLLOW Date:Plan Name:Health [place] [address]Rbu: (HP) 10/28/2017 [facility] Insurance:TempHealMountainStar HealthcareB: Hospitals lanPolicy Number: [id number] Repository 214Effective [address] Date:Plan Name:Health [place], [place] [address]Kxv: (HP) 10/27/2017 KAY DAVENPORTB: [facility] Insurance:MedicarePol [facility]: [facility] HOLLOW icy Number: [id number] Repository [place], [place] [id number] [address] [address]Hmh: (440) Date:Plan Name:[facility] [place] [phone] (HP) A [place], [place] [address]Wlr: (HP) 10/27/2017 [facility] Insurance:MedicarePol [facility] Hospitals icy Number: [id number] Repository [id number] [address] Date:Plan Name:[facility] [place] [address] [place] [address]Jsd: (HP) 10/27/2017 [facility] Insurance:BANNERB: [facility] [id number] Repository Number: [address] [id number] HOLLOW Date:Plan Name:Health [place] [address]Kfm: (HP) 10/27/2017 KAY DAVENPORTB: [facility] Insurance:MedicarePol [facility]: Hospitals [place] icy Number: [id number] Repository [place], [place] [id number] [address] [address]Nvx: (440) Date:Plan Name:[facility] [place] [phone] (HP) A [place], [place] [address]Dzd: (HP) 10/27/2017 [facility] Insurance:MedicarePol [facility] Hospitals icy Number: [id number] Repository [id number] [address] Date:Plan Name:[facility] [place] [address] [place] [address]Dao: (HP) 10/27/2017 [facility] Insurance:[facility]AR[facility]OSPITAL[facility]: [facility] [id number] Repository Number: [address] [id number] HOLLOW Date:Plan Name:Health [place] [address]Yey: (HP) 10/27/2017 [facility] Insurance:TempHealMountainStar HealthcareB: [facility] lanPolicy Number: [id number] Repository 214Effective [address] Date:Plan Name:Health [place] [address]Vcz: (HP) 10/26/2017 [facility] Insurance:MedicarePol [facility] HOLLOW icy Number: [id number] Repository [place], [place] [id number] [address] [address]Bgk: (440) Date:Plan Name:[facility] [place] [phone] (HP) A [place], [place] [address]Zvl: (HP) 10/26/2017 [facility] Insurance:MedicarePol [facility] Hospitals icy Number: [id number] Repository [id number] [address] Date:Plan Name:[facility] [place] [address] [place] [address]Sgq: (HP) 10/26/2017 [facility] Insurance:[facility]: [facility] [id number] Repository Number: [address] [id number] HOLLOW Date:Plan Name:Health [place] [address]Sjc: (HP) 10/25/2017 [facility] Insurance:MedicarePol SCOTTDOB: Hospitals [place] icy Number: [id number] Repository [place], [place] [id number] [address] [address]Osf: (440) Date:Plan Name:[facility] [phone] (HP) A [place], [place] [address]Ayc: (HP) 10/25/2017 [facility] Insurance:MedicarePol SCOTTDOB: Hospitals icy Number: [id number] Repository [id number] [address] Date:Plan Name:[facility] [address] [place], [place] [address]Xxv: (HP) 10/25/2017 [facility] Insurance:AARP SCOTTDOB: Hospitals SupplementPolicy [id number] Repository Number: [address] [id number] HOLLOW Date:Plan Name:[facility] [place], [place] [address]Cqo: (HP) 10/24/2017 KAY MITCHELLB: Primary [facility] Healthcare Insurance:MEDICARE^L^ SCOTTDOB: Repository [address] [address] 248^^^[id number]^XXPolicy [id number] [place], [place] Number: [address] [address]Uxd: 440 [id number] HOLLOW [id number] (HP) Date:Plan Name:[facility] [place], [place] [address] [address]Nix: 440) [id number], [place] [id number] (HP) [address]UM: 10/24/2017 [facility] Healthcare Insurance:MEDICARE^L^ SCOTTDOB: Repository 248^^^[id number]^XXPolicy [id number] Number: [address] [id number] HOLLOW Date:Plan Name:[facility] [place], [place] [address] [address] 508186RFPAAODJMR, [place] [address]SQ: 10/24/2017 Tertiary [facility] Healthcare Insurance:AARP^L^225^ SCOTTDOB: Repository ^^[id number]^XXPolicy [id number] Number: [address] [id number] HOLLOW Date:Plan [place] Name:[employer] [address]HWSYMXZ, [place] [id number]: 10/24/2017 KAY Ordoñez SNOWDOB: [facility] Insurance:MedicarePol SCOTTDOB: Hospitals [address] icy Number: [id number] Repository [place], [place] [id number] [address] [address]Mgm: (440) Date:Plan Name:[facility] [place] [phone] (HP) A [place], [place] [address]Ybw: (HP) 10/24/2017 Secondary [facility] Insurance:MedicarePol SCOTTDOB: Hospitals icy Number: [id number] Repository [id number] [address] Date:Plan Name:[facility] [address] [address] [place] [address]Cdj: (HP) 10/24/2017 Tertiary [facility] Insurance:AARP SCOTTDOB: Hospitals SupplementPolicy [id number] Repository Number: [address] [id number] HOLLOW Date:Plan Name:Health [place], [place] [address]Maf: (HP) 10/24/2017 KAY Smita [facility] Insurance:MedicarePol SCOTTDOB: Hospitals [address] [place] icy Number: [id number] [place]ository [place], [place] [id number] [address] [id number]: [phone]) Date:Plan Name:[facility] [place] [phone] (HP) [place], [place] [address]Ore: (HP) 10/24/2017 Secondary [facility] Insurance:MedicarePol SCOTTDOB: Hospitals icy Number: [id number] Repository [id number] [address] Date:Plan Name:[facility] [place] [address] [place] [address]Knj: (HP) 10/24/2017 [facility] Insurance:AARP SCOTTDOB: Hospitals SupplementPolicy [id number] Repository Number: [id number] [id number] [place] Date:Plan Name:[place] [address]Csg: (HP) 10/14/2017 KAY MITCHELLB: Primary [facility] Healthcare Insurance:MEDICARE^L^ SCOTTDOB: Repository [address] [place] 248^^^[id number]^XXPolicy [id number] [place], [place] Number: [address] [id number]: (504) [id number] [place]LLOW [phone] (HP) Date:Plan Name:[facility] [place] [address] [address]Ddc: [phone] [id number], [place] [phone] (HP) [id number]: 10/14/2017 Secondary [facility] Healthcare Insurance:MEDICARE^L^ SCOTTDOB: Repository 248^^^[id number]^XXPolicy [id number] Number: [address] [id number] [place] Date:Plan Name:[facility] [place] [address] [id number], [place] [address]NT: 10/14/2017 [facility] Insurance:AARP^L^225^ SCOTTDOB: Repository ^^215035^XXPolicy [id number] Number: [address] [id number] [place]LLOW Date:[place] Name:Health[address] [address]JORPUBT, [place] [id number]: 10/14/2017 KAY ETHELB: Primary [facility] Insurance:MedicarePol SCOTTDOB: Hospitals GERMAN HOLLOW icy Number: [id number] Repository [place], [place] [id number] [address] [phone]: (440) Date:Plan Name:Mcare HOLLOW [phone] (HP) A [place], [place] [address]Wgu: (HP) 10/14/2017 Secondary [facility] Insurance:MedicarePol SCOTTDOB: Hospitals icy Number: [id number] Repository [id number] [address] Date:Plan Name:[facility]care [place] [address] [place] [address]Gmo: (HP) 10/14/2017 [facility] Insurance:AARP SCOTTDOB: Hospitals SupplementPolicy [id number] Repository Number: [address] [id number] HOLLOW Date:Plan Name:[place] [address]Tkm: (HP) 08/14/2017 KAY MITCHELLB: Primary KAY Ordoñez [facility] Healthcare Insurance:MEDICARE^L^ SCOTTDOB: Repository [address]LLOW 248^^^[id number]^XXPolicy [id number] [place] Number: [address] [id number]: [phone]) [id number] HOLLOW [phone] (HP) Date:Plan Name:Mcare [place] [address] [address]Kzy: (635) [id number], [place] [phone] (HP) [address]HY: 08/14/2017 Secondary KAY [facility] Healthcare Insurance:MEDICARE^L^ SCOTTDOB: Repository 248^^^[id number]^XXPolicy [id number] Number: [address] [id number] HOLLOW Date:[facility] [place] [address] [id number], [place] [address]YB: 08/14/2017 Tertiary KAY [facility] Healthcare Insurance:AARP^L^225^ SCOTTDOB: Repository ^^629121^XXPolicy [id number] Number: [address] [id number] HOLLOW Date:Plan [place] Name:Health[address] [address]PKQKMJH, [place] [id number]: 08/14/2017 KAY Ordoñez ETHELB: Primary KAY [facility] Insurance:MedicarePol SCOTTDOB: Hospitals GERMAN HOLLOW icy Number: [id number] Repository [place], [place] [id number] [address] [phone]: (440) Date:Plan Name:Mcare [place]LLOW [phone] (HP) [place] [address]Cql: (HP) 08/14/2017 Secondary KAY [facility] [place] Insurance:MedicarePol SCOTTDOB: Hospitals icy Number: [id number] Repository [id number] [address] Date:Plan Name:[facility] [place] [address] [place] [address]Juw: (HP) 08/14/2017 [facility] [id number] Repository Number: [address] [id number] HOLLOW Date:Plan Name:[place] [address]Tuz: (HP) 08/03/2017 KAY Ordoñez ETHELB: Primary KAY Ordoñez [facility] Healthcare Insurance:MEDICARE^L^ SCOTTDOB: Repository [address] 248^^^[id number]^XXPolicy [id number] [place] Number: [address] [id number]: 440 [id number] HOLLOW [phone] (HP) Date:Plan [facility] [place] [address] [address]Hvd: 440) 381952YUGHMCHOOL, [place] [phone] (HP) [address]PO: 08/03/2017 Secondary KAY Ordoñez [facility] Healthcare Insurance:MEDICARE^L^ SCOTTDOB: Repository 248^^^[id number]^XXPolicy [id number] Number: [address] [id number] HOLLOW Date:Plan Name:Mcare [place] [address] [address] [id number], [place] [address]IV: 08/03/2017 Tertiary KAY Ordoñez [facility] Healthcare Insurance:AARP^L^225^ SCOTTDOB: Repository ^^801342^XXPolicy [id number] Number: [address] [id number] HOLLOW Date:Plan [place] Name:[facility] [address] [address]347[address]BLLASNH, [place] [id number]: 08/03/2017 KAY Ordoñez ETHELB: Primary [facility] Insurance:MedicarePol SCOTTDOB: Hospitals [address] HOLLOW icy Number: [id number] Repository [place], [place] [id number] [address] [address]Kmr: (440) Date:Plan Name:Mcare HOLLOW [phone] (HP) [place] [address]Tsw: (HP) 08/03/2017 [facility] Insurance:MedicarePol SCOTTDOB: Hospitals icy Number: [id number] Repository [id number] [address] Date:Plan Name:[facility] [place] [address] [place] [address]Nde: (HP) 08/03/2017 [facility] Insurance:AARP SCOTTDOB: Hospitals SupplementPolicy [id number] Repository Number: [address] [id number] HOLLOW Date:Plan Name:[place] [address]Lcq: (HP) 07/12/2017 KAY DAVENPORTB: Primary KAY [facility] Healthcare Insurance:MEDICARE^L^ SCOTTDOB: Repository [address] 248^^^[id number]^XXPolicy [id number] [place] Number: [address] [id number]: 440 [id number] HOLLOW [phone] (HP) Date:Plan Name:[place]care [place] [facility] [address] [address]Zkx: [phone]) [id number], [place] [phone] (HP) [address]HY: 07/12/2017 [facility] Insurance:MEDICARE^L^ SCOTTDOB: Repository 248^^^[id number]^XXPolicy [id number] Number: [address] [id number] HOLLOW Date:Plan Name:[place]care [place] [address] [id number] [place] [address]CR: 07/12/2017 Tertiary KAY Ordoñez [facility] Healthcare Insurance:AARP^L^225^ SCOTTDOB: Repository ^^[id number]^XXPolicy [id number] Number: [address] [id number] HOLLOW Date:Plan [place] Name:[facility] [address] [address]LOFDODL, [place] [id number]: 07/12/2017 KAY Ordoñez STEPHENDOB: Primary [facility] Insurance:MedicarePol SCOTTDOB: Hospitals [address] HOLLOW icy Number: [id number] Repository [place], [place] [id number] [address] [address]Vkn: (440) Date:Plan Name:Mcare HOLLOW [phone] (HP) [place] [address]Xfg: (HP) 07/12/2017 [facility] Insurance:MedicarePol SCOTTDOB: Hospitals icy Number: [id number] Repository [id number] [address] Date:Plan Name:[facility] [place] [address] [place] [address]Tfx: (HP) 07/12/2017 [facility] Insurance:AARP SCOTTDOB: Hospitals SupplementPolicy [id number] Repository Number: [address] [id number] HOLLOW Date:Plan Name:Health [place] [address]Ega: (HP) 06/27/2017 KAY C STEPHENDOB: Primary KAY Ordoñez [facility] Healthcare Insurance:MEDICARE^L^ SCOTTDOB: Repository [address] 248^^^[id number]^XXPolicy [id number] [place] Number: [address] [id number]: 440 [id number] HOLLOW [phone] (HP) Date:Plan Name:GIANNA Rueda [address] [address]Ewu: 440) [id number], [place] [phone] (HP) [address]ZX: 06/27/2017 [facility] Healthcare Insurance:MEDICARE^L^ SCOTTDOB: Repository 248^^^[id number]^XXPolicy [id number] Number: [address] [id number] HOLLOW Date:Plan Name:Klaus [place] [address] [address] [id number], [place] [address]MI: 06/27/2017 Tertiary [facility] Healthcare Insurance:AARP^L^225^ SCOTTDOB: Repository ^^629377^XXPolicy [id number] Number: [address] [id number] HOLLOW Date:[place] [facility] [address] [id number], [place] [id number]: 06/27/[address] [facility] Insurance:MedicarePol SCOTTDOB: Hospitals [address] HOLLOW icy Number: [id number] Repository [place] [id number] [address] [address]Yzq: (440) Date:Plan Name:Mcare HOLLOW [phone] (HP) [place], [place] [address]Ziw: (HP) 06/27/2017 [facility] Insurance:MedicarePol SCOTTDOB: Hospitals icy Number: [id number] Repository [id number] [address] Date:[facility] [place] [address] [place], [place] [address]Fci: (HP) 06/27/2017 [facility] Insurance:AARP SCOTTDOB: Hospitals SupplementPolicy [id number] Repository Number: [address] [id number] HOLLOW Date:Plan Name:[facility] [place] [address]Xbo: ()
== END 2018-05-14 00:50 | disposition skilled nursing facility (03) ==
PROVIDERS: Emergency Provider Emergency Medicine; Family Provider Internal Medicine; PCP Internal Medicine
DX: S70.01XA Contusion of right hip, initial encounter (principal); W07.XXXA Fall from chair, initial encounter; Y93.9 Activity, unspecified; Y92.129 Unspecified place in nursing home as the place of occurrence of the external cause; Y99.9 Unspecified external cause status; F03.90 Unspecified dementia, unspecified severity, without behavioral disturbance, psychotic disturbance, mood disturbance, and anxiety; Z79.899 Other long term (current) drug therapy
CPT/HCPCS: 72100; 73502; 99285

== ENCOUNTER 2018-06-10 09:03 | Inpatient (IN) | payer MEDICARE, OTHER, MEDICAID, SELFPAY ==
[2018-06-10] VITALS (15 sets, daily range): BP systolic 90–146; BP diastolic 54–88; PULSE 83–115; RESP 17–23; TEMP 36.6–38.7; O2SAT 93–100; BMI 22.6; BMI 21.0; BMI 21.1
--- NOTE | 2018-06-10 09:10 | EKG12_ITS ---
Test Reason : SOB Blood Pressure : / mmHG Vent. Rate : 112 BPM Atrial Rate : 112 BPM P-R Int : 178 ms QRS Dur : 086 ms QT Int : 316 ms P-R-T Axes : 028 016 066 degrees QTc Int : 431 ms Sinus tachycardia Nonspecific ST and T wave abnormality Abnormal ECG Confirmed by RAJENDRA LI, MARY ([id number]), editorial specialist VENKATESH FOSTER ([id number]) on 06/13/2018 4:40:14 PM Referred By: MARILEE Confirmed By:MARY DREW MD
--- NOTE | 2018-06-10 09:10 | RAD_ITS ---
STUDY: X-RAY CHEST REASON FOR EXAM: Male, 77 years old. Cough. TECHNIQUE: Single AP portable view of the chest. COMPARISON: 02 April 2018 FINDINGS: Similar appearing interstitial prominence compared to 02 April 2018 exam and cardiomediastinal appearance. There is no demonstrated pleural abnormality. Normal size heart. Normal mediastinum and kalee. Normal visualized pulmonary arteries. There is atherosclerotic calcification of the aortic arch with tortuosity. Normal visualized thoracic spine. Normal visualized ribs, clavicles, and shoulders. There is no demonstrated abnormality of the visualized soft tissue structures of the upper abdomen. RAD/Chest 1 View (Portable) IMPRESSION: Overall similar appearance of interstitial chronic markings compared to previous exam with no definitive new airspace disease. Acute on chronic right lower lobe early airspace disease cannot be completely excluded. Electronically Signed: Ihsan Conway DO at 10:06 EST , Service support ,
[2018-06-10] MEDS: Acetaminophen 500 MG Tablet 1000 MG PO (09:28)
[2018-06-10] MEDS: 0.9% Normal Saline 1,000 ML 999 ML IV (09:28)
--- NOTE | 2018-06-10 09:30 | ED.VISSUMM ---
- ER Visit Summary Date of Service: 06/10/18 Chief Complaint: Pneumonia, hypoxia History of Present Illness: The patient is a 77 M sent from [facility] by request of spouse by EMS for hypoxemia. History of lung cancer, DNR CCA, reports findings of pneumonia right lower lung along with pleural effusion yesterday. On Augmentin. History of COPD from records. Reports moist cough with symptoms. Had a fever 101.6 yesterday. Today this morning was 98.6. Reports patient 72% on room air today, was on 4 L oxygen with a 92%. EMS reports placed on 6 L from 93-95%. Baseline mental status is alert and oriented x1. Reports recent MRSA infection in the urine status post antibiotics for treatment there. When asked about pain, patient states pain everywhere. Limited review of systems due to dementia history. Physical Examination: General: Alert and oriented to person, no acute distress. On oxygen nasal cannula HEENT: Normocephalic, atraumatic. Moist mucosa membranes Neck: supple, nontender. Cardiovascular: Regular tachycardic rate and rhythm, no murmurs Respiratory: Rhonchi lower lobes, no distress Abdomen: Soft, nontender, nondistended Extremities: Nontender, no edema, pulses intact ?4 Neuro: no focal neurological deficits. Test Results: EKG: Sinus tachycardia [address] or T wave changes. Chest x-ray: Right middle lobe, right lower lobe infiltrate. Similar to the old chest x-ray, however cannot rule out early infiltrative findings per radiology. White count 4 with left shift. Hemoglobin 11.7. Platelets 59. Creatinine 1.24, potassium 3.4, sodium 139. INR 1.1, PTT 3.6. Troponin less than 0.015. Lactic acid 3.3. UA 500 leukocytes, WBC 25-50. Blood culture x2 pending. Urine culture pending. ABG pH 7.49, PCO2 30, PaO2 70, HCO3 29 on 6 L. Emergency Department Course and Treatment: Patient febrile tachycardic, sepsis protocol initiated. Given Tylenol, blood and urine cultures. Fuchs catheter placed due to incontinence and for I's and O's. Workup concerns for pneumonia right lower section, urine also notes leukocytes and white blood cell count. He was started on broad coverage of Zosyn and vancomycin. Labs noted white count for the left shift lactic acid was 3.3. After liter of fluids blood pressure 130/84 heart rate was at 105. Additional fluids to meet sepsis protocol. Stable on 6 L, he is a DNR CCA. He meets severe sepsis criteria. Labs also notes thrombocytopenia slightly lower than previous, no bleeding issues. Will discuss with hospitalist to admit patient to stepdown. Treatment Plan: [] Disposition: Admission Impression: 1. Severe sepsis 2. Healthcare associated pneumonia 3. Urinary tract infection 4. Hypoxemia 5. DNR CCA 6. Thrombocytopenia This note was generated with Xinguodu dictation software. It may contain incorrect words, spelling, and punctuation that were not noted in review of the chart prior to signing ED Disposition - Plan for ED Patient: Disposition: Acute Care Hospital [facility] Chief Complaint: Shortness of Breath Diagnosis: Severe sepsis, Healthcare-associated pneumonia, UTI (urinary tract infection), Hypoxemia, Thrombocytopenia, History of lung cancer, DNR CCA Referrals: Tristin Marks [Primary Care Provider] -
[2018-06-10 09:31] LABS: Absolute Neutrophil Count 3.2 X10^3/uL (2.0-7.7); Basophil# 0.01 X10^3/uL; Basophil% 0.3 % (0-1); Eosinophil# 0.02 X10^3/uL; Eosinophils% 0.5 % (0-5); Hematocrit 37.2 % (40-54); Hemoglobin 11.7 g/dl (13.0-16.5); Lymphocyte % 7.5 % (19-41); Mean Corp Hgb Conc 31.5 g/gl (32-36); Mean Corpuscular Hgb 29.2 pg (27.0-32.0); Mean Corpuscular Volume 92.8 fL (80-94); Mean Platelet Vol. 9.9 fl (6.2-12.0); Monocyte% 10.1 % (0-10); Neutrophil # 3.24 X10^3/uL (2.7-7.7); Neutrophil % 81.3 % (47-70); Platelet Count 59 K/mm3 (150-450); RBC Distribution Width CV 19.3 % (11.6-14.6); RBC Distribution Width SD 66.7 fl (35.1-43.9); Red Blood Count 4.01 M/mm3 (4.6-6.2)
[2018-06-10 09:32] LABS: Mucous, Urine 0 SEEN /hpf (<or=2+)
[2018-06-10 09:32] LABS: Differential Indicated SCAN CRITERIA MET; POSITIVE COUNT NO; POSITIVE DIFFERENTIAL YES; POSITIVE MORPHOLOGY YES
[2018-06-10 09:37] LABS: International Normalized Ratio 1.1; Prothrombin Time (Protime)PT. 14.2 SECONDS (11.7-14.9)
[2018-06-10 09:38] LABS: Color, Urine Yellow (Yellow); Glucose, Dipstick Normal (Normal); Ketone-Dipstick Negative (Negative); Leukocyte Esterase-Dipstick 500 /ul (Negative); Nitrite-Dipstick Negative (Negative); Occult Blood-Urine 25 /ul (Negative); Protein-Dipstick 15 mg/dl (Negative); Specific Gravity, Urine 1.015 (1.002-1.030); Urine Bilirubin Dipstick Negative (Negative); Urine Clarity Cloudy (Clear); Urine Urobilinogen Normal (Normal)
[2018-06-10 09:45] LABS: Bacteria 2+ /hpf (None Seen); Red Blood Cells-Urine 0-5 SEEN /hpf (0-5); Squamous Epithelial Cells - UA 0-5 SEEN /hpf (0-5); White Blood Cells 25-50 SEEN /hpf (0-5)
[2018-06-10] MEDS: Piperacil/Tazobactam 3.375 GM/50 ML ML IV ×3 (09:45→21:30)
[2018-06-10 09:47] LABS: ALB/GLOB Ratio 0.6 RATIO (0.9-2.4); AST(SGOT) 38 U/L (15-37); Alanine Aminotransfer ALT/SGPT 35 U/L (16-61); Albumin, Serum 2.6 g/dL (3.2-5.0); Alkaline Phosphatase 169 U/L (45-117); Anion Gap 10 (5-15); BUN 29 mg/dL (7-18); BUN/Creat Ratio 23.4 RATIO (10-20); Calcium,Total 8.8 mg/dL (8.5-10.1); Chloride 99 mmol/L (98-107); Creatinine, Serum 1.24 mg/dL (0.70-1.30); EST Glomerular Filtration Rate 60 mL/min (>60); Est Glom Filt Rate - Afr Amer 73 mL/min (>60); Estimated Creatinine Clearance 46.45 ml/min; Globulin 4.6 g/dL (2.2-4.2); Glucose 104 mg/dL (74-106); Potassium 3.4 mmol/L (3.5-5.1); Protein, Total 7.2 g/dL (6.4-8.2); Sodium Level 139 mmol/L (136-145)
[2018-06-10 09:55] LABS: Anisocytosis RARE; Platelet Estimate MKD DEC (ADEQ); Platelet Morphology LARGE
[2018-06-10] MEDS: Vancomycin IV 1,000 MG/200 ML BAG 200 MG IV (09:55)
[2018-06-10 09:56] LABS: Allen Test POS; Base Excess 6 mmol/L (-2 to +2); Blood Gas Specimen Type ART; O2 Delivery Device Nasal Can; PO2 70 mmHG (75-100); SITE R Radial; SO2 95 % (95-99); Time Given 939; Total Carbon Dioxide 30 mmol/L; pCO2 38.5 mmHg (35-45); pH 7.49 (7.35-7.45)
[2018-06-10 10:06] LABS: Lactic Acid 3.3 mmol/L (0.4-2.0)
[2018-06-10] MEDS: 0.9% Normal Saline 1,000 ML 150 ML IV (10:23)
[2018-06-10] MEDS: 0.9% Normal Saline 1,000 ML 1000 ML IV (10:23)
[2018-06-10] MEDS: 0.9% Normal Saline 1,000 ML 100 ML IV ×2 (13:00→19:56)
[2018-06-10 13:22] LABS: Reflex Lactate? Y
[2018-06-10 14:22] LABS: Lactic Acid 1.7 mmol/L (0.4-2.0)
--- NOTE | 2018-06-10 15:24 | HP.PCM_ITS ---
Problem List (1) Hypertension Status: Chronic (2) Depression Status: Chronic (3) COPD (chronic obstructive pulmonary disease) Status: Chronic (4) Cirrhosis Status: Chronic (5) Healthcare-associated pneumonia Status: Acute (6) UTI (urinary tract infection) Status: Acute (7) Hypoxemia Status: Acute History of Present Illness Date of Admission: 06/10/18 Chief Complaint: Hypoxia The patient is a 77 year old M with PMH as below [facility] and hypoxia. He states that he was not feeling well for about the last week and [facility] the [facility] was started on Augmentin 1- 2 days ago. Today he was more short of breath coughing more and when they did a pulse ox [facility] the [facility] they found that he was hypoxic and sent him into the ER. In the ER he was initially 93% on 6 L nasal cannula, he was also found to have a fever to 101.4 as well as tachycardia to 115 and tachypnea to 23. Since admission all of his deranged vital signs have corrected. He also had an initial lactate of 3.3 so he was given a fluid bolus done in the ER as well as started on antibiotics. He was started on vancomycin as well as Zosyn because of the healthcare associated pneumonia based on a chest x-ray and per report the patient had a previous UTI with MRSA. It does appear that the patient is either a little confused or has baseline dementia, obtaining a history was difficult especially when going into his medical and surgical history. . Past Medical History Past Medical History (Chronic Problems): Chronic Problems COPD (chronic obstructive pulmonary disease) (Chronic) History of lung cancer (Chronic) Cirrhosis (Chronic) Chronic respiratory failure with hypoxia (Chronic) Hypertension (Chronic) Depression (Chronic) Allergies morphine Allergy (Verified 06/10/18 09:09) Rash Home Medications: Ambulatory Orders Medication Instructions Recorded Ascorbic Acid [Vitamin C] 1,000 mg PO DAILY 05/13/18 Cholecalciferol (VIT D3) [Vitamin 2,000 unit PO DAILY 05/13/18 D] Clonazepam [Klonopin] 0.5 mg PO TID 05/13/18 Diltiazem HCl [Diltiazem 24Hr Cd] 120 mg PO DAILY 05/13/18 Duloxetine Hcl [Cymbalta] 30 mg PO DAILY 05/13/18 Ferrous Sulfate 325 mg PO BIDCM 05/13/18 Finasteride [Proscar] 5 mg PO DAILY 05/13/18 Furosemide [Lasix] 80 mg PO DAILY 05/13/18 Guaifenesin [Mucinex] 600 mg PO DAILY 05/13/18 Ipratropium/Albuterol Sulfate 3 ml INHALATION Q4H 05/13/18 [Duoneb] Lactobacillus Acidophilus 1 each PO BID 05/13/18 [Acidophilus] Levothyroxine [Synthroid] 100 mcg PO DAILY 05/13/18 Metoprolol Tartrate [Lopressor 50 mg PO BID 05/13/18 (Beta Nishant)] Multivitamins,Therapeutic 1 tablet PO DAILY 05/13/18 [Multivitamin] Nortriptyline HCl [Pamelor] 75 mg PO DAILY 05/13/18 Omeprazole [Prilosec] 40 mg PO DAILY 05/13/18 Polyethylene Glycol 3350 [Miralax] 17 gm PO DAILY 05/13/18 Potassium Chloride 1 tab PO DAILY 05/13/18 Senna [Senokot] 2 tablet PO DAILY 05/13/18 Simvastatin [Zocor] 20 mg PO QHS 05/13/18 Tamsulosin HCl [Flomax] 0.4 mg PO DAILY 05/13/18 fentaNYL patch [Duragesic Patch] 12 mcg TRANSDERM. Q3D 05/13/18 Acetaminophen 650 mg PO Q6H PRN PRN 06/10/18 Albuterol Inhaler [Ventolin Hfa 2 puff INHALATION Q4H PRN PRN 06/10/18 (SP)] Amoxicillin/Potassium Clav 1 each PO BID 06/10/18 [Augmentin 875-125 Tablet] Bisacodyl [Dulcolax] 10 mg RECTAL DAILY PRN PRN 06/10/18 Bisacodyl [Laxative] 5 mg PO DAILY 06/10/18 Clonazepam [Klonopin] 0.5 mg PO BID PRN PRN 06/10/18 Haloperidol [Haldol] 0.5 mg PO BID 06/10/18 Ipratropium/Albuterol Sulfate 3 ml INHALATION Q4H PRN PRN 06/10/18 [Duoneb] Isosorbide Mononitrate [Imdur] 30 mg PO DAILY 06/10/18 Magnesium Hydroxide [Milk Of 30 ml PO DAILY PRN PRN 06/10/18 Magnesia] Ondansetron [Zofran Odt] 4 mg PO Q8H PRN PRN 06/10/18 Oxycodone [Oxyir] 5 mg PO Q4H PRN PRN 06/10/18 Surgical History: - - Could not obtain from patient Smoking Status: Former smoker Tobacco Use: Cigarettes Alcohol: None Drugs: None - *Family History Maternal History Items: No pertinent history, - - Could not obtain any family history from the patient Review of Systems Constitutional: Reports: Malaise. Denies: Chills, Fever, Weight Change HEENT: Denies: Head Aches, Sinus Congestion, Sinus Drainage Cardiovascular: Denies: Chest Pain, Palpitations Respiratory: Reports: Cough, Shortness of Breath. Denies: Shortness of breath at rest, Sputum production Gastrointestinal: Denies: Abdominal Pain, Nausea, Vomiting Genitourinary: Denies: Dysuria Musculoskeletal: Denies: Joint Pain, Joint Tenderness Skin: Denies: Rash, Wounds Neurological: Denies: Numbness, Tingling, Focal weakness Psychiatric: Denies: Anxiety, Depression Hematologic/ Lymphatic: Denies: Easy Bruising, Easy Bleeding VTE Information - Inpt Only VTE Present on Admission: No Patient Problems: Active and Suspected Problems Severe sepsis (Acute) Healthcare-associated pneumonia (Acute) UTI (urinary tract infection) (Acute) Hypoxemia (Acute) Thrombocytopenia (Acute) - Physical Exam General: Alert, Cooperative, No apparent distress, Confused HEENT: Atraumatic, PERRLA, EOMI, Normocephalic Oral: Dry Mucosa Neck: Supple, No JVD, Trachea Midline Lungs: Normal air movement, No wheeze, No rales, Diminished, Rhonchi Cardiovascular: Regular rate, Regular Rhythm, Normal S1, Normal S2, Murmur - 2/6 SANDRA RUSB, No rub noted, No Gallop Abdomen: Soft, Non Tender, Non-Distended, No Hepato-splenomegaly Extremities: No edema, Capillary Refill Less than 3 Seconds Skin: No rashes, No breakdown Neurological: Neuro grossly intact, Sensory exam intact to light touch and pain Psych/Mental Status: Normal Affect, Appropriate Vital Signs Temp Pulse Resp BP Pulse Ox 98.1 F 88 19 H 116/62 100 06/10/18 14:00 06/10/18 14:00 06/10/18 14:00 06/10/18 14:00 06/10/18 14:00 Oxygen Flow Rate (L/min) 4 Oxygen Delivery Method Nasal Cannula Weight: 142 lb 10.225 oz Body Mass Index (BMI) 21.0 Microbiology Past 72 Hours 06/10/18 10:26 Influenza Types A,B Direct FA (EVELINA) - Final Mucosa - Nose Laboratory Tests Past 24 Hrs 06/10/18 06/10/18 06/10/18 09:10 09:10 09:10 WBC 4.0 L RBC 4.01 L Hgb 11.7 L Hct 37.2 L MCV 92.8 MCH 29.2 MCHC 31.5 L RDW 19.3 H RDW Differential 66.7 H Plt Count 59 L MPV 9.9 Immature Gran % (Auto) 0.300 Neut % (Auto) 81.3 H Lymph % (Auto) 7.5 L Gaines % (Auto) 10.1 H Eos % (Auto) 0.5 Baso % (Auto) 0.3 Absolute Neuts (auto) 3.2 Absolute Lymphs (auto) 0.30 L Total Counted Not Reportable Platelet Estimate MKD DEC Plt Morphology Comment LARGE Anisocytosis RARE PT 14.2 INR 1.1 APTT 36.0 Specimen Type Sample Site pH Bicarbonate Actual POC Total CO2 Base Excess O2 Saturation ABG pCO2 ABG pO2 Abdirahman Test O2 Delivery Device Liter Flow Blood Gas Notified Whom Blood Gas Notified Time Sodium 139 Potassium 3.4 L Chloride 99 Carbon Dioxide 30.0 Anion Gap 10 BUN 29 H Creatinine 1.24 Estim Creat Clear Calc 46.45 Est GFR (MDRD) Af Amer 73 Est GFR (MDRD) Non-Af 60 BUN/Creatinine Ratio 23.4 H Glucose 104 Lactic Acid Calcium 8.8 Total Bilirubin 0.60 AST 38 H ALT 35 Alkaline Phosphatase 169 H Troponin I < 0.015 Total Protein 7.2 Albumin 2.6 L Globulin 4.6 H Albumin/Globulin Ratio 0.6 L Urine Color Urine Clarity Urine pH Ur Specific [place] Urine Protein Urine Glucose (UA) Urine Ketones Urine Occult Blood Urine Nitrite Urine Bilirubin Urine Urobilinogen Ur Leukocyte Esterase Urine RBC Urine WBC Ur Squamous Epith Cells Urine Bacteria Urine Mucus 06/10/18 06/10/18 06/10/18 09:15 09:25 09:49 WBC RBC Hgb Hct MCV MCH MCHC RDW RDW Differential Plt Count MPV Immature Gran % (Auto) Neut % (Auto) Lymph % (Auto) Gaines % (Auto) Eos % (Auto) Baso % (Auto) Absolute Neuts (auto) Absolute Lymphs (auto) Total Counted Platelet Estimate Plt Morphology Comment Anisocytosis PT INR APTT Specimen Type ART Sample Site R Radial pH 7.49 H Bicarbonate Actual 29.0 H POC Total CO2 30 Base Excess 6 H O2 Saturation 95 ABG pCO2 38.5 ABG pO2 70 L Abdirahman Test POS O2 Delivery Device Nasal Can Liter Flow 6.0 Blood Gas Notified Whom ED MD Blood Gas Notified Time 939 Sodium Potassium Chloride Carbon Dioxide Anion Gap BUN Creatinine Estim Creat Clear Calc Est GFR (MDRD) Af Amer Est GFR (MDRD) Non-Af BUN/Creatinine Ratio Glucose Lactic Acid 3.3 H Calcium Total Bilirubin AST ALT Alkaline Phosphatase Troponin I Total Protein Albumin Globulin Albumin/Globulin Ratio Urine Color Yellow Urine Clarity Cloudy Urine pH 6.0 Ur Specific [place] 1.015 Urine Protein 15 H Urine Glucose (UA) Normal Urine Ketones Negative Urine Occult Blood 25 H Urine Nitrite Negative Urine Bilirubin Negative Urine Urobilinogen Normal Ur Leukocyte Esterase 500 H Urine RBC 0-5 SEEN Urine WBC 25-50 SEEN Ur Squamous Epith Cells 0-5 SEEN Urine Bacteria 2+ Urine Mucus 0 SEEN 06/10/18 13:47 WBC RBC Hgb Hct MCV MCH MCHC RDW RDW Differential Plt Count MPV Immature Gran % (Auto) Neut % (Auto) Lymph % (Auto) Gaines % (Auto) Eos % (Auto) Baso % (Auto) Absolute Neuts (auto) Absolute Lymphs (auto) Total Counted Platelet Estimate Plt Morphology Comment Anisocytosis PT INR APTT Specimen Type Sample Site pH Bicarbonate Actual POC Total CO2 Base Excess O2 Saturation ABG pCO2 ABG pO2 Abdirahman Test O2 Delivery Device Liter Flow Blood Gas Notified Whom Blood Gas Notified Time Sodium Potassium Chloride Carbon Dioxide Anion Gap BUN Creatinine Estim Creat Clear Calc Est GFR (MDRD) Af Amer Est GFR (MDRD) Non-Af BUN/Creatinine Ratio Glucose Lactic Acid 1.7 Calcium Total Bilirubin AST ALT Alkaline Phosphatase Troponin I Total Protein Albumin Globulin Albumin/Globulin Ratio Urine Color Urine Clarity Urine pH Ur Specific [place] Urine Protein Urine Glucose (UA) Urine Ketones Urine Occult Blood Urine Nitrite Urine Bilirubin Urine Urobilinogen Ur Leukocyte Esterase Urine RBC Urine WBC Ur Squamous Epith Cells Urine Bacteria Urine Mucus Assessment/Plan All Active Problems Altered level of consciousness (Acute) Anemia (Acute) Encephalopathy (Acute) Severe sepsis (Acute) Healthcare-associated pneumonia (Acute) UTI (urinary tract infection) (Acute) Hypoxemia (Acute) Thrombocytopenia (Acute) 1. Sepsis secondary to healthcare associated pneumonia/acute hypoxic respiratory failure/metabolic encephalopathy secondary to pneumonia/UTI -For now we will continue with Zosyn and bank -Lactate has resolved to 1.7 -Continue with gentle IV fluids -Blood and urine cultures are pending -We will continue with oxygen therapy and monitor overnight -We will narrow therapy once culture data results 2. Hypertension/hyperlipidemia/edema -Stable -We will hold blood pressure medications for another 24 hours -Continue with simvastatin -No appreciable edema on exam though he does take 80 mg of Lasix daily we will hold while giving IV fluids 3. GERD -Stable -Continue with PPI 4. BPH -Stable -Continue with Flomax and finasteride 5. COPD -No wheezing on exam to think that this is an exacerbation -Can continue his DuoNeb as needed 6. Hypothyroidism -Stable -Continue with Synthroid DVT: Lovenox Code Visit Inpatient E&M: 93631 Init Hosp L3
--- NOTE | 2018-06-10 15:49 | PCM.RX.CS ---
Consult Pharmacy has been consulted to manage selected antiobiotic: Vancomycin Type of Consult: New start Suspected Infection: Other Prior Doses of Antibiotics Received/Current Regimen: Received vancomycin 1000mg IV x1 in E.R. at 10:00 today Labs: Sodium 139 mmol/L (136-145) 06/10/18 09:10 Potassium 3.4 mmol/L (3.5-5.1) L 06/10/18 09:10 Chloride 99 mmol/L (98-107) 06/10/18 09:10 Carbon Dioxide 30.0 mmol/L (21.0-32.0) 06/10/18 09:10 Anion Gap 10 (5-15) 06/10/18 09:10 BUN 29 mg/dL (7-18) H 06/10/18 09:10 Creatinine 1.24 mg/dL (0.70-1.30) 06/10/18 09:10 Est GFR (MDRD) Af Amer 73 mL/min (>60) 06/10/18 09:10 Est GFR (MDRD) Non-Af 60 mL/min (>60) 06/10/18 09:10 BUN/Creatinine Ratio 23.4 RATIO (10-20) H 06/10/18 09:10 Glucose 104 mg/dL (74-106) 06/10/18 09:10 Microbiology: Microbiology 06/10/18 10:26 Mucosa - Nose Influenza Types A,B Direct FA (EVELINA) - Final Weight used for dosin.7 kg Estimated Creatinine Clearance: 46 ml/min Goal Trough: 10-15 mcg/mL Pharmacy Plan for Drug Dosinmg IV q24h to start 24 hours after the dose given in E.R. Obtain trough before the 3rd total dose. Pharmacy Service will continue to monitor and adjust dosing as required. Follow-Up Labs: Trough Vancomycin Labs to be done on [date and time ordered]: 06/12/18 at 09:30
[2018-06-10] MEDS: Ferrous Sulfate 325 MG Tablet PO (17:13)
[2018-06-10] MEDS: Atorvastatin Calcium 10 MG Tablet PO (21:28)
[2018-06-10] MEDS: clonazePAM 0.5 MG Tablet PO (21:28)
[2018-06-11] VITALS (14 sets, daily range): BP systolic 118–165; BP diastolic 69–92; PULSE 86–111; RESP 16–20; TEMP 36.5–38.1; O2SAT 81–96
[2018-06-11] MEDS: Acetaminophen 325 MG Tablet 650 MG PO ×3 (03:30→20:05)
[2018-06-11] MEDS: clonazePAM 0.5 MG Tablet PO ×3 (05:42→21:42)
[2018-06-11] MEDS: Levothyroxine 100 MCG Tablet PO (05:42)
[2018-06-11] MEDS: Piperacil/Tazobactam 3.375 GM/50 ML ML IV ×3 (05:44→22:53)
[2018-06-11] MEDS: 0.9% Normal Saline 1,000 ML 100 ML IV (05:45)
--- NOTE | 2018-06-11 06:53 | PN_ITS ---
Patient Problems: Active and Suspected Problems Severe sepsis (Acute) Healthcare-associated pneumonia (Acute) UTI (urinary tract infection) (Acute) Hypoxemia (Acute) Thrombocytopenia (Acute) Subjective: Back to his baseline oxygen requirement of 4 L which per report from the nurse was what he was on at the intermediate. Currently denies any fevers or chills Vitals/I&O's: Vital Signs Temp Pulse Resp BP Pulse Ox 98.6 F 91 16 146/69 H 94 06/11/18 05:38 06/11/18 05:38 06/11/18 05:38 06/11/18 05:38 06/11/18 05:38 Oxygen Flow Rate (L/min) 4 Oxygen Delivery Method Nasal Cannula Weight: 142 lb 10.225 oz Body Mass Index (BMI) 21.0 Intake and Output for Last 24 Hours 06/09/18 06/10/18 06/11/18 23:59 23:59 23:59 Intake Total 1985.9 / 1985.9 953 / 953 Output Total 1000 / 1000 850 / 850 Balance 985.9 / 985.9 103 / 103 General: Alert, Cooperative, No apparent distress, Confused HEENT: Atraumatic, PERRLA, EOMI, Normocephalic Oral: Dry Mucosa Neck: Supple, No JVD, Trachea Midline Lungs: Normal air movement, No wheeze, No rales, Diminished, Rhonchi Cardiovascular: Regular rate, Regular Rhythm, Normal S1, Normal S2, Murmur - 2/6 SANDRA RUSB, No rub noted, No Gallop Abdomen: Soft, Non Tender, Non-Distended, No Hepato-splenomegaly Extremities: No edema, Capillary Refill Less than 3 Seconds Skin: No rashes, No breakdown Neurological: Neuro grossly intact, Sensory exam intact to light touch and pain Psych/Mental Status: Normal Affect, Appropriate Microbiology Past 72 Hours 06/10/18 16:45 Urine Catheter - Fuchs Streptococcus pneumoniae Antigen (M - Final 06/10/18 16:45 Urine Catheter - Fuchs Legionella Antigen - Final 06/10/18 10:26 Mucosa - Nose Influenza Types A,B Direct FA (EVELINA) - Final Laboratory Results 06/10/18 09:10: WBC 4.0 L, RBC 4.01 L, Hgb 11.7 L, Hct 37.2 L, MCV 92.8, MCH 29.2, MCHC 31.5 L, RDW 19.3 H, RDW Differential 66.7 H, Plt Count 59 L, MPV 9.9, Immature Gran % (Auto) 0.300, Neut % (Auto) 81.3 H, Lymph % (Auto) 7.5 L, [place] % (Auto) 10.1 H, Eos % (Auto) 0.5, Baso % (Auto) 0.3, Absolute Neuts (auto) 3.2, Absolute Lymphs (auto) 0.30 L, Total Counted Not Reportable, Platelet Estimate MKD DEC, Plt Morphology Comment LARGE, Anisocytosis RARE 06/10/18 09:10: PT 14.2, INR 1.1, APTT 36.0 06/10/18 09:10: Sodium 139, Potassium 3.4 L, Chloride 99, Carbon Dioxide 30.0, Anion Gap 10, BUN 29 H, Creatinine 1.24, Estim Creat Clear Calc 46.45, Est GFR (MDRD) Af Amer 73, Est GFR (MDRD) Non-Af 60, BUN/Creatinine Ratio 23.4 H, Glucose 104, Calcium 8.8, Total Bilirubin 0.60, AST 38 H, ALT 35, Alkaline Phosphatase 169 H, Troponin I < 0.015, Total Protein 7.2, Albumin 2.6 L, Globulin 4.6 H, Albumin/Globulin Ratio 0.6 L 06/10/18 09:15: Lactic Acid 3.3 H 06/10/18 09:25: Urine Color Yellow, Urine Clarity Cloudy, Urine pH 6.0, Ur Specific [place] 1.015, Urine Protein 15 H, Urine Glucose (UA) Normal, Urine Ketones Negative, Urine Occult Blood 25 H, Urine Nitrite Negative, Urine Bilirubin Negative, Urine Urobilinogen Normal, Ur Leukocyte Esterase 500 H, Urine RBC 0-5 SEEN, Urine WBC 25-50 SEEN, Ur Squamous Epith Cells 0-5 SEEN, Urine Bacteria 2+, Urine Mucus 0 SEEN 06/10/18 09:49: Specimen Type ART, Sample Site R Radial, pH 7.49 H, Bicarbonate Actual 29.0 H, POC Total CO2 30, Base Excess 6 H, O2 Saturation 95, ABG pCO2 38.5, ABG pO2 70 L, Abdirahman Test POS, O2 Delivery Device Nasal Can, Liter Flow 6.0, Blood Gas Notified Whom ED MD, Blood Gas Notified Time 939 06/10/18 13:47: Lactic Acid 1.7 06/11/18 06:33: WBC Pending, RBC Pending, Hgb Pending, Hct Pending, MCV Pending, MCH Pending, MCHC Pending, RDW Pending, RDW Differential Pending, Plt Count Pending, Neut % (Auto) Pending, Absolute Neuts (auto) Pending, Total Counted Pending 06/11/18 06:33: Sodium Pending, Potassium Pending, Chloride Pending, Carbon Dioxide Pending, Anion Gap Pending, BUN Pending, Creatinine Pending, Est GFR (MDRD) Af Amer Pending, Est GFR (MDRD) Non-Af Pending, BUN/Creatinine Ratio Pending, Glucose Pending, Calcium Pending Current Medications Acetaminophen (Tylenol) 650 mg PO Q6H PRN PRN PRN Reason: pain/fever Last Admin: 06/11/18 03:30 Dose: 650 mg Albuterol Sulfate (Ventolin Aerosols) 2.5 mg INHALATION Q4H PRN PRN PRN Reason: SOB &/OR WHEEZING Albuterol/Ipratropium (Duoneb) 3 ml INHALATION Q4H PRN PRN PRN Reason: SOB &/OR WHEEZING Atorvastatin Calcium (Lipitor) 10 mg PO QHS [facility] Last Admin: 06/10/18 21:28 Dose: 10 mg Bisacodyl (Dulcolax) 10 mg RECTAL DAILY PRN PRN PRN Reason: Constipation Cholecalcifer[facility] ([facility]it[facility]) [facility] Clonazepam (Klonopin) 0.5 mg PO BID PRN PRN PRN Reason: ANXIETY Clonazepam (Klonopin) 0.5 mg PO TID [facility] Last Admin: 06/11/18 05:42 Dose: 0.5 mg Duloxetine HCl (Cymbalta) 30 mg PO DAILY [facility] Enoxaparin Sodium (Lovenox) 40 mg SC DAILY@1000 [facility] Fentanyl (Duragesic Patch) 12 mcg TRANSDERM. Q3D [facility] Ferrous Sulfate (Ferrous Sulfate) 325 mg PO BIDCM [facility] Last Admin: 06/10/18 17:13 Dose: 325 mg Finasteride (Proscar) 5 mg PO DAILY [facility] Guaifenesin (Mucinex) 600 mg PO DAILY [facility] Haloperidol Lactate (Haloperidol Lactate) 0.5 mg PO BID [facility] Sodium Chloride () 1,000 mls @ 100 mls/hr IV .Q10H [facility] Last Admin: 06/11/18 05:45 Dose: 100 mls/hr Piperacillin Sod/Tazobactam Sod (Zosyn) 3.375 gm in 50 mls @ 12.5 mls/hr IV Q8 [facility] Last Admin: 06/11/18 05:44 Dose: 12.5 mls/hr Vancomycin IV Pharmacy to Dose (1 ea/ Sodium Chloride) 500 mls @ 250 mls/hr IV X1 PRN; Protocol PRN Reason: Rx to Dose Vancomycin HCl 750 mg/ Sodium (Chloride) 265 mls @ 250 mls/hr IV Q24H [facility] Levothyroxine Sodium (Synthroid) 100 mcg PO DAILY@0600 [facility] Last Admin: 06/11/18 05:42 Dose: 100 mcg Magnesium Hydroxide (Milk Of Magnesia) 30 ml PO DAILY PRN PRN Reason: Constipation Nortriptyline HCl (Pamelor) 75 mg PO DAILY [facility] Nutritional Formula (Lactose Free) (Ensure Enlive) 120 ml PO 4X/DAY [facility] Last Admin: 06/10/18 21:28 Dose: 120 ml Oxycodone HCl (Oxyir) 5 mg PO Q4H PRN PRN PRN Reason: PAIN Pantoprazole Sodium (Protonix) 40 mg PO DAILY [facility] Polyethylene Glycol (Miralax) 17 gm PO DAILY [facility] Senna (Senokot) 2 tablet PO DAILY [facility] Sodium Chloride () 5 - 15 ml IV UD PRN PRN Reason: SALINE FLUSH Tamsulosin HCl (Flomax) 0.4 mg PO DAILY@0830 [facility] Medical Necessity - Tobacco Use Smoking Status: Former smoker Tobacco Use: Cigarettes Assessment/Plan All Active Problems Altered level of consciousness (Acute) Anemia (Acute) Encephalopathy (Acute) Severe sepsis (Acute) Healthcare-associated pneumonia (Acute) UTI (urinary tract infection) (Acute) Hypoxemia (Acute) Thrombocytopenia (Acute) 1. Sepsis secondary to healthcare associated pneumonia/acute hypoxic respiratory failure/metabolic encephalopathy secondary to pneumonia/UTI -For now we will continue with Zosyn and vancomycin -Lactate has resolved to 1.7 -DC IV fluids -Blood and urine cultures are pending -We will continue with oxygen therapy -We will narrow therapy once culture data results -Strep and Legionella urine antigens are negative 2. Hypertension/hyperlipidemia/edema -Stable -Can restart blood pressure medications today -Continue with simvastatin -No appreciable edema on exam though he does take 80 mg of Lasix daily we will hold while giving IV fluids 3. GERD -Stable -Continue with PPI 4. BPH -Stable -Continue with Flomax and finasteride 5. COPD -No wheezing on exam to think that this is an exacerbation -Can continue his DuoNeb as needed 6. Hypothyroidism -Stable -Continue with Synthroid DVT: Lovenox Code Visit Inpatient E&M: 66828 Subs Hosp L2
[2018-06-11 07:23] LABS: Anion Gap 9 (5-15); BUN 19 mg/dL (7-18); BUN/Creat Ratio 23.8 RATIO (10-20); Chloride 107 mmol/L (98-107); EST Glomerular Filtration Rate 100 mL/min (>60); Est Glom Filt Rate - Afr Amer 121 mL/min (>60); Estimated Creatinine Clearance 73.01 ml/min; Glucose 72 mg/dL (74-106); Potassium 3.2 mmol/L (3.5-5.1); Sodium Level 142 mmol/L (136-145)
[2018-06-11 07:47] LABS: Absolute Neutrophil Count 1.8 X10^3/uL (2.0-7.7); Eosinophil# 0.04 X10^3/uL; Eosinophils% 1.6 % (0-5); Hematocrit 32.5 % (40-54); Hemoglobin 10.2 g/dl (13.0-16.5); Lymphocyte % 15.8 % (19-41); Mean Corp Hgb Conc 31.4 g/gl (32-36); Mean Corpuscular Hgb 29.1 pg (27.0-32.0); Mean Corpuscular Volume 92.6 fL (80-94); Mean Platelet Vol. 10.3 fl (6.2-12.0); Monocyte# 0.33 X10^3/uL; Neutrophil # 1.75 X10^3/uL (2.7-7.7); Neutrophil % 69.2 % (47-70); Platelet Count 59 K/mm3 (150-450); RBC Distribution Width CV 19.1 % (11.6-14.6); RBC Distribution Width SD 64.5 fl (35.1-43.9); Red Blood Count 3.51 M/mm3 (4.6-6.2); White Blood Count 2.5 K/mm3 (4.4-11.0)
[2018-06-11 07:49] LABS: Differential Indicated SCAN CRITERIA MET; POSITIVE COUNT NO; POSITIVE DIFFERENTIAL YES; POSITIVE MORPHOLOGY NO
[2018-06-11 07:51] LABS: Hypochromasia RARE; Platelet Estimate MKD DEC (ADEQ)
--- NOTE | 2018-06-11 08:22 | CPS ---
Pt. was found with oxygen out of nose at 7:51 oxygen check. Was at a Pulse Ox of 81% on RA. Put patient back on his regular 4LNC and rechecked at 8:12. Pulse Ox was 93% at that time. Explained to pt. the importance of keeping the cannula in nose.
[2018-06-11] MEDS: Ferrous Sulfate 325 MG Tablet PO ×2 (08:32→17:50)
[2018-06-11] MEDS: Tamsulosin HCl 0.4 MG Capsule PO (08:33)
[2018-06-11] MEDS: Polyethylene Glycol 3350 17 GM PACKET PO (09:43)
[2018-06-11] MEDS: Enoxaparin 40 MG/0.4 ML Syringe SC (09:43)
[2018-06-11] MEDS: DULoxetine Hcl 30 MG Capsule PO (09:43)
[2018-06-11] MEDS: guaiFENesin 600 MG Tablet PO (09:44)
[2018-06-11] MEDS: Nortriptyline 25 MG Capsule 75 MG PO (09:44)
[2018-06-11] MEDS: Finasteride 5 MG Tablet PO (09:45)
[2018-06-11] MEDS: Pantoprazole Sodium 40 MG Tablet PO (09:45)
[2018-06-11] MEDS: Senna Tablet 2 TABLET PO (09:45)
[2018-06-11] MEDS: Haloperidol Lactate 10 MG/5 ML UDC PO ×2 (09:55→21:32)
--- NOTE | 2018-06-11 11:36 | PCM.RX.CS ---
Consult Pharmacy has been consulted to manage selected antiobiotic: Vancomycin Type of Consult: Follow-up Suspected Infection: Other Prior Doses of Antibiotics Received/Current Regimen: Currently receiving vancomycin 750mg IV q24h with the most recent dose given today at 09:45. Labs: Sodium 142 mmol/L (136-145) 06/11/18 06:33 Potassium 3.2 mmol/L (3.5-5.1) L 06/11/18 06:33 Chloride 107 mmol/L (98-107) 06/11/18 06:33 Carbon Dioxide 26.0 mmol/L (21.0-32.0) 06/11/18 06:33 Anion Gap 9 (5-15) 06/11/18 06:33 BUN 19 mg/dL (7-18) H 06/11/18 06:33 Creatinine 0.80 mg/dL (0.70-1.30) 06/11/18 06:33 Est GFR (MDRD) Af Amer 121 mL/min (>60) 06/11/18 06:33 Est GFR (MDRD) Non-Af 100 mL/min (>60) 06/11/18 06:33 BUN/Creatinine Ratio 23.8 RATIO (10-20) H 06/11/18 06:33 Glucose 72 mg/dL (74-106) L 06/11/18 06:33 Microbiology: Microbiology 06/10/18 16:45 Urine Catheter - Fuchs Streptococcus pneumoniae Antigen (M - Final 06/10/18 16:45 Urine Catheter - Fuchs Legionella Antigen - Final 06/10/18 10:26 Mucosa - Nose Influenza Types A,B Direct FA (EVELINA) - Final Weight used for dosin.7 kg Estimated Creatinine Clearance: 73 ml/min Goal Trough: 10-15 mcg/mL Pharmacy Plan for Drug Dosing: The patient's renal function significantly improved this morning to a CrCl of 73 ml/min from 46 ml/min yesterday so the vancomycin will be changed to 750mg IV q12h from the q24h as previously ordered. A trough will still be checked tomorrow morning. Pharmacy Service will continue to monitor and adjust dosing as required. Follow-Up Labs: Trough Vancomycin Labs to be done on [date and time ordered]: 06/12/18 09:30
--- NOTE | 2018-06-11 18:25 | CPS ---
Pt. understands how to use IS device. Was giving good effort and understood direction of usage. Was explained the benefits of using IS device. Will D/C due to these reasons.
[2018-06-11] MEDS: Furosemide 100 MG/10 ML Vial 80 MG IV (21:29)
[2018-06-11] MEDS: Atorvastatin Calcium 10 MG Tablet PO (21:34)
[2018-06-12] VITALS (13 sets, daily range): BP systolic 113–169; BP diastolic 67–91; PULSE 83–121; RESP 18–20; TEMP 36.7–37.7; O2SAT 92–98
[2018-06-12] MEDS: clonazePAM 0.5 MG Tablet PO ×3 (05:44→21:57)
[2018-06-12] MEDS: Metoprolol Tartrate 50 MG Tablet PO ×2 (05:44→22:15)
[2018-06-12] MEDS: Piperacil/Tazobactam 3.375 GM/50 ML ML IV ×3 (05:44→21:59)
[2018-06-12] MEDS: Levothyroxine 100 MCG Tablet PO (05:45)
[2018-06-12 06:37] LABS: Anion Gap 8 (5-15); BUN 17 mg/dL (7-18); BUN/Creat Ratio 18.7 RATIO (10-20); Calcium,Total 8.6 mg/dL (8.5-10.1); Chloride 102 mmol/L (98-107); Creatinine, Serum 0.91 mg/dL (0.70-1.30); EST Glomerular Filtration Rate 86 mL/min (>60); Est Glom Filt Rate - Afr Amer 104 mL/min (>60); Estimated Creatinine Clearance 64.19 ml/min; Glucose 96 mg/dL (74-106); Potassium 3.3 mmol/L (3.5-5.1); Sodium Level 139 mmol/L (136-145)
[2018-06-12 07:41] LABS: Absolute Neutrophil Count 2.9 X10^3/uL (2.0-7.7); Basophil# 0.02 X10^3/uL; Basophil% 0.5 % (0-1); Eosinophil# 0.03 X10^3/uL; Eosinophils% 0.8 % (0-5); Hemoglobin 13.5 g/dl (13.0-16.5); Lymphocyte % 10.4 % (19-41); Mean Corp Hgb Conc 31.4 g/gl (32-36); Mean Corpuscular Hgb 29.2 pg (27.0-32.0); Mean Corpuscular Volume 93.1 fL (80-94); Mean Platelet Vol. 10.6 fl (6.2-12.0); Monocyte# 0.43 X10^3/uL; Monocyte% 11.2 % (0-10); Neutrophil # 2.93 X10^3/uL (2.7-7.7); Neutrophil % 76.6 % (47-70); Platelet Count 73 K/mm3 (150-450); RBC Distribution Width SD 65.5 fl (35.1-43.9); Red Blood Count 4.62 M/mm3 (4.6-6.2); White Blood Count 3.8 K/mm3 (4.4-11.0)
[2018-06-12 07:50] LABS: Differential Indicated SCAN CRITERIA MET; POSITIVE COUNT NO; POSITIVE DIFFERENTIAL YES; POSITIVE MORPHOLOGY YES
[2018-06-12] MEDS: Enoxaparin 40 MG/0.4 ML Syringe SC (08:47)
[2018-06-12] MEDS: Pantoprazole Sodium 40 MG Tablet PO (08:47)
[2018-06-12] MEDS: Tamsulosin HCl 0.4 MG Capsule PO (08:48)
[2018-06-12] MEDS: Nortriptyline 25 MG Capsule 75 MG PO (08:48)
[2018-06-12] MEDS: guaiFENesin 600 MG Tablet PO (08:48)
[2018-06-12] MEDS: DULoxetine Hcl 30 MG Capsule PO (08:48)
[2018-06-12] MEDS: Ferrous Sulfate 325 MG Tablet PO ×2 (08:48→17:56)
[2018-06-12] MEDS: Finasteride 5 MG Tablet PO (08:48)
[2018-06-12] MEDS: Furosemide 80 MG Tablet PO (08:48)
[2018-06-12] MEDS: Haloperidol Lactate 10 MG/5 ML UDC PO ×2 (08:48→22:15)
[2018-06-12 10:15] LABS: Vancomycin, Trough Level 13.7 ug/mL (5.0-15.0)
[2018-06-12] MEDS: Smz/Tmp Ds Tablet 1 TABLET PO ×2 (11:36→22:15)
--- NOTE | 2018-06-12 12:47 | PN_ITS ---
Patient Problems: Active and Suspected Problems Severe sepsis (Acute) Healthcare-associated pneumonia (Acute) UTI (urinary tract infection) (Acute) Hypoxemia (Acute) Thrombocytopenia (Acute) Subjective: Seen and examined. Patient has progressive worsening of shortness of breath for about 3 years; on 4 L of oxygen in the half-way. Patient has dementia and is poor historian. Urine culture shows MRSA. Repeat chest x-ray was ordered in the morning. Chest x-ray shows interstitial groundglass and opacification predominantly at right mid and lower lung. Vitals/I&O's: Vital Signs Temp Pulse Resp BP Pulse Ox 99.7 F H 83 20 H 115/71 92 06/12/18 11:32 06/12/18 12:14 06/12/18 11:32 06/12/18 11:32 06/12/18 11:32 Oxygen Flow Rate (L/min) 4 Oxygen Delivery Method Nasal Cannula Weight: 142 lb 10.225 oz Body Mass Index (BMI) 21.0 Intake and Output for Last 24 Hours 06/10/18 06/11/18 06/12/18 23:59 23:59 23:59 Intake Total 1985.9 / 1984.9 2094 / 4 1574 / 1574 Output Total 1000 / 1000 1150 / 1150 200 / 200 Balance 985.9 / 985.9 944 / 944 1374 / 1374 General: Alert, Cooperative, Confused, Disoriented HEENT: Atraumatic, PERRLA, EOMI, Normocephalic, - - Hard of hearing Neck: Supple, No JVD, Negative Carotid Bruits Lungs: Diminished - Air entry severely diminished diffusely in the anterior and posterior lung tang, Rales - Coarse rales, Rhonchi, Short of Breath, Tachypneic Cardiovascular: Regular rate, Normal S1, Normal S2, Murmur - Systolic murmur present over left lower sternal border Abdomen: Bowel Sounds Present, Soft, Non Tender, Non-Distended Extremities: No edema, Capillary Refill Less than 3 Seconds Skin: No rashes, No breakdown Musculoskeletal: No Tenderness to Palpation of Joints or Extremities, Arthritic Changes, Muscle Wasting Neurological: Cranial nerves II-XII grossly intact, Deep Tendon Reflexes 2+/4 and Symmetrical, Neuro grossly intact Psych/Mental Status: Normal Affect, Appropriate Microbiology Past 72 Hours 06/10/18 09:25 Urine, Catheterized Urine Culture - Final Meth. resistant Staph. aureus 06/10/18 09:10 Blood Culture (Wb) - Left Hand Blood Culture - Preliminary No growth in 48 hours. 06/10/18 09:10 Blood Culture (Wb) - Anticubital Right Blood Culture - Preliminary No growth in 48 hours. 06/10/18 16:45 Urine Catheter - Fuchs Streptococcus pneumoniae Antigen (M - Final 06/10/18 16:45 Urine Catheter - Fuchs Legionella Antigen - Final 06/10/18 10:26 Mucosa - Nose Influenza Types A,B Direct FA (EVELINA) - Final Laboratory Results 06/12/18 05:50: WBC 3.8 L, RBC 4.62, Hgb 13.5, Hct 43.0, MCV 93.1, MCH 29.2, MCHC 31.4 L, RDW 19.0 H, RDW Differential 65.5 H, Plt Count 73 L, MPV 10.6, Immature Gran % (Auto) 0.500, Neut % (Auto) 76.6 H, Lymph % (Auto) 10.4 L, [place] % (Auto) 11.2 H, Eos % (Auto) 0.8, Baso % (Auto) 0.5, Absolute Neuts (auto) 2.9, Absolute Lymphs (auto) 0.40 L, Total Counted Not Reportable, Differential Comment COMMENT 06/12/18 05:50: Sodium 139, Potassium 3.3 L, Chloride 102, Carbon Dioxide 29.0, Anion Gap 8, BUN 17, Creatinine 0.91, Estim Creat Clear Calc 64.19, Est GFR (MDRD) Af Amer 104, Est GFR (MDRD) Non-Af 86, BUN/Creatinine Ratio 18.7, Glucose 96, Calcium 8.6 06/12/18 09:20: Vancomycin Trough 13.7 Current Medications Acetaminophen (Tylenol) 650 mg PO Q6H PRN PRN PRN Reason: pain/fever Last Admin: 06/11/18 20:05 Dose: 650 mg Albuterol Sulfate (Ventolin Aerosols) 2.5 mg INHALATION Q4H PRN PRN PRN Reason: SOB &/OR WHEEZING Albuterol/Ipratropium (Duoneb) 3 ml INHALATION Q4H PRN PRN PRN Reason: SOB &/OR WHEEZING Atorvastatin Calcium (Lipitor) 10 mg PO QHS [facility] Last Admin: 06/11/18 21:34 Dose: 10 mg Bisacodyl (Dulcolax) 10 mg RECTAL DAILY PRN PRN PRN Reason: Constipation [facility]ole[facility] ([facility]) [facility] Last Admin: 06/12/18 08:48 Dose: 2,000 unit Clonazepam (Klonopin) 0.5 mg PO BID PRN PRN PRN Reason: ANXIETY Clonazepam (Klonopin) 0.5 mg PO TID [facility] Last Admin: 06/12/18 05:44 Dose: 0.5 mg Duloxetine HCl (Cymbalta) 30 mg PO DAILY [facility] Last Admin: 06/12/18 08:48 Dose: 30 mg Enoxaparin Sodium (Lovenox) 40 mg SC DAILY@1000 [facility] Last Admin: 06/12/18 08:47 Dose: 40 mg Fentanyl (Duragesic Patch) 12 mcg TRANSDERM. Q3D [facility] Ferrous Sulfate (Ferrous Sulfate) [facility] Last Admin: 06/12/18 08:48 Dose: 325 mg Finasteride (Proscar) 5 mg PO DAILY [facility] Last Admin: 06/12/18 08:48 Dose: 5 mg Furosemide (Lasix) 80 mg PO DAILY [facility] Last Admin: 06/12/18 08:48 Dose: 80 mg Guaifenesin (Mucinex) 600 mg PO DAILY [facility] Last Admin: 06/12/18 08:48 Dose: 600 mg Haloperidol Lactate (Haloperidol Lactate) 0.5 mg PO BID [facility] Last Admin: 06/12/18 08:48 Dose: 0.5 mg Piperacillin Sod/Tazobactam Sod (Zosyn) 3.375 gm in 50 mls @ 12.5 mls/hr IV Q8 [facility] Last Admin: 06/12/18 05:44 Dose: 12.5 mls/hr Levothyroxine Sodium (Synthroid) 100 mcg PO DAILY@0600 [facility] Last Admin: 06/12/18 05:45 Dose: 100 mcg Magnesium Hydroxide (Milk Of Magnesia) 30 ml PO DAILY PRN PRN Reason: Constipation Metoprolol Tartrate (Lopressor (Beta Nishant)) 50 mg PO BID [facility] Last Admin: 06/12/18 05:44 Dose: 50 mg Nortriptyline HCl (Pamelor) 75 mg PO DAILY [facility] Last Admin: 06/12/18 08:48 Dose: 75 mg Nutritional Formula (Lactose Free) (Ensure Enlive) 120 ml PO 4X/DAY [facility] Last Admin: 06/12/18 08:49 Dose: 120 ml Oxycodone HCl (Oxyir) 5 mg PO Q4H PRN PRN PRN Reason: PAIN Pantoprazole Sodium (Protonix) 40 mg PO DAILY [facility] Last Admin: 06/12/18 08:47 Dose: 40 mg Polyethylene Glycol (Miralax) 17 gm PO DAILY [facility] Last Admin: 06/12/18 09:00 Dose: Not Given Senna (Senokot) 2 tablet PO DAILY [facility] Last Admin: 06/12/18 09:00 Dose: Not Given Sodium Chloride () 5 - 15 ml IV UD PRN PRN Reason: SALINE FLUSH Tamsulosin HCl (Flomax) 0.4 mg PO DAILY@0830 [facility] Last Admin: 06/12/18 08:48 Dose: 0.4 mg Trimethoprim/Sulfamethoxazole (Bactrim Ds) 1 tablet PO BID [facility] Last Admin: 06/12/18 11:36 Dose: 1 tablet Medical Necessity - Tobacco Use Smoking Status: Former smoker Tobacco Use: Cigarettes Assessment/Plan All Active Problems Altered level of consciousness (Acute) Anemia (Acute) Encephalopathy (Acute) Severe sepsis (Acute) Healthcare-associated pneumonia (Acute) UTI (urinary tract infection) (Acute) Hypoxemia (Acute) Thrombocytopenia (Acute) 1. Sepsis secondary to healthcare associated pneumonia/acute hypoxic respiratory failure/metabolic encephalopathy secondary to pneumonia/UTI on baseline interstitial lung disease - -Lactate has resolved to 1.7. Patient still has low-grade temperature, 99.7 and 100.6 Fahrenheit on 06/11. -Urine culture shows MRSA 11,000-25,000. Influenza tests are negative. Blood cultures were negative for more than 48 hours. -Strep and Legionella urine antigens are negative. Repeat chest x-ray shows interstitial groundglass opacity predominantly in the right mid and lower lung. It seems fibrosis and possible scarring. Pulmonary consult. 2. Hypertension/hyperlipidemia/edema -Stable -Can restart blood pressure medications today -Continue with simvastatin -No appreciable edema on exam though he does take 80 mg of Lasix daily. Discontinue IV fluid 3. GERD -Stable -Continue with PPI 4. BPH -Stable -Continue with Flomax and finasteride 5. COPD -No wheezing on exam to think that this is an exacerbation -Can continue his DuoNeb as needed 6. Hypothyroidism -Stable -Continue with Synthroid DVT: Lovenox Active Medications Acetaminophen (Tylenol) 650 mg PO Q6H PRN PRN PRN Reason: pain/fever Last Admin: 06/11/18 20:05 Dose: 650 mg Albuterol Sulfate (Ventolin Aerosols) 2.5 mg INHALATION Q4H PRN PRN PRN Reason: SOB &/OR WHEEZING Albuterol/Ipratropium (Duoneb) 3 ml INHALATION Q4H PRN PRN PRN Reason: SOB &/OR WHEEZING Atorvastatin Calcium (Lipitor) 10 mg PO QHS [facility] Last Admin: 06/11/18 21:34 Dose: 10 mg Bisacodyl (Dulcolax) 10 mg RECTAL DAILY PRN PRN PRN Reason: Constipation Cholecalciferol (Vitamin D) [facility] Last Admin: 06/12/18 08:48 Dose: 2,000 unit Clonazepam (Klonopin) 0.5 mg PO BID PRN PRN PRN Reason: ANXIETY Clonazepam (Klonopin) 0.5 mg PO TID [facility] Last Admin: 06/12/18 13:32 Dose: 0.5 mg Duloxetine HCl (Cymbalta) 30 mg PO DAILY [facility] Last Admin: 06/12/18 08:48 Dose: 30 mg Enoxaparin Sodium (Lovenox) 40 mg SC DAILY@1000 [facility] Last Admin: 06/12/18 08:47 Dose: 40 mg Fentanyl (Duragesic Patch) 12 mcg TRANSDERM. Q3D [facility] Ferrous Sulfate (Ferrous Sulfate) [facility] Last Admin: 06/12/18 08:48 Dose: 325 mg Finasteride (Proscar) 5 mg PO DAILY [facility] Last Admin: 06/12/18 08:48 Dose: 5 mg Furosemide (Lasix) 80 mg PO DAILY [facility] Last Admin: 06/12/18 08:48 Dose: 80 mg Guaifenesin (Mucinex) 600 mg PO DAILY [facility] Last Admin: 06/12/18 08:48 Dose: 600 mg Haloperidol Lactate (Haloperidol Lactate) 0.5 mg PO BID [facility] Last Admin: 06/12/18 08:48 Dose: 0.5 mg Piperacillin Sod/Tazobactam Sod (Zosyn) 3.375 gm in 50 mls @ 12.5 mls/hr IV Q8 [facility] Last Admin: 06/12/18 13:32 Dose: 12.5 mls/hr Levothyroxine Sodium (Synthroid) 100 mcg PO DAILY@0600 [facility] Last Admin: 06/12/18 05:45 Dose: 100 mcg Magnesium Hydroxide (Milk Of Magnesia) 30 ml PO DAILY PRN PRN Reason: Constipation Metoprolol Tartrate (Lopressor (Beta Nishant)) 50 mg PO BID [facility] Last Admin: 06/12/18 05:44 Dose: 50 mg Nortriptyline HCl (Pamelor) 75 mg PO DAILY [facility] Last Admin: 06/12/18 08:48 Dose: 75 mg Nutritional Formula (Lactose Free) (Ensure Enlive) 120 ml PO 4X/DAY [facility] Last Admin: 06/12/18 13:32 Dose: 120 ml Oxycodone HCl (Oxyir) 5 mg PO Q4H PRN PRN PRN Reason: PAIN Pantoprazole Sodium (Protonix) 40 mg PO DAILY [facility] Last Admin: 06/12/18 08:47 Dose: 40 mg Polyethylene Glycol (Miralax) 17 gm PO DAILY [facility] Last Admin: 06/12/18 09:00 Dose: Not Given Senna (Senokot) 2 tablet PO DAILY [facility] Last Admin: 06/12/18 09:00 Dose: Not Given Sodium Chloride () 5 - 15 ml IV UD PRN PRN Reason: SALINE FLUSH Tamsulosin HCl (Flomax) 0.4 mg PO DAILY@0830 [facility] Last Admin: 06/12/18 08:48 Dose: 0.4 mg Trimethoprim/Sulfamethoxazole (Bactrim Ds) 1 tablet PO BID [facility] Last Admin: 06/12/18 11:36 Dose: 1 tablet Microbiology Past 72 Hours 06/10/18 09:25 Urine, Catheterized Urine Culture - Final Meth. resistant Staph. aureus 06/10/18 09:10 Blood Culture (Wb) - Left Hand Blood Culture - Preliminary No growth in 48 hours. 06/10/18 09:10 Blood Culture (Wb) - Anticubital Right Blood Culture - Preliminary No growth in 48 hours. 06/10/18 16:45 Urine Catheter - Fuchs Streptococcus pneumoniae Antigen (M - Final 06/10/18 16:45 Urine Catheter - Fuchs Legionella Antigen - Final 06/10/18 10:26 Mucosa - Nose Influenza Types A,B Direct FA (EVELINA) - Final Laboratory Results 06/12/18 05:50: WBC 3.8 L, RBC 4.62, Hgb 13.5, Hct 43.0, MCV 93.1, MCH 29.2, MCHC 31.4 L, RDW 19.0 H, RDW Differential 65.5 H, Plt Count 73 L, MPV 10.6, Immature Gran % (Auto) 0.500, Neut % (Auto) 76.6 H, Lymph % (Auto) 10.4 L, [place] % (Auto) 11.2 H, Eos % (Auto) 0.8, Baso % (Auto) 0.5, Absolute Neuts (auto) 2.9, Absolute Lymphs (auto) 0.40 L, Total Counted Not Reportable, Differential Comment COMMENT 06/12/18 05:50: Sodium 139, Potassium 3.3 L, Chloride 102, Carbon Dioxide 29.0, Anion Gap 8, BUN 17, Creatinine 0.91, Estim Creat Clear Calc 64.19, Est GFR (MDRD) Af Amer 104, Est GFR (MDRD) Non-Af 86, BUN/Creatinine Ratio 18.7, Glucose 96, Calcium 8.6 06/12/18 09:20: Vancomycin Trough 13.7 Code Visit Inpatient E&M: 18076 Subs Hosp L3
--- NOTE | 2018-06-12 12:57 | CASEMGMT ---
Patient is from [facility]. SW faxed them updates. Araceli ROD MSW
--- NOTE | 2018-06-12 14:20 | RAD_ITS ---
STUDY: X-RAY CHEST REASON FOR EXAM: Male, 77 years old. Pneumonia. TECHNIQUE: PA and lateral views of the chest. COMPARISON: June 10, 2018. FINDINGS: There is interstitial accentuation of the lungs. There is right mid and lower lung groundglass and airspace opacification. There is blunting of the right costophrenic recess with small pleural effusion. There is mild cardiac enlargement. Normal mediastinum and kalee. Normal visualized pulmonary arteries. Normal visualized aortic arch and descending thoracic aorta. There is demineralization of the osseous structures. There is a levoscoliosis of the thoracic spine. Normal visualized ribs, clavicles, and shoulders. Abdominal aortic stent graft is seen. RAD/Chest PA and Lateral IMPRESSION: Right lower lung infiltrate or edema and pleural thickening or small effusion with mild worsening. Electronically Signed: Arnol Kessler MD at 15:24 EST , Service support ,
[2018-06-12] MEDS: Atorvastatin Calcium 10 MG Tablet PO (22:15)
[2018-06-13] VITALS (15 sets, daily range): BP systolic 95–126; BP diastolic 33–74; PULSE 73–105; RESP 16–20; TEMP 36.4–37.3; O2SAT 93–96
[2018-06-13 05:52] LABS: Absolute Lymphocyte Count 0.76 X10^3/ul (0.83-4.51); Absolute Neutrophil Count 2.4 X10^3/uL (2.0-7.7); Basophil# 0.01 X10^3/uL; Basophil% 0.3 % (0-1); Hematocrit 33.9 % (40-54); Hemoglobin 10.9 g/dl (13.0-16.5); Lymphocyte # 0.76 X10^3/ul (4.0); Lymphocyte % 21.2 % (19-41); Mean Corp Hgb Conc 32.2 g/gl (32-36); Mean Corpuscular Hgb 29.5 pg (27.0-32.0); Mean Corpuscular Volume 91.6 fL (80-94); Mean Platelet Vol. 9.9 fl (6.2-12.0); Monocyte% 11.2 % (0-10); Platelet Count 81 K/mm3 (150-450); RBC Distribution Width CV 18.5 % (11.6-14.6); RBC Distribution Width SD 60.5 fl (35.1-43.9); White Blood Count 3.6 K/mm3 (4.4-11.0)
[2018-06-13 05:55] LABS: POSITIVE COUNT NO; POSITIVE DIFFERENTIAL NO; POSITIVE MORPHOLOGY NO
[2018-06-13] MEDS: clonazePAM 0.5 MG Tablet PO ×2 (06:05→12:17)
[2018-06-13] MEDS: Piperacil/Tazobactam 3.375 GM/50 ML ML IV ×2 (06:05→15:34)
[2018-06-13] MEDS: Levothyroxine 100 MCG Tablet PO (06:06)
[2018-06-13 06:09] LABS: Anion Gap 6 (5-15); BUN 19 mg/dL (7-18); BUN/Creat Ratio 20.6 RATIO (10-20); Calcium,Total 8.2 mg/dL (8.5-10.1); Chloride 107 mmol/L (98-107); Creatinine, Serum 0.92 mg/dL (0.70-1.30); EST Glomerular Filtration Rate 85 mL/min (>60); Est Glom Filt Rate - Afr Amer 103 mL/min (>60); Estimated Creatinine Clearance 63.49 ml/min; Glucose 78 mg/dL (74-106); Magnesium 1.6 mg/dL (1.6-2.6); Potassium 3.9 mmol/L (3.5-5.1); Sodium Level 143 mmol/L (136-145)
--- NOTE | 2018-06-13 06:56 | PCM.CONS.GEN ---
Reason for Consult Date of Consultation: 06/13/18 Reason for Consultation: Interstitial lung disease with suspicion of HCAP History of Present Illness: The patient is a 77-year-old male, with a history as outlined below, who presented to the emergency department on June 10 by EMS with shortness of breath and hypoxia. The patient reportedly does have a history of lung cancer, which is in remission, along with COPD of unknown severity and chronic hypoxemic respiratory failure with a baseline 4 L/min supplemental oxygen requirement. The patient also does apparently have some baseline dementia. History pertinent to his hospitalization was obtained merely via chart review, as the patient is far too overmedicated to participate in my interview with him. It appears the patient is receiving scheduled Klonopin, has a fentanyl transdermal patch in place and did receive Haldol last night. On presentation to the emergency department, the patient was noted to be febrile with a temperature of 38.6 ?C. He was also tachycardic and tachypneic with an oxygen saturation of 93% on 6 L/min. Laboratory evaluation revealed evidence of pancytopenia. Chemistry profile was notable for a potassium of 3.4 and evidence of acute kidney injury with a creatinine of 1.24. Lactate was elevated to 3.3. Urinalysis was positive for leukocyte esterase and 2+ urine bacteria. Plain film chest x-ray was personally reviewed and revealed interstitial prominence most pronounced throughout the right hemithorax along with right lower lobe airspace disease and blunting of the right costophrenic angle. Of note, the patient's CODE STATUS does reveal DNR CCA. He is currently being treated with broad-spectrum antibiotics. The patient is currently documented to be overall net +4 L for the admission. The patient has defervesced clinically, is currently afebrile and maintaining appropriate oxygen saturations on his baseline 4 L/min requirement. He is not tachypneic. Past Medical History Past Medical History (Chronic Problems): Chronic Problems COPD (chronic obstructive pulmonary disease) (Chronic) History of lung cancer (Chronic) Cirrhosis (Chronic) Chronic respiratory failure with hypoxia (Chronic) Hypertension (Chronic) Depression (Chronic) Allergies morphine Allergy (Verified 06/10/18 09:09) Rash Home Medications: Ambulatory Orders Medication Instructions Recorded Ascorbic Acid [Vitamin C] 1,000 mg PO DAILY 05/13/18 Cholecalciferol (VIT D3) [Vitamin 2,000 unit PO DAILY 05/13/18 D] Clonazepam [Klonopin] 0.5 mg PO TID 05/13/18 Diltiazem HCl [Diltiazem 24Hr Cd] 120 mg PO DAILY 05/13/18 Duloxetine Hcl [Cymbalta] 30 mg PO DAILY 05/13/18 Ferrous Sulfate 325 mg PO BIDCM 05/13/18 Finasteride [Proscar] 5 mg PO DAILY 05/13/18 Furosemide [Lasix] 80 mg PO DAILY 05/13/18 Guaifenesin [Mucinex] 600 mg PO DAILY 05/13/18 Ipratropium/Albuterol Sulfate 3 ml INHALATION Q4H 05/13/18 [Duoneb] Lactobacillus Acidophilus 1 each PO BID 05/13/18 [Acidophilus] Levothyroxine [Synthroid] 100 mcg PO DAILY 05/13/18 Metoprolol Tartrate [Lopressor 50 mg PO BID 05/13/18 (Beta Nishant)] Multivitamins,Therapeutic 1 tablet PO DAILY 05/13/18 [Multivitamin] Nortriptyline HCl [Pamelor] 75 mg PO DAILY 05/13/18 Omeprazole [Prilosec] 40 mg PO DAILY 05/13/18 Polyethylene Glycol 3350 [Miralax] 17 gm PO DAILY 05/13/18 Potassium Chloride 1 tab PO DAILY 05/13/18 Senna [Senokot] 1 tablet PO BID 05/13/18 Simvastatin [Zocor] 20 mg PO QHS 05/13/18 Tamsulosin HCl [Flomax] 0.4 mg PO DAILY 05/13/18 fentaNYL patch [Duragesic Patch] 12 mcg TRANSDERM. Q3D 05/13/18 Acetaminophen 650 mg PO Q6H PRN PRN 06/10/18 Albuterol Inhaler [Ventolin Hfa 2 puff INHALATION Q4H PRN PRN 06/10/18 (SP)] Amoxicillin/Potassium Clav 1 each PO BID 06/10/18 [Augmentin 875-125 Tablet] Bisacodyl [Dulcolax] 10 mg RECTAL DAILY PRN PRN 06/10/18 Bisacodyl [Laxative] 5 mg PO DAILY 06/10/18 Clonazepam [Klonopin] 0.5 mg PO BID PRN PRN 06/10/18 Haloperidol [Haldol] 0.5 mg PO BID 06/10/18 Ipratropium/Albuterol Sulfate 3 ml INHALATION Q4H PRN PRN 06/10/18 [Duoneb] Isosorbide Mononitrate [Imdur] 30 mg PO DAILY 06/10/18 Magnesium Hydroxide [Milk Of 30 ml PO DAILY PRN PRN 06/10/18 Magnesia] Ondansetron [Zofran Odt] 4 mg PO Q8H PRN PRN 06/10/18 Oxycodone [Oxyir] 5 mg PO Q4H PRN PRN 06/10/18 Surgical History: - - Could not obtain from patient Smoking Status: Former smoker Tobacco Use: Cigarettes Alcohol: None Drugs: None - *Family History Maternal History Items: No pertinent history, - - Could not obtain any family history from the patient Review of Systems Unable to obtain accurate/complete ROS d/t: Due to encephalopathic state Patient Problems: Active and Suspected Problems Severe sepsis (Acute) Healthcare-associated pneumonia (Acute) UTI (urinary tract infection) (Acute) Hypoxemia (Acute) Thrombocytopenia (Acute) Objective: The patient's most recent lab work, culture data and imaging studies have all been personally reviewed. Blood cultures have shown no growth to date. Rapid influenza screen was negative. Strep and urine Legionella antigens were both negative. Urine culture was positive for MRSA. - Physical Exam General: Lethargic, - - Only arouses transiently to verbal and tactile stimulation, then falls quickly back to sleep. HEENT: Atraumatic, PERRLA, Normocephalic Oral: Dry Mucosa Neck: Supple, No Nodes, Trachea Midline Lungs: No rhonchi, No wheeze, Diminished, Rales - R>L Cardiovascular: Regular rate, Regular Rhythm, Normal S1, Normal S2, No murmurs Abdomen: Bowel Sounds Present, Soft, Non Tender Extremities: No clubbing, No cyanosis, No edema Skin: No breakdown Musculoskeletal: No Tenderness to Palpation of Joints or Extremities Lymphatic: No Cervical, Supraclavicular, or Inguinal Adenopathy Neurological: - - No focal neurological deficits. Psych/Mental Status: Flat Affect Vital Signs Temp Pulse Resp BP Pulse Ox 36.4 C L 77 18 126/74 H 94 06/13/18 06:15 06/13/18 06:15 06/13/18 06:15 06/13/18 06:15 06/13/18 06:15 Oxygen Flow Rate (L/min) 4 Oxygen Delivery Method Nasal Cannula Weight: 142 lb 10.225 oz Body Mass Index (BMI) 21.0 Intake and Output for Last 24 Hours 06/11/18 06/12/18 06/13/18 23:59 23:59 23:59 Intake Total 2094 / 2094 2031 / 2031 218 / 218 Output Total 1150 / 1150 200 / 200 Balance 944 / 944 1831 / 1831 218 / 218 Microbiology Past 72 Hours 06/10/18 09:25 Urine Culture - Final Urine, Catheterized Meth. resistant Staph. aureus 06/10/18 09:10 Blood Culture - Preliminary Blood Culture (Wb) - Left Hand No growth in 48 hours. 06/10/18 09:10 Blood Culture - Preliminary Blood Culture (Wb) - Anticubital Right No growth in 48 hours. 06/10/18 16:45 Streptococcus pneumoniae Antigen (M - Final Urine Catheter - Fuchs 06/10/18 16:45 Legionella Antigen - Final Urine Catheter - Fuchs 06/10/18 10:26 Influenza Types A,B Direct FA (EVELINA) - Final Mucosa - Nose Laboratory Tests Past 24 Hrs 06/12/18 06/12/18 06/13/18 05:50 09:20 05:35 WBC 3.8 L 3.6 L RBC 4.62 3.70 L Hgb 13.5 10.9 L Hct 43.0 33.9 L MCV 93.1 91.6 MCH 29.2 29.5 MCHC 31.4 L 32.2 RDW 19.0 H 18.5 H RDW Differential 65.5 H 60.5 H Plt Count 73 L 81 L MPV 10.6 9.9 Immature Gran % (Auto) 0.500 0.300 Neut % (Auto) 76.6 H 67.0 Lymph % (Auto) 10.4 L 21.2 Braxton % (Auto) 11.2 H 11.2 H Eos % (Auto) 0.8 0.0 Baso % (Auto) 0.5 0.3 Absolute Neuts (auto) 2.9 2.4 Absolute Lymphs (auto) 0.40 L 0.76 L Total Counted Not Reportable Not Reportable Differential Comment COMMENT Sodium Potassium Chloride Carbon Dioxide Anion Gap BUN Creatinine Estim Creat Clear Calc Est GFR (MDRD) Af Amer Est GFR (MDRD) Non-Af BUN/Creatinine Ratio Glucose Calcium Magnesium Vancomycin Trough 13.7 06/13/18 05:35 WBC RBC Hgb Hct MCV MCH MCHC RDW RDW Differential Plt Count MPV Immature Gran % (Auto) Neut % (Auto) Lymph % (Auto) Braxton % (Auto) Eos % (Auto) Baso % (Auto) Absolute Neuts (auto) Absolute Lymphs (auto) Total Counted Differential Comment Sodium 143 Potassium 3.9 Chloride 107 Carbon Dioxide 30.0 Anion Gap 6 BUN 19 H Creatinine 0.92 Estim Creat Clear Calc 63.49 Est GFR (MDRD) Af Amer 103 Est GFR (MDRD) Non-Af 85 BUN/Creatinine Ratio 20.6 H Glucose 78 Calcium 8.2 L Magnesium 1.6 Vancomycin Trough Clinical Impression(s) from Imaging Studies Chest X-Ray 06/10/18 09:10 IMPRESSION: Overall similar appearance of interstitial chronic markings compared to previous exam with no definitive new airspace disease. Acute on chronic right lower lobe early airspace disease cannot be completely excluded. Electronically Signed: Ihsan Conway DO at 10:06 EST , Service support , Chest X-Ray 06/12/18 14:20 IMPRESSION: Right lower lung infiltrate or edema and pleural thickening or small effusion with mild worsening. Electronically Signed: Arnol Kessler MD at 15:24 EST , Service support , Assessment/Plan All Active Problems Altered level of consciousness (Acute) Anemia (Acute) Encephalopathy (Acute) Severe sepsis (Acute) Healthcare-associated pneumonia (Acute) UTI (urinary tract infection) (Acute) Hypoxemia (Acute) Thrombocytopenia (Acute) RECOMMENDATIONS: 1. Continue treatment with antibiotics for HCAP with plans to complete a 7-day treatment course. 2. Check BNP and dose adjust Lasix regimen, if elevated. 3. Continue as needed aerosol treatments. 4. May wish to consider n.p.o. status and the patient is more alert, given concern for potential aspiration. 5. No additional inpatient workup from a pulmonary perspective is indicated at this time. 6. If the patient or his family wishes to pursue any additional pulmonary workup, this can be completed on an outpatient basis, by obtaining pulmonary function studies. IMPRESSIONS: 1. Acute on chronic hypoxemic respiratory failure secondary to healthcare associated pneumonia The patient does have what appears to be evidence of a right lung airspace opacity, likely representing pneumonia. He has responded clinically to antimicrobials and is currently afebrile and maintaining appropriate oxygen saturations on his baseline 4 L/min. Groundglass changes are very difficult to discern on plain film chest imaging. The patient does not have a prior CT chest on file. Regardless, groundglass changes can be indicative of underlying infection or pulmonary edema. It is presumptuous to assume that the patient has interstitial lung disease without a dedicated chest CT or prior chest imaging studies to review. Regardless, the interstitial changes are present on prior chest imaging studies in our system, date back to January 2018, indicating a chronic process. He does appear to have an acute superimposed right-sided airspace opacity, which is currently being treated appropriately. In addition to the aforementioned, the patient also reportedly has a history of lung cancer and questionable COPD. However, there are no pulmonary function studies on file to confirm or refute this assertion. The patient is also not able to provide me any additional information pertinent to his medical history or current hospitalization. Given that the patient does appear to have scheduled Lasix ordered for him as an outpatient, one should also be concerned about the possibility for pulmonary edema. Will check BNP. I would be cautious to allow for p.o. intake, given how lethargic the patient currently is, given his risk for aspiration. In summary, I would recommend continuing antimicrobial coverage for HCAP, with plans to complete a 7-day treatment course. He is currently receiving as needed aerosol treatments and is maintaining appropriate oxygen saturations on his baseline requirement. No additional inpatient workup is warranted at this time. The patient can follow-up in the pulmonary medicine clinic, if he wishes to do so, so that baseline pulmonary function testing can be obtained. 2. MRSA cystitis Continue antibiotics as ordered. 3. Questionable COPD of unknown severity/history of lung cancer, reportedly in remission It is unclear whether the patient has ever had pulmonary function studies or follows with a pulmonary provider. His lung cancer history is also unclear. Regardless, as needed aerosol treatments can be continued in the interim. The patient can follow-up on an outpatient basis in the pulmonary medicine clinic, if additional workup is indicated. 4. Encephalopathy Likely metabolic in nature with concerns for potential medication effects, as the patient is currently receiving scheduled Klonopin, Haldol and transdermal fentanyl patch. 5. Advanced age/deconditioning/dementia/hypothyroidism/chronic pain disorder/hypertension/hyperlipidemia Complicates care, management, recovery and prognosis. Consider dose de-escalation and/or discontinuation of sedating medications. This note was generated with [employer] dictation software. It may contain incorrect words, spelling, and punctuation that were not noted in checking the note before signing. Code Visit Inpatient E&M: 22890 Init Hosp L3
--- NOTE | 2018-06-13 09:01 | NURSING ---
12mcg fentanyl patch removed from pt and flushed down toilet. Witnessed with Pino Landaverde RN
[2018-06-13] MEDS: Furosemide 40 MG/4 ML Vial IV (09:20)
--- NOTE | 2018-06-13 10:29 | NURSING ---
Pt awake and pulled out his IV line. Pulling at wires, support given. Bed alarm on.
[2018-06-13] MEDS: Ferrous Sulfate 325 MG Tablet PO ×2 (12:17→17:24)
[2018-06-13] MEDS: Smz/Tmp Ds Tablet 1 TABLET PO ×2 (12:18→21:12)
[2018-06-13] MEDS: Pantoprazole Sodium 40 MG Tablet PO (12:18)
[2018-06-13] MEDS: Tamsulosin HCl 0.4 MG Capsule PO (12:18)
[2018-06-13] MEDS: Finasteride 5 MG Tablet PO (12:18)
[2018-06-13] MEDS: DULoxetine Hcl 30 MG Capsule PO (12:18)
[2018-06-13] MEDS: guaiFENesin 600 MG Tablet PO (12:18)
[2018-06-13] MEDS: Enoxaparin 40 MG/0.4 ML Syringe SC (12:19)
--- NOTE | 2018-06-13 14:12 | PCM.PN.HOSP ---
Patient Problems: Active and Suspected Problems Severe sepsis (Acute) Healthcare-associated pneumonia (Acute) UTI (urinary tract infection) (Acute) Hypoxemia (Acute) Thrombocytopenia (Acute) Subjective: Seen in the morning today and patient is found more sleepy and sedated. On further discussion with nursing staff, patient was put on fentanyl patch 12 mcg for severe pain. Patient also on Klonopin 0.5 mg 3 times daily and 0.5 mg twice daily as needed, nortriptyline 75 mg for anxiety. Later on the day, patient wakes up and is more agitated Vitals/I&O's: Vital Signs Temp Pulse Resp BP Pulse Ox 97.7 F L 83 18 95/61 96 06/13/18 12:14 06/13/18 12:14 06/13/18 12:14 06/13/18 12:14 06/13/18 12:14 Oxygen Flow Rate (L/min) 4 Oxygen Delivery Method Nasal Cannula Weight: 142 lb 10.225 oz Body Mass Index (BMI) 21.0 Intake and Output for Last 24 Hours 06/11/18 06/12/18 06/13/18 23:59 23:59 23:59 Intake Total 2093 / 4 2030 / 2030 338 / 338 Output Total 1150 / 1150 200 / 200 Balance 944 / 944 1831 / 1831 338 / 338 General: Confused, Disoriented, Lethargic HEENT: Atraumatic, PERRLA, EOMI, Normocephalic Neck: Supple, No JVD, Negative Carotid Bruits Lungs: Diminished, Rales - Coarse rales present., Rhonchi, Short of Breath Cardiovascular: Regular rate, Regular Rhythm, Normal S1, Normal S2, Murmur Abdomen: Bowel Sounds Present, Soft, Non Tender, Non-Distended Extremities: No edema, Capillary Refill Less than 3 Seconds Skin: No rashes, No breakdown Musculoskeletal: No Tenderness to Palpation of Joints or Extremities, Arthritic Changes, Muscle Wasting Neurological: Cranial nerves II-XII grossly intact Psych/Mental Status: Normal Affect, Appropriate Microbiology Past 72 Hours 06/13/18 07:24 Mucosa - Nasopharyngeal Respiratory Panel (PCR) - Final RSV B 06/10/18 09:25 Urine, Catheterized Urine Culture - Final Meth. resistant Staph. aureus 06/10/18 09:10 Blood Culture (Wb) - Left Hand Blood Culture - Preliminary No growth in 48 hours. 06/10/18 09:10 Blood Culture (Wb) - Anticubital Right Blood Culture - Preliminary No growth in 48 hours. 06/10/18 16:45 Urine Catheter - Fuchs Streptococcus pneumoniae Antigen (M - Final 06/10/18 16:45 Urine Catheter - Fuchs Legionella Antigen - Final 06/10/18 10:26 Mucosa - Nose Influenza Types A,B Direct FA (EVELINA) - Final Laboratory Results 06/13/18 05:35: WBC 3.6 L, RBC 3.70 L, Hgb 10.9 L, Hct 33.9 L, MCV 91.6, MCH 29.5, MCHC 32.2, RDW 18.5 H, RDW Differential 60.5 H, Plt Count 81 L, MPV 9.9, Immature Gran % (Auto) 0.300, Neut % (Auto) 67.0, Lymph % (Auto) 21.2, Lamar % (Auto) 11.2 H, Eos % (Auto) 0.0, Baso % (Auto) 0.3, Absolute Neuts (auto) 2.4, Absolute Lymphs (auto) 0.76 L, Total Counted Not Reportable 06/13/18 05:35: Sodium 143, Potassium 3.9, Chloride 107, Carbon Dioxide 30.0, Anion Gap 6, BUN 19 H, Creatinine 0.92, Estim Creat Clear Calc 63.49, Est GFR (MDRD) Af Amer 103, Est GFR (MDRD) Non-Af 85, BUN/Creatinine Ratio 20.6 H, Glucose 78, Calcium 8.2 L, Magnesium 1.6 06/13/18 05:35: B-Natriuretic Peptide 4237.0 H Current Medications Acetaminophen (Tylenol) 650 mg PO Q6H PRN PRN PRN Reason: pain/fever Last Admin: 06/11/18 20:05 Dose: 650 mg Albuterol Sulfate (Ventolin Aerosols) 2.5 mg INHALATION Q4H PRN PRN PRN Reason: SOB &/OR WHEEZING Albuterol/Ipratropium (Duoneb) 3 ml INHALATION Q4H PRN PRN PRN Reason: SOB &/OR WHEEZING Atorvastatin Calcium (Lipitor) 10 mg PO QHS VICKI Last Admin: 06/12/18 22:15 Dose: 10 mg Bisacodyl (Dulcolax) 10 mg RECTAL DAILY PRN PRN PRN Reason: Constipation [facility] Admin: 06/13/18 12:17 Dose: 2,000 unit Clonazepam (Klonopin) 0.5 mg PO TID PRN PRN PRN Reason: ANXIETY Last Admin: 06/13/18 12:17 Dose: 0.5 mg Duloxetine HCl (Cymbalta) 30 mg PO DAILY [facility] Last Admin: 06/13/18 12:18 Dose: 30 mg Enoxaparin Sodium (Lovenox) 40 mg SC DAILY@1000 [facility] Last Admin: 06/13/18 12:19 Dose: 40 mg Ferrous Sulf[facility] ([facility]ous Sulfate) [facility] Last Admin: 06/13/18 12:17 Dose: 325 mg Finasteride (Proscar) 5 mg PO DAILY [facility] Last Admin: 06/13/18 12:18 Dose: 5 mg Furosemide (Lasix) 80 mg PO DAILY [facility] Last Admin: 06/13/18 12:48 Dose: Not Given Guaifenesin (Mucinex) 600 mg PO DAILY [facility] Last Admin: 06/13/18 12:18 Dose: 600 mg Haloperidol Lactate (Haloperidol Lactate) 0.5 mg PO BID PRN PRN PRN Reason: agitation Piperacillin Sod/Tazobactam Sod (Zosyn) 3.375 gm in 50 mls @ 12.5 mls/hr IV Q8 [facility] Last Admin: 06/13/18 06:05 Dose: 12.5 mls/hr Levothyroxine Sodium (Synthroid) 100 mcg PO DAILY@0600 [facility] Last Admin: 06/13/18 06:06 Dose: 100 mcg Magnesium Hydroxide (Milk Of Magnesia) 30 ml PO DAILY PRN PRN Reason: Constipation Metoprolol Tartrate (Lopressor (Beta Nishant)) 50 mg PO BID [facility] Last Admin: 06/13/18 12:48 Dose: Not Given Nortriptyline HCl (Pamelor) 25 mg PO QHS PRN PRN PRN Reason: insomnia Nutritional Formula (Lactose Free) (Ensure Enlive) 120 ml PO 4X/DAY [facility] Last Admin: 06/13/18 12:19 Dose: Not Given Oxycodone HCl (Oxyir) 5 mg PO Q4H PRN PRN PRN Reason: PAIN Pantoprazole Sodium (Protonix) 40 mg PO DAILY [facility] Last Admin: 06/13/18 12:18 Dose: 40 mg Polyethylene Glycol (Miralax) 17 gm PO DAILY [facility] Last Admin: 06/13/18 12:20 Dose: Not Given Senna (Senokot) 2 tablet PO DAILY [facility] Last Admin: 06/13/18 12:20 Dose: Not Given Sodium Chloride () 5 - 15 ml IV UD PRN PRN Reason: SALINE FLUSH Tamsulosin HCl (Flomax) 0.4 mg PO DAILY@0830 [facility] Last Admin: 06/13/18 12:18 Dose: 0.4 mg Trimethoprim/Sulfamethoxazole (Bactrim Ds) 1 tablet PO BID [facility] Last Admin: 06/13/18 12:18 Dose: 1 tablet Medical Necessity - Tobacco Use Smoking Status: Former smoker Tobacco Use: Cigarettes Assessment/Plan All Active Problems Altered level of consciousness (Acute) Anemia (Acute) Encephalopathy (Acute) Severe sepsis (Acute) Healthcare-associated pneumonia (Acute) UTI (urinary tract infection) (Acute) Hypoxemia (Acute) Thrombocytopenia (Acute) There is a 77 gentleman with history of COPD, chronic hypoxic respiratory failure on 4 L of home oxygen, lung cancer as per chart was admitted with shortness of breath, fever, tachypnea and acute on chronic hypoxic respiratory failure. 1. Sepsis secondary to healthcare associated pneumonia/acute hypoxic respiratory failure and metabolic encephalopathy secondary to pneumonia/UTI on baseline interstitial lung disease - -Lactate has resolved to 1.7. Patient still has low-grade temperature, 99.7 and 100.6 Fahrenheit on 06/11. -Urine culture shows MRSA 11,000-25,000. Influenza tests are negative. Blood cultures were negative for more than 48 hours. -Strep and Legionella urine antigens are negative. Repeat chest x-ray shows interstitial groundglass opacity predominantly in the right mid and lower lung. It seems fibrosis and possible scarring. Pulmonary consult reviewed and appreciated. Advised to continue same medication and follow-up in pulmonary clinic Possible heart failure with elevated BNP: BNP elevated 4237. Lasix 40 mg extra dose given. 2D echo ordered. 2. Hypertension/hyperlipidemia/edema -Stable -Can restart blood pressure medications today -Continue with simvastatin -No appreciable edema on exam though he does take 80 mg of Lasix daily. Discontinue IV fluid 3. GERD -Stable -Continue with PPI 4. BPH -Stable -Continue with Flomax and finasteride 5. COPD -No wheezing on exam to think that this is an exacerbation -Can continue his DuoNeb as needed 6. Hypothyroidism -Stable -Continue with Synthroid Chronic thrombocytopenia: Patient platelet count was 104,000 in January 2018. On this admission, patient came with 59,000 with slow improvement 81,000. Patient is moderate to high risk for DVT. Continue Lovenox 40 minutes subcu daily. Discontinue if platelet count drops less than 70,000 or hemoglobin less than 8 g% Active Medications Acetaminophen (Tylenol) 650 mg PO Q6H PRN PRN PRN Reason: pain/fever Last Admin: 06/11/18 20:05 Dose: 650 mg Albuterol Sulfate (Ventolin Aerosols) 2.5 mg INHALATION Q4H PRN PRN PRN Reason: SOB &/OR WHEEZING Albuterol/Ipratropium (Duoneb) 3 ml INHALATION Q4H PRN PRN PRN Reason: SOB &/OR WHEEZING Atorvastatin Calcium (Lipitor) 10 mg PO QHS [facility] Last Admin: 06/12/18 22:15 Dose: 10 mg Bisacodyl (Dulcolax) 10 mg RECTAL DAILY PRN PRN PRN Reason: Constipation Cholecalciferol (Vitamin D) [facility] Last Admin: 06/13/18 12:17 Dose: 2,000 unit Clonazepam (Klonopin) 0.5 mg PO TID PRN PRN PRN Reason: ANXIETY Last Admin: 06/13/18 12:17 Dose: 0.5 mg Duloxetine HCl (Cymbalta) 30 mg PO DAILY [facility] Last Admin: 06/13/18 12:18 Dose: 30 mg Enoxaparin Sodium (Lovenox) 40 mg SC DAILY@1000 [facility] Last Admin: 06/13/18 12:19 Dose: 40 mg Ferrous Sulfate (F[facility]ous Sulfate) [facility] Last Admin: 06/13/18 12:17 Dose: 325 mg Finasteride (Proscar) 5 mg PO DAILY [facility] Last Admin: 06/13/18 12:18 Dose: 5 mg Furosemide (Lasix) 80 mg PO DAILY [facility] Last Admin: 06/13/18 12:48 Dose: Not Given Guaifenesin (Mucinex) 600 mg PO DAILY [facility] Last Admin: 06/13/18 12:18 Dose: 600 mg Haloperidol Lactate (Haloperidol Lactate) 0.5 mg PO BID PRN PRN PRN Reason: agitation Piperacillin Sod/Tazobactam Sod (Zosyn) 3.375 gm in 50 mls @ 12.5 mls/hr IV Q8 [facility] Last Admin: 06/13/18 06:05 Dose: 12.5 mls/hr Levothyroxine Sodium (Synthroid) 100 mcg PO DAILY@0600 [facility] Last Admin: 06/13/18 06:06 Dose: 100 mcg Magnesium Hydroxide (Milk Of Magnesia) 30 ml PO DAILY PRN PRN Reason: Constipation Metoprolol Tartrate (Lopressor (Beta Nishant)) 50 mg PO BID [facility] Last Admin: 06/13/18 12:48 Dose: Not Given Nortriptyline HCl (Pamelor) 25 mg PO QHS PRN PRN PRN Reason: insomnia Nutritional Formula (Lactose Free) (Ensure Enlive) 120 ml PO 4X/DAY [facility] Last Admin: 06/13/18 12:19 Dose: Not Given Oxycodone HCl (Oxyir) 5 mg PO Q4H PRN PRN PRN Reason: PAIN Pantoprazole Sodium (Protonix) 40 mg PO DAILY [facility] Last Admin: 06/13/18 12:18 Dose: 40 mg Polyethylene Glycol (Miralax) 17 gm PO DAILY [facility] Last Admin: 06/13/18 12:20 Dose: Not Given Senna (Senokot) 2 tablet PO DAILY [facility] Last Admin: 06/13/18 12:20 Dose: Not Given Sodium Chloride () 5 - 15 ml IV UD PRN PRN Reason: SALINE FLUSH Tamsulosin HCl (Flomax) 0.4 mg PO DAILY@0830 [facility] Last Admin: 06/13/18 12:18 Dose: 0.4 mg Trimethoprim/Sulfamethoxazole (Bactrim Ds) 1 tablet PO BID [facility] Last Admin: 06/13/18 12:18 Dose: 1 tablet Microbiology Past 72 Hours 06/13/18 07:24 Mucosa - Nasopharyngeal Respiratory Panel (PCR) - Final RSV B 06/10/18 09:25 Urine, Catheterized Urine Culture - Final Meth. resistant Staph. aureus 06/10/18 09:10 Blood Culture (Wb) - Left Hand Blood Culture - Preliminary No growth in 48 hours. 06/10/18 09:10 Blood Culture (Wb) - Anticubital Right Blood Culture - Preliminary No growth in 48 hours. 06/10/18 16:45 Urine Catheter - Fuchs Streptococcus pneumoniae Antigen (M - Final 06/10/18 16:45 Urine Catheter - Fuchs Legionella Antigen - Final 06/10/18 10:26 Mucosa - Nose Influenza Types A,B Direct FA (EVELINA) - Final Laboratory Results 06/13/18 05:35: WBC 3.6 L, RBC 3.70 L, Hgb 10.9 L, Hct 33.9 L, MCV 91.6, MCH 29.5, MCHC 32.2, RDW 18.5 H, RDW Differential 60.5 H, Plt Count 81 L, MPV 9.9, Immature Gran % (Auto) 0.300, Neut % (Auto) 67.0, Lymph % (Auto) 21.2, Lamar % (Auto) 11.2 H, Eos % (Auto) 0.0, Baso % (Auto) 0.3, Absolute Neuts (auto) 2.4, Absolute Lymphs (auto) 0.76 L, Total Counted Not Reportable 06/13/18 05:35: Sodium 143, Potassium 3.9, Chloride 107, Carbon Dioxide 30.0, Anion Gap 6, BUN 19 H, Creatinine 0.92, Estim Creat Clear Calc 63.49, Est GFR (MDRD) Af Amer 103, Est GFR (MDRD) Non-Af 85, BUN/Creatinine Ratio 20.6 H, Glucose 78, Calcium 8.2 L, Magnesium 1.6 06/13/18 05:35: B-Natriuretic Peptide 4237.0 H Code Visit Inpatient E&M: 10944 Subs Hosp L3
--- NOTE | 2018-06-13 14:19 | PN_ITS ---
Patient Problems: Active and Suspected Problems Severe sepsis (Acute) Healthcare-associated pneumonia (Acute) UTI (urinary tract infection) (Acute) Hypoxemia (Acute) Thrombocytopenia (Acute) Subjective: Seen in the morning today and patient is found more sleepy and sedated. On further discussion with nursing staff, patient was put on fentanyl patch 12 mcg for severe pain. Patient also on Klonopin 0.5 mg 3 times daily and 0.5 mg twice daily as needed, nortriptyline 75 mg for anxiety. Later on the day, patient wakes up and is more agitated Vitals/I&O's: Vital Signs Temp Pulse Resp BP Pulse Ox 97.7 F L 83 18 95/61 96 06/13/18 12:14 06/13/18 12:14 06/13/18 12:14 06/13/18 12:14 06/13/18 12:14 Oxygen Flow Rate (L/min) 4 Oxygen Delivery Method Nasal Cannula Weight: 142 lb 10.225 oz Body Mass Index (BMI) 21.0 Intake and Output for Last 24 Hours 06/11/18 06/12/18 06/13/18 23:59 23:59 23:59 Intake Total 2093 / 4 2030 / 2030 338 / 338 Output Total 1150 / 1150 200 / 200 Balance 944 / 944 1831 / 1831 338 / 338 General: Confused, Disoriented, Lethargic HEENT: Atraumatic, PERRLA, EOMI, Normocephalic Neck: Supple, No JVD, Negative Carotid Bruits Lungs: Diminished, Rales - Coarse rales present., Rhonchi, Short of Breath Cardiovascular: Regular rate, Regular Rhythm, Normal S1, Normal S2, Murmur Abdomen: Bowel Sounds Present, Soft, Non Tender, Non-Distended Extremities: No edema, Capillary Refill Less than 3 Seconds Skin: No rashes, No breakdown Musculoskeletal: No Tenderness to Palpation of Joints or Extremities, Arthritic Changes, Muscle Wasting Neurological: Cranial nerves II-XII grossly intact Psych/Mental Status: Normal Affect, Appropriate Microbiology Past 72 Hours 06/13/18 07:24 Mucosa - Nasopharyngeal Respiratory Panel (PCR) - Final RSV B 06/10/18 09:25 Urine, Catheterized Urine Culture - Final Meth. resistant Staph. aureus 06/10/18 09:10 Blood Culture (Wb) - Left Hand Blood Culture - Preliminary No growth in 48 hours. 06/10/18 09:10 Blood Culture (Wb) - Anticubital Right Blood Culture - Preliminary No growth in 48 hours. 06/10/18 16:45 Urine Catheter - Fuchs Streptococcus pneumoniae Antigen (M - Final 06/10/18 16:45 Urine Catheter - Fuchs Legionella Antigen - Final 06/10/18 10:26 Mucosa - Nose Influenza Types A,B Direct FA (EVELINA) - Final Laboratory Results 06/13/18 05:35: WBC 3.6 L, RBC 3.70 L, Hgb 10.9 L, Hct 33.9 L, MCV 91.6, MCH 29.5, MCHC 32.2, RDW 18.5 H, RDW Differential 60.5 H, Plt Count 81 L, MPV 9.9, Immature Gran % (Auto) 0.300, Neut % (Auto) 67.0, Lymph % (Auto) 21.2, Wright % (Auto) 11.2 H, Eos % (Auto) 0.0, Baso % (Auto) 0.3, Absolute Neuts (auto) 2.4, Absolute Lymphs (auto) 0.76 L, Total Counted Not Reportable 06/13/18 05:35: Sodium 143, Potassium 3.9, Chloride 107, Carbon Dioxide 30.0, Anion Gap 6, BUN 19 H, Creatinine 0.92, Estim Creat Clear Calc 63.49, Est GFR (MDRD) Af Amer 103, Est GFR (MDRD) Non-Af 85, BUN/Creatinine Ratio 20.6 H, Gluco se 78, Calcium 8.2 L, Magnesium 1.6 06/13/18 05:35: B-Natriuretic Peptide 4237.0 H Current Medications Acetaminophen (Tylenol) 650 mg PO Q6H PRN PRN PRN Reason: pain/fever Last Admin: 06/11/18 20:05 Dose: 650 mg Albuterol Sulfate (Ventolin Aerosols) 2.5 mg INHALATION Q4H PRN PRN PRN Reason: SOB &/OR WHEEZING Albuterol/Ipratropium (Duoneb) 3 ml INHALATION Q4H PRN PRN PRN Reason: SOB &/OR WHEEZING Atorvastatin Calcium (Lipitor) 10 mg PO QHS VICKI Last Admin: 06/12/18 22:15 Dose: 10 mg Bisacodyl (Dulcolax) 10 mg RECTAL DAILY PRN PRN PRN Reason: Constipation Cholecalciferol ([facility]itamin [facility]) [facility] Last Admin: 06/13/18 12:17 Dose: 2,000 unit Clonazepam (Klonopin) 0.5 mg PO TID PRN PRN PRN Reason: ANXIETY Last Admin: 06/13/18 12:17 Dose: 0.5 mg Duloxetine HCl (Cymbalta) 30 mg PO DAILY [facility] Last Admin: 06/13/18 12:18 Dose: 30 mg Enoxaparin Sodium (Lovenox) 40 mg SC DAILY@1000 [facility] Last Admin: 06/13/18 12:19 Dose: 40 mg Ferrous Sulfate (Ferrous Sulfate) [facility] Last Admin: 06/13/18 12:17 Dose: 325 mg Finasteride (Proscar) 5 mg PO DAILY [facility] Last Admin: 06/13/18 12:18 Dose: 5 mg Furosemide (Lasix) 80 mg PO DAILY [facility] Last Admin: 06/13/18 12:48 Dose: Not Given Guaifenesin (Mucinex) 600 mg PO DAILY [facility] Last Admin: 06/13/18 12:18 Dose: 600 mg Haloperidol Lactate (Haloperidol Lactate) 0.5 mg PO BID PRN PRN PRN Reason: agitation Piperacillin Sod/Tazobactam Sod (Zosyn) 3.375 gm in 50 mls @ 12.5 mls/hr IV Q8 [facility] Last Admin: 06/13/18 06:05 Dose: 12.5 mls/hr Levothyroxine Sodium (Synthroid) 100 mcg PO DAILY@0600 [facility] Last Admin: 06/13/18 06:06 Dose: 100 mcg Magnesium Hydroxide (Milk Of Magnesia) 30 ml PO DAILY PRN PRN Reason: Constipation Metoprolol Tartrate (Lopressor (Beta Nishant)) 50 mg PO BID [facility] Last Admin: 06/13/18 12:48 Dose: Not Given Nortriptyline HCl (Pamelor) 25 mg PO QHS PRN PRN PRN Reason: insomnia Nutritional Formula (Lactose Free) (Ensure Enlive) 120 ml PO 4X/DAY [facility] Last Admin: 06/13/18 12:19 Dose: Not Given Oxycodone HCl (Oxyir) 5 mg PO Q4H PRN PRN PRN Reason: PAIN Pantoprazole Sodium (Protonix) 40 mg PO DAILY [facility] Last Admin: 06/13/18 12:18 Dose: 40 mg Polyethylene Glycol (Miralax) 17 gm PO DAILY [facility] Last Admin: 06/13/18 12:20 Dose: Not Given Senna (Senokot) 2 tablet PO DAILY [facility] Last Admin: 06/13/18 12:20 Dose: Not Given Sodium Chloride () 5 - 15 ml IV UD PRN PRN Reason: SALINE FLUSH Tamsulosin HCl (Flomax) 0.4 mg PO DAILY@0830 [facility] Last Admin: 06/13/18 12:18 Dose: 0.4 mg Trimethoprim/Sulfamethoxazole (Bactrim Ds) 1 tablet PO BID [facility] Last Admin: 06/13/18 12:18 Dose: 1 tablet Medical Necessity - Tobacco Use Smoking Status: Former smoker Tobacco Use: Cigarettes Assessment/Plan All Active Problems Altered level of consciousness (Acute) Anemia (Acute) Encephalopathy (Acute) Severe sepsis (Acute) Healthcare-associated pneumonia (Acute) UTI (urinary tract infection) (Acute) Hypoxemia (Acute) Thrombocytopenia (Acute) There is a 77 gentleman with history of COPD, chronic hypoxic respiratory failure on 4 L of home oxygen, lung cancer as per chart was admitted with shortness of breath, fever, tachypnea and acute on chronic hypoxic resp iratory failure. 1. Sepsis secondary to healthcare associated pneumonia/acute hypoxic respiratory failure and metabolic encephalopathy secondary to pneumonia/UTI on baseline interstitial lung disease - -Lactate has resolved to 1.7. Patient still has low-grade temperature, 99.7 and 100.6 Fahrenheit on 06/11. -Urine culture shows MRSA 11,000-25,000. Influenza tests are negative. Blood cultures were negative for more than 48 hours. -Strep and Legionella urine antigens are negative. Repeat chest x-ray shows interstitial groundglass opacity predominantly in the right mid and lower lung. It seems fibrosis and possible scarring. Pulmonary consult reviewed and appreciated. Advised to continue same medication and follow-up in pulmonary clinic Possible heart failure with elevated BNP: BNP elevated 4237. Lasix 40 mg extra dose given. 2D echo ordered. 2. Hypertension/hyperlipidemia/edema -Stable -Can restart blood pressure medications today -Continue with simvastatin -No appreciable edema on exam though he does take 80 mg of Lasix daily. Discontinue IV fluid 3. GERD -Stable -Continue with PPI 4. BPH -Stable -Continue with Flomax and finasteride 5. COPD -No wheezing on exam to think that this is an exacerbation -Can continue his DuoNeb as needed 6. Hypothyroidism -Stable -Continue with Synthroid Chronic thrombocytopenia: Patient platelet count was 104,000 in January 2018. On this admission, patient came with 59,000 with slow improvement 81,000. Patient is moderate to high risk for DVT. Continue Lovenox 40 minutes subcu daily. Discontinue if platelet count drops less than 70,000 or hemoglobin less than 8 g% Active Medications Acetaminophen (Tylenol) 650 mg PO Q6H PRN PRN PRN Reason: pain/fever Last Admin: 06/11/18 20:05 Dose: 650 mg Albuterol Sulfate (Ventolin Aerosols) 2.5 mg INHALATION Q4H PRN PRN PRN Reason: SOB &/OR WHEEZING Albuterol/Ipratropium (Duoneb) 3 ml INHALATION Q4H PRN PRN PRN Reason: SOB &/OR WHEEZING Atorvastatin Calcium (Lipitor) 10 mg PO QHS [facility] Last Admin: 06/12/18 22:15 Dose: 10 mg Bisacodyl (Dulcolax) 10 mg RECTAL DAILY PRN PRN PRN Reason: Constipation Cholecalciferol (Vitamin D) [facility] Last Admin: 06/13/18 12:17 Dose: 2,000 unit Clonazepam (Klonopin) 0.5 mg PO TID PRN PRN PRN Reason: ANXIETY Last Admin: 06/13/18 12:17 Dose: 0.5 mg Duloxetine HCl (Cymbalta) 30 mg PO DAILY [facility] Last Admin: 06/13/18 12:18 Dose: 30 mg Enoxaparin Sodium (Lovenox) 40 mg SC DAILY@1000 [facility] Last Admin: 06/13/18 12:19 Dose: 40 mg Ferrous Sulfate (Ferrous Sulfate) [facility] Last Admin: 06/13/18 12:17 Dose: 325 mg Finasteride (Proscar) 5 mg PO DAILY [facility] Last Admin: 06/13/18 12:18 Dose: 5 mg Furosemide (Lasix) 80 mg PO DAILY [facility] Last Admin: 06/13/18 12:48 Dose: Not Given Guaifenesin (Mucinex) 600 mg PO DAILY [facility] Last Admin: 06/13/18 12:18 Dose: 600 mg Haloperidol Lactate (Haloperidol Lactate) 0.5 mg PO BID PRN PRN PRN Reason: agitation Piperacillin Sod/Tazobactam Sod (Zosyn) 3.375 gm in 50 mls @ 12.5 mls/hr IV Q8 [facility] Last Admin: 06/13/18 06:05 Dose: 12.5 mls/hr Levothyroxine Sodium (Synthroid) 100 mcg PO DAILY@0600 [facility] Last Admin: 06/13/18 06:06 Dose: 100 mcg Magnesium Hydroxide (Milk Of Magnesia) 30 ml PO DAILY PRN PRN Reason: Constipation Metoprolol Tartrate (Lopressor (Beta Inshant)) 50 mg PO BID [facility] Last Admin: 06/13/18 12:48 Dose: Not Given Nortriptyline HCl (Pamelor) 25 mg PO QHS PRN PRN PRN Reason: insomnia Nutritional Formula (Lactose Free) (Ensure Enlive) 120 ml PO 4X/DAY [facility] Last Admin: 06/13/18 12:19 Dose: Not Given Oxycodone HCl (Oxyir) 5 mg PO Q4H PRN PRN PRN Reason: PAIN Pantoprazole Sodium (Protonix) 40 mg PO DAILY [facility] Last Admin: 06/13/18 12:18 Dose: 40 mg Polyethylene Glycol (Miralax) 17 gm PO DAILY [facility] Last Admin: 06/13/18 12:20 Dose: Not Given Senna (Senokot) 2 tablet PO DAILY [facility] Last Admin: 06/13/18 12:20 Dose: Not Given Sodium Chloride () 5 - 15 ml IV UD PRN PRN Reason: SALINE FLUSH Tamsulosin HCl (Flomax) 0.4 mg PO DAILY@0830 [facility] Last Admin: 06/13/18 12:18 Dose: 0.4 mg Trimethoprim/Sulfamethoxazole (Bactrim Ds) 1 tablet PO BID [facility] Last Admin: 06/13/18 12:18 Dose: 1 tablet Microbiology Past 72 Hours 06/13/18 07:24 Mucosa - Nasopharyngeal Respiratory Panel (PCR) - Final RSV B 06/10/18 09:25 Urine, Catheterized Urine Culture - Final Meth. resistant Staph. aureus 06/10/18 09:10 Blood Culture (Wb) - Left Hand Blood Culture - Preliminary No growth in 48 hours. 06/10/18 09:10 Blood Culture (Wb) - Anticubital Right Blood Culture - Preliminary No growth in 48 hours. 06/10/18 16:45 Urine Catheter - Fuchs Streptococcus pneumoniae Antigen (M - Final 06/10/18 16:45 Urine Catheter - Fuchs Legionella Antigen - Final 06/10/18 10:26 Mucosa - Nose Influenza Types A,B Direct FA (EVELINA) - Final Laboratory Results 06/13/18 05:35: WBC 3.6 L, RBC 3.70 L, Hgb 10.9 L, Hct 33.9 L, MCV 91.6, MCH 29.5, MCHC 32.2, RDW 18.5 H, RDW Differential 60.5 H, Plt Count 81 L, MPV 9.9, Immature Gran % (Auto) 0.300, Neut % (Auto) 67.0, Lymph % (Auto) 21.2, Wright % (Auto) 11.2 H, Eos % (Auto) 0.0, Baso % (Auto) 0.3, Absolute Neuts (auto) 2.4, Absolute Lymphs (auto) 0.76 L, Total Counted Not Reportable 06/13/18 05:35: Sodium 143, Potassium 3.9, Chloride 107, Carbon Dioxide 30.0, Anion Gap 6, BUN 19 H, Creatinine 0.92, Estim Creat Clear Calc 63.49, Est GFR (MDRD) Af Amer 103, Est GFR (MDRD) Non-Af 85, BUN/Creatinine Ratio 20.6 H, Glucose 78, Calcium 8.2 L, Magnesium 1.6 06/13/18 05:35: B-Natriuretic Peptide 4237.0 H Code Visit Inpatient E&M: 67547 Subs Hosp L3
--- NOTE | 2018-06-13 14:25 | ECHOD_ITS ---
Reason For Study: Heart Failure Procedure This was a 2D Doppler, Color Flow transthoracic echocardiogram. Technically difficult study due to patient condition. No IV to use Definity. The study was technically difficult. Exam performed portable in patient room. Left Ventricle Moderate segmental systolic dysfunction (see wall motion). The estimated ejection fraction is 35 %. Unable to assess diastolic dysfunction. Mid-Anterior : Hypokinetic. Mid-Lateral : Hypokinetic. Mid- Posterior: Hypokinetic. Mid-Inferior: Hypokinetic. Mid-inferoseptal : Hypokinetic. Mid- anteroseptal : Hypokinetic. [place] : Hypokinetic. Right Ventricle Normal RV size. Normal systolic function. Atria The left atrium is mildly enlarged. Normal right atrium. No doppler evidence for ASD. Mitral Valve There is moderate mitral annular calcification. Mild focal mitral valve calcification of the anterior leaflet. Trivial mitral valve insufficiency. Tricuspid Valve Normal tricuspid valve. Trivial tricuspid valve insufficiency. Unable to estimate RV systolic pressure/pulmonary artery pressure due to technically difficult study. Aortic Valve Trisinus/trileaflet aortic valve. Mild focal aortic valve calcification. Moderate aortic stenosis. Pulmonic Valve The pulmonic valve is not well visualized. Great Vessels The aortic root is not well visualized. Pericardium/Pleural No pericardial effusion. MMode/2D Measurements & Calculations LVOT diam: 2.0 cm ACS: 0.51 cm LAV(MOD-sp4): 31.0 ml LVOT area: 3.2 cm2 Aortic Valve Planimetry: 0.58 cm2 LA A4 area: 15.1 cm2 Doppler Measurements & Calculations Ao V2 max: 287.9 cm/sec LV V1 max: 92.2 cm/sec SV(LVOT): 48.9 ml Ao max P.2 mmHg LV V1 max P.4 mmHg Ao V2 mean: 187.6 cm/sec LV V1 mean P.7 mmHg Ao mean P.7 mmHg LV V1 mean: 61.1 cm/sec Ao V2 VTI: 46.9 cm LV V1 VTI: 15.5 cm MARTY(I,D): 1.0 cm2 MARTY(V,D): 1.0 cm2 PA V2 max: 79.6 cm/sec Interpretation Summary The study was technically difficult. Moderate segmental systolic dysfunction (see wall motion). The estimated ejection fraction is 35 %. The left atrium is mildly enlarged. There is moderate mitral annular calcification. Mild focal mitral valve calcification of the anterior leaflet. Trivial mitral valve insufficiency. Mild focal aortic valve calcification. Moderate aortic stenosis. Unable to estimate RV systolic pressure/pulmonary artery pressure due to technically difficult study. Unable to assess diastolic dysfunction. Ordering Physician: Milind Higgins Performed By: Frank Gamez RCS
[2018-06-13] MEDS: Metoprolol Tartrate 50 MG Tablet PO (21:12)
[2018-06-13] MEDS: Atorvastatin Calcium 10 MG Tablet PO (21:17)
[2018-06-13] MEDS: QUEtiapine 25 MG Tablet PO (21:17)
[2018-06-14] VITALS (14 sets, daily range): BP systolic 99–137; BP diastolic 63–76; PULSE 69–96; RESP 16–18; TEMP 36.4–37.3; O2SAT 90–96
[2018-06-14] MEDS: Levothyroxine 100 MCG Tablet PO (06:05)
--- NOTE | 2018-06-14 07:16 | PN_ITS ---
Patient Problems: Active and Suspected Problems Severe sepsis (Acute) Healthcare-associated pneumonia (Acute) UTI (urinary tract infection) (Acute) Hypoxemia (Acute) Thrombocytopenia (Acute) Subjective: The patient was seen and examined at the bedside this morning. Events from the last 24 hours have been reviewed. The patient is currently afebrile, hemodynamically stable and maintaining appropriate oxygen saturations on 4 L/min via nasal cannula. The patient is definitely more alert and talkative this morning. Objective: The patient's most recent lab work, culture data and imaging studies have all been personally reviewed. Blood cultures have shown no growth to date. Rapid influenza screen was negative. Strep and urine Legionella antigens were both negative. Urine culture was positive for MRSA. Surface echocardiogram dated June 13 revealed moderate segmental systolic dysfunction with an ejection fraction of 35%. - Physical Exam General: Alert, No apparent distress, Confused HEENT: Atraumatic, Normocephalic Oral: No Gingival or Mucosal Lesions/ Ulcerations Neck: Supple, No Nodes, Trachea Midline Lungs: Diminished, Rales Cardiovascular: Regular rate, Regular Rhythm, Normal S1, Normal S2, No murmurs Abdomen: Bowel Sounds Present, Soft, Non Tender Extremities: No clubbing, No cyanosis, No edema Skin: No breakdown Musculoskeletal: No Tenderness to Palpation of Joints or Extremities Lymphatic: No Cervical, Supraclavicular, or Inguinal Adenopathy Neurological: - - No focal neurological deficits. Psych/Mental Status: Restless Vital Signs Temp Pulse Resp BP Pulse Ox 37.3 C H 77 16 136/71 H 95 06/14/18 03:10 06/14/18 03:10 06/14/18 03:10 06/14/18 03:10 06/14/18 03:10 Oxygen Flow Rate (L/min) 4.5 Oxygen Delivery Method Nasal Cannula Weight: 142 lb 10.225 oz Body Mass Index (BMI) 21.0 Intake and Output for Last 24 Hours 06/12/18 06/13/18 06/14/18 23:59 23:59 23:59 Intake Total 2030 / 2030 778 / 778 100 / 100 Output Total 200 / 200 Balance 1831 / 1831 778 / 778 100 / 100 Microbiology Past 72 Hours 06/13/18 07:24 Respiratory Panel (PCR) - Final Mucosa - Nasopharyngeal RSV B 06/10/18 09:25 Urine Culture - Final Urine, Catheterized Meth. resistant Staph. aureus 06/10/18 09:10 Blood Culture - Preliminary Blood Culture (Wb) - Left Hand No growth in 48 hours. 06/10/18 09:10 Blood Culture - Preliminary Blood Culture (Wb) - Anticubital Right No growth in 48 hours. Laboratory Tests Past 24 Hrs 06/13/18 05:35 B-Natriuretic Peptide 4237.0 H Labs (Last 48 Hours) 06/12/18 06/12/18 06/13/18 05:50 09:20 05:35 WBC 3.8 L 3.6 L RBC 4.62 3.70 L Hgb 13.5 10.9 L Hct 43.0 33.9 L MCV 93.1 91.6 MCH 29.2 29.5 MCHC 31.4 L 32.2 RDW 19.0 H 18.5 H RDW Differential 65.5 H 60.5 H Plt Count 73 L 81 L MPV 10.6 9.9 Immature Gran % (Auto) 0.500 0.300 Neut % (Auto) 76.6 H 67.0 Lymph % (Auto) 10.4 L 21.2 [place] % (Auto) 11.2 H 11.2 H Eos % (Auto) 0.8 0.0 Baso % (Auto) 0.5 0.3 Absolute Neuts (auto) 2.9 2.4 Absolute Lymphs (auto) 0.40 L 0.76 L Total Counted Not Reportable Not Reportable Differential Comment COMMENT Sodium Potassium Chloride Carbon Dioxide Anion Gap BUN Creatinine Estim Creat Clear Calc Est GFR (MDRD) Af Amer Est GFR (MDRD) Non-Af BUN/Creatinine Ratio Glucose Calcium Magnesium B-Natriuretic Peptide Vancomycin Trough 13.7 06/13/18 06/13/18 05:35 05:35 WBC RBC Hgb Hct MCV MCH MCHC RDW RDW Differential Plt Count MPV Immature Gran % (Auto) Neut % (Auto) Lymph % (Auto) [place] % (Auto) Eos % (Auto) Baso % (Auto) Absolute Neuts (auto) Absolute Lymphs (auto) Total Counted Differential Comment Sodium 143 Potassium 3.9 Chloride 107 Carbon Dioxide 30.0 Anion Gap 6 BUN 19 H Creatinine 0.92 Estim Creat Clear Calc 63.49 Est GFR (MDRD) Af Amer 103 Est GFR (MDRD) Non-Af 85 BUN/Creatinine Ratio 20.6 H Glucose 78 Calcium 8.2 L Magnesium 1.6 B-Natriuretic Peptide 4237.0 H Vancomycin Trough Microbiology 06/13/18 07:24 Mucosa - Nasopharyngeal Respiratory Panel (PCR) - Final RSV B 06/10/18 09:25 Urine, Catheterized Urine Culture - Final Meth. resistant Staph. aureus 06/10/18 09:10 Blood Culture (Wb) - Left Hand Blood Culture - Preliminary No growth in 48 hours. 06/10/18 09:10 Blood Culture (Wb) - Anticubital Right Blood Culture - Preliminary No growth in 48 hours. Clinical Impression(s) from Imaging Studies Chest X-Ray 06/10/18 09:10 IMPRESSION: Overall similar appearance of interstitial chronic markings compared to previous exam with no definitive new airspace disease. Acute on chronic right lower lobe early airspace disease cannot be completely excluded. Electronically Signed: Ihsan Conway DO at 10:06 EST , Service support , Chest X-Ray 06/12/18 14:20 IMPRESSION: Right lower lung infiltrate or edema and pleural thickening or small effusion with mild worsening. Electronically Signed: Arnol Kessler MD at 15:24 EST , Service support , Medical Necessity - Tobacco Use Smoking Status: Former smoker Tobacco Use: Cigarettes Assessment/Plan All Active Problems Altered level of consciousness (Acute) Anemia (Acute) Encephalopathy (Acute) Severe sepsis (Acute) Healthcare-associated pneumonia (Acute) UTI (urinary tract infection) (Acute) Hypoxemia (Acute) Thrombocytopenia (Acute) RECOMMENDATIONS: 1. Continue treatment with antibiotics for HCAP with plans to complete a 7-day treatment course. 2. Continue Lasix. 3. Continue as needed aerosol treatments. 4. No additional inpatient workup from a pulmonary perspective is indicated at this time. 5. If the patient or his family wishes to pursue any additional pulmonary workup, this can be completed on an outpatient basis, by obtaining pulmonary function studies. IMPRESSIONS: 1. Acute on chronic hypoxemic respiratory failure secondary to healthcare associated pneumonia The patient does have what appears to be evidence of a right lung airspace opacity, likely representing pneumonia. He has responded clinically to antimicrobials and is currently afebrile and maintaining appropriate oxygen saturations on his baseline 4 L/min. Groundglass changes are very difficult to discern on plain film chest imaging. The patient does not have a prior CT chest on file. Regardless, groundglass changes can be indicative of underlying infection or pulmonary edema. It is presumptuous to assume that the patient has interstitial lung disease without a dedicated chest CT or prior chest imaging studies to review. Regardless, the interstitial changes are present on prior chest imaging studies in our system, date back to January 2018, indicating a chronic process. He does appear to have an acute superimposed right-sided airspace opacity, which is currently being treated appropriately. In addition to the aforementioned, the patient also reportedly has a history of lung cancer and questionable COPD. However, there are no pulmonary function studies on file to confirm or refute this assertion. The patient can follow-up in the pulmonary medicine clinic, if he wishes to do so, so that baseline pulmonary function testing can be obtained. 2. MRSA cystitis Continue antibiotics as ordered. 3. Questionable COPD of unknown severity/history of lung cancer, reportedly in remission It is unclear whether the patient has ever had pulmonary function studies or follows with a pulmonary provider. His lung cancer history is also unclear. Regardless, as needed aerosol treatments can be continued in the interim. The patient can follow-up on an outpatient basis in the pulmonary medicine clinic, if additional workup is indicated. 4. Encephalopathy Likely metabolic in nature with concerns for potential medication effects, as the patient is currently receiving scheduled Klonopin, Haldol and transdermal fentanyl patch. 5. Advanced age/deconditioning/dementia/hypothyroidism/chronic pain disorder/hypertension/hyperlipidemia Complicates care, management, recovery and prognosis. This note was generated with [employer] software. It may contain incorrect words, spelling, and punctuation that were not noted in checking the note before signing. Code Visit Inpatient E&M: 09389 Subs Hosp L2
--- NOTE | 2018-06-14 09:29 | CASEMGMT ---
Physician was inquiring if patient was active with Palliative Care. SW called [place] [place] and he is active with [facility]. BRIANNE notified physician. Araceli ORELLANA
[2018-06-14] MEDS: Enoxaparin 40 MG/0.4 ML Syringe SC (10:39)
--- NOTE | 2018-06-14 10:57 | CASEMGMT ---
Physician spoke with patient's daughter. She and her mom will be coming in today to discuss Hospice with physician. SW faxed updates to [place] letting them know this information. Araceli ROD MSW
[2018-06-14] MEDS: Smz/Tmp Ds Tablet 1 TABLET PO ×2 (13:17→21:49)
[2018-06-14] MEDS: Metoprolol Tartrate 50 MG Tablet PO ×2 (13:17→21:49)
[2018-06-14] MEDS: Finasteride 5 MG Tablet PO (13:17)
[2018-06-14] MEDS: Tamsulosin HCl 0.4 MG Capsule PO (13:17)
[2018-06-14] MEDS: Pantoprazole Sodium 40 MG Tablet PO (13:17)
[2018-06-14] MEDS: DULoxetine Hcl 30 MG Capsule PO (13:17)
[2018-06-14] MEDS: Furosemide 80 MG Tablet PO (13:18)
[2018-06-14] MEDS: guaiFENesin 600 MG Tablet PO (13:18)
--- NOTE | 2018-06-14 14:00 | CASEMGMT ---
PCU Science Writer spoke with patient's daughter, Winifred. She is the medical record administrator at the retirement where patient resides. She said they are not interested in Hospice at this time. She said they plan to address this at the retirement when he gets back. She wants to continue with treatment while he is here. BRIANNE spoke with patient's daughter, introduced self and role at [facility]. She explained the same thing to BRIANNE. She thanked BRIANNE for checking in with her. Araceli ROD MSW
[2018-06-14] MEDS: Piperacil/Tazobactam 3.375 GM/50 ML ML IV ×2 (17:00→21:49)
[2018-06-14] MEDS: Ferrous Sulfate 325 MG Tablet PO (17:12)
[2018-06-14] MEDS: oxyCODONE 5 MG Tablet PO (17:35)
--- NOTE | 2018-06-14 17:38 | PCM.PN.HOSP ---
Patient Problems: Active and Suspected Problems Severe sepsis (Acute) Healthcare-associated pneumonia (Acute) UTI (urinary tract infection) (Acute) Hypoxemia (Acute) Thrombocytopenia (Acute) Subjective: Patient is more awake and alert. Mild short of breath even at rest on conversation. Discussed with the patient's daughter. She will discussed with patient's regarding further palliative care/hospice care. Vitals/I&O's: Vital Signs Temp Pulse Resp BP Pulse Ox 97.9 F 82 18 108/70 94 06/14/18 16:50 06/14/18 16:50 06/14/18 16:50 06/14/18 17:34 06/14/18 16:50 Oxygen Flow Rate (L/min) 4 Oxygen Delivery Method Room Air Weight: 142 lb 10.225 oz Body Mass Index (BMI) 21.0 Intake and Output for Last 24 Hours 06/12/18 06/13/18 06/14/18 23:59 23:59 23:59 Intake Total 2030 / 2030 778 / 778 100 / 100 Output Total 200 / 200 Balance 1830 / 1830 778 / 778 100 / 100 General: Alert, Cooperative, Disoriented - To time and place HEENT: Atraumatic, PERRLA, EOMI, Normocephalic Neck: Supple, No JVD, Negative Carotid Bruits Lungs: Diminished - Air entry diminished. Bilateral rhonchi, Rales, Rhonchi, Short of Breath Cardiovascular: Regular rate, Regular Rhythm, Normal S1, Normal S2, No murmurs Abdomen: Bowel Sounds Present, Soft, Non Tender, Non-Distended Extremities: No edema, Capillary Refill Less than 3 Seconds Skin: No rashes, No breakdown Musculoskeletal: No Tenderness to Palpation of Joints or Extremities, Arthritic Changes, Muscle Wasting Neurological: Cranial nerves II-XII grossly intact, Deep Tendon Reflexes 2+/4 and Symmetrical Psych/Mental Status: Normal Affect, Appropriate Microbiology Past 72 Hours 06/13/18 07:24 Mucosa - Nasopharyngeal Respiratory Panel (PCR) - Final RSV B 06/10/18 09:25 Urine, Catheterized Urine Culture - Final Meth. resistant Staph. aureus 06/10/18 09:10 Blood Culture (Wb) - Left Hand Blood Culture - Preliminary No growth in 48 hours. 06/10/18 09:10 Blood Culture (Wb) - Anticubital Right Blood Culture - Preliminary No growth in 48 hours. Current Medications Acetaminophen (Tylenol) 650 mg PO Q6H PRN PRN PRN Reason: pain/fever Last Admin: 06/11/18 20:05 Dose: 650 mg Albuterol Sulfate (Ventolin Aerosols) 2.5 mg INHALATION Q4H PRN PRN PRN Reason: SOB &/OR WHEEZING Albuterol/Ipratropium (Duoneb) 3 ml INHALATION Q4H PRN PRN PRN Reason: SOB &/OR WHEEZING Atorvastatin Calcium (Lipitor) 10 mg PO QHS [facility] Last Admin: 06/13/18 21:17 Dose: 10 mg Bisacodyl (Dulcolax) 10 mg RECTAL DAILY PRN PRN PRN Reason: Constipation Cholecalciferol ([facility]itamin [facility]) [facility] Last Admin: 06/14/18 12:58 Dose: Not Given Clonazepam (Klonopin) 0.5 mg PO TID PRN PRN PRN Reason: ANXIETY Last Admin: 06/13/18 12:17 Dose: 0.5 mg Duloxetine HCl (Cymbalta) 30 mg PO DAILY [facility] Last Admin: 06/14/18 13:17 Dose: 30 mg Enoxaparin Sodium (Lovenox) 40 mg SC DAILY@1000 [facility] Last Admin: 06/14/18 10:39 Dose: 40 mg Ferrous Sulfate (Ferrous Sulfate) [facility] Last Admin: 06/14/18 17:12 Dose: 325 mg Finasteride (Proscar) 5 mg PO DAILY [facility] Last Admin: 06/14/18 13:17 Dose: 5 mg Furosemide (Lasix) 80 mg PO DAILY [facility] Last Admin: 06/14/18 13:18 Dose: 80 mg Guaifenesin (Mucinex) 600 mg PO DAILY [facility] Last Admin: 06/14/18 13:18 Dose: 600 mg Haloperidol Lactate (Haloperidol Lactate) 0.5 mg PO BID PRN PRN PRN Reason: agitation Piperacillin Sod/Tazobactam Sod (Zosyn) 3.375 gm in 50 mls @ 12.5 mls/hr IV Q8 [facility] Last Admin: 06/14/18 17:00 Dose: 12.5 mls/hr Levothyroxine Sodium (Synthroid) 100 mcg PO DAILY@0600 [facility] Last Admin: 06/14/18 06:05 Dose: 100 mcg Magnesium Hydroxide (Milk Of Magnesia) 30 ml PO DAILY PRN PRN Reason: Constipation Metoprolol Tartrate (Lopressor (Beta Nishant)) 50 mg PO BID [facility] Last Admin: 06/14/18 13:17 Dose: 50 mg Nortriptyline HCl (Pamelor) 25 mg PO QHS PRN PRN PRN Reason: insomnia Nutritional Formula (Lactose Free) (Ensure Enlive) 120 ml PO 4X/DAY [facility] Last Admin: 06/14/18 17:13 Dose: Not Given Oxycodone HCl (Oxyir) 5 mg PO Q4H PRN PRN PRN Reason: PAIN Last Admin: 06/14/18 17:35 Dose: 5 mg Pantoprazole Sodium (Protonix) 40 mg PO DAILY [facility] Last Admin: 06/14/18 13:17 Dose: 40 mg Polyethylene Glycol (Miralax) 17 gm PO DAILY [facility] Last Admin: 06/14/18 12:59 Dose: Not Given Quetiapine Fumarate (Seroquel) 25 mg PO QHS [facility] Last Admin: 06/13/18 21:17 Dose: 25 mg Senna (Senokot) 2 tablet PO DAILY [facility] Last Admin: 06/14/18 12:59 Dose: Not Given Sodium Chloride () 5 - 15 ml IV UD PRN PRN Reason: SALINE FLUSH Tamsulosin HCl (Flomax) 0.4 mg PO DAILY@0830 [facility] Last Admin: 06/14/18 13:17 Dose: 0.4 mg Trimethoprim/Sulfamethoxazole (Bactrim Ds) 1 tablet PO BID [facility] Last Admin: 06/14/18 13:17 Dose: 1 tablet Medical Necessity - Tobacco Use Smoking Status: Former smoker Tobacco Use: Cigarettes Assessment/Plan All Active Problems Altered level of consciousness (Acute) Anemia (Acute) Encephalopathy (Acute) Severe sepsis (Acute) Healthcare-associated pneumonia (Acute) UTI (urinary tract infection) (Acute) Hypoxemia (Acute) Thrombocytopenia (Acute) There is a 77 gentleman with history of COPD, chronic hypoxic respiratory failure on 4 L of home oxygen, lung cancer as per chart was admitted with shortness of breath, fever, tachypnea and acute on chronic hypoxic respiratory failure. 1. Sepsis secondary to healthcare associated pneumonia/acute hypoxic respiratory failure and metabolic encephalopathy secondary to pneumonia/UTI on baseline interstitial lung disease - -Lactate has resolved to 1.7. Patient still has low-grade temperature, 99.7 and 100.6 Fahrenheit on 06/11. -Urine culture shows MRSA 11,000-25,000. Influenza tests are negative. Blood cultures were negative for more than 48 hours. -Strep and Legionella urine antigens are negative. Repeat chest x-ray shows interstitial groundglass opacity predominantly in the right mid and lower lung. It seems fibrosis and possible scarring. Pulmonary consult reviewed and appreciated. No further need for inpatient pulmonary workup. Advised to continue same medication and follow-up in pulmonary clinic 2. Acute on chronic combined systolic and diastolic heart failure with elevated BNP: BNP elevated 4237. Continue Lasix 40 mg IV daily. 2D echo was done and shows EF 35% with LA mildly enlarged. Systolic segmental dysfunction. Normal tricuspid valve with unable to estimate RVSP with technically difficult study. Moderate mitral annular calcification with trivial MR. No pericardial effusion 2. Hypertension/hyperlipidemia/edema -Stable -Can restart blood pressure medications today -Continue with simvastatin 3. GERD -Stable -Continue with PPI 4. BPH -Stable -Continue with Flomax and finasteride 5. COPD -No wheezing on exam to think that this is an exacerbation -Can continue his DuoNeb as needed 6. Hypothyroidism -Stable -Continue with Synthroid Chronic thrombocytopenia: Patient platelet count was 104,000 in January 2018. On this admission, patient came with 59,000 with slow improvement 81,000. Patient is moderate to high risk for DVT. Continue Lovenox 40 minutes subcu daily. Discontinue if platelet count drops less than 70,000 or hemoglobin less than 8 g% Discussed with the patient's daughter, [phone] regarding hospice care. Patient's daughter will further discuss with the patient's . Patient follows with palliative care hospice [facility]. Active Medications Acetaminophen (Tylenol) 650 mg PO Q6H PRN PRN PRN Reason: pain/fever Last Admin: 06/11/18 20:05 Dose: 650 mg Albuterol Sulfate (Ventolin Aerosols) 2.5 mg INHALATION Q4H PRN PRN PRN Reason: SOB &/OR WHEEZING Albuterol/Ipratropium (Duoneb) 3 ml INHALATION Q4H PRN PRN PRN Reason: SOB &/OR WHEEZING Atorvastatin Calcium (Lipitor) 10 mg PO QHS [facility] Last Admin: 01/14/19 22:15 Dose: 10 mg Bisacodyl (Dulcolax) 10 mg RECTAL DAILY PRN PRN PRN Reason: Constipation Cholecalciferol (Vitamin D) 2,[facility] Last Admin: 06/13/18 12:17 Dose: 2,000 unit Clonazepam (Klonopin) 0.5 mg PO TID PRN PRN PRN Reason: ANXIETY Last Admin: 06/13/18 12:17 Dose: 0.5 mg Duloxetine HCl (Cymbalta) 30 mg PO DAILY [facility] Last Admin: 06/13/18 12:18 Dose: 30 mg Enoxaparin Sodium (Lovenox) 40 mg SC DAILY@1000 [facility] Last Admin: 06/13/18 12:19 Dose: 40 mg Ferrous Sulfate (Ferrous Sulfate) 325 [facility] Last Admin: 06/13/18 12:17 Dose: 325 mg Finasteride (Proscar) 5 mg PO DAILY [facility] Last Admin: 06/13/18 12:18 Dose: 5 mg Furosemide (Lasix) 80 mg PO DAILY [facility] Last Admin: 06/13/18 12:48 Dose: Not Given Guaifenesin (Mucinex) 600 mg PO DAILY [facility] Last Admin: 06/13/18 12:18 Dose: 600 mg Haloperidol Lactate (Haloperidol Lactate) 0.5 mg PO BID PRN PRN PRN Reason: agitation Piperacillin Sod/Tazobactam Sod (Zosyn) 3.375 gm in 50 mls @ 12.5 mls/hr IV Q8 [facility] Last Admin: 06/13/18 06:05 Dose: 12.5 mls/hr Levothyroxine Sodium (Synthroid) 100 mcg PO DAILY@0600 [facility] Last Admin: 06/13/18 06:06 Dose: 100 mcg Magnesium Hydroxide (Milk Of Magnesia) 30 ml PO DAILY PRN PRN Reason: Constipation Metoprolol Tartrate (Lopressor (Beta Nishant)) 50 mg PO BID [facility] Last Admin: 06/13/18 12:48 Dose: Not Given Nortriptyline HCl (Pamelor) 25 mg PO QHS PRN PRN PRN Reason: insomnia Nutritional Formula (Lactose Free) (Ensure Enlive) 120 ml PO 4X/DAY [facility] Last Admin: 06/13/18 12:19 Dose: Not Given Oxycodone HCl (Oxyir) 5 mg PO Q4H PRN PRN PRN Reason: PAIN Pantoprazole Sodium (Protonix) 40 mg PO DAILY [facility] Last Admin: 06/13/18 12:18 Dose: 40 mg Polyethylene Glycol (Miralax) 17 gm PO DAILY [facility] Last Admin: 06/13/18 12:20 Dose: Not Given Senna (Senokot) 2 tablet PO DAILY [facility] Last Admin: 06/13/18 12:20 Dose: Not Given Sodium Chloride () 5 - 15 ml IV UD PRN PRN Reason: SALINE FLUSH Tamsulosin HCl (Flomax) 0.4 mg PO DAILY@0830 [facility] Last Admin: 06/13/18 12:18 Dose: 0.4 mg Trimethoprim/Sulfamethoxazole (Bactrim Ds) 1 tablet PO BID [facility] Last Admin: 06/13/18 12:18 Dose: 1 tablet Microbiology Past 72 Hours 06/13/18 07:24 Mucosa - Nasopharyngeal Respiratory Panel (PCR) - Final RSV B 06/10/18 09:25 Urine, Catheterized Urine Culture - Final Meth. resistant Staph. aureus 06/10/18 09:10 Blood Culture (Wb) - Left Hand Blood Culture - Preliminary No growth in 48 hours. 06/10/18 09:10 Blood Culture (Wb) - Anticubital Right Blood Culture - Preliminary No growth in 48 hours. Code Visit Inpatient E&M: [id number] [facility] L3
--- NOTE | 2018-06-14 17:43 | PN_ITS ---
Patient Problems: Active and Suspected Problems Severe sepsis (Acute) Healthcare-associated pneumonia (Acute) UTI (urinary tract infection) (Acute) Hypoxemia (Acute) Thrombocytopenia (Acute) Subjective: Patient is more awake and alert. Mild short of breath even at rest on conversation. Discussed with the patient's daughter. She will discussed with patient's regarding further palliative care/hospice care. Vitals/I&O's: Vital Signs Temp Pulse Resp BP Pulse Ox 97.9 F 82 18 108/70 94 06/14/18 16:50 06/14/18 16:50 06/14/18 16:50 06/14/18 17:34 06/14/18 16:50 Oxygen Flow Rate (L/min) 4 Oxygen Delivery Method Room Air Weight: 142 lb 10.225 oz Body Mass Index (BMI) 21.0 Intake and Output for Last 24 Hours 06/12/18 06/13/18 06/14/18 23:59 23:59 23:59 Intake Total 2030 / 2030 778 / 778 100 / 100 Output Total 200 / 200 Balance 1830 / 1830 778 / 778 100 / 100 General: Alert, Cooperative, Disoriented - To time and place HEENT: Atraumatic, PERRLA, EOMI, Normocephalic Neck: Supple, No JVD, Negative Carotid Bruits Lungs: Diminished - Air entry diminished. Bilateral rhonchi, Rales, Rhonchi, Short of Breath Cardiovascular: Regular rate, Regular Rhythm, Normal S1, Normal S2, No murmurs Abdomen: Bowel Sounds Present, Soft, Non Tender, Non-Distended Extremities: No edema, Capillary Refill Less than 3 Seconds Skin: No rashes, No breakdown Musculoskeletal: No Tenderness to Palpation of Joints or Extremities, Arthritic Changes, Muscle Wasting Neurological: Cranial nerves II-XII grossly intact, Deep Tendon Reflexes 2+/4 and Symmetrical Psych/Mental Status: Normal Affect, Appropriate Microbiology Past 72 Hours 06/13/18 07:24 Mucosa - Nasopharyngeal Respiratory Panel (PCR) - Final RSV B 06/10/18 09:25 Urine, Catheterized Urine Culture - Final Meth. resistant Staph. aureus 06/10/18 09:10 Blood Culture (Wb) - Left Hand Blood Culture - Preliminary No growth in 48 hours. 06/10/18 09:10 Blood Culture (Wb) - Anticubital Right Blood Culture - Preliminary No growth in 48 hours. Current Medications Acetaminophen (Tylenol) 650 mg PO Q6H PRN PRN PRN Reason: pain/fever Last Admin: 06/11/18 20:05 Dose: 650 mg Albuterol Sulfate (Ventolin Aerosols) 2.5 mg INHALATION Q4H PRN PRN PRN Reason: SOB &/OR WHEEZING Albuterol/Ipratropium (Duoneb) 3 ml INHALATION Q4H PRN PRN PRN Reason: SOB &/OR WHEEZING Atorvastatin Calcium (Lipitor) 10 mg PO QHS [facility] Last Admin: 06/13/18 21:17 Dose: 10 mg Bisacodyl (Dulcolax) 10 mg RECTAL DAILY PRN PRN PRN Reason: Constipation Cholecalciferol (Vitamin [facility]) [facility] Last Admin: 06/14/18 12:58 Dose: Not Given Clonazepam (Klonopin) 0.5 mg PO TID PRN PRN PRN Reason: ANXIETY Last Admin: 06/13/18 12:17 Dose: 0.5 mg Duloxetine HCl (Cymbalta) 30 mg PO DAILY [facility] Last Admin: 06/14/18 13:17 Dose: 30 mg Enoxaparin Sodium (Lovenox) 40 mg SC DAILY@1000 [facility] Last Admin: 06/14/18 10:39 Dose: 40 mg Ferrous Sulfate ([facility]ous Sulfate) [facility] Last Admin: 06/14/18 17:12 Dose: 325 mg Finasteride (Proscar) 5 mg PO DAILY [facility] Last Admin: 06/14/18 13:17 Dose: 5 mg Furosemide (Lasix) 80 mg PO DAILY [facility] Last Admin: 06/14/18 13:18 Dose: 80 mg Guaifenesin (Mucinex) 600 mg PO DAILY [facility] Last Admin: 06/14/18 13:18 Dose: 600 mg Haloperidol Lactate (Haloperidol Lactate) 0.5 mg PO BID PRN PRN PRN Reason: agitation Piperacillin Sod/Tazobactam Sod (Zosyn) 3.375 gm in 50 mls @ 12.5 mls/hr IV Q8 [facility] Last Admin: 06/14/18 17:00 Dose: 12.5 mls/hr Levothyroxine Sodium (Synthroid) 100 mcg PO DAILY@0600 [facility] Last Admin: 06/14/18 06:05 Dose: 100 mcg Magnesium Hydroxide (Milk Of Magnesia) 30 ml PO DAILY PRN PRN Reason: Constipation Metoprolol Tartrate (Lopressor (Beta Nishant)) 50 mg PO BID [facility] Last Admin: 06/14/18 13:17 Dose: 50 mg Nortriptyline HCl (Pamelor) 25 mg PO QHS PRN PRN PRN Reason: insomnia Nutritional Formula (Lactose Free) (Ensure Enlive) 120 ml PO 4X/DAY [facility] Last Admin: 06/14/18 17:13 Dose: Not Given Oxycodone HCl (Oxyir) 5 mg PO Q4H PRN PRN PRN Reason: PAIN Last Admin: 06/14/18 17:35 Dose: 5 mg Pantoprazole Sodium (Protonix) 40 mg PO DAILY [facility] Last Admin: 06/14/18 13:17 Dose: 40 mg Polyethylene Glycol (Miralax) 17 gm PO DAILY [facility] Last Admin: 06/14/18 12:59 Dose: Not Given Quetiapine Fumarate (Seroquel) 25 mg PO QHS [facility] Last Admin: 06/13/18 21:17 Dose: 25 mg Senna (Senokot) 2 tablet PO DAILY [facility] Last Admin: 06/14/18 12:59 Dose: Not Given Sodium Chloride () 5 - 15 ml IV UD PRN PRN Reason: SALINE FLUSH Tamsulosin HCl (Flomax) 0.4 mg PO DAILY@0830 [facility] Last Admin: 06/14/18 13:17 Dose: 0.4 mg Trimethoprim/Sulfamethoxazole (Bactrim Ds) 1 tablet PO BID [facility] Last Admin: 06/14/18 13:17 Dose: 1 tablet Medical Necessity - Tobacco Use Smoking Status: Former smoker Tobacco Use: Cigarettes Assessment/Plan All Active Problems Altered level of consciousness (Acute) Anemia (Acute) Encephalopathy (Acute) Severe sepsis (Acute) Healthcare-associated pneumonia (Acute) UTI (urinary tract infection) (Acute) Hypoxemia (Acute) Thrombocytopenia (Acute) There is a 77 gentleman with history of COPD, chronic hypoxic respiratory failure on 4 L of home oxygen, lung cancer as per chart was admitted with shortness of breath, fever, tachypnea and acute on chronic hypoxic respiratory failure. 1. Sepsis secondary to healthcare associated pneumonia/acute hypoxic respiratory failure and metabolic encephalopathy secondary to pneumonia/UTI on baseline interstitial lung disease - -Lactate has resolved to 1.7. Patient still has low-grade temperature, 99.7 and 100.6 Fahrenheit on 06/11. -Urine culture shows MRSA 11,000-25,000. Influenza tests are negative. Blood cultures were negative for more than 48 hours. -Strep and Legionella urine antigens are negative. Repeat chest x-ray shows interstitial groundglass opacity predominantly in the right mid and lower lung. It seems fibrosis and possible scarring. Pulmonary consult reviewed and appreciated. No further need for inpatient pulmonary workup. Advised to continue same medication and follow-up in pulmonary clinic 2. Acute on chronic combined systolic and diastolic heart failure with elevated BNP: BNP elevated 4237. Continue Lasix 40 mg IV daily. 2D echo was done and shows EF 35% with LA mildly enlarged. Systolic segmental dysfunction. Normal t ricuspid valve with unable to estimate RVSP with technically difficult study. Moderate mitral annular calcification with trivial MR. No pericardial effusion 2. Hypertension/hyperlipidemia/edema -Stable -Can restart blood pressure medications today -Continue with simvastatin 3. GERD -Stable -Continue with PPI 4. BPH -Stable -Continue with Flomax and finasteride 5. COPD -No wheezing on exam to think that this is an exacerbation -Can continue his DuoNeb as needed 6. Hypothyroidism -Stable -Continue with Synthroid Chronic thrombocytopenia: Patient platelet count was 104,000 in January 2018. On this admission, patient came with 59,000 with slow improvement 81,000. Patient is moderate to high risk for DVT. Continue Lovenox 40 minutes subcu daily. Discontinue if platelet count drops less than 70,000 or hemoglobin less than 8 g% Discussed with the patient's daughter, [phone] regarding hospice care. Patient's daughter will further discuss with the patient's . Patient follows with palliative care hosp[facility]. Active Medications Acetaminophen (Tylenol) 650 mg PO Q6H PRN PRN PRN Reason: pain/fever Last Admin: 06/11/18 20:05 Dose: 650 mg Albuterol Sulfate (Ventolin Aerosols) 2.5 mg INHALATION Q4H PRN PRN PRN Reason: SOB &/OR WHEEZING Albuterol/Ipratropium (Duoneb) 3 ml INHALATION Q4H PRN PRN PRN Reason: SOB &/OR WHEEZING Atorvastatin Calcium (Lipitor) 10 mg PO QHS [facility] Last Admin: 06/12/18 22:15 Dose: 10 mg Bisacodyl (Dulcolax) 10 mg RECTAL DAILY PRN PRN PRN Reason: Constipation Cholecalciferol (Vitamin D) [facility] Last Admin: 06/13/18 12:17 Dose: 2,000 unit Clonazepam (Klonopin) 0.5 mg PO TID PRN PRN PRN Reason: ANXIETY Last Admin: 06/13/18 12:17 Dose: 0.5 mg Duloxetine HCl (Cymbalta) 30 mg PO DAILY [facility] Last Admin: 06/13/18 12:18 Dose: 30 mg Enoxaparin Sodium (Lovenox) 40 mg SC DAILY@1000 [facility] Last Admin: 06/13/18 12:19 Dose: 40 mg Ferrous Sulfate (F[facility]ous Sulfate) [facility] Last Admin: 06/13/18 12:17 Dose: 325 mg Finasteride (Proscar) 5 mg PO DAILY [facility] Last Admin: 06/13/18 12:18 Dose: 5 mg Furosemide (Lasix) 80 mg PO DAILY [facility] Last Admin: 06/13/18 12:48 Dose: Not Given Guaifenesin (Mucinex) 600 mg PO DAILY [facility] Last Admin: 06/13/18 12:18 Dose: 600 mg Haloperidol Lactate (Haloperidol Lactate) 0.5 mg PO BID PRN PRN PRN Reason: agitation Piperacillin Sod/Tazobactam Sod (Zosyn) 3.375 gm in 50 mls @ 12.5 mls/hr IV Q8 [facility] Last Admin: 06/13/18 06:05 Dose: 12.5 mls/hr Levothyroxine Sodium (Synthroid) 100 mcg PO DAILY@0600 [facility] Last Admin: 06/13/18 06:06 Dose: 100 mcg Magnesium Hydroxide (Milk Of Magnesia) 30 ml PO DAILY PRN PRN Reason: Constipation Metoprolol Tartrate (Lopressor (Beta Nishant)) 50 mg PO BID [facility] Last Admin: 06/13/18 12:48 Dose: Not Given Nortriptyline HCl (Pamelor) 25 mg PO QHS PRN PRN PRN Reason: insomnia Nutritional Formula (Lactose Free) (Ensure Enlive) 120 ml PO 4X/DAY [facility] Last Admin: 06/13/18 12:19 Dose: Not Given Oxycodone HCl (Oxyir) 5 mg PO Q4H PRN PRN PRN Reason: PAIN Pantoprazole Sodium (Protonix) 40 mg PO DAILY [facility] Last Admin: 06/13/18 12:18 Dose: 40 mg Polyethylene Glycol (Miralax) 17 gm PO DAILY [facility] Last Admin: 06/13/18 12:20 Dose: Not Given Senna (Senokot) 2 tablet PO DAILY [facility] Last Admin: 06/13/18 12:20 Dose: Not Given Sodium Chloride () 5 - 15 ml IV UD PRN PRN Reason: SALINE FLUSH Tamsulosin HCl (Flomax) 0.4 mg PO DAILY@0830 [facility] Last Admin: 06/13/18 12:18 Dose: 0.4 mg Trimethoprim/Sulfamethoxazole (Bactrim Ds) 1 tablet PO BID [facility] Last Admin: 06/13/18 12:18 Dose: 1 tablet Microbiology Past 72 Hours 06/13/18 07:24 Mucosa - Nasopharyngeal Respiratory Panel (PCR) - Final RSV B 06/10/18 09:25 Urine, Catheterized Urine Culture - Final Meth. resistant Staph. aureus 06/10/18 09:10 Blood Culture (Wb) - Left Hand Blood Culture - Preliminary No growth in 48 hours. 06/10/18 09:10 Blood Culture (Wb) - Anticubital Right Blood Culture - Preliminary No growth in 48 hours. Code Visit Inpatient E&M: [id number] [facility] Hosp L3
[2018-06-14] MEDS: QUEtiapine 25 MG Tablet PO (21:49)
[2018-06-14] MEDS: Atorvastatin Calcium 10 MG Tablet PO (21:49)
[2018-06-15] VITALS (7 sets, daily range): BP systolic 115–127; BP diastolic 66–70; PULSE 71–85; RESP 17–18; TEMP 36.4–36.9; O2SAT 92–96
[2018-06-15] MEDS: oxyCODONE 5 MG Tablet PO ×2 (04:08→08:11)
[2018-06-15] MEDS: 0.9% NaCl Peripheral Flush Adult/Peds IV ×2 (05:43→05:44)
[2018-06-15] MEDS: Levothyroxine 100 MCG Tablet PO (05:54)
[2018-06-15] MEDS: Piperacil/Tazobactam 3.375 GM/50 ML ML IV (05:54)
[2018-06-15 06:10] LABS: Anion Gap 10 (5-15); BUN 21 mg/dL (7-18); BUN/Creat Ratio 18.6 RATIO (10-20); Calcium,Total 8.6 mg/dL (8.5-10.1); Chloride 102 mmol/L (98-107); Creatinine, Serum 1.13 mg/dL (0.70-1.30); EST Glomerular Filtration Rate 67 mL/min (>60); Est Glom Filt Rate - Afr Amer 81 mL/min (>60); Estimated Creatinine Clearance 51.69 ml/min; Glucose 87 mg/dL (74-106); Potassium 3.2 mmol/L (3.5-5.1); Sodium Level 143 mmol/L (136-145)
[2018-06-15] MEDS: Tamsulosin HCl 0.4 MG Capsule PO (08:11)
[2018-06-15] MEDS: Ferrous Sulfate 325 MG Tablet PO (08:11)
[2018-06-15] MEDS: Furosemide 80 MG Tablet PO (10:37)
[2018-06-15] MEDS: Smz/Tmp Ds Tablet 1 TABLET PO (10:37)
[2018-06-15] MEDS: Metoprolol Tartrate 50 MG Tablet PO (10:37)
[2018-06-15] MEDS: Finasteride 5 MG Tablet PO (10:38)
[2018-06-15] MEDS: DULoxetine Hcl 30 MG Capsule PO (10:38)
[2018-06-15] MEDS: Pantoprazole Sodium 40 MG Tablet PO (10:38)
[2018-06-15] MEDS: guaiFENesin 600 MG Tablet PO (10:38)
[2018-06-15] MEDS: Enoxaparin 40 MG/0.4 ML Syringe SC (10:46)
--- NOTE | 2018-06-15 11:47 | PCM.TXEXTCAR ---
- Diet 06/10/18 12:13 Diet: Cardiac/Low Cholesterol Food consistency:: Mechanical Soft/Ground Liquid Consistency:: Regular/Thin Dietary Modifications:: Mechanical Soft Diet Diet Comments: 1:1 supervision/feed - Routine Orders/Code Status Suppository Type: Dulcolax 10mg Suppository Frequency: Daily PRN Routine Lab Work: CBC, BMP - every week on diuretic Code Status: [id number]-[id number] - Therapies Weight Bearing: Weight bearing as tolerated Extremity Affected:: Bilateral Lower Physical Therapy: Eval and Treat Occupational Therapy: Eval and Treat Speech Therapy: Eval and Treat - Allergies/Procedures Done in Hospital Allergies/Adverse Reactions: Allergies morphine Allergy (Verified 06/10/18 09:09) Rash - Type of Care/Length of Stay Estimated LOS: Convalescent Care Less Than 30 days Type of Care Needed: Skilled Rehab Potential: Fair Prognosis: Fair - Additional Orders/Day of Discharge Day of Discharge: 06/15/18 - Dietary and Speech Recommendations Dietitian Recommendations/Changes: Continue cardiac diet and ONS- consistency per SETTLEMENT CLERK. - Follow Up Care Primary Care Physician: Tristin Marks [Primary Care Provider] - Please follow up with your Primary Care Physician in: in 1-2 week Please Follow Up With: Juan M Lemon DO When: in 3-4 week Please Follow Up With: Dominic Pack MD When: in 4 week
--- NOTE | 2018-06-15 11:50 | TREXTCAR_ITS ---
- Diet 06/10/18 12:13 Diet: Cardiac/Low Cholesterol Food consistency:: Mechanical Soft/Ground Liquid Consistency:: Regular/Thin Dietary Modifications:: Mechanical Soft Diet Diet Comments: 1:1 supervision/feed - Routine Orders/Code Status Suppository Type: Dulcolax 10mg Suppository Frequency: Daily PRN Routine Lab Work: CBC, BMP - every week on diuretic Code Status: DNRCC-A - Therapies Weight Bearing: Weight bearing as tolerated Extremity Affected:: Bilateral Lower Physical Therapy: Eval and Treat Occupational Therapy: Eval and Treat Speech Therapy: Eval and Treat - Allergies/Procedures Done in Hospital Allergies/Adverse Reactions: Allergies morphine Allergy (Verified 06/10/18 09:09) Rash - Type of Care/Length of Stay Estimated LOS: Convalescent Care Less Than 30 days Type of Care Needed: Skilled Rehab Potential: Fair Prognosis: Fair - Additional Orders/Day of Discharge Day of Discharge: 06/15/18 - Dietary and Speech Recommendations Dietitian Recommendations/Changes: Continue cardiac diet and ONS- consistency per AUDIO VISUAL ENGINEER. - Follow Up Care Primary Care Physician: Tristin Marks [Primary Care Provider] - Please follow up with your Primary Care Physician in: in 1-2 week Please Follow Up With: Juan M Lemon DO When: in 3-4 week Please Follow Up With: Dominic Pack MD When: in 4 week
--- NOTE | 2018-06-15 11:51 | DS.PCM_ITS ---
Discharge Date and Diagnosis Date of Admission: 06/10/18 Date of Discharge: 06/15/18 - Primary Discharge Diagnosis Active and Suspected Problems Severe sepsis (Acute) Healthcare-associated pneumonia (Acute) UTI (urinary tract infection) (Acute) Hypoxemia (Acute) Thrombocytopenia (Acute) - Secondary Discharge Diagnosis Chronic Problems COPD (chronic obstructive pulmonary disease) (Chronic) History of lung cancer (Chronic) Cirrhosis (Chronic) Chronic respiratory failure with hypoxia (Chronic) Hypertension (Chronic) Depression (Chronic) Hospital Course and Treatment Summary of Care Provided: [] There is a 77 gentleman with history of COPD, chronic hypoxic respiratory failure on 4 L of home oxygen, lung cancer as per chart was admitted with shortness of breath, fever, tachypnea and acute on chronic hypoxic respiratory failure. 1. Sepsis secondary to viral RSV B and most probably bacterial superinfection healthcare associated pneumonia/acute hypoxic respiratory failure and metabolic encephalopathy secondary to pneumonia/MRSA UTI on baseline interstitial lung disease - -Lactate has resolved to 1.7. Patient still has low-grade temperature, 99.7 and 100.6 Fahrenheit on 06/11. - Influenza tests are negative. Blood cultures were negative for more than 48 hours. -Strep and Legionella urine antigens are negative. Respiratory panel positive of RSV B Repeat chest x-ray shows interstitial groundglass opacity predominantly in the right mid and lower lung. It seems fibrosis and possible scarring. Pulmonary consult reviewed and appreciated. No further need for inpatient pulmonary workup. Patient had total 5 days of IV Zosyn and vancomycin initially which was switched to Bactrim DS. Patient completed 5 days of MRSA UTI treatment. Scripts given for Augmentin. Advised to continue same medication and follow-up in pulmonary clinic MRSA UTI most probably secondary to Fuchs catheterization, CAUTI: Fuchs catheter was removed. Urine culture shows MRSA 11,000-25,000. This was discussed with Dr. Pool and he advised total of 7 days of MRSA treatment. Patient already had about 5 days of vancomycin which was switched to Bactrim DS. Patient needs 3 more days of Bactrim which was ordered. 2. Acute on chronic combined systolic and diastolic heart failure with elevated BNP: BNP elevated 4237. Continue Lasix 40 mg IV daily. 2D echo was done and shows EF 35% with LA mildly enlarged. Systolic segmental dysfunction. Normal tricuspid valve with unable to estimate RVSP with technically difficult study. Moderate mitral annular calcification with trivial MR. No pericardial effusion 2. Hypertension/hyperlipidemia/edema -Stable -Can restart blood pressure medications today -Continue with simvastatin 3. GERD -Stable -Continue with PPI 4. BPH -Stable -Continue with Flomax and finasteride 5. COPD -No wheezing on exam to think that this is an exacerbation -Can continue his DuoNeb as needed 6. Hypothyroidism -Stable -Continue with Synthroid Chronic thrombocytopenia: Patient platelet count was 104,000 in January 2018. On this admission, patient came with 59,000 with slow improvement 81,000. Patient is moderate to high risk for DVT. Continue Lovenox 40 minutes subcu daily. Platelet count is stable. Discontinue if platelet count drops less than 70,000 or hemoglobin less than 8 g% Discussed with the patient's daughter, [phone] regarding hospice care. Patient's daughter will further discuss with the patient's . Patient follows with palliative [facility] and [facility]. Microbiology Past 72 Hours 06/10/18 09:10 Blood Culture (Wb) - Left Hand Blood Culture - Final No growth in 5 days. 06/10/18 09:10 Blood Culture (Wb) - Anticubital Right Blood Culture - Final No growth in 5 days. 06/13/18 07:24 Mucosa - Nasopharyngeal Respiratory Panel (PCR) - Final RSV B Laboratory Results 06/15/18 04:35: Sodium 143, Potassium 3.2 L, Chloride 102, Carbon Dioxide 31.0, Anion Gap 10, BUN 21 H, Creatinine 1.13, Estim Creat Clear Calc 51.69, Est GFR (MDRD) Af Amer 81, Est GFR (MDRD) Non-Af 67, BUN/Creatinine Ratio 18.6, Glucose 87, Calcium 8.6 Subjective: Seen and examined. Patient is awake and alert. Patient is talking. Patient being held by physical therapist to walk a few steps. Objective: General: Alert, Cooperative, oriented to this in person but not time HEENT: Atraumatic, PERRLA, EOMI, Normocephalic Neck: Supple, No JVD, Negative Carotid Bruits Lungs: Diminished - Air entry diminished. Bilateral rhonchi, Rales, Rhonchi, mild shortness of breath on exertion, seems his baseline Cardiovascular: Regular rate, Regular Rhythm, Normal S1, Normal S2, No murmurs Abdomen: Bowel Sounds Present, Soft, Non Tender, Non-Distended Extremities: No edema, Capillary Refill Less than 3 Seconds Skin: No rashes, No breakdown Musculoskeletal: No Tenderness to Palpation of Joints or Extremities, Arthritic Changes, Muscle Wasting Neurological: Cranial nerves II-XII grossly intact, Deep Tendon Reflexes 2+/4 and Symmetrical Psych/Mental Status: Normal Affect, Appropriate - Physical Exam General: Alert, Oriented x3, Cooperative HEENT: Atraumatic, PERRLA, EOMI, Normocephalic Neck: Supple, No JVD, Negative Carotid Bruits Lungs: Clear to auscultation, Normal air movement Cardiovascular: Regular rate, Normal S1, Normal S2, No murmurs Abdomen: Bowel Sounds Present, Soft, Non Tender, Non-Distended Extremities: No edema, Capillary Refill Less than 3 Seconds Skin: No rashes, No breakdown Musculoskeletal: No Tenderness to Palpation of Joints or Extremities, Arthritic Changes, Muscle Wasting Lymphatic: No Cervical, Supraclavicular, or Inguinal Adenopathy Neurological: Cranial nerves II-XII grossly intact, Deep Tendon Reflexes 2+/4 and Symmetrical, Neuro grossly intact, - - No focal neurological DEFECIT. Psych/Mental Status: Normal Affect, Appropriate Vital Signs Temp Pulse Resp BP Pulse Ox 98.5 F 82 17 127/70 H 96 06/15/18 08:02 06/15/18 10:56 06/15/18 08:02 06/15/18 08:02 06/15/18 08:02 Oxygen Flow Rate (L/min) 4 Oxygen Delivery Method Nasal Cannula Weight: 142 lb 10.225 oz Body Mass Index (BMI) 21.0 Intake and Output for Last 24 Hours 06/13/18 06/14/18 06/15/18 23:59 23:59 23:59 Intake Total 778 / 778 500 / 500 212.4 / 212.4 Balance 778 / 778 500 / 500 212.4 / 212.4 Microbiology Past 72 Hours 06/10/18 09:10 Blood Culture - Final Blood Culture (Wb) - Left Hand No growth in 5 days. 06/10/18 09:10 Blood Culture - Final Blood Culture (Wb) - Anticubital Right No growth in 5 days. 06/13/18 07:24 Respiratory Panel (PCR) - Final Mucosa - Nasopharyngeal RSV B 06/10/18 09:25 Urine Culture - Final Urine, Catheterized Meth. resistant Staph. aureus Laboratory Tests Past 24 Hrs 06/15/18 04:35 Sodium 143 Potassium 3.2 L Chloride 102 Carbon Dioxide 31.0 Anion Gap 10 BUN 21 H Creatinine 1.13 Estim Creat Clear Calc 51.69 Est GFR (MDRD) Af Amer 81 Est GFR (MDRD) Non-Af 67 BUN/Creatinine Ratio 18.6 Glucose 87 Calcium 8.6 Home Medications: Medications to take at Discharge Ascorbic Acid [Vitamin C] 1,000 mg PO DAILY 05/13/18 Cholecalciferol (VIT D3) [Vitamin D3] 2,000 unit PO DAILY 05/13/18 Clonazepam [Klonopin] 0.5 mg PO TID 05/13/18 Diltiazem HCl [Diltiazem 24Hr Cd] 120 mg PO DAILY 05/13/18 Duloxetine Hcl [Cymbalta] 30 mg PO DAILY 05/13/18 Ferrous Sulfate 325 mg PO BIDCM 05/13/18 Finasteride [Proscar] 5 mg PO DAILY 05/13/18 Furosemide [Lasix] 80 mg PO DAILY 05/13/18 Ipratropium/Albuterol Sulfate [Duoneb] 3 ml INHALATION Q4H 05/13/18 Lactobacillus Acidophilus [Acidophilus] 1 each PO BID 05/13/18 Levothyroxine [Synthroid] 100 mcg PO DAILY 05/13/18 Metoprolol Tartrate [Lopressor (beta yesenia)] 50 mg PO BID 05/13/18 Multivitamins,Therapeutic [Multivitamin] 1 tablet PO DAILY 05/13/18 Omeprazole [Prilosec] 40 mg PO DAILY 05/13/18 Polyethylene Glycol 3350 [Miralax] 17 gm PO DAILY 05/13/18 Potassium Chloride 1 tab PO DAILY 05/13/18 Senna [Senokot] 1 tablet PO BID 05/13/18 Simvastatin [Zocor] 20 mg PO QHS 05/13/18 Tamsulosin HCl [Flomax] 0.4 mg PO DAILY 05/13/18 fentaNYL patch [Duragesic Patch] 12 mcg TRANSDERM. Q3D 05/13/18 Acetaminophen 650 mg PO Q6H PRN PRN 06/10/18 Albuterol Inhaler [Ventolin Hfa] 2 puff INHALATION Q4H PRN PRN 06/10/18 Bisacodyl [Dulcolax] 10 mg RECTAL DAILY PRN PRN 06/10/18 Bisacodyl [Laxative] 5 mg PO DAILY 06/10/18 Clonazepam [Klonopin] 0.5 mg PO BID PRN PRN 06/10/18 Ipratropium/Albuterol Sulfate [Duoneb] 3 ml INHALATION Q4H PRN PRN 06/10/18 Isosorbide Mononitrate [Imdur] 30 mg PO DAILY 06/10/18 Magnesium Hydroxide [Milk Of Magnesia] 30 ml PO DAILY PRN PRN 06/10/18 Ondansetron [Zofran Odt] 4 mg PO Q8H PRN PRN 06/10/18 Oxycodone [Oxyir] 5 mg PO Q4H PRN PRN 06/10/18 Amoxicillin/Potassium Clav [Augmentin 875-125 Tablet] 1 ea PO BID #6 tab 06/15/18 Guaifenesin [Mucinex] 600 mg PO BID #0 06/15/18 Haloperidol Lactate 0.5 mg PO BID PRN PRN udc 06/15/18 Nortriptyline HCl [Pamelor] 25 mg PO DAILY #0 06/15/18 Sulfamethoxazole/Trimethoprim [Bactrim Ds Tablet] 1 each PO BID #7 tablet 06/15/18 Following Prescrptions Were Given to Patient: Amoxicillin/Potassium Clav [Augmentin 875-125 Tablet] 1 ea PO BID #6 tab Sulfamethoxazole/Trimethoprim [Bactrim Ds Tablet] 1 each PO BID #7 tablet Primary Care Physician: Tristin Marks [Primary Care Provider] - Please follow up with your Primary Care Physician in: in 1-2 week Please Follow Up With: Juan M Lemon DO When: in 3-4 week Medical Necessity - Tobacco Use Smoking Status: Former smoker Tobacco Use: Cigarettes Meaningful Use Info Meaningful Use Diagnoses (Choose all that apply): None applicable Code Visit Inpatient E&M: 12557 [facility] Hosp
--- NOTE | 2018-06-15 13:32 | PCM.PROGNOTE ---
Subjective: The patient was seen and examined at the bedside this morning. Events from the last 24 hours have been reviewed. The patient is currently afebrile, hemodynamically stable and maintaining appropriate oxygen saturations on his baseline 4 L/min requirement. There are tentative plans for discharge to custodial facility today. Objective: The patient's most recent lab work, culture data and imaging studies have all been personally reviewed. Blood cultures have shown no growth to date. Rapid influenza screen was negative. Strep and urine Legionella antigens were both negative. Urine culture was positive for MRSA. Surface echocardiogram dated June 13 revealed moderate segmental systolic dysfunction with an ejection fraction of 35%. - Physical Exam General: Alert, No apparent distress HEENT: Atraumatic, PERRLA, Normocephalic Oral: No Gingival or Mucosal Lesions/ Ulcerations Neck: Supple, No Nodes, Trachea Midline Lungs: No rhonchi, No wheeze, Diminished, Rales Cardiovascular: Regular rate, Regular Rhythm, Normal S1, Normal S2, No murmurs Abdomen: Bowel Sounds Present, Soft, Non Tender Extremities: No clubbing, No cyanosis, No edema Skin: No breakdown Musculoskeletal: No Tenderness to Palpation of Joints or Extremities, No Muscle Wasting Lymphatic: No Cervical, Supraclavicular, or Inguinal Adenopathy Neurological: Neuro grossly intact Psych/Mental Status: Normal Affect Vital Signs Temp Pulse Resp BP Pulse Ox 36.4 C L 71 18 115/66 96 06/15/18 13:13 06/15/18 13:13 06/15/18 13:13 06/15/18 13:13 06/15/18 13:13 Oxygen Flow Rate (L/min) 4 Oxygen Delivery Method Nasal Cannula Weight: 142 lb 10.225 oz Body Mass Index (BMI) 21.0 Intake and Output for Last 24 Hours 06/13/18 06/14/18 06/15/18 23:59 23:59 23:59 Intake Total 778 / 778 500 / 500 596.4 / 596.4 Balance 778 / 778 500 / 500 596.4 / 596.4 Microbiology Past 72 Hours 06/10/18 09:10 Blood Culture - Final Blood Culture (Wb) - Left Hand No growth in 5 days. 06/10/18 09:10 Blood Culture - Final Blood Culture (Wb) - Anticubital Right No growth in 5 days. 06/13/18 07:24 Respiratory Panel (PCR) - Final Mucosa - Nasopharyngeal RSV B Laboratory Tests Past 24 Hrs 06/15/18 04:35 Sodium 143 Potassium 3.2 L Chloride 102 Carbon Dioxide 31.0 Anion Gap 10 BUN 21 H Creatinine 1.13 Estim Creat Clear Calc 51.69 Est GFR (MDRD) Af Amer 81 Est GFR (MDRD) Non-Af 67 BUN/Creatinine Ratio 18.6 Glucose 87 Calcium 8.6 Clinical Impression(s) from Imaging Studies Chest X-Ray 06/10/18 09:10 IMPRESSION: Overall similar appearance of interstitial chronic markings compared to previous exam with no definitive new airspace disease. Acute on chronic right lower lobe early airspace disease cannot be completely excluded. Electronically Signed: Ihsan Conway DO at 10:06 EST , Service support , Chest X-Ray 06/12/18 14:20 IMPRESSION: Right lower lung infiltrate or edema and pleural thickening or small effusion with mild worsening. Electronically Signed: Arnol Kessler MD at 15:24 EST , Service support , Medical Necessity - Tobacco Use Smoking Status: Former smoker Tobacco Use: Cigarettes Assessment/Plan All Active Problems Altered level of consciousness (Acute) Anemia (Acute) Encephalopathy (Acute) Severe sepsis (Acute) Healthcare-associated pneumonia (Acute) UTI (urinary tract infection) (Acute) Hypoxemia (Acute) Thrombocytopenia (Acute) RECOMMENDATIONS: 1. Continue treatment with antibiotics for HCAP with plans to complete a 7-day treatment course. 2. Continue Lasix. 3. Continue as needed aerosol treatments. 4. No additional inpatient workup from a pulmonary perspective is indicated at this time. 5. If the patient or his family wishes to pursue any additional pulmonary workup, this can be completed on an outpatient basis, by obtaining pulmonary function studies. IMPRESSIONS: 1. Acute on chronic hypoxemic respiratory failure secondary to healthcare associated pneumonia The patient does have what appears to be evidence of a right lung airspace opacity, likely representing pneumonia. He has responded clinically to antimicrobials and is currently afebrile and maintaining appropriate oxygen saturations on his baseline 4 L/min. Groundglass changes are very difficult to discern on plain film chest imaging. The patient does not have a prior CT chest on file. Regardless, groundglass changes can be indicative of underlying infection or pulmonary edema. It is presumptuous to assume that the patient has interstitial lung disease without a dedicated chest CT or prior chest imaging studies to review. Regardless, the interstitial changes are present on prior chest imaging studies in our system, date back to January 2018, indicating a chronic process. He does appear to have an acute superimposed right-sided airspace opacity, which is currently being treated appropriately. In addition to the aforementioned, the patient also reportedly has a history of lung cancer and questionable COPD. However, there are no pulmonary function studies on file to confirm or refute this assertion. The patient can follow-up in the pulmonary medicine clinic, if he wishes to do so, so that baseline pulmonary function testing can be obtained. 2. MRSA cystitis Continue antibiotics as ordered. 3. Questionable COPD of unknown severity/history of lung cancer, reportedly in remission It is unclear whether the patient has ever had pulmonary function studies or follows with a pulmonary provider. His lung cancer history is also unclear. Regardless, as needed aerosol treatments can be continued in the interim. The patient can follow-up on an outpatient basis in the pulmonary medicine clinic, if additional workup is indicated. 4. Encephalopathy Likely metabolic in nature with concerns for potential medication effects, as the patient is currently receiving scheduled Klonopin, Haldol and transdermal fentanyl patch. 5. Advanced age/deconditioning/dementia/hypothyroidism/chronic pain disorder/hypertension/hyperlipidemia Complicates care, management, recovery and prognosis. This note was generated with [employer] dictation software. It may contain incorrect words, spelling, and punctuation that were not noted in checking the note before signing. Code Visit Inpatient E&M: 38253 Subs Hosp L2
--- NOTE | 2018-06-15 14:18 | CASEMGMT ---
Patient is ready for discharge back to [facility]. BRIANNE faxed orders. BRIANNE called [facility] and arranged for patient to get picked up at 4p via cot. BRIANNE called patient's daughter and let her know. BRIANNE also left a message for [facility] in admissions. [facility] RN was also notified. Plan: d/c back to [facility] under skilled level of care. [facility] transported patient via cot. Araceli ROD MSW
== END 2018-06-15 17:00 | disposition skilled nursing facility (03) | DRG 871 ==
LOC: ED 10:21 → PCU 10:34
PROVIDERS: Internal Medicine Critical Care Medicine; Admitting Provider Family Medicine; Emergency Provider Emergency Medicine; Family Provider Internal Medicine; PCP Internal Medicine; Visit Provider Internal Medicine
DX: A41.89 Other specified sepsis (principal); G93.41 Metabolic encephalopathy; J96.21 Acute and chronic respiratory failure with hypoxia; J15.9 Unspecified bacterial pneumonia; I50.43 Acute on chronic combined systolic (congestive) and diastolic (congestive) heart failure; T83.518A Infection and inflammatory reaction due to other urinary catheter, initial encounter; J84.9 Interstitial pulmonary disease, unspecified; C34.90 Malignant neoplasm of unspecified part of unspecified bronchus or lung; J44.0 Chronic obstructive pulmonary disease with (acute) lower respiratory infection; N30.90 Cystitis, unspecified without hematuria; R65.20 Severe sepsis without septic shock; B97.4 Respiratory syncytial virus as the cause of diseases classified elsewhere; E78.5 Hyperlipidemia, unspecified; E03.9 Hypothyroidism, unspecified; Z99.81 Dependence on supplemental oxygen; Y95 Nosocomial condition; B95.62 Methicillin resistant Staphylococcus aureus infection as the cause of diseases classified elsewhere; I11.0 Hypertensive heart disease with heart failure; K21.9 Gastro-esophageal reflux disease without esophagitis; N40.0 Benign prostatic hyperplasia without lower urinary tract symptoms; D69.6 Thrombocytopenia, unspecified; Z66 Do not resuscitate; Z87.891 Personal history of nicotine dependence; Z85.118 Personal history of other malignant neoplasm of bronchus and lung
CPT/HCPCS: 36415; 36600; 51702; 71045; 71046; 80048; 80053; 80202; 81001; 82803; 83605; 83735; 83880; 84484; 85025; 85610; 85730; 87040; 87077; 87086; 87088; 87186; 87449; 87633; 87804; 93005; 93306; 97162; 97165; 97530; 97535; 99285; J7030; J7050; Q9957; A4216; J1940